=== PATIENT | female | born 1945 | race Caucasian/White ===

== ENCOUNTER 2016-04-25 21:29 | Emergency (ER) | payer MEDICARE, OTHER ==
[2016-04-25] MEDS ORDERED: MORPHINE 2 MG/ML SYRINGE IVP STA (22:18)
[2016-04-25] MEDS ORDERED: MORPHINE 2 MG/ML SYRINGE ONE (23:22)
[2016-04-26] MEDS ORDERED: CIPROFLOXACIN 400 MG/200 ML 200 ML IV STA (03:40)
[2016-04-26] MEDS ORDERED: CIPROFLOXACIN 400 MG/200 ML 200 ML IV ONE (03:44)
== END 2016-04-26 06:08 | disposition home or self-care (01) ==
DX: L03.116 Cellulitis of left lower limb (principal); S82.842D Displaced bimalleolar fracture of left lower leg, subsequent encounter for closed fracture with routine healing; E10.9 Type 1 diabetes mellitus without complications; Z79.4 Long term (current) use of insulin; I10 Essential (primary) hypertension; I48.91 Unspecified atrial fibrillation; M19.90 Unspecified osteoarthritis, unspecified site; M85.80 Other specified disorders of bone density and structure, unspecified site; M10.9 Gout, unspecified

== ENCOUNTER 2016-05-07 12:30 | Inpatient (IN) | payer MEDICARE, OTHER ==
[~2016-05-07 12:30] MED LIST: ceFAZolin 2 GM/50 ML 50 ML IV ONE
[2016-05-07] MEDS ORDERED: LACTATED RINGERS 1,000 ML IV ONE (13:00)
[2016-05-07] MEDS ORDERED: METOPROLOL 5 MG/5 ML VIAL IVP ONE (14:15)
[2016-05-07] MEDS ORDERED: DEXAMETHASONE 4 MG/ML VIAL IVP ONE (14:15)
[2016-05-07] MEDS ORDERED: fentaNYL 100 MCG/2 ML VIAL IVP ONE (14:15)
[2016-05-07] MEDS ORDERED: PROPOFOL 200 MG/20 ML VIAL IVP ONE (14:15)
[2016-05-07] MEDS ORDERED: ONDANSETRON 4 MG/2 ML VIAL IVP ONE (14:15)
[2016-05-07] MEDS ORDERED: MIDAZOLAM 2 MG/2 ML VIAL IVP ONE (14:15)
[2016-05-07] MEDS ORDERED: LIDOCAINE-MPF 2% 5 ML VIAL IM ONE (14:15)
[2016-05-07] MEDS ORDERED: DEXTROSE 50% ABBOJECT 25 GM/50 ML SYRINGE ONE (15:13)
[2016-05-07] MEDS ORDERED: SENNA 8.6 MG TABLET PO PRN (15:14)
[2016-05-07] MEDS ORDERED: BISACODYL 10 MG SUPP PR PRN (15:14)
[2016-05-07] MEDS ORDERED: ACETAMINOPHEN 1,000 MG/100 ML 100 ML IV PRN ×2 (15:14→15:36)
[2016-05-07] MEDS ORDERED: ONDANSETRON 4 MG/2 ML VIAL IVP PRN ×2 (15:14→15:36)
[2016-05-07] MEDS ORDERED: PROCHLORPERAZINE 10 MG/2 ML VIAL IVP PRN ×2 (15:14→15:36)
[2016-05-07] MEDS ORDERED: ACETAMINOPHEN 325 MG TABLET PO PRN ×2 (15:14→15:36)
[2016-05-07] MEDS ORDERED: BISACODYL 5 MG TABLET PO PRN (15:14)
[2016-05-07] MEDS ORDERED: SODIUM CHLORIDE FLUSH 0.9% 10 ML SYRINGE IVP PRN (15:36)
[2016-05-07] MEDS: HYDROmorphone 1 MG/ML SYRINGE IVP PRN ×3 (15:39→15:58)
[2016-05-07] MEDS ORDERED: ceFAZolin 1 GM in SODIUM CHLORIDE 0.9% MINIBAG 100 ML IV SCH (16:00)
[2016-05-07] MEDS: ceFAZolin 2 GM/50 ML 50 ML IV SCH (20:23)
[2016-05-07] MEDS: ATORVASTATIN 40 MG TABLET PO SCH (20:23)
[2016-05-07] MEDS: DABIGATRAN 75 MG CAPSULE PO SCH (20:24)
[2016-05-07] MEDS ORDERED: DEXTROSE GEL 37.5 GM TUBE PO PRN (20:34)
[2016-05-07] MEDS ORDERED: GLUCAGON 1 MG/ML VIAL SUBQ PRN (20:34)
[2016-05-07] MEDS ORDERED: DEXTROSE 5% 1,000 ML IV PRN (20:34)
[2016-05-07] MEDS ORDERED: DEXTROSE 50% ABBOJECT 25 GM/50 ML SYRINGE IVP PRN (20:34)
[2016-05-07] MEDS ORDERED: INSULIN GLARGINE 30 UNIT SQ SCH (21:00)
[2016-05-07] MEDS: INSULIN GLARGINE 300 UNIT/3 ML PEN SUBQ SCH (21:19)
[2016-05-07] MEDS ORDERED: SODIUM CHLORIDE FLUSH 0.9% 10 ML SYRINGE IVP SCH (22:00)
[2016-05-07] MEDS: SODIUM CHLORIDE FLUSH 0.9% 10 ML SYRINGE IVP SCH (22:27)
[2016-05-08] MEDS: ceFAZolin 2 GM/50 ML 50 ML IV SCH (04:29)
[2016-05-08] MEDS: PANTOPRAZOLE 40 MG TABLET PO SCH (06:39)
[2016-05-08] MEDS: SODIUM CHLORIDE FLUSH 0.9% 10 ML SYRINGE IVP SCH ×3 (06:39→21:08)
[2016-05-08] MEDS: POLYETHYLENE GLYCOL 3350 17 GM PACKET PO SCH (08:30)
[2016-05-08] MEDS: PIOGLITAZONE 15 MG TABLET PO SCH (08:31)
[2016-05-08] MEDS: CYANOCOBALAMIN 500 MCG TABLET PO SCH (08:31)
[2016-05-08] MEDS: metFORMIN 500 MG TABLET PO SCH ×2 (08:31→17:09)
[2016-05-08] MEDS: LISINOPRIL 5 MG TABLET PO SCH (08:32)
[2016-05-08] MEDS: CITALOPRAM 10 MG TABLET PO SCH (08:32)
[2016-05-08] MEDS: DABIGATRAN 75 MG CAPSULE PO SCH ×2 (08:33→21:07)
[2016-05-08] MEDS: FOLIC ACID 1 MG TABLET PO SCH (08:34)
[2016-05-08] MEDS: buPROPion XL 150 MG TABLET PO SCH (08:34)
[2016-05-08] MEDS: PRENATAL VITAMIN TABLET PO SCH (08:34)
[2016-05-08] MEDS: DIGOXIN 125 MCG TABLET PO SCH (08:35)
[2016-05-08] MEDS: INSULIN ASPART 300 UNIT/3 ML PEN SUBQ SCH ×4 (08:38→21:05)
[2016-05-08] MEDS ORDERED: DABIGATRAN 75 MG CAPSULE PO SCH (09:00)
[2016-05-08] MEDS ORDERED: DIGOXIN 125 MCG TABLET PO SCH (09:00)
[2016-05-08] MEDS ORDERED: NON FORMULARY MED (Lisinopril [Lisinopril] 20 MG) PO SCH (09:00)
[2016-05-08] MEDS ORDERED: ATENOLOL 25 MG TABLET PO SCH (09:00)
[2016-05-08] MEDS: VITAMIN B COMPLEX PO SCH (10:09)
[2016-05-08] MEDS ORDERED: ceFAZolin 2 GM in SODIUM CHLORIDE 0.9% MINIBAG 100 ML IV ONE (16:00)
[2016-05-08] MEDS ORDERED: ceFAZolin 1 GM in SODIUM CHLORIDE 0.9% MINIBAG 100 ML IV SCH (16:00)
[2016-05-08] MEDS ORDERED: ceFAZolin 2 GM/50 ML 50 ML IV ONE (16:30)
[2016-05-08] MEDS: SODIUM CHLORIDE FLUSH 0.9% 10 ML SYRINGE IVP PRN (16:40)
[2016-05-08] MEDS: ATORVASTATIN 40 MG TABLET PO SCH (21:06)
[2016-05-08] MEDS: INSULIN GLARGINE 300 UNIT/3 ML PEN SUBQ SCH (21:11)
[2016-05-09] MEDS: PANTOPRAZOLE 40 MG TABLET PO SCH (17:43)
[2016-05-09] MEDS: SODIUM CHLORIDE FLUSH 0.9% 10 ML SYRINGE IVP SCH ×3 (17:43→20:43)
[2016-05-09] MEDS: ceFAZolin 1 GM in SODIUM CHLORIDE 0.9% MINIBAG 100 ML IV SCH ×3 (17:43→17:46)
[2016-05-09] MEDS: CITALOPRAM 10 MG TABLET PO SCH (17:44)
[2016-05-09] MEDS: buPROPion XL 150 MG TABLET PO SCH (17:44)
[2016-05-09] MEDS: metFORMIN 500 MG TABLET PO SCH ×2 (17:44→20:40)
[2016-05-09] MEDS: DIGOXIN 125 MCG TABLET PO SCH (17:44)
[2016-05-09] MEDS: PRENATAL VITAMIN TABLET PO SCH (17:44)
[2016-05-09] MEDS: FOLIC ACID 1 MG TABLET PO SCH (17:44)
[2016-05-09] MEDS: LISINOPRIL 5 MG TABLET PO SCH (17:44)
[2016-05-09] MEDS: VITAMIN B COMPLEX PO SCH (17:44)
[2016-05-09] MEDS: DABIGATRAN 75 MG CAPSULE PO SCH ×2 (17:44→20:42)
[2016-05-09] MEDS: CYANOCOBALAMIN 500 MCG TABLET PO SCH (17:44)
[2016-05-09] MEDS: INSULIN ASPART 300 UNIT/3 ML PEN SUBQ SCH ×4 (17:44→20:42)
[2016-05-09] MEDS: POLYETHYLENE GLYCOL 3350 17 GM PACKET PO SCH (17:45)
[2016-05-09] MEDS: PIOGLITAZONE 15 MG TABLET PO SCH (17:45)
[2016-05-09] MEDS: ATORVASTATIN 40 MG TABLET PO SCH (20:41)
[2016-05-09] MEDS: INSULIN GLARGINE 300 UNIT/3 ML PEN SUBQ SCH (20:43)
[2016-05-09] MEDS: HYDROmorphone 1 MG/ML SYRINGE IVP PRN (21:18)
[2016-05-09] MEDS ORDERED: KETOROLAC 30 MG/ML VIAL IVP PRN (22:04)
[2016-05-09] MEDS: HYDROcod/ACETAM 5/325 MG TABLET PO PRN (22:19)
[2016-05-10] MEDS: ceFAZolin 1 GM in SODIUM CHLORIDE 0.9% MINIBAG 100 ML IV SCH ×3 (00:30→16:49)
[2016-05-10] MEDS: HYDROmorphone 1 MG/ML SYRINGE IVP PRN ×2 (01:12→03:29)
[2016-05-10] MEDS: SODIUM CHLORIDE FLUSH 0.9% 10 ML SYRINGE IVP PRN (03:31)
[2016-05-10] MEDS: SODIUM CHLORIDE FLUSH 0.9% 10 ML SYRINGE IVP SCH ×3 (06:39→22:03)
[2016-05-10] MEDS: PANTOPRAZOLE 40 MG TABLET PO SCH (06:40)
[2016-05-10] MEDS: POLYETHYLENE GLYCOL 3350 17 GM PACKET PO SCH (08:39)
[2016-05-10] MEDS: PRENATAL VITAMIN TABLET PO SCH (08:40)
[2016-05-10] MEDS: buPROPion XL 150 MG TABLET PO SCH (08:40)
[2016-05-10] MEDS: DABIGATRAN 75 MG CAPSULE PO SCH ×2 (08:40→21:46)
[2016-05-10] MEDS: FOLIC ACID 1 MG TABLET PO SCH (08:40)
[2016-05-10] MEDS: CYANOCOBALAMIN 500 MCG TABLET PO SCH (08:40)
[2016-05-10] MEDS: CITALOPRAM 10 MG TABLET PO SCH (08:40)
[2016-05-10] MEDS: HYDROcod/ACETAM 5/325 MG TABLET PO PRN ×2 (08:40→21:46)
[2016-05-10] MEDS: VITAMIN B COMPLEX PO SCH (08:41)
[2016-05-10] MEDS: PIOGLITAZONE 15 MG TABLET PO SCH (08:41)
[2016-05-10] MEDS: LISINOPRIL 5 MG TABLET PO SCH (08:41)
[2016-05-10] MEDS: DIGOXIN 125 MCG TABLET PO SCH (08:41)
[2016-05-10] MEDS: INSULIN ASPART 300 UNIT/3 ML PEN SUBQ SCH ×4 (08:45→22:03)
[2016-05-10] MEDS: metFORMIN 500 MG TABLET PO SCH ×2 (09:24→16:50)
[2016-05-10] MEDS: INSULIN GLARGINE 300 UNIT/3 ML PEN SUBQ SCH (21:45)
[2016-05-10] MEDS: ATORVASTATIN 40 MG TABLET PO SCH (21:46)
[2016-05-11] MEDS: HYDROmorphone 1 MG/ML SYRINGE IVP PRN (00:01)
[2016-05-11] MEDS: SODIUM CHLORIDE FLUSH 0.9% 10 ML SYRINGE IVP PRN ×4 (00:01→16:17)
[2016-05-11] MEDS: PANTOPRAZOLE 40 MG TABLET PO SCH (06:03)
[2016-05-11] MEDS: SODIUM CHLORIDE FLUSH 0.9% 10 ML SYRINGE IVP SCH ×3 (06:04→22:08)
[2016-05-11] MEDS: HYDROcod/ACETAM 5/325 MG TABLET PO PRN ×3 (06:13→18:42)
[2016-05-11] MEDS: CITALOPRAM 10 MG TABLET PO SCH (09:50)
[2016-05-11] MEDS: ceFAZolin 1 GM in SODIUM CHLORIDE 0.9% MINIBAG 100 ML IV SCH ×4 (09:50→16:15)
[2016-05-11] MEDS: INSULIN ASPART 300 UNIT/3 ML PEN SUBQ SCH ×4 (09:50→22:07)
[2016-05-11] MEDS: buPROPion XL 150 MG TABLET PO SCH (09:51)
[2016-05-11] MEDS: FOLIC ACID 1 MG TABLET PO SCH (09:51)
[2016-05-11] MEDS: PIOGLITAZONE 15 MG TABLET PO SCH (09:51)
[2016-05-11] MEDS: PRENATAL VITAMIN TABLET PO SCH (09:51)
[2016-05-11] MEDS: LISINOPRIL 5 MG TABLET PO SCH (09:51)
[2016-05-11] MEDS: DABIGATRAN 75 MG CAPSULE PO SCH ×2 (09:52→22:05)
[2016-05-11] MEDS: metFORMIN 500 MG TABLET PO SCH ×2 (09:52→18:43)
[2016-05-11] MEDS: DIGOXIN 125 MCG TABLET PO SCH (09:52)
[2016-05-11] MEDS: POLYETHYLENE GLYCOL 3350 17 GM PACKET PO SCH (09:58)
[2016-05-11] MEDS: VITAMIN B COMPLEX PO SCH (10:01)
[2016-05-11] MEDS: CYANOCOBALAMIN 500 MCG TABLET PO SCH (10:09)
[2016-05-11] MEDS: INSULIN GLARGINE 300 UNIT/3 ML PEN SUBQ SCH (22:05)
[2016-05-11] MEDS: ATORVASTATIN 40 MG TABLET PO SCH (22:05)
[2016-05-12] MEDS: HYDROcod/ACETAM 5/325 MG TABLET PO PRN ×2 (00:02→15:43)
[2016-05-12] MEDS: HYDROmorphone 1 MG/ML SYRINGE IVP PRN (02:01)
[2016-05-12] MEDS: SODIUM CHLORIDE FLUSH 0.9% 10 ML SYRINGE IVP PRN ×2 (02:02→05:13)
[2016-05-12] MEDS: PANTOPRAZOLE 40 MG TABLET PO SCH (05:16)
[2016-05-12] MEDS: SODIUM CHLORIDE FLUSH 0.9% 10 ML SYRINGE IVP SCH ×2 (05:16→14:14)
[2016-05-12] MEDS: ceFAZolin 1 GM in SODIUM CHLORIDE 0.9% MINIBAG 100 ML IV SCH ×3 (08:38)
[2016-05-12] MEDS: POLYETHYLENE GLYCOL 3350 17 GM PACKET PO SCH (08:38)
[2016-05-12] MEDS: LISINOPRIL 5 MG TABLET PO SCH (08:39)
[2016-05-12] MEDS: PIOGLITAZONE 15 MG TABLET PO SCH (08:40)
[2016-05-12] MEDS: PRENATAL VITAMIN TABLET PO SCH (08:41)
[2016-05-12] MEDS: CITALOPRAM 10 MG TABLET PO SCH (08:41)
[2016-05-12] MEDS: buPROPion XL 150 MG TABLET PO SCH (08:42)
[2016-05-12] MEDS: FOLIC ACID 1 MG TABLET PO SCH (08:42)
[2016-05-12] MEDS: DABIGATRAN 75 MG CAPSULE PO SCH (08:42)
[2016-05-12] MEDS: DIGOXIN 125 MCG TABLET PO SCH (08:42)
[2016-05-12] MEDS: CYANOCOBALAMIN 500 MCG TABLET PO SCH (08:42)
[2016-05-12] MEDS: VITAMIN B COMPLEX PO SCH (08:43)
[2016-05-12] MEDS: INSULIN ASPART 300 UNIT/3 ML PEN SUBQ SCH ×3 (08:43→17:27)
[2016-05-12] MEDS: metFORMIN 500 MG TABLET PO SCH ×2 (09:02→17:29)
== END 2016-05-12 17:30 | DRG 857 ==
PROC: 0QBK0ZZ Excision of Left Fibula, Open Approach (ICD-10-PCS; 2016-05-07)
PROC: 2W1RX6Z Compression of Left Lower Leg using Pressure Dressing (ICD-10-PCS; 2016-05-07)
PROC: 02HV33Z Insertion of Infusion Device into Superior Vena Cava, Percutaneous Approach (ICD-10-PCS; principal; 2016-05-10)
DX: T81.4XXA Infection following a procedure, initial encounter (principal); T82.594A Other mechanical complication of infusion catheter, initial encounter; T81.31XA Disruption of external operation (surgical) wound, not elsewhere classified, initial encounter; B95.61 Methicillin susceptible Staphylococcus aureus infection as the cause of diseases classified elsewhere; Y83.8 Other surgical procedures as the cause of abnormal reaction of the patient, or of later complication, without mention of misadventure at the time of the procedure; I48.2 Chronic atrial fibrillation; E11.319 Type 2 diabetes mellitus with unspecified diabetic retinopathy without macular edema; E11.42 Type 2 diabetes mellitus with diabetic polyneuropathy; I10 Essential (primary) hypertension; Y84.8 Other medical procedures as the cause of abnormal reaction of the patient, or of later complication, without mention of misadventure at the time of the procedure; Y92.239 Unspecified place in hospital as the place of occurrence of the external cause; E78.5 Hyperlipidemia, unspecified; M25.512 Pain in left shoulder; S82.842D Displaced bimalleolar fracture of left lower leg, subsequent encounter for closed fracture with routine healing; F32.9 Major depressive disorder, single episode, unspecified; I69.398 Other sequelae of cerebral infarction; H49.02 Third [oculomotor] nerve palsy, left eye; I69.393 Ataxia following cerebral infarction; E11.9 Type 2 diabetes mellitus without complications; E66.01 Morbid (severe) obesity due to excess calories; Z68.37 Body mass index [BMI] 37.0-37.9, adult; Z91.19 Patient's noncompliance with other medical treatment and regimen; Z87.891 Personal history of nicotine dependence; Z87.898 Personal history of other specified conditions; Z79.01 Long term (current) use of anticoagulants; Z79.4 Long term (current) use of insulin

== ENCOUNTER 2016-05-14 10:18 | Emergency (ER) | payer MEDICARE, OTHER ==
[2016-05-14] MEDS ORDERED: ALTEPLASE 2 MG VIAL IC ONE (11:19)
== END 2016-05-14 12:46 | disposition home or self-care (01) ==
DX: T82.898A Other specified complication of vascular prosthetic devices, implants and grafts, initial encounter (principal); Y84.8 Other medical procedures as the cause of abnormal reaction of the patient, or of later complication, without mention of misadventure at the time of the procedure; L08.9 Local infection of the skin and subcutaneous tissue, unspecified; I10 Essential (primary) hypertension; E11.9 Type 2 diabetes mellitus without complications; E78.00 Pure hypercholesterolemia, unspecified; I48.91 Unspecified atrial fibrillation; Z87.891 Personal history of nicotine dependence; Z79.4 Long term (current) use of insulin
CPT/HCPCS: 96365; 99283; J2997

== ENCOUNTER 2016-07-13 15:59 | Outpatient (CLI) | payer MEDICARE, OTHER | END 2016-07-13 16:00 | disposition critical access hospital (66) | DX: S99.912A Unspecified injury of left ankle, initial encounter (principal); W18.39XA Other fall on same level, initial encounter; Y92.89 Other specified places as the place of occurrence of the external cause | CPT/HCPCS: A0425; A0429 ==

== ENCOUNTER 2016-07-13 16:16 | Emergency (ER) | payer MEDICARE, OTHER ==
--- NOTE | 2016-07-13 16:46 | ED Physician Documentation ---
PD HPI LOWER EXT INJURY - Stated complaint Stated Complaint: R ANKLE PX/ GLF - Chief complaint Chief Complaint: Ext Problem - History obtained from History obtained from: Patient - History of Present Illness PD HPI LOW EXT INJURY LOCATION: Right, Ankle Type of injury: Twist (inversion) Timing - details: Abrupt onset, Still present Associated symptoms: Swelling (mild). No: Weakness, Numbness Similar symptoms before: Has not had sx before Review of Systems Musculoskeletal: reports: Other (left ankle with boot on due to recent injury) Neurologic: denies: Focal weakness, Numbness PD PAST MEDICAL HISTORY - Past Medical History Cardiovascular: Hypertension, High cholesterol, Atrial fibrillation Respiratory: None Neuro: CVA Endocrine/Autoimmune: Type 2 diabetes GI: Ulcers, Diverticulitis : None HEENT: None Psych: Depression Musculoskeletal: Osteopenia, Gout Derm: None - Past Surgical History Past Surgical History: Yes General: Appendectomy, Gastric surgery HEENT: Tonsil/Adenoidectomy - Present Medications Home Medications: Ambulatory Orders Medication Instructions Recorded Confirmed Insulin Glargine [Lantus] 40 units SQ QPM 09/19/13 06/22/16 Lisinopril 10 mg PO DAILY 09/19/13 06/22/16 Dabigatran [Pradaxa] 150 mg PO BID 06/25/14 06/22/16 Folic Acid 1 tab PO DAILY 04/19/15 06/22/16 Vitamin B Complex [B Complex] 1 tab PO DAILY 04/19/15 06/22/16 Metformin HCl [Metformin HCl ER] 500 mg PO BIDWM 09/16/15 06/22/16 Digoxin 125 mcg PO DAILY 04/16/16 06/22/16 Atorvastatin Calcium 80 mg PO QPM 05/07/16 06/22/16 Bupropion HCl [Bupropion Xl] 150 mg PO DAILY 05/07/16 06/22/16 Citalopram [CeleXA] 20 mg PO DAILY 05/07/16 06/22/16 Cyanocobalamin (Vitamin B-12) 1,000 mcg PO DAILY 05/07/16 06/22/16 [Vitamin B-12] Omeprazole 40 mg PO DAILY 05/07/16 06/22/16 Pioglitazone HCl 30 mg PO DAILY 05/07/16 06/22/16 Pnv95/Ferrous Fumarate/FA 1 tab PO DAILY 05/07/16 06/22/16 [ Tablet] Polyethylene Glycol 3350 [Miralax] 17 gm PO DAILY 05/07/16 06/22/16 Sitagliptin Phosphate [Januvia] 50 mg PO DAILY 05/07/16 06/22/16 Hydrocodone/Acetaminophen [[place] 1 each PO Q6H PRN #15 tablet 07/13/16 5-325 Tablet] - Allergies Allergies/Adverse Reactions: Allergies Allergy/AdvReac Type Severity Reaction Status Date / Time No Known Drug Allergies Allergy Verified 12/03/15 20:14 - Social History Does the pt smoke?: No Smoking Status: Former smoker Does the pt drink ETOH?: Yes Does the pt have substance abuse?: No - Immunizations Immunizations are current?: Yes - POLST Patient has POLST: Yes PD ED PE NORMAL - Vitals Vital signs reviewed: Yes - General General: Alert and oriented X 3, Well developed/nourished - Extremities Extremities: Other (right ankle with tenderness anteriorly. No effusion. Malleoli themselves are not tender. ) Results - Vitals Vitals: Vital Signs - 24 hr 07/13/16 07/13/16 16:21 18:43 Temperature 36.3 C L 36.1 C L Heart Rate 87 87 Respiratory 18 22 Rate Blood Pressure 132/72 H 144/85 H O2 Saturation 97 96 Oxygen O2 Source [With Activity] Room air O2 Source Room air - Rads (name of study) ankle Radiology: Prelim report reviewed, EMP read contemporaneously (no obvious fractures) PD MEDICAL DECISION MAKING - ED course Complexity details: reviewed results, considered differential, d/w patient Departure - Departure Disposition: 01 Home, Self Care Clinical Impression: Sprain of ankle Condition: Stable Record reviewed to determine appropriate education?: Yes Instructions: ED Sprain Ankle Follow-Up: More Franoc MD [Primary Care Provider] - Prescriptions: Hydrocodone/Acetaminophen [[place] 5-325 Tablet] 1 each PO Q6H PRN #15 tablet PRN Reason: Pain Comments: Ankle brace when ambulating and to support ankle. Tylenol or hydrocodone as needed for pains. Recheck with PMD if not better over the next week or so. Discharge Date/Time: 07/13/16 19:07
[2016-07-13] MEDS ORDERED: HYDROmorphone 1 MG/ML SYRINGE ONE (17:34)
[2016-07-13] MEDS ORDERED: KETOROLAC 60 MG/2 ML VIAL ONE (17:34)
[2016-07-13] MEDS: HYDROmorphone 1 MG/ML SYRINGE IM STA (17:39)
[2016-07-13] MEDS: KETOROLAC 60 MG/2 ML VIAL IM STA (17:39)
--- NOTE | 2016-07-13 18:39 | XRAY Preliminary Report ---
Exam: XR Ankle 3 View RT IMPRESSION: 1. No hyper acute bony abnormality. 2. Delayed healing lateral malleolar fracture, inadequate immobilization suspected. Does this lady franklin ve any lateral ankle symptoms? 3. Increasing Achilles calcific tendinitis. [facility] SITE ID: [id number]
[2016-07-13 18:44] VITALS: BP 144/85
--- NOTE | 2016-07-13 18:53 | XRAY Report ---
EXAM: RIGHT ANKLE RADIOGRAPHY EXAM DATE: 07/13/2016 06:16 PM. CLINICAL HISTORY: Medial ankle pain after fall. COMPARISON: 01/16/2016. TECHNIQUE: 3 views. FINDINGS: Bones: Partial interval healing of the oblique fracture extending through the distal fibular metaphys is, through the central area of distortion due to an even more remote fracture. Trabecular and cortical patterns are intact. Joints: Normal. No effusion. No subluxations. The ankle mortise is normally aligned. Soft Tissues: Increasing dystrophic calcifications at the calcaneal insertion of the normal caliber A chilles tendon since the earliest exam available of 12/01/2015. IMPRESSION: 1. No hyperacute bony abnormality. 2. Delayed healing lateral malleolar fracture, inadequate immobilization suspected. Does this lady franklin ve any lateral ankle symptoms? 3. Increasing Achilles calcific tendinitis. [facility] Referring Provider Line: [phone] SITE ID: [id number]
== END 2016-07-13 19:07 | disposition home or self-care (01) ==
LOC: EDUNIT# → ED 16:16
DX: S93.401A Sprain of unspecified ligament of right ankle, initial encounter (principal); X50.0XXA Overexertion from strenuous movement or load, initial encounter; I10 Essential (primary) hypertension; E78.00 Pure hypercholesterolemia, unspecified; I48.91 Unspecified atrial fibrillation; Z79.01 Long term (current) use of anticoagulants; Z86.73 Personal history of transient ischemic attack (TIA), and cerebral infarction without residual deficits; E11.9 Type 2 diabetes mellitus without complications; Z79.4 Long term (current) use of insulin; Z87.11 Personal history of peptic ulcer disease; Z98.84 Bariatric surgery status; Z87.891 Personal history of nicotine dependence
CPT/HCPCS: 96372; 99283

== ENCOUNTER 2016-08-06 10:56 | Outpatient (CLI) | payer MEDICARE, OTHER | END 2016-08-06 10:57 | disposition home or self-care (01) | DX: E11.9 Type 2 diabetes mellitus without complications (principal); B95.61 Methicillin susceptible Staphylococcus aureus infection as the cause of diseases classified elsewhere; T81.4XXD Infection following a procedure, subsequent encounter; Z48.89 Encounter for other specified surgical aftercare; W01.0XXD Fall on same level from slipping, tripping and stumbling without subsequent striking against object, subsequent encounter; S82.842D Displaced bimalleolar fracture of left lower leg, subsequent encounter for closed fracture with routine healing ==

== ENCOUNTER 2016-08-28 08:34 | Outpatient (CLI) | payer MEDICARE, OTHER | END 2016-08-28 08:35 | disposition critical access hospital (66) | DX: M25.552 Pain in left hip (principal); W18.30XA Fall on same level, unspecified, initial encounter; Y92.481 Parking lot as the place of occurrence of the external cause | CPT/HCPCS: A0425; A0427 ==

== ENCOUNTER 2016-08-28 08:57 | Inpatient (IN) | payer MEDICARE, OTHER ==
--- NOTE | 2016-08-28 09:18 | ED Physician Documentation ---
PD HPI LOWER EXT INJURY - Stated complaint Stated Complaint: GLF, LEFT HIP PAIN - Chief complaint Chief Complaint: Ext Problem - History obtained from History obtained from: Patient - History of Present Illness PD HPI LOW EXT INJURY LOCATION: Left, Hip Type of injury: Fall Where injury occurred: Other (parking lot coming from physical therapy for her right foot. Has had some balance problems due to that.) Timing - onset: Today Timing - details: Abrupt onset, Still present Worsened by: Moving (unable to move hip nor attempt standing after the fall. EMS brought her here.), Palpating Associated symptoms: No: Weakness, Numbness Contributing factors: Anticoagulated (Pradaxa for atrial fib.) Similar symptoms before: Has not had sx before Review of Systems Constitutional: denies: Fever, Chills Nose: denies: Rhinorrhea / runny nose, Congestion Throat: denies: Sore throat Cardiac: denies: Chest pain / pressure, Palpitations Respiratory: denies: Dyspnea, Cough, Wheezing GI: denies: Abdominal Pain, Nausea, Vomiting, Diarrhea, Bloody / black stool : denies: Dysuria, Frequency Neurologic: reports: Generalized weakness, Other (has had some short-term memory problems recently.). denies: Focal weakness, Numbness, Headache, Head injury PD PAST MEDICAL HISTORY - Past Medical History Cardiovascular: Hypertension, High cholesterol, Atrial fibrillation Respiratory: None Neuro: CVA Endocrine/Autoimmune: Type 2 diabetes GI: Ulcers, Diverticulitis : None HEENT: None Psych: Depression Musculoskeletal: Osteopenia, Gout Derm: None - Past Surgical History Past Surgical History: Yes General: Appendectomy, Gastric surgery HEENT: Tonsil/Adenoidectomy - Present Medications Home Medications: Ambulatory Orders Medication Instructions Recorded Confirmed Insulin Glargine [Lantus] 40 units SQ QPM 09/19/13 08/28/16 Lisinopril 10 mg PO DAILY 09/19/13 08/28/16 Dabigatran [Pradaxa] 150 mg PO BID 06/25/14 08/28/16 Folic Acid 1 mg PO DAILY 04/19/15 08/28/16 Vitamin B Complex [B Complex] 1 tab PO DAILY 04/19/15 08/28/16 Metformin HCl [Metformin HCl ER] 500 mg PO BIDWM 09/16/15 08/28/16 Digoxin 125 mcg PO DAILY 04/16/16 08/28/16 Atorvastatin Calcium 80 mg PO QPM 05/07/16 08/28/16 Bupropion HCl [Bupropion Xl] 150 mg PO DAILY 05/07/16 08/28/16 Citalopram [CeleXA] 20 mg PO DAILY 05/07/16 08/28/16 Cyanocobalamin (Vitamin B-12) 1,000 mcg PO DAILY 05/07/16 08/28/16 [Vitamin B-12] Omeprazole 40 mg PO DAILY 05/07/16 08/28/16 Pioglitazone HCl 30 mg PO DAILY 05/07/16 08/28/16 Pnv95/Ferrous Fumarate/FA 1 tab PO DAILY 05/07/16 08/28/16 [ Tablet] Polyethylene Glycol 3350 [Miralax] 17 gm PO DAILY 05/07/16 08/28/16 Sitagliptin Phosphate [Januvia] 50 mg PO DAILY 05/07/16 08/28/16 - Allergies Allergies/Adverse Reactions: Allergies Allergy/AdvReac Type Severity Reaction Status Date / Time No Known Drug Allergies Allergy Verified 12/03/15 20:14 - Social History Does the pt smoke?: No Smoking Status: Former smoker Does the pt drink ETOH?: Yes Does the pt have substance abuse?: No - Immunizations Immunizations are current?: Yes - POLST Patient has POLST: Yes PD ED PE NORMAL - Vitals Vital signs reviewed: Yes - General General: Alert and oriented X 3, Well developed/nourished - HEENT HEENT: Atraumatic, PERRL, Ears normal, Pharynx benign - Neck Neck: Supple, no meningeal sign, No bony TTP, No adenopathy - Cardiac Cardiac: RRR, No murmur - Respiratory Respiratory: Clear bilaterally - Abdomen Abdomen: Soft, Non tender, Other (truncal obesity noted) - Female Female : Deferred - Rectal Rectal: Deferred - Back Back: No CVA TTP, No spinal TTP - Derm Derm: Normal color, Warm and dry - Extremities Extremities: Other (left hip tender to palpation and hurts with impaction and distraction. ) - Neuro Neuro: Alert and oriented X 3, No motor deficit, No sensory deficit, Normal speech - Psych Psych: Normal mood, Normal affect Results - Vitals Vitals: Vital Signs - 24 hr 08/28/16 09:02 Temperature 36.6 C Heart Rate 96 Respiratory 18 Rate Blood Pressure 102/79 O2 Saturation 96 Oxygen O2 Source [With Activity] Room air O2 Source Room air - Rads (name of study) left hip Radiology: Prelim report reviewed (femoral neck fracture) PD MEDICAL DECISION MAKING - ED course Complexity details: reviewed results (femoral neck fracture. ), re-evaluated patient, considered differential (no impact to head/neck, and no headache. Pain at left hip and has significant pain on ROM, prewsume fracture. ), d/w patient, d/w business process consultant (Dr. Candelario and the Dr. Luz) Departure - Departure Disposition: 66 [facility] DC/Xfer Clinical Impression: Atrial fibrillation with controlled ventricular response, Anticoagulant long- term use Fall from slip, trip, or stumble Qualifiers: Encounter type: initial encounter Qualified Code(s): W01.0XXA - Fall on same level from slipping, tripping and stumbling without subsequent striking against object, initial encounter Femoral neck fracture Qualifiers: Encounter type: initial encounter Fracture type: closed Laterality: left Qualified Code(s): S72.002A - Fracture of unspecified part of neck of left femur , initial encounter for closed fracture Condition: Stable Record reviewed to determine appropriate education?: Yes Discharge Date/Time: 08/28/16 11:40
[2016-08-28] MEDS ORDERED: HYDROmorphone 1 MG/ML SYRINGE IVP STA (09:24)
[2016-08-28] MEDS ORDERED: HYDROmorphone 1 MG/ML SYRINGE ONE (09:29)
--- NOTE | 2016-08-28 10:22 | XRAY Report ---
EXAM: LEFT HIP AND PELVIS RADIOGRAPHY EXAM DATE: 08/28/2016 09:28 AM. HISTORY: Fall onto left hip this morning. COMPARISONS: None. TECHNIQUE: 1 view of the pelvis and 1 view of the hip. FINDINGS: Bones: There is an acute fracture through the base of the femoral neck. Moderate varus angulation is seen. Joints: The bilateral hip, pubis symphysis, and sacroiliac joints are preserved. Soft Tissues: Normal. No soft tissue swelling. IMPRESSION: Acute transcervical left femoral neck fracture. [facility] Referring Provider Line: [phone] SITE ID: [id number]
[2016-08-28] MEDS ORDERED: ZOLPIDEM 5 MG TABLET PO PRN (11:15)
[2016-08-28] MEDS ORDERED: PROCHLORPERAZINE 10 MG/2 ML VIAL IVP PRN (11:15)
[2016-08-28] MEDS ORDERED: ACETAMINOPHEN 325 MG TABLET PO PRN (11:15)
[2016-08-28] MEDS ORDERED: SODIUM CHLORIDE FLUSH 0.9% 10 ML SYRINGE IVP PRN (11:15)
[2016-08-28] MEDS ORDERED: ONDANSETRON 4 MG/2 ML VIAL IVP PRN (11:15)
--- NOTE | 2016-08-28 11:35 | XRAY Report ---
EXAM: CHEST RADIOGRAPHY EXAM DATE: 08/28/2016 11:19 AM. CLINICAL HISTORY: Hip fracture. COMPARISON: None. TECHNIQUE: 1 view. FINDINGS: Lungs/Pleura: No focal opacities evident. No pleural effusion. No pneumothorax. Mediastinum: Within exam limitations, cardiomediastinal contour is normal. Other: None. IMPRESSION: Normal single view chest. [facility] Referring Provider Line: [phone] SITE ID: [id number]
--- NOTE | 2016-08-28 11:57 | HISTORY & PHYSICAL EXAMINATION ---
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 The patient states that she was headed to physical therapy this morning and had parked near the curb. She states that she came out of her car and tripped over the curb and fell onto the left side. She states that she could not get up from the ground and she had severe pain in the left hip. Somewhat spotted the patient and called 911 and the patient was brought into the emergency department. The patient denies any recent chest pain , shortness of air, abdominal pain, nausea vomiting or urinary symptoms. The patient cannot remember if she took her per pradaxa this morning. The patient did not hit her head or lose consciousness. On presentation to the emergency department the patient was afebrile she did have a heart rate of 96 otherwise her vital signs were stable. The patient had not undergone any lab work at the time of admission. She did have a x-ray of her left hip this revealed an acute transcervical left femoral neck fracture. The orthopedic surgeon webmethods consultant Dr. Candelario was informed and he asked that the hospitalist team admit the patient given her multiple comorbidities and he would consult. The patient was admitted for a left femoral neck fracture and will be kept n.p.o. tonight and likely taken to the OR tomorrow morning. Review of Systems - Constitutional Constitutional: denies: Fatigue, Fever, Chills, Malaise, Weakness, Poor appetite , Diaphoresis, Night sweats, Weight gain, Weight loss, Other - Eyes Eyes: denies: Pain, Irritation, Amaurosis, Blurred vision, Spots in vision, Field loss, Vision loss, Dipolpia, Corrective lenses, Other - Ears, Nose & Throat Ears, Nose & Throat: denies: Ear pain, Hearing loss, Hearing aids, Tinnitus, Vertigo, Nasal pain, Nasal discharge, Nosebleeds, Nasal obstruction, Nasal congestion, Postnasal drainage, Dentures, Sore throat, Hoarseness, Mouth lesions , Bleeding gums, Dental decay, Dental pain, Other - Cardiovascular Cariovascular: denies: Irregular heart rate, Palpitations, Chest pain, Edema, Lightheadedness, Syncope, Exertional dyspnea, Decr. exercise tolerance, Orthopnea, Other - Respiratory Respiratory: denies: Cough, Sputum production, Wheezing, Snoring, Hemoptysis, Orthopnea, SOB at rest, SOB with exertion, Apnea, Stridor, Pleuritic pain, Other - Gastrointestinal Gastrointestinal: denies: Abdominal pain, Abdominal distention, Constipation, Diarrhea, Change in bowel habits, Rectal bleeding, Black stools, Bloody stools, Nausea, Vomiting, Bile emesis, Noah blood emesis, Coffee grounds emesis, Reflux /heartburn, Bloating, Poor appetite, Other - Genitourinary Genitourinary: denies: Dysuria, Frequency, Urgency, Hematuria, Incontinence, Flank pain, Nocturia, Urethral discharge, Sexual dysfunction, Other - Musculoskeletal Musculoskeletal: reports: Limited range of motion (Left lower extremity), Joint pain (Left hip), Joint swelling (Left hip). denies: Muscle pain, Back pain, Muscle aches, Stiffness, Gout - Integumentary Integumentary: denies: Rash, Pruritis, Lesions, Dryness, Lumps, Acne, Pigment changes, Nail changes, Hair changes, Other - Neurological Neurological: denies: General weakness, Focal weakness, Headache, Dizziness, Numbness, Memory problems, Pre-existing deficit, Abnormal gait, Seizures, Incoordination, Slurred speech, Other - Psychiatric Psychiatric: denies: Depression, Anxiety, Suicidal, Delusions, Hallucinations, Homicidal, Other - Endocrine Endocrine: denies: Polyuria, Polydypsia, Polyphagia, Intolerance to cold, Intolerance to heat, Other - Hematologic/Lymphatic Hematologic/Lymphatic: denies: Anemia, Bruising, Petechiae, Blood clots, Lymphadenopathy, Bleeding tendencies, Recurrent infections, Other History - Past Medical History Cardiovascular: reports: Hypertension, High cholesterol, Atrial fibrillation ( on Pradaxa), Other (Morbid Obesity) Respiratory: reports: None Neuro: reports: CVA (left third nerve palsy and ataxia) Endocrine/Autoimmune: reports: Type 2 diabetes GI: reports: Ulcers, Diverticulitis : reports: None HEENT: reports: None Psych: reports: Depression Musculoskeletal: reports: Osteopenia, Gout Derm: reports: None MRSA Hx?: No - Past Surgical History General: reports: Appendectomy, Gastric surgery (Gastric Bypass) HEENT: reports: Tonsil/Adenoidectomy - Family & Social History Family History: Mother: CVA/TIA, Father: Alcoholism, Sister: Diabetes, Type 2, Brother: Diabetes, Type 2 Living arrangement: At home Living Situation: With spouse/s.o. Social History Notes: Patient is and lives with her . She states she is quite sedentary. She has been to her for 7 years this is her second marriage. She has one son who lives in [place]. She is fully independent. 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 She was born and raised in [place] and moved to [facility] 12 years ago. - Substance History Use: Uses substance without health or social issues: Alcohol (Whiskey a few times a week) Abuse: Recurrent use of substance despite neg consequences: NONE Dependence: Experiences withdrawal or developed tolerances: NONE Tobacco Details: Other (She quit smoking 20 years ago before that she smoked a PPD for 10 years.) - POLST Patient has POLST: Yes POLST Status: DNR Meds/Allgy - Home Medications Home Medications: Ambulatory Orders Medication Instructions Recorded Confirmed Insulin Glargine [Lantus] 40 units SQ QPM 09/19/13 06/22/16 Lisinopril 10 mg PO DAILY 09/19/13 06/22/16 Dabigatran [Pradaxa] 150 mg PO BID 06/25/14 06/22/16 Folic Acid 1 tab PO DAILY 04/19/15 06/22/16 Vitamin B Complex [B Complex] 1 tab PO DAILY 04/19/15 06/22/16 Metformin HCl [Metformin HCl ER] 500 mg PO BIDWM 09/16/15 06/22/16 Digoxin 125 mcg PO DAILY 04/16/16 06/22/16 Atorvastatin Calcium 80 mg PO QPM 05/07/16 06/22/16 Bupropion HCl [Bupropion Xl] 150 mg PO DAILY 05/07/16 06/22/16 Citalopram [CeleXA] 20 mg PO DAILY 05/07/16 06/22/16 Cyanocobalamin (Vitamin B-12) 1,000 mcg PO DAILY 05/07/16 06/22/16 [Vitamin B-12] Omeprazole 40 mg PO DAILY 05/07/16 06/22/16 Pioglitazone HCl 30 mg PO DAILY 05/07/16 06/22/16 Pnv95/Ferrous Fumarate/FA 1 tab PO DAILY 05/07/16 06/22/16 [ Tablet] Polyethylene Glycol 3350 [Miralax] 17 gm PO DAILY 05/07/16 06/22/16 Sitagliptin Phosphate [Januvia] 50 mg PO DAILY 05/07/16 06/22/16 Hydrocodone/Acetaminophen [[place] 1 each PO Q6H PRN #15 tablet 07/13/16 5-325 Tablet] - Allergies Allergies/Adverse Reactions: Allergies Allergy/AdvReac Type Severity Reaction Status Date / Time No Known Drug Allergies Allergy Verified 12/03/15 20:14 Exam - Vital Signs Vital Signs: Vital Signs x48h Temp Pulse Resp BP Pulse Ox 08/28/16 09:02 36.6 C 96 18 102/79 96 - Physical Exam General Appearance: positive: Mild distress (She has pain in left hip anytime she moves.) Eyes Bilateral: positive: Normal inspection, PERRL, EOMI, No lid inflammation, Conjunctivae nml, No scleral icterus ENT: positive: ENT inspection nml, Pharynx nml, No signs of dehydration. negative: Purulent nasal drainage, Pharyngeal erythema, Oral lesions Neck: positive: Nml inspection, Thyroid nml, No JVD, Trachea midline. negative : Thyromegaly, Lymphadenopathy (R), Lymphadenopathy (L) Respiratory: positive: Chest non-tender, No respiratory distress, Breath sounds nml. negative: Wheezes, Rales, Rhonchi Cardiovascular: positive: No murmur, No gallop, Irregularly irregular Peripheral Pulses: positive: 2+ Abdomen: positive: Non-tender, No organomegaly, Nml bowel sounds, No distention. negative: Guarding, Rebound, Hepatomegaly Back: positive: Nml inspection. negative: CVA tenderness (R), CVA tenderness (L ) Skin: positive: Color nml, No rash, Warm Extremities: positive: No pedal edema, Other (Left leg is externally rotated and shortened, she had decreased ROM around the left hip secondary to pain. Her left foot is dressed.) Neurologic/Psychiatric: positive: Oriented x3, CN's nml (2-12), Motor nml, Sensation nml, Mood/affect nml Conclusion/Plan - Problem List (1) Fracture of femoral neck, left Conclusion/Plan: Patient presented with a mechanical fall causing a left femoral neck fracture Patient's left lower extremity shortened and externally rotated The patient has a history of atrial fibrillation on pradaxa Patient denies any chest pain, shortness of breath or any recent stroke or strokelike symptoms. According to the revised cardiac risk index patient's preoperative risk of major cardiac event is 6.6% due to her history of CVA and insulin-dependent diabetes. Plan: Orthopedic consult for repair of left femoral neck fracture Pain control with IV morphine IV fluids preoperatively N.p.o. after midnight on Wednesday as Ortho will wait till Wednesday to do procedure as they do not have assistance available over the weekend for a hemiarthroplasty Hold pradaxa for procedure its half life is 12-16 hours and patient should be ok for surgery on Wednesday morning Medically optimized for surgery Qualifiers: Encounter type: initial encounter Fracture type: closed Qualified Code(s) : S72.002A - Fracture of unspecified part of neck of left femur, initial encounter for closed fracture (2) Atrial fibrillation Conclusion/Plan: The patient has chronic atrial fibrillation and is on pradaxa Rate is controlled Chads to score is 4 Plan: Continue digoxin for rate control Hold pradaxa for surgery no need for heparin bridge given that surgery will be tomorrow Restart pradaxa postop Preoperative EKG Echo done April 2016 normal EF Qualifiers: Atrial fibrillation type: chronic Qualified Code(s): I48.2 - Chronic atrial fibrillation (3) Diabetes Conclusion/Plan: Continue home lantus Will hold oral diabetic meds Place on SS insulin Place on Diabetic diet Closely monitor blood sugars Check A1C Qualifiers: Diabetes mellitus type: type 2 (4) Hypertension Conclusion/Plan: On Lisinopril Will continue BP controlled Monitor Qualifiers: Hypertension type: essential hypertension Qualified Code(s): I10 - Essential (primary) hypertension (5) Hyperlipidemia Conclusion/Plan: Continue lipitor while hospitalized (6) Depression Conclusion/Plan: Continue Bupropion and Celexa Stable - Lab Results Lab results reviewed: Yes - Diagnostic Imaging Results Diagnostic Imaging Results: positive: Final report reviewed - EKG Results EKG Interpreted Independently: Yes Issues/Core Measures - Anticipated LOS Anticipated Stay Length: 2 or more midnights - DVT/VTE - Prophylaxis VTE/DVT Prophylaxis med ordered at admit?: Yes
[2016-08-28] MEDS: MORPHINE 2 MG/ML SYRINGE IVP PRN ×3 (12:07→15:45)
[2016-08-28] MEDS: INSULIN ASPART 300 UNIT/3 ML PEN SUBQ SCH ×3 (12:09→20:41)
[2016-08-28] MEDS: SODIUM CHLORIDE FLUSH 0.9% 10 ML SYRINGE IVP SCH ×2 (12:09→23:03)
[2016-08-28] MEDS: SODIUM CHLORIDE 0.9% 1,000 ML IV SCH ×2 (12:17→23:02)
[2016-08-28] MEDS: HYDROcod/ACETAM 5/325 MG TABLET PO PRN (12:20)
--- NOTE | 2016-08-28 12:55 | PROVIDER PROGRESS NOTE ---
Subjective - Prog Note Date Prog Note Date: 08/28/16 Prog Note Time: 12:53 - Subjective Pt reports feeling: No change (Paiful left hip since fall this AM while going to scheduled PT for gait training) Objective - Vital Signs/Intake & Output Vital Signs: Vital Signs x48h Temp Pulse Resp BP Pulse Ox 08/28/16 12:12 37.1 C 99 20 162/83 H 95 - Diagnostic Imaging Diagnostic Imaging Comments: Displaced left femoral neck hip fracture - Other Results/Comments Other Results/Comments: Exam: Left hip: 2+M anterior groin tenderness. Painful left hip motion. Left leg is shortened and externally rotated. Moves toes well. Sensation intact. Good cap filling Assessment/Plan - Problem List (1) Fracture of femoral neck, left Impression: PLAN: Discussed with patient treatment options for her left hip fracture. Due to her anti-coagulation for her A. Fib, recommend cementless left hip bipolar endoprosthesis on Mon AM at 0900. Potential complications discussed, questions answered, and consent signed. Scheduled surgery with OR. Qualifiers: Encounter type: initial encounter Fracture type: closed Qualified Code(s) : S72.002A - Fracture of unspecified part of neck of left femur, initial encounter for closed fracture
[2016-08-28 13:52] LABS: BASOPHILS % (AUTO) 0.5 %; EOSINOPHILS % (AUTO) 0.5 %; HCT - HEMATOCRIT 37.6 % (37.0-47.0); HGB - HEMOGLOBIN 12.7 g/dL (12.0-16.0); LYMPHOCYTES # (AUTO) 1.4 10^3/uL (1.5-3.5); LYMPHOCYTES % (AUTO) 14.8 %; MEAN CORPUSCULAR HEMOGLOBIN 32.3 pg (27.0-31.0); MEAN CORPUSCULAR HGB CONC 33.8 g/dL (32.0-36.0); MEAN CORPUSCULAR VOLUME 95.6 fL (81.0-99.0); MEAN PLATELET VOLUME 8.8 fL (7.9-10.8); MONOCYTES # (AUTO) 0.6 10^3/uL (0.0-1.0); MONOCYTES % (AUTO) 6.1 %; NEUTROPHILS # (AUTO) 7.5 10^3/uL (1.5-6.6); NEUTROPHILS % (AUTO) 78.1 %; RED BLOOD COUNT 3.94 10^6/uL (4.20-5.40); RED CELL DISTRIBUTION WIDTH 16.4 % (12.0-15.0); UNCORRECTED WHITE BLOOD COUNT 9.6 x10^3/uL; WHITE BLOOD COUNT 9.6 x10^3/uL (4.8-10.8)
[2016-08-28 13:59] LABS: INR 1.1 (0.8-1.2)
[2016-08-28 14:06] LABS: PARTIAL THROMBOPLASTIN TIME 41.8 secs (24.9-33.3)
[2016-08-28 14:08] LABS: HEMOGLOBIN A1C 0.65 g/dL
[2016-08-28 14:09] LABS: ALBUMIN/GLOBULIN RATIO 1.4 (1.0-2.2); BILIRUBIN,TOTAL 0.8 mg/dL (0.2-1.0); BUN - BLOOD UREA NITROGEN 15 mg/dL (6-20); CALCIUM 9.3 mg/dL (8.5-10.3); CARBON DIOXIDE - CO2 23 mmol/L (21-32); CHLORIDE 104 mmol/L (101-111); CREATININE 0.9 mg/dL (0.4-1.0); GFR - MDRD 62 (>89); GLUCOSE 149 mg/dL (70-100); MAGNESIUM 1.3 mg/dL (1.7-2.8); PHOSPHORUS 3.4 mg/dL (2.5-4.6); POTASSIUM 4.7 mmol/L (3.5-5.0); SODIUM 136 mmol/L (135-145); TOTAL PROTEIN 7.1 g/dL (6.7-8.2)
--- NOTE | 2016-08-28 14:41 | CONSULTATION NOTE ---
DATE OF CONSULTATION: 08/28/2016 00:00:00 REQUESTING PROVIDER: Dr. Luz of the medical service. CHIEF COMPLAINT: "My left hip hurts." HISTORY OF PRESENT ILLNESS: The patient is a 71-year-old female with multiple stable medical problems including atrial fibrillation for which she is taking Pradaxa and digoxin, who presents now to the emergency room with a painful left hip. Last March, she apparently sustained a left ankle injury that required surgical fixation by Dr. Mendoza. This subsequently became infected and the hardware removed surgically. Her infection was controlled with a brief course of antibiotics postop. She was just started recently on physical therapy to assist in her gait training on her left side. On the morning of her admission, she apparently was going to [facility] to begin rehabilitation for a left foot when she stumbled getting out of her car, tripping over the curb with her walker. She fell, landing on her left side. She noted immediate pain and deformity of the leg. Was unable to stand or weightbear on the left lower extremity. She was taken to the emergency room here at [facility], where x-rays showed a displaced left femoral neck fracture. No other injuries were noted. There was no loss of consciousness , nausea, vomiting, or other neurological problem. The patient was subsequently admitted to the hospital for medical evaluation and stabilization prior to hip surgery. PAST MEDICAL HISTORY 1. The patient has chronic atrial fibrillation for which she is treated with digoxin and Pradaxa. 2. 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 3. Type 2 diabetes, on insulin. 4. Hypertension. 5. Hyperlipidemia. 6. Depression. 7. Morbid obesity. ALLERGIES: NONE KNOWN. PHYSICAL EXAMINATION GENERAL: Revealed an obese, white female lying in bed in a moderate amount of distress. VITAL SIGNS: BP 102/79, pulse 96, respirations 18, temperature 36.6 degrees centigrade. ORTHOPEDIC: The patient had 2+ anterior groin tenderness, left side. Had painful left hip range of motion noted today as well. The patient's left leg is somewhat shortened and externally rotated. The patient moves her toes well. Sensation intact in lower extremity and symmetrical. Good capillary filling of the foot noted. X-rays that were taken of her left hip shows a displaced left femoral neck fracture. ASSESSMENT 1. Closed displaced left femoral neck fracture. 2. History of surgical fixation, left ankle fracture with subsequent wound infection - fracture healed and infection has been resolved. Currently on the physical therapy program for gait training. 3. Type 2 diabetes. 4. History of cerebrovascular accident with resultant ataxia. 5. Hypertension. 6. Hyperlipidemia. 7. Atrial fibrillation for which she is treated with digoxin and Pradaxa. PLAN: In view of the patient being on Pradaxa and the need to schedule this surgery when the equipment is available here at the hospital and with a second scrub needed for the surgery, we will plan then on doing her surgery on Wednesday morning at approximately 9 in the morning. We plan on doing a cementless Synergy hip bipolar and the prostheses. The risks and benefits of surgery explained to the patient including blood loss, nerve damage, postoperative dislocation, infection, etc. The patient understands these risks. All her questions were answered and she wishes to proceed with surgery as planned. Consent has been signed. 13:9:00 JOB #: [id number] EXT JOB #:[id number] DISHA
[2016-08-28] MEDS: HYDROcod/ACETAM 10 MG/325 MG TABLET PO PRN ×2 (15:47→19:48)
[2016-08-28] MEDS ORDERED: diazePAM 5 MG TABLET PO PRN (16:15)
[2016-08-28] MEDS ORDERED: diazePAM INJ 5 MG/ML SYRINGE IVP SCH (16:30)
[2016-08-28] MEDS: HYDROmorphone 1 MG/ML SYRINGE IVP PRN ×2 (18:22→20:34)
[2016-08-28] MEDS: ATORVASTATIN 40 MG TABLET PO SCH (20:34)
[2016-08-28] MEDS: INSULIN GLARGINE 300 UNIT/3 ML PEN SUBQ SCH (20:41)
[2016-08-29] MEDS: HYDROmorphone 1 MG/ML SYRINGE IVP PRN ×5 (00:47→09:55)
[2016-08-29] MEDS: HYDROcod/ACETAM 10 MG/325 MG TABLET PO PRN (02:21)
[2016-08-29] MEDS ORDERED: METOPROLOL 5 MG/5 ML VIAL IVP PRN (05:01)
[2016-08-29] MEDS: SODIUM CHLORIDE FLUSH 0.9% 10 ML SYRINGE IVP SCH ×3 (05:33→21:26)
[2016-08-29] MEDS: PANTOPRAZOLE 40 MG TABLET PO SCH (06:20)
[2016-08-29] MEDS: PRENATAL VITAMIN TABLET PO SCH (07:38)
[2016-08-29] MEDS: SODIUM CHLORIDE 0.9% 1,000 ML IV SCH ×2 (07:40→17:47)
[2016-08-29] MEDS: INSULIN ASPART 300 UNIT/3 ML PEN SUBQ SCH ×4 (08:00→21:03)
[2016-08-29] MEDS: POLYETHYLENE GLYCOL 3350 17 GM PACKET PO SCH (08:32)
[2016-08-29] MEDS: DIGOXIN 125 MCG TABLET PO SCH (08:32)
[2016-08-29] MEDS: buPROPion XL 150 MG TABLET PO SCH (08:32)
[2016-08-29] MEDS: CYANOCOBALAMIN 500 MCG TABLET PO SCH (08:32)
[2016-08-29] MEDS: LISINOPRIL 5 MG TABLET PO SCH (08:32)
[2016-08-29] MEDS: CITALOPRAM 10 MG TABLET PO SCH (08:32)
[2016-08-29] MEDS: FOLIC ACID 1 MG TABLET PO SCH (08:32)
--- NOTE | 2016-08-29 10:38 | PROVIDER PROGRESS NOTE ---
Assessment/Plan - Problem List (1) Fracture of femoral neck, left Qualifiers: Encounter type: initial encounter Fracture type: closed Qualified Code(s) : S72.002A - Fracture of unspecified part of neck of left femur, initial encounter for closed fracture Assessment/Plan: Patient presented with a mechanical fall causing a left femoral neck fracture Patient's left lower extremity shortened and externally rotated The patient has a history of atrial fibrillation on pradaxa Patient denies any chest pain, shortness of breath or any recent stroke or strokelike symptoms. According to the revised cardiac risk index patient's preoperative risk of major cardiac event is 6.6% due to her history of CVA and insulin-dependent diabetes. Plan: Orthopedic consult for repair of left femoral neck fracture Pain control with IV morphine IV fluids preoperatively NPO after midnight on Wednesday as Ortho will wait till Wednesday to do procedure as they do not have assistance available over the weekend for a left hemiarthroplasty Hold pradaxa for procedure its half life is 12-16 hours and patient should be ok for surgery on Wednesday morning Pain uncontrolled this morning despite IV dilaudid 1 mg q 2 hours will change her over to a dilaudid [employer] this am and monitor Valium discontinued as patient had reaction to valium with diaphoresis and made her feel funny Bedrest till surgery PT ordered will see patient after surgery Will give lovenox for DVT prophylaxis as patient off pradaxa and will be bedrest till wednesday Qualifiers: Encounter type: initial encounter Fracture type: closed Qualified Code(s) : S72.002A - Fracture of unspecified part of neck of left femur, initial encounter for closed fracture (2) Atrial fibrillation Conclusion/Plan: The patient has chronic atrial fibrillation and is on pradaxa Rate is controlled Chads to score is 4 Plan: Continue digoxin for rate control Hold pradaxa for surgery no need for heparin bridge given that surgery will be tomorrow Restart pradaxa postop Preoperative EKG Echo done April 2016 normal EF Qualifiers: Atrial fibrillation type: chronic Qualified Code(s): I48.2 - Chronic atrial fibrillation (3) Diabetes Conclusion/Plan: Continue home lantus Will hold oral diabetic meds Place on SS insulin Place on Diabetic diet Closely monitor blood sugars A1C 6.4 well controlled Blood glucose well controlled here Qualifiers: Diabetes mellitus type: type 2 (4) Hypertension Conclusion/Plan: On Lisinopril Will continue BP controlled Monitor Well controlled Qualifiers: Hypertension type: essential hypertension Qualified Code(s): I10 - Essential (primary) hypertension (5) Hyperlipidemia Conclusion/Plan: Continue lipitor while hospitalized (6) Depression Conclusion/Plan: Continue Bupropion and Celexa Stable - Current Meds Current Meds: Current Medications Generic Name Dose Route Start Last Admin Trade Name Freq PRN Reason Stop Dose Admin Acetaminophen/Hydrocodone Bitart 1 tab 08/28/16 11:15 08/28/16 12:20 [place] 5/325 PO 1 tab Q4HR PRN Administration Pain 5 to 7 Acetaminophen/Hydrocodone Bitart 1 tab 08/28/16 11:15 08/29/16 02:21 [place] 10 Mg/325 Mg PO 1 tab Q4HR PRN Administration Pain 8 to 10 Atorvastatin Calcium 80 mg 08/28/16 21:00 08/28/16 20:34 Lipitor PO 80 mg QPM NORA Administration Bupropion HCl 150 mg 08/29/16 09:00 08/29/16 08:32 Wellbutrin Xl PO 150 mg DAILY NORA Administration Citalopram Hydrobromide 20 mg 08/29/16 09:00 08/29/16 08:32 Celexa PO 20 mg DAILY NORA Administration Cyanocobalamin 1,000 mcg 08/29/16 09:00 08/29/16 08:32 Vitamin B-12 PO 1,000 mcg DAILY NORA Administration Diazepam 5 mg 08/28/16 16:15 08/29/16 07:38 Valium PO 5 mg Q5H PRN Administration Muscle Spasm Digoxin 125 mcg 08/29/16 09:00 08/29/16 08:32 Lanoxin PO 125 mcg DAILY NORA Administration Folic Acid 1 mg 08/29/16 09:00 08/29/16 08:32 PO 1 mg DAILY NORA Administration Hydromorphone HCl 1 mg 08/28/16 16:14 08/29/16 09:55 Dilaudid Inj IVP 1 mg Q2HR PRN Administration PAIN Sodium Chloride 1,000 mls @ 100 mls/hr 08/28/16 12:00 08/29/16 07:40 Normal Saline 0.9% IV 100 mls/hr .Q10H NORA Administration Insulin Aspart 1 - 9 unit 08/28/16 12:00 08/29/16 08:00 Novolog SUBQ Not Given 0800,1200,1700,2100 [facility] Protocol Insulin Glargine 40 unit 08/28/16 21:00 08/28/16 20:41 Lantus Solostar SUBQ 40 unit QPM NORA Administration Lisinopril 10 mg 08/29/16 09:00 08/29/16 08:32 Zestril PO 10 mg DAILY NORA Administration Metoprolol Tartrate 5 mg 08/29/16 05:01 08/29/16 05:12 Lopressor Inj IVP 5 mg Q6H PRN Administration HR>110 Pantoprazole Sodium 40 mg 08/29/16 07:00 08/29/16 06:20 Protonix PO 40 mg QDAC NORA Administration Polyethylene Glycol 17 gm 08/29/16 09:00 08/29/16 08:32 Miralax PO 17 gm DAILY NORA Administration Multivit/Folic Acid/Iron 1 tab 08/29/16 08:00 08/29/16 07:38 Trinatal Rx 1 PO 1 tab DAILYWM NORA Administration Sodium Chloride 10 ml 08/28/16 14:00 08/29/16 08:33 Normal Saline Flush 0.9% IVP Not Given Q8HR NORA - Lab Result Lab results reviewed: Yes Fish Bone Diagrams: 08/28/16 13:37 08/28/16 13:37 - EKG Results EKG Interpreted Independently: Yes - Diagnostic Imaging Results Diagnostic Imaging Results: positive: Final report reviewed - Additional Planning Condition/Complexity: Guarded My Orders: My Active Orders 08/28/16 11:24 Telemetry 24 Hours [RC] Q4HR 08/28/16 11:25 Reyes Continuation and Care [RC] QSHIFT 08/28/16 16:14 HYDROmorphone INJ [Dilaudid Inj] 1 mg IVP Q2HR PRN 08/28/16 16:15 diazePAM [Valium] 5 mg PO Q5H PRN 08/29/16 Breakfast Carb-controlled Diet [DIET] 08/30/16 05:00 CBC - COMP BLD CT W/AUTO DIFF [HEME] DAILYLAB CMP, RFLX TO IONIZED CA IF [CHEM] DAILYLAB MAGNESIUM [CHEM] DAILYLAB PHOSPHORUS [CHEM] DAILYLAB PT WITH INR [COAG] DAILYLAB 08/31/16 05:00 CBC - COMP BLD CT W/AUTO DIFF [HEME] DAILYLAB CMP, RFLX TO IONIZED CA IF [CHEM] DAILYLAB MAGNESIUM [CHEM] DAILYLAB PHOSPHORUS [CHEM] DAILYLAB PT WITH INR [COAG] DAILYLAB 09/01/16 05:00 CBC - COMP BLD CT W/AUTO DIFF [HEME] DAILYLAB CMP, RFLX TO IONIZED CA IF [CHEM] DAILYLAB MAGNESIUM [CHEM] DAILYLAB PHOSPHORUS [CHEM] DAILYLAB PT WITH INR [COAG] DAILYLAB 09/02/16 05:00 CBC - COMP BLD CT W/AUTO DIFF [HEME] DAILYLAB CMP, RFLX TO IONIZED CA IF [CHEM] DAILYLAB MAGNESIUM [CHEM] DAILYLAB PHOSPHORUS [CHEM] DAILYLAB PT WITH INR [COAG] DAILYLAB Consult/Specialty: PT, Other (Ortho) Plan Discussed with:: Patient Time Spent: 31-60 minutes Subjective - Subjective Patient Reports: Pain (Left lower extremity pain and spasm. States pain still uncontrolled up to 11/19. She is tachycardic. Had reaction to valium. No chest pain, no shortness of breath.) Nursing Reports: No Complaints Objective Vital Signs: Vital Signs - 24 hr 08/28/16 08/28/16 08/28/16 12:12 16:46 21:13 Temperature 37.1 C 36.8 C 36.8 C Heart Rate [ 99 114 H 97 Brachial] Heart Rate [ Monitoring electrodes] Respiratory 20 14 16 Rate Blood Pressure Blood Pressure 162/83 H 134/83 H [Left Brachial artery] Blood Pressure 142/79 H [Right Brachial Artery] O2 Saturation 95 98 08/29/16 08/29/16 08/29/16 00:07 05:12 05:18 Temperature 36.7 C Heart Rate [ 112 H Brachial] Heart Rate [ 127 H 106 H Monitoring electrodes] Respiratory 17 Rate Blood Pressure 139/66 H Blood Pressure 137/80 H [Left Brachial artery] Blood Pressure 139/66 H 127/61 [Right Brachial Artery] O2 Saturation 92 93 08/29/16 08/29/16 08/29/16 05:25 05:29 05:42 Temperature Heart Rate [ Brachial] Heart Rate [ 104 H 102 H Monitoring electrodes] Respiratory 16 17 Rate Blood Pressure 118/95 H Blood Pressure [Left Brachial artery] Blood Pressure 126/61 118/95 H [Right Brachial Artery] O2 Saturation 93 91 L 08/29/16 08/29/16 08/29/16 05:50 06:06 07:56 Temperature 36.6 C Heart Rate [ 109 H Brachial] Heart Rate [ 103 H 103 H Monitoring electrodes] Respiratory 18 Rate Blood Pressure Blood Pressure [Left Brachial artery] Blood Pressure 131/61 H 126/55 L 110/69 [Right Brachial Artery] O2 Saturation 93 08/29/16 08:35 Temperature 36.3 C L Heart Rate [ Brachial] Heart Rate [ 108 H Monitoring electrodes] Respiratory 12 Rate Blood Pressure Blood Pressure 135/81 H [Left Brachial artery] Blood Pressure [Right Brachial Artery] O2 Saturation 96 Oxygen O2 Source Nasal cannula I&O (Last 24 Hrs): Intake and Output Totals x24h 08/27/16 08/28/16 08/29/16 23:59 23:59 23:59 Intake Total 1636 1022 Balance 1636 1022 General: Alert, Oriented x3, Mild distress (Pain in left hip) HEENT: Atraumatic, PERRLA, EOMI, Mucous membr. moist/pink Neck: Supple, No JVD, No thyromegaly, +2 carotid pulse wo bruit, No LAD Lymphatic: no adenopathy Neuro: Alert, Non Focal, CN 2-12 Grossly Intact, Oriented Times 3 Cardiovascular: Other (Tachycardic, irregularily irregular) Respiratory: Chest non-tender, No respiratory distress, Breath sounds nml Abdomen: Normal bowel sounds, Soft, No tenderness, No hepatospenomegaly Extremities: Other (Left leg externally rotated and shortened, decreased ROM around the left hip.) Skin: No rashes, No breakdown, No significant lesion - Results Results: Laboratory Results WBC 9.6 x10^3/uL (4.8-10.8) 08/28/16 13:37 RBC 3.94 10^6/uL (4.20-5.40) L 08/28/16 13:37 Hgb 12.7 g/dL (12.0-16.0) 08/28/16 13:37 Hct 37.6 % (37.0-47.0) 08/28/16 13:37 MCV 95.6 fL (81.0-99.0) 08/28/16 13:37 MCH 32.3 pg (27.0-31.0) H 08/28/16 13:37 MCHC 33.8 g/dL (32.0-36.0) 08/28/16 13:37 RDW 16.4 % (12.0-15.0) H 08/28/16 13:37 Plt Count 150 10^3/uL (130-450) 08/28/16 13:37 MPV 8.8 fL (7.9-10.8) 08/28/16 13:37 Neut # 7.5 10^3/uL (1.5-6.6) H 08/28/16 13:37 Lymph # 1.4 10^3/uL (1.5-3.5) L 08/28/16 13:37 Bertie # 0.6 10^3/uL (0.0-1.0) 08/28/16 13:37 Eos # 0.0 10^3/uL (0.0-0.7) 08/28/16 13:37 Baso # 0.0 10^3/uL (0.0-0.1) 08/28/16 13:37 Absolute Nucleated RBC 0.00 x10^3/uL 08/28/16 13:37 Nucleated RBCs 0.0 /100WBC 08/28/16 13:37 PT 12.0 secs (9.9-12.6) 08/28/16 13:37 INR 1.1 (0.8-1.2) 08/28/16 13:37 APTT 41.8 secs (24.9-33.3) H 08/28/16 13:37 Sodium 136 mmol/L (135-145) 08/28/16 13:37 Potassium 4.7 mmol/L (3.5-5.0) 08/28/16 13:37 Chloride 104 mmol/L (101-111) 08/28/16 13:37 Carbon Dioxide 23 mmol/L (21-32) 08/28/16 13:37 Anion Gap 9.0 (6-13) 08/28/16 13:37 BUN 15 mg/dL (6-20) 08/28/16 13:37 Creatinine 0.9 mg/dL (0.4-1.0) 08/28/16 13:37 Estimated GFR (MDRD) 62 (>89) L 08/28/16 13:37 Glucose 149 mg/dL (70-100) H 08/28/16 13:37 Glycated Hemoglobin 6.4 % (4.6-6.2) H 08/28/16 13:37 Estim Average Glucose 137 (70-100) H 08/28/16 13:37 Calcium 9.3 mg/dL (8.5-10.3) 08/28/16 13:37 Phosphorus 3.4 mg/dL (2.5-4.6) 08/28/16 13:37 Magnesium 1.3 mg/dL (1.7-2.8) L 08/28/16 13:37 Total Bilirubin 0.8 mg/dL (0.2-1.0) 08/28/16 13:37 AST 35 IU/L (10-42) 08/28/16 13:37 ALT 26 IU/L (10-60) 08/28/16 13:37 Alkaline Phosphatase 100 IU/L (42-121) 08/28/16 13:37 Total Protein 7.1 g/dL (6.7-8.2) 08/28/16 13:37 Albumin 4.1 g/dL (3.2-5.5) 08/28/16 13:37 Globulin 3.0 g/dL (2.1-4.2) 08/28/16 13:37 Albumin/Globulin Ratio 1.4 (1.0-2.2) 08/28/16 13:37 Last Dose Date 08/28/16 08/28/16 13:37 Last Dose Time 0800 08/28/16 13:37 Digoxin 0.7 ng/mL 08/28/16 13:37 - Procedures Procedures: Procedures ALCOHOL DETOXIFICATION (12/14/12) COMPRESSION OF LEFT LOWER LEG USING PRESSURE DRESSING (05/07/16) EXCISION OF LEFT FIBULA, OPEN APPROACH (05/07/16) INSERTION OF INFUSION DEV INTO SUP VENA CAVA, PERC APPROACH (05/07/16) REPOSITION LEFT TIBIA WITH INT FIX, OPEN APPROACH (03/19/16)
[2016-08-29] MEDS: HYDROmorphone PCA 10 MG IV PRN (10:51)
--- NOTE | 2016-08-29 20:25 | PROVIDER PROGRESS NOTE ---
Subjective - Prog Note Date Prog Note Date: 08/29/16 Prog Note Time: 20:23 - Subjective Pt reports feeling: No change (Still painful) Objective - Vital Signs/Intake & Output Vital Signs: Vital Signs x48h Temp Pulse Resp BP BP Pulse Ox 08/29/16 18:45 36.7 C 102 H 18 105/71 94 08/29/16 18:00 14 08/29/16 14:45 12 08/29/16 14:28 36.7 C 105 H 19 95/61 93 08/29/16 14:00 14 08/29/16 13:00 14 Intake & Output: Intake & Output 08/26/16 08/27/16 08/28/16 08/29/16 23:59 23:59 23:59 23:59 Intake Total 1636 2098 Output Total 600 Balance 1636 1498 - Lab Results Fish Bones: 08/28/16 13:37 08/28/16 13:37 - Other Results/Comments Other Results/Comments: Still painful hip motion. Moving toes ok. Sensation unchnaged. Good cap filling Assessment/Plan - Problem List (1) Fracture of femoral neck, left Impression: Will plan to do hip valerio-arthroplasty Sun AM after Pradaxia has worn off and since we were able to obtain a surgical machine assistant. Patient and her family are aware. Qualifiers: Encounter type: initial encounter Fracture type: closed Qualified Code(s) : S72.002A - Fracture of unspecified part of neck of left femur, initial encounter for closed fracture
[2016-08-29] MEDS: DABIGATRAN 75 MG CAPSULE PO SCH (21:02)
[2016-08-29] MEDS: INSULIN GLARGINE 300 UNIT/3 ML PEN SUBQ SCH (21:10)
[2016-08-29] MEDS: ATORVASTATIN 40 MG TABLET PO SCH (21:11)
[2016-08-30] MEDS: SODIUM CHLORIDE 0.9% 1,000 ML IV SCH ×2 (03:38→18:16)
[2016-08-30] MEDS: SODIUM CHLORIDE FLUSH 0.9% 10 ML SYRINGE IVP SCH ×5 (05:06→22:23)
[2016-08-30] MEDS: HYDROmorphone PCA 10 MG IV PRN (05:27)
[2016-08-30 05:45] LABS: BASOPHILS % (AUTO) 0.2 %; EOSINOPHILS # (AUTO) 0.1 10^3/uL (0.0-0.7); EOSINOPHILS % (AUTO) 0.8 %; HCT - HEMATOCRIT 35.1 % (37.0-47.0); HGB - HEMOGLOBIN 11.5 g/dL (12.0-16.0); LYMPHOCYTES # (AUTO) 0.8 10^3/uL (1.5-3.5); MEAN CORPUSCULAR HGB CONC 32.7 g/dL (32.0-36.0); MEAN CORPUSCULAR VOLUME 97.8 fL (81.0-99.0); MEAN PLATELET VOLUME 9.2 fL (7.9-10.8); MONOCYTES # (AUTO) 0.7 10^3/uL (0.0-1.0); MONOCYTES % (AUTO) 8.7 %; NEUTROPHILS % (AUTO) 79.3 %; RED BLOOD COUNT 3.59 10^6/uL (4.20-5.40); RED CELL DISTRIBUTION WIDTH 16.5 % (12.0-15.0); UNCORRECTED WHITE BLOOD COUNT 7.5 x10^3/uL; WHITE BLOOD COUNT 7.5 x10^3/uL (4.8-10.8)
[2016-08-30 05:54] LABS: INR 1.1 (0.8-1.2); PT - PROTHROMBIN TIME 12.6 secs (9.9-12.6)
[2016-08-30 06:07] LABS: ALBUMIN/GLOBULIN RATIO 1.1 (1.0-2.2); BILIRUBIN,TOTAL 0.8 mg/dL (0.2-1.0); BUN - BLOOD UREA NITROGEN 16 mg/dL (6-20); CARBON DIOXIDE - CO2 26 mmol/L (21-32); CHLORIDE 104 mmol/L (101-111); CREATININE 0.9 mg/dL (0.4-1.0); GFR - MDRD 62 (>89); GLUCOSE 104 mg/dL (70-100); MAGNESIUM 1.3 mg/dL (1.7-2.8); PHOSPHORUS 3.6 mg/dL (2.5-4.6); POTASSIUM 5.2 mmol/L (3.5-5.0); SODIUM 135 mmol/L (135-145); TOTAL PROTEIN 6.2 g/dL (6.7-8.2)
[2016-08-30] MEDS: PANTOPRAZOLE 40 MG TABLET PO SCH (06:07)
[2016-08-30] MEDS: CYANOCOBALAMIN 500 MCG TABLET PO SCH (07:31)
[2016-08-30] MEDS: LISINOPRIL 5 MG TABLET PO SCH (07:31)
[2016-08-30] MEDS: buPROPion XL 150 MG TABLET PO SCH (07:31)
[2016-08-30] MEDS: DIGOXIN 125 MCG TABLET PO SCH (07:31)
[2016-08-30] MEDS: CITALOPRAM 10 MG TABLET PO SCH (07:31)
[2016-08-30] MEDS: PRENATAL VITAMIN TABLET PO SCH (07:31)
[2016-08-30] MEDS: FOLIC ACID 1 MG TABLET PO SCH (07:32)
[2016-08-30] MEDS: INSULIN ASPART 300 UNIT/3 ML PEN SUBQ SCH ×4 (07:32→22:03)
[2016-08-30] MEDS: POLYETHYLENE GLYCOL 3350 17 GM PACKET PO SCH (07:32)
[2016-08-30] MEDS: DABIGATRAN 75 MG CAPSULE PO SCH ×2 (07:32→22:04)
[2016-08-30] MEDS ORDERED: ceFAZolin 2 GM/50 ML 50 ML IV SCH (08:00)
[2016-08-30] MEDS ORDERED: ENOXAPARIN 30 MG/0.3 ML SYRINGE SUBQ SCH (09:00)
[2016-08-30] MEDS ORDERED: SODIUM CHLORIDE 0.9% 1,000 ML IV ONE (09:09)
[2016-08-30] MEDS ORDERED: LACTATED RINGERS 1,000 ML IV ONE ×2 (10:05→11:01)
[2016-08-30] MEDS ORDERED: SUCCINYLCHOLINE 200 MG/10 ML VIAL IVP ONE (10:06)
[2016-08-30] MEDS ORDERED: PHENYLEPHRINE 50 MG/5 ML VIAL IV ONE (10:06)
[2016-08-30] MEDS ORDERED: ePHEDrine 50 MG/ML AMP IVP ONE (10:06)
[2016-08-30] MEDS ORDERED: ONDANSETRON 4 MG/2 ML VIAL IVP ONE (10:06)
[2016-08-30] MEDS ORDERED: METOCLOPRAMIDE 10 MG/2 ML VIAL IVP ONE (10:06)
[2016-08-30] MEDS ORDERED: MIDAZOLAM 2 MG/2 ML VIAL IVP ONE (10:06)
[2016-08-30] MEDS ORDERED: ACETAMINOPHEN 1,000 MG/100 ML VIAL IV ONE (10:06)
[2016-08-30] MEDS ORDERED: METOPROLOL 5 MG/5 ML VIAL IVP ONE (10:06)
[2016-08-30] MEDS ORDERED: LIDOCAINE-MPF 2% 5 ML VIAL IM ONE (10:06)
[2016-08-30] MEDS ORDERED: PROPOFOL 200 MG/20 ML VIAL IVP ONE (10:06)
[2016-08-30] MEDS ORDERED: BUPIVACAINE 0.25%-EPI 1:200000 PF 30 ML VIAL SUBQ ONE ×2 (10:30→11:11)
[2016-08-30] MEDS ORDERED: PROCHLORPERAZINE 10 MG/2 ML VIAL IVP PRN (11:25)
[2016-08-30] MEDS ORDERED: ACETAMINOPHEN 1,000 MG/100 ML 100 ML IV PRN (11:25)
[2016-08-30] MEDS ORDERED: SODIUM CHLORIDE FLUSH 0.9% 10 ML SYRINGE IVP PRN (11:25)
[2016-08-30] MEDS ORDERED: MORPHINE 2 MG/ML SYRINGE IVP PRN (11:25)
[2016-08-30] MEDS ORDERED: DOCUSATE SODIUM 100 MG CAPSULE PO PRN (11:25)
[2016-08-30] MEDS ORDERED: ACETAMINOPHEN 325 MG TABLET PO PRN (11:25)
[2016-08-30] MEDS ORDERED: SENNA 8.6 MG TABLET PO PRN (11:25)
--- NOTE | 2016-08-30 11:37 | OPERATIVE REPORT ---
Operative Report - General Admit Date: 08/28/16 Procedure Date: 08/30/16 Planned Procedure: Cementless left Synergy bipolar hip endoprosthesis Pre-Op Diagnosis: Displaced left femoral neck hip fracture Post Op Diagnosis: Same - Procedure Note Primary Surgeon: Milo Candelario Secondary Surgeon: None Anesthesia Provider: Dr. Joiner Anesthesia Technique: General ET tube Estimated Blood Loss (in cc): 400 Complications: None
--- NOTE | 2016-08-30 12:44 | OPERATIVE REPORT ---
DATE OF SURGERY: 08/30/2016 00:00:00 PREOPERATIVE DIAGNOSIS: Closed displaced left femoral neck hip fracture. POSTOPERATIVE DIAGNOSIS: Closed displaced left femoral neck hip fracture. NAME OF PROCEDURE: Cementless left Synergy bipolar hip and prostheses. SURGEON: Parth Candelario MD CHECK PROCESSING CLERK: Jose Antonio surgical manager ANESTHESIA: General, performed by Dr. Joiner. DESCRIPTION OF PROCEDURE: The patient was taken to the operating room on the morning of 08/30/2016 wh ere she was placed under a general anesthetic without any complications. She was then positioned onto the operating room table and placed into the lateral decubitus position with the left fractured side up. She was held in place using the pegboard and multiple pegs. Once her positioning was secure, we then made sure that there was a Gelfoam pack underneath her right axilla to protect the axillary nerv e and the brachial plexus. We also made sure that a foam padding was underneath her right fibular hea d and knee. We then prepped and draped the left hip in the usual fashion for our procedure. We made a curvilinear lateral/posterior lateral skin approach to the left hip. After incising the ski n and subcutaneous tissue, electrocautery used to obtain hemostasis. We then extended our incision th rough the fascia jaime and detached the exterior rotators to the hip with electrocautery. Again, hemos tasis obtained with electrocautery. At this point, we were able to identify the femoral neck. Positio jocelynn the leg somewhat flexed and externally rotated, we were able to identify the femoral head. We th en transected the femoral neck approximately 1-1/2 fingerbreadths from the level of the lesser trocha nter. This was cut in the direction of the hip cutting template that was provided in the set. After t ransecting the neck, we then osteotomized the superior lateral margin from a superior approach with o ur saw. Removing the transected femoral neck, we then were able to identify the femoral head and the hip capsule. We then performed a T capsulotomy with electrocautery. 2-0 Vicryl stitches were then use d as tag stitches to retract the capsular flaps out of the way. Identifying the femoral head we then used the corkscrew apparatus, which was inserted into the femoral head. We then extracted the head us ing a corkscrew and a hip skid. We measured the femoral head and this indicated a 43 mm diameter head . We cleared the acetabulum of the ligamentum teres and other soft tissues. The joint was irrigated. We then trialed the prostheses using a 43 mm head into the acetabulum. There was good suction fit and good motion of the femoral head with the trial in place. We settled on the 43 mm outside diameter fo r our bipolar prostheses. Trial was then removed. We then directed our attention to the femoral shaft. Using a box osteotome, we opened out the femoral canal laterally. We then sequentially reamed the proximal femur with rigid reamers starting with fir st the Charnley awl and then sequentially advanced the reaming until we got good bony interference wi th our reamers at the 16 mm increment. We then proceeded to broach the proximal femur starting for th e first 14 broach, and advancing to the 15 then 16 broach. This allowed for proper preparation of our proximal femur down to the level of our osteotomy site. Removing the handle, we then used this broac h as a trial. We then placed a 0 neck length and 43 mm prostheses onto our trial stem. We then reduce d the hip. Axial longitudinal traction showed no pistoning of our prostheses. We were able to easily extend the hip. No anterior impingement with external rotation and full extension. We then placed the leg in the sleep position. This was stable. Finally, with the hip flexed at 90 degrees and 0 degrees of abduction, we internally rotated the hip to approximately 65 degrees before there was some sublux ation of the hip prostheses. Satisfied with the stability of our selected prostheses, we then disloca beena the hip again. We removed the trial neck and femoral head from the stem. We reattached the broach handle and removed our broach/femoral stem trial. We then irrigated both the acetabulum and the prox imal femur with saline as we prepared the final prostheses. When ready, we then proceeded to insert o ur Press-Fit femoral stem in place. Once this was hammered into place, we then placed our selected 0 neck length in bipolar head, which had an outside diameter of 43 mm. This was then seated in place wi th 3 sharp blows of the mallet on our femoral head pusher. Once all the components were seated satisf actorily, we then irrigated the acetabulum out to clear of any soft tissue debris. We then reduced th e hip with gentle longitudinal traction and internal rotation of the leg. This reduced easily. Inspec tion showed there was no soft tissue impingement in the joint. We then put the hip through a checkup. It was found to be stable. Again, we were able to obtain easy extension. No anterior impingement wit h external rotation with the hip in extension. Sleep position was stable. We then placed the hip in 9 0 degrees of flexion, 0 degrees of abduction, and internally rotated the leg gently and found that th e hip was still stable at 70 degrees of internal rotation. That completed our stability check. We the n checked the leg lengths and there was only a slight 0.5 cm difference in length with the left side being slightly shorter. It should be noted that preoperatively we had checked the length of the leg a nd had noted the leg to be about 0.5 cm short on the left side preoperatively as well. Satisfied with this, we then irrigated the wounds out thoroughly with saline. We then proceeded to cl ose the wound in layers. We first reattached the capsular flaps together using a free curved needle a nd our 2-0 Vicryl sutures. We then closed the fascia jaime layer with a [id number] stitches of #1 S[place]. Subcutaneous tissue closed with buried simple stitches of 2-0 Vicryl. Skin ty used to approximate the skin edges. We then washed the wound and dressed it with Xeroform gauze, fluffs, ABD and foam tape. The drapes were taken off the leg. We placed the leg in a hip abductor pillow. We the n transferred the patient off the OR table and onto her bed. She was then taken to recovery room in s atisfactory condition. ESTIMATED BLOOD LOSS: 400 mL. REPLACEMENT: 1500 mL. INTRAOPERATIVE COMPLICATIONS: None. PLAN: The patient will have total hip precautions. Will be advanced in physical therapy weightbearing as tolerated on this extremity. Walker ambulate as tolerated. JOB #: [id number] EXT JOB #:[id number]
--- NOTE | 2016-08-30 12:47 | PROVIDER PROGRESS NOTE ---
Assessment/Plan - Problem List (1) Fracture of femoral neck, left Qualifiers: Encounter type: initial encounter Fracture type: closed Qualified Code(s) : S72.002A - Fracture of unspecified part of neck of left femur, initial encounter for closed fracture Assessment/Plan: Patient presented with a mechanical fall causing a left femoral neck fracture Patient's left lower extremity shortened and externally rotated The patient has a history of atrial fibrillation on pradaxa Patient denies any chest pain, shortness of breath or any recent stroke or strokelike symptoms. According to the revised cardiac risk index patient's preoperative risk of major cardiac event is 6.6% due to her history of CVA and insulin-dependent diabetes. Surgery rescheduled for today as they were able to get 2nd assist and needed equipment for surgery today Patients pain better controlled overnight with CROP OR G[employer]IN [employer] and ready for surgery today Will restart pradaxa tomorrow post op Start lovenox post op for vte pro in the meantime PT to likely see patient tomorrow Will likely need rehab Ortho on board Qualifiers: Encounter type: initial encounter Fracture type: closed Qualified Code(s) : S72.002A - Fracture of unspecified part of neck of left femur, initial encounter for closed fracture (2) Atrial fibrillation Conclusion/Plan: The patient has chronic atrial fibrillation and is on pradaxa Rate is controlled Chads to score is 4 Continue digoxin for rate control Restart pradaxa tomorrow as patient getting surgery today Echo done April 2016 normal EF Qualifiers: Atrial fibrillation type: chronic Qualified Code(s): I48.2 - Chronic atrial fibrillation (3) Diabetes Conclusion/Plan: Continue home lantus Will hold oral diabetic meds Place on SS insulin Place on Diabetic diet Closely monitor blood sugars A1C 6.4 well controlled Blood glucose well controlled here Qualifiers: Diabetes mellitus type: type 2 (4) Hypertension Conclusion/Plan: On Lisinopril Will continue BP controlled Monitor Well controlled Qualifiers: Hypertension type: essential hypertension Qualified Code(s): I10 - Essential (primary) hypertension (5) Hyperlipidemia Conclusion/Plan: Continue lipitor while hospitalized (6) Depression Conclusion/Plan: Continue Bupropion and Celexa Stable - Current Meds Current Meds: Current Medications Generic Name Dose Route Start Last Admin Trade Name Freq PRN Reason Stop Dose Admin Acetaminophen/Hydrocodone Bitart 1 tab 08/28/16 11:15 08/28/16 12:20 [place] 5/325 PO 1 tab Q4HR PRN Administration Pain 5 to 7 Acetaminophen/Hydrocodone Bitart 1 tab 08/28/16 11:15 08/29/16 02:21 [place] 10 Mg/325 Mg PO 1 tab Q4HR PRN Administration Pain 8 to 10 Atorvastatin Calcium 80 mg 08/28/16 21:00 08/29/16 21:11 Lipitor PO 80 mg QPM NORA Administration Bupropion HCl 150 mg 08/29/16 09:00 08/30/16 07:31 Wellbutrin Xl PO 150 mg DAILY NORA Administration Citalopram Hydrobromide 20 mg 08/29/16 09:00 08/30/16 07:31 Celexa PO 20 mg DAILY [facility] Administration Cyanocobalamin 1,000 mcg 08/29/16 09:00 08/30/16 07:31 Vitamin B-12 PO Not Given DAILY [facility] Digoxin 125 mcg 08/29/16 09:00 08/30/16 07:31 Lanoxin PO 125 mcg DAILY [facility] Administration Enoxaparin Sodium 30 mg 08/30/16 09:00 08/30/16 07:32 Lovenox SUBQ Not Given DAILY [facility] Folic Acid 1 mg 08/29/16 09:00 08/30/16 07:32 PO Not Given DAILY [facility] Hydromorphone HCl 10 mg 08/29/16 10:35 08/30/16 05:27 Dilaudid Gizzard Puller (Use Gizzard Puller Order Set) IV 10 mg PRN PRN Administration PAIN Protocol Insulin Aspart 1 - 9 unit 08/28/16 12:00 08/30/16 07:32 Novolog SUBQ Not Given 0800,1200,1700,2100 [facility] Protocol Insulin Glargine 40 unit 08/28/16 21:00 08/29/16 21:10 Lantus Solostar SUBQ 40 unit QPM NORA Administration Lisinopril 10 mg 08/29/16 09:00 08/30/16 07:31 Zestril PO Not Given DAILY [facility] Metoprolol Tartrate 5 mg 08/29/16 05:01 08/29/16 05:12 Lopressor Inj IVP 5 mg Q6H PRN Administration HR>110 Pantoprazole Sodium 40 mg 08/29/16 07:00 08/30/16 06:07 Protonix PO 40 mg QDAC NORA Administration Polyethylene Glycol 17 gm 08/29/16 09:00 08/30/16 07:32 Miralax PO Not Given DAILY [facility] Multivit/Folic Acid/Iron 1 tab 08/29/16 08:00 08/30/16 07:31 Trinatal Rx 1 PO Not Given DAILYWM NORA Sodium Chloride 10 ml 08/28/16 14:00 08/30/16 07:32 Normal Saline Flush 0.9% IVP Not Given Q8HR NORA - Lab Result Lab results reviewed: Yes Fish Bone Diagrams: 08/30/16 05:19 08/30/16 05:19 - EKG Results EKG Interpreted Independently: Yes - Diagnostic Imaging Results Diagnostic Imaging Results: positive: Final report reviewed - Additional Planning Condition/Complexity: Guarded My Orders: My Active Orders 08/30/16 Wound Consult MAC [MAC] Routine 08/30/16 09:00 Enoxaparin [Lovenox] 30 mg SUBQ DAILY 08/31/16 05:00 CBC - COMP BLD CT W/AUTO DIFF [HEME] DAILYLAB CMP, RFLX TO IONIZED CA IF [CHEM] DAILYLAB MAGNESIUM [CHEM] DAILYLAB PHOSPHORUS [CHEM] DAILYLAB PT WITH INR [COAG] DAILYLAB 08/31/16 08:00 Magnesium Oxide [Mag Ox] 400 mg PO DAILYWM 09/01/16 05:00 CBC - COMP BLD CT W/AUTO DIFF [HEME] DAILYLAB CMP, RFLX TO IONIZED CA IF [CHEM] DAILYLAB MAGNESIUM [CHEM] DAILYLAB PHOSPHORUS [CHEM] DAILYLAB PT WITH INR [COAG] DAILYLAB 09/02/16 05:00 CBC - COMP BLD CT W/AUTO DIFF [HEME] DAILYLAB CMP, RFLX TO IONIZED CA IF [CHEM] DAILYLAB MAGNESIUM [CHEM] DAILYLAB PHOSPHORUS [CHEM] DAILYLAB PT WITH INR [COAG] DAILYLAB Consult/Specialty: Other (Ortho) Plan Discussed with:: Patient Time Spent: 31-60 minutes Subjective - Subjective Patient Reports: Other (Pain better controlled this am with CROP OR [employer]IN [employer]. Patient ready for surgery. Denies any chest pain or shortness of air. No nausea or vomiting.) Nursing Reports: No Complaints Objective Vital Signs: Vital Signs - 24 hr 08/29/16 08/29/16 08/29/16 13:00 14:00 14:28 Temperature 36.7 C Heart Rate [ 105 H Brachial] Respiratory 14 14 19 Rate Blood Pressure [Left Brachial artery] Blood Pressure 95/61 [Right Brachial Artery] O2 Saturation 93 08/29/16 08/29/16 08/29/16 14:45 18:00 18:45 Temperature 36.7 C Heart Rate [ 102 H Brachial] Respiratory 12 14 18 Rate Blood Pressure 105/71 [Left Brachial artery] Blood Pressure [Right Brachial Artery] O2 Saturation 94 08/29/16 08/29/16 08/29/16 20:04 20:45 22:10 Temperature 36.7 C Heart Rate [ 98 Brachial] Respiratory 16 18 16 Rate Blood Pressure 108/70 [Left Brachial artery] Blood Pressure [Right Brachial Artery] O2 Saturation 97 08/30/16 08/30/16 08/30/16 00:00 01:07 01:59 Temperature 36.8 C Heart Rate [ 104 H Brachial] Respiratory 16 18 16 Rate Blood Pressure 110/69 [Left Brachial artery] Blood Pressure [Right Brachial Artery] O2 Saturation 94 08/30/16 08/30/16 08/30/16 03:58 06:00 07:55 Temperature 36.8 C 36.8 C Heart Rate [ 93 111 H Brachial] Respiratory 16 18 18 Rate Blood Pressure [Left Brachial artery] Blood Pressure 97/62 95/62 [Right Brachial Artery] O2 Saturation 94 91 L 08/30/16 08/30/16 08/30/16 11:30 11:35 11:40 Temperature Heart Rate [ Brachial] Respiratory Rate Blood Pressure [Left Brachial artery] Blood Pressure [Right Brachial Artery] O2 Saturation 100 99 99 08/30/16 08/30/16 08/30/16 11:45 11:50 11:55 Temperature Heart Rate [ Brachial] Respiratory Rate Blood Pressure [Left Brachial artery] Blood Pressure [Right Brachial Artery] O2 Saturation 99 97 98 08/30/16 08/30/16 08/30/16 12:00 12:05 12:10 Temperature Heart Rate [ Brachial] Respiratory Rate Blood Pressure [Left Brachial artery] Blood Pressure [Right Brachial Artery] O2 Saturation 98 95 97 08/30/16 08/30/16 12:15 12:26 Temperature Heart Rate [ Brachial] Respiratory Rate Blood Pressure [Left Brachial artery] Blood Pressure [Right Brachial Artery] O2 Saturation 98 98 Oxygen O2 Source Nasal cannula I&O (Last 24 Hrs): Intake and Output Totals x24h 08/28/16 08/29/16 08/30/16 23:59 23:59 23:59 Intake Total 1636 2017 800 Output Total 850 Balance 1636 5687 800 General: Alert, Oriented x3, Cooperative, No acute distress HEENT: Atraumatic, PERRLA, EOMI, Mucous membr. moist/pink Neck: Supple, No JVD, No thyromegaly, +2 carotid pulse wo bruit, No LAD Lymphatic: no adenopathy Neuro: Alert, Non Focal, CN 2-12 Grossly Intact, Oriented Times 3 Cardiovascular: No murmurs, Other (Irregular) Respiratory: Chest non-tender, No respiratory distress, Breath sounds nml Abdomen: Normal bowel sounds, Soft, No tenderness, No hepatospenomegaly Extremities: No clubbing, No cyanosis, No edema, Normal pulses, Other (Left leg externally rotated and shortened. Decreased ROM of left hip) Skin: No rashes, No breakdown, No significant lesion - Results Results: Laboratory Results WBC 7.5 x10^3/uL (4.8-10.8) 08/30/16 05:19 RBC 3.59 10^6/uL (4.20-5.40) L 08/30/16 05:19 Hgb 11.5 g/dL (12.0-16.0) L 08/30/16 05:19 Hct 35.1 % (37.0-47.0) L 08/30/16 05:19 MCV 97.8 fL (81.0-99.0) 08/30/16 05:19 MCH 32.0 pg (27.0-31.0) H 08/30/16 05:19 MCHC 32.7 g/dL (32.0-36.0) 08/30/16 05:19 RDW 16.5 % (12.0-15.0) H 08/30/16 05:19 Plt Count 108 10^3/uL (130-450) L 08/30/16 05:19 MPV 9.2 fL (7.9-10.8) 08/30/16 05:19 Neut # 6.0 10^3/uL (1.5-6.6) 08/30/16 05:19 Lymph # 0.8 10^3/uL (1.5-3.5) L 08/30/16 05:19 [place] # 0.7 10^3/uL (0.0-1.0) 08/30/16 05:19 Eos # 0.1 10^3/uL (0.0-0.7) 08/30/16 05:19 Baso # 0.0 10^3/uL (0.0-0.1) 08/30/16 05:19 Absolute Nucleated RBC 0.00 x10^3/uL 08/30/16 05:19 Nucleated RBCs 0.0 /100WBC 08/30/16 05:19 PT 12.6 secs (9.9-12.6) 08/30/16 05:19 INR 1.1 (0.8-1.2) 08/30/16 05:19 APTT 41.8 secs (24.9-33.3) H 08/28/16 13:37 Sodium 135 mmol/L (135-145) 08/30/16 05:19 Potassium 5.2 mmol/L (3.5-5.0) H 08/30/16 05:19 Chloride 104 mmol/L (101-111) 08/30/16 05:19 Carbon Dioxide 26 mmol/L (21-32) 08/30/16 05:19 Anion Gap 5.0 (6-13) L 08/30/16 05:19 BUN 16 mg/dL (6-20) 08/30/16 05:19 Creatinine 0.9 mg/dL (0.4-1.0) 08/30/16 05:19 Estimated GFR (MDRD) 62 (>89) L 08/30/16 05:19 Glucose 104 mg/dL (70-100) H 08/30/16 05:19 Glycated Hemoglobin 6.4 % (4.6-6.2) H 08/28/16 13:37 Estim Average Glucose 137 (70-100) H 08/28/16 13:37 Calcium 9.0 mg/dL (8.5-10.3) 08/30/16 05:19 Ionized Calcium NO 08/30/16 05:19 Phosphorus 3.6 mg/dL (2.5-4.6) 08/30/16 05:19 Magnesium 1.3 mg/dL (1.7-2.8) L 08/30/16 05:19 Total Bilirubin 0.8 mg/dL (0.2-1.0) 08/30/16 05:19 AST 28 IU/L (10-42) 08/30/16 05:19 ALT 20 IU/L (10-60) 08/30/16 05:19 Alkaline Phosphatase 86 IU/L (42-121) 08/30/16 05:19 Total Protein 6.2 g/dL (6.7-8.2) L 08/30/16 05:19 Albumin 3.2 g/dL (3.2-5.5) 08/30/16 05:19 Globulin 3.0 g/dL (2.1-4.2) 08/30/16 05:19 Albumin/Globulin Ratio 1.1 (1.0-2.2) 08/30/16 05:19 Last Dose Date 08/28/16 08/28/16 13:37 Last Dose Time 0800 08/28/16 13:37 Digoxin 0.7 ng/mL 08/28/16 13:37 - Procedures Procedures: Procedures ALCOHOL DETOXIFICATION (12/14/12) COMPRESSION OF LEFT LOWER LEG USING PRESSURE DRESSING (05/07/16) EXCISION OF LEFT FIBULA, OPEN APPROACH (05/07/16) INSERTION OF INFUSION DEV INTO SUP VENA CAVA, PERC APPROACH (05/07/16) REPOSITION LEFT TIBIA WITH INT FIX, OPEN APPROACH (03/19/16)
--- NOTE | 2016-08-30 13:36 | XRAY Preliminary Report ---
Exam: XR Pelvis 1 View IMPRESSION: Status post left hip arthroplasty without evidence of complication. [facility] SITE ID: [id number]
--- NOTE | 2016-08-30 13:39 | XRAY Report ---
EXAM: PELVIS RADIOGRAPHY EXAM DATE: 08/30/2016 12:19 PM. CLINICAL HISTORY: S/p left hip valerio-arthroplasty. COMPARISON: 08/28/2016. TECHNIQUE: 1 view. FINDINGS: Bones: Interval left hip arthroplasty with expected position of the components. Suboptimal evaluation secondary to technique, but no fracture is seen. Joints: The alignment is anatomic. Soft Tissues: Expected postsurgical changes overlying the left hip. IMPRESSION: Status post left hip arthroplasty without evidence of complication. [facility] Referring Provider Line: [phone] SITE ID: [id number]
[2016-08-30] MEDS: ceFAZolin 2 GM/50 ML 50 ML IV SCH (17:02)
[2016-08-30] MEDS: ATORVASTATIN 40 MG TABLET PO SCH (22:02)
[2016-08-30] MEDS: INSULIN GLARGINE 300 UNIT/3 ML PEN SUBQ SCH (22:03)
[2016-08-31] MEDS: SODIUM CHLORIDE 0.9% 1,000 ML IV SCH ×3 (01:54→10:30)
[2016-08-31] MEDS: ceFAZolin 2 GM/50 ML 50 ML IV SCH (01:54)
[2016-08-31 05:45] LABS: BASOPHILS % (AUTO) 0.2 %; EOSINOPHILS % (AUTO) 0.2 %; HCT - HEMATOCRIT 31.2 % (37.0-47.0); HGB - HEMOGLOBIN 10.2 g/dL (12.0-16.0); LYMPHOCYTES # (AUTO) 0.7 10^3/uL (1.5-3.5); LYMPHOCYTES % (AUTO) 8.1 %; MEAN CORPUSCULAR HEMOGLOBIN 32.2 pg (27.0-31.0); MEAN CORPUSCULAR HGB CONC 32.7 g/dL (32.0-36.0); MEAN CORPUSCULAR VOLUME 98.6 fL (81.0-99.0); MEAN PLATELET VOLUME 8.8 fL (7.9-10.8); MONOCYTES % (AUTO) 11.8 %; NEUTROPHILS # (AUTO) 6.4 10^3/uL (1.5-6.6); NEUTROPHILS % (AUTO) 79.7 %; RED BLOOD COUNT 3.17 10^6/uL (4.20-5.40); RED CELL DISTRIBUTION WIDTH 16.6 % (12.0-15.0); UNCORRECTED WHITE BLOOD COUNT 8.1 x10^3/uL; WHITE BLOOD COUNT 8.1 x10^3/uL (4.8-10.8)
[2016-08-31 05:58] LABS: BILIRUBIN,TOTAL 0.7 mg/dL (0.2-1.0); BUN - BLOOD UREA NITROGEN 12 mg/dL (6-20); CALCIUM 8.5 mg/dL (8.5-10.3); CARBON DIOXIDE - CO2 24 mmol/L (21-32); CHLORIDE 104 mmol/L (101-111); CREATININE 0.8 mg/dL (0.4-1.0); GFR - MDRD 71 (>89); GLUCOSE 127 mg/dL (70-100); MAGNESIUM 1.3 mg/dL (1.7-2.8); PHOSPHORUS 2.7 mg/dL (2.5-4.6); POTASSIUM 4.4 mmol/L (3.5-5.0); SODIUM 134 mmol/L (135-145); TOTAL PROTEIN 5.9 g/dL (6.7-8.2)
[2016-08-31 06:08] LABS: INR 1.3 (0.8-1.2); PT - PROTHROMBIN TIME 15.2 secs (9.9-12.6)
[2016-08-31] MEDS: SODIUM CHLORIDE FLUSH 0.9% 10 ML SYRINGE IVP SCH ×6 (06:33→21:23)
[2016-08-31] MEDS: PANTOPRAZOLE 40 MG TABLET PO SCH (06:36)
[2016-08-31] MEDS: INSULIN ASPART 300 UNIT/3 ML PEN SUBQ SCH ×4 (07:45→21:21)
[2016-08-31] MEDS ORDERED: ceFAZolin 2 GM/50 ML 50 ML IV SCH (08:00)
[2016-08-31] MEDS: PRENATAL VITAMIN TABLET PO SCH (08:22)
[2016-08-31] MEDS: MAGNESIUM OXIDE 400 MG TABLET PO SCH ×2 (08:22→12:20)
[2016-08-31] MEDS: HYDROcod/ACETAM 10 MG/325 MG TABLET PO PRN ×3 (08:22→21:21)
[2016-08-31] MEDS ORDERED: ENOXAPARIN 40 MG/0.4 ML SYRINGE SUBQ SCH (09:00)
--- NOTE | 2016-08-31 09:54 | PROVIDER PROGRESS NOTE ---
Subjective - Prog Note Date Prog Note Date: 08/31/16 Prog Note Time: 09:51 - Subjective Pt reports feeling: Improved (Less pain in hip today. Eating ok) Objective - Vital Signs/Intake & Output Vital Signs: Vital Signs x48h Temp Pulse Pulse Resp BP Pulse Ox 08/31/16 07:43 37.0 C 91 18 132/65 H 98 08/31/16 04:45 36.9 C 87 16 117/70 99 08/31/16 01:58 16 Intake & Output: Intake & Output 08/28/16 08/29/16 08/30/16 08/31/16 23:59 23:59 23:59 23:59 Intake Total 1636 3637 2291 1525 Output Total 850 1330 1075 Balance 1636 2787 961 450 - Lab Results Fish Bones: 08/31/16 05:35 08/31/16 05:35 Other Labs: Lab Results x24hrs 08/31/16 08/31/16 08/31/16 Range/Units 05:35 05:35 05:35 WBC 8.1 (4.8-10.8) x10^3/uL RBC 3.17 L (4.20-5.40) 10^6/uL Hgb 10.2 L (12.0-16.0) g/dL Hct 31.2 L (37.0-47.0) % MCV 98.6 (81.0-99.0) fL MCH 32.2 H (27.0-31.0) pg MCHC 32.7 (32.0-36.0) g/dL RDW 16.6 H (12.0-15.0) % Plt Count 110 L (130-450) 10^3/uL MPV 8.8 (7.9-10.8) fL Neut # 6.4 (1.5-6.6) 10^3/uL Lymph # 0.7 L (1.5-3.5) 10^3/uL [place] # 1.0 (0.0-1.0) 10^3/uL Eos # 0.0 (0.0-0.7) 10^3/uL Baso # 0.0 (0.0-0.1) 10^3/uL Absolute Nucleated RBC 0.00 x10^3/uL Nucleated RBCs 0.0 /100WBC PT 15.2 H (9.9-12.6) secs INR 1.3 H (0.8-1.2) Sodium 134 L (135-145) mmol/L Potassium 4.4 (3.5-5.0) mmol/L Chloride 104 (101-111) mmol/L Carbon Dioxide 24 (21-32) mmol/L Anion Gap 6.0 (6-13) BUN 12 (6-20) mg/dL Creatinine 0.8 (0.4-1.0) mg/dL Estimated GFR (MDRD) 71 L (>89) Glucose 127 H (70-100) mg/dL Calcium 8.5 (8.5-10.3) mg/dL Ionized Calcium NO Phosphorus 2.7 (2.5-4.6) mg/dL Magnesium 1.3 L (1.7-2.8) mg/dL Total Bilirubin 0.7 (0.2-1.0) mg/dL AST 29 (10-42) IU/L ALT 17 (10-60) IU/L Alkaline Phosphatase 78 (42-121) IU/L Total Protein 5.9 L (6.7-8.2) g/dL Albumin 2.9 L (3.2-5.5) g/dL Globulin 3.0 (2.1-4.2) g/dL Albumin/Globulin Ratio 1.0 (1.0-2.2) - Diagnostic Imaging Diagnostic Imaging Comments: Post op XR: showed satisfactory position of hip prosthesis. Minimal shortening of leg. Joint reduced - Other Results/Comments Other Results/Comments: EXAM: Minimal pain with hip rotation. Moving toes well. Sensation intact. Good cap filling Assessment/Plan - Problem List (1) Fracture of femoral neck, left Impression: Doing well post op PLAN: Continue PT from walker ambulation - WBAT on operated leg. Qualifiers: Encounter type: initial encounter Fracture type: closed Qualified Code(s) : S72.002A - Fracture of unspecified part of neck of left femur, initial encounter for closed fracture
[2016-08-31] MEDS: KETOROLAC 30 MG/ML VIAL IVP PRN (10:35)
[2016-08-31] MEDS: POLYETHYLENE GLYCOL 3350 17 GM PACKET PO SCH (10:36)
[2016-08-31] MEDS: FOLIC ACID 1 MG TABLET PO SCH (10:37)
[2016-08-31] MEDS: LISINOPRIL 5 MG TABLET PO SCH (10:37)
[2016-08-31] MEDS: CYANOCOBALAMIN 500 MCG TABLET PO SCH (10:38)
[2016-08-31] MEDS: DABIGATRAN 75 MG CAPSULE PO SCH ×2 (10:38→21:16)
[2016-08-31] MEDS: buPROPion XL 150 MG TABLET PO SCH (10:39)
[2016-08-31] MEDS: DIGOXIN 125 MCG TABLET PO SCH (10:39)
[2016-08-31] MEDS: CITALOPRAM 10 MG TABLET PO SCH (10:41)
[2016-08-31] MEDS: HYDROcod/ACETAM 5/325 MG TABLET PO PRN (12:20)
--- NOTE | 2016-08-31 17:12 | PROVIDER PROGRESS NOTE ---
Assessment/Plan - Problem List (1) Fracture of femoral neck, left Qualifiers: Encounter type: initial encounter Fracture type: closed Qualified Code(s) : S72.002A - Fracture of unspecified part of neck of left femur, initial encounter for closed fracture Assessment/Plan: Patient presented with a mechanical fall causing a left femoral neck fracture Patient's left lower extremity shortened and externally rotated POD#1 s/p Cementless left Synergy bipolar hip endoprosthesis Doing well, pain controlled, eating well Worked with PT today and will need a SNF Plan for [facility] for further PT and rehab in next 1-2 days Ortho following Qualifiers: Encounter type: initial encounter Fracture type: closed Qualified Code(s) : S72.002A - Fracture of unspecified part of neck of left femur, initial encounter for closed fracture (2) Atrial fibrillation Conclusion/Plan: The patient has chronic atrial fibrillation and is on pradaxa Rate is controlled Chads to score is 4 Continue digoxin for rate control Restarted pradaxa post op Echo done April 2016 normal EF Qualifiers: Atrial fibrillation type: chronic Qualified Code(s): I48.2 - Chronic atrial fibrillation (3) Diabetes Conclusion/Plan: Continue home lantus Will hold oral diabetic meds Place on SS insulin Place on Diabetic diet Closely monitor blood sugars A1C 6.4 well controlled Blood glucose well controlled here Qualifiers: Diabetes mellitus type: type 2 (4) Hypertension Conclusion/Plan: On Lisinopril Will continue BP controlled Monitor Well controlled Qualifiers: Hypertension type: essential hypertension Qualified Code(s): I10 - Essential (primary) hypertension (5) Hyperlipidemia Conclusion/Plan: Continue lipitor while hospitalized (6) Depression Conclusion/Plan: Continue Bupropion and Celexa Stable - Current Meds Current Meds: Current Medications Generic Name Dose Route Start Last Admin Trade Name Freq PRN Reason Stop Dose Admin Acetaminophen/Hydrocodone Bitart 1 tab 08/28/16 11:15 08/31/16 12:20 [place] 5/325 PO 1 tab Q4HR PRN Administration Pain 5 to 7 Acetaminophen/Hydrocodone Bitart 1 tab 08/28/16 11:15 08/31/16 08:22 [place] 10 Mg/325 Mg PO 1 tab Q4HR PRN Administration Pain 8 to 10 Atorvastatin Calcium 80 mg 08/28/16 21:00 08/30/16 22:02 Lipitor PO 80 mg QPM NORA Administration Bupropion HCl 150 mg 08/29/16 09:00 08/31/16 10:39 Wellbutrin Xl PO 150 mg DAILY NORA Administration Citalopram Hydrobromide 20 mg 08/29/16 09:00 08/31/16 10:41 Celexa PO 20 mg DAILY NORA Administration Cyanocobalamin 1,000 mcg 08/29/16 09:00 08/31/16 10:38 Vitamin B-12 PO 1,000 mcg DAILY NORA Administration Dabigatran 150 mg 08/30/16 21:00 08/31/16 10:38 Pradaxa PO 150 mg BID NORA Administration Digoxin 125 mcg 08/29/16 09:00 08/31/16 10:39 Lanoxin PO 125 mcg DAILY NORA Administration Folic Acid 1 mg 08/29/16 09:00 08/31/16 10:37 PO 1 mg DAILY NORA Administration Hydromorphone HCl 10 mg 08/29/16 10:35 08/30/16 05:27 Dilaudid Vulcanizing Press Operator (Use Vulcanizing Press Operator Order Set) IV 10 mg PRN PRN Administration PAIN Protocol Insulin Aspart 1 - 9 unit 08/28/16 12:00 08/31/16 12:19 Novolog SUBQ 3 unit 0800,1200,1700,2100 NORA Administration Protocol Insulin Glargine 40 unit 08/28/16 21:00 08/30/16 22:03 Lantus Solostar SUBQ 40 unit QPM NORA Administration Ketorolac Tromethamine 30 mg 08/31/16 09:31 08/31/16 10:35 Toradol Inj IVP 09/05/16 09:30 30 mg Q6HR PRN Administration PAIN Lisinopril 10 mg 08/29/16 09:00 08/31/16 10:37 Zestril PO 10 mg DAILY NORA Administration Magnesium Oxide 400 mg 08/31/16 08:00 08/31/16 08:22 Mag Ox PO 400 mg DAILYWM NORA Administration Magnesium Oxide 400 mg 08/31/16 12:00 08/31/16 12:20 Mag Ox PO 400 mg DAILYWM NORA Administration Metoprolol Tartrate 5 mg 08/29/16 05:01 08/29/16 05:12 Lopressor Inj IVP 5 mg Q6H PRN Administration HR>110 Pantoprazole Sodium 40 mg 08/29/16 07:00 08/31/16 06:36 Protonix PO 40 mg QDAC NORA Administration Polyethylene Glycol 17 gm 08/29/16 09:00 08/31/16 10:36 Miralax PO 17 gm DAILY NORA Administration Multivit/Folic Acid/Iron 1 tab 08/29/16 08:00 08/31/16 08:22 Trinatal Rx 1 PO 1 tab DAILYWM NORA Administration Sodium Chloride 10 ml 08/28/16 14:00 08/31/16 10:42 Normal Saline Flush 0.9% IVP 10 ml Q8HR NORA Administration Sodium Chloride 10 ml 08/30/16 14:00 08/31/16 12:25 Normal Saline Flush 0.9% IVP 10 ml Q8HR NORA Administration - Lab Result Lab results reviewed: Yes Fish Bone Diagrams: 08/31/16 05:35 08/31/16 05:35 - EKG Results EKG Interpreted Independently: Yes - Diagnostic Imaging Results Diagnostic Imaging Results: positive: Final report reviewed - Additional Planning Condition/Complexity: Improved My Orders: My Active Orders 08/30/16 21:00 Dabigatran [Pradaxa] 150 mg PO BID 08/31/16 08:00 Magnesium Oxide [Mag Ox] 400 mg PO DAILYWM 08/31/16 12:00 Magnesium Oxide [Mag Ox] 400 mg PO DAILYWM 08/31/16 16:59 Magnesium Hydroxide [Milk of Magnesia] 2,400 - 4,800 mg PO ONCE ONE 09/01/16 05:00 CBC - COMP BLD CT W/AUTO DIFF [HEME] DAILYLAB CMP, RFLX TO IONIZED CA IF [CHEM] DAILYLAB MAGNESIUM [CHEM] DAILYLAB PHOSPHORUS [CHEM] DAILYLAB PT WITH INR [COAG] DAILYLAB 09/02/16 05:00 CBC - COMP BLD CT W/AUTO DIFF [HEME] DAILYLAB CMP, RFLX TO IONIZED CA IF [CHEM] DAILYLAB MAGNESIUM [CHEM] DAILYLAB PHOSPHORUS [CHEM] DAILYLAB PT WITH INR [COAG] DAILYLAB Consult/Specialty: OT, PT, Other (Ortho) Plan Discussed with:: Patient Time Spent: 31-60 minutes Subjective - Subjective Patient Reports: Other (Patient denies any fevers overnight, she states pain is controlled, she has not gotten out of bed yet. She has good appetite.) Nursing Reports: No Complaints Objective Vital Signs: Vital Signs - 24 hr 08/30/16 08/30/16 08/31/16 20:00 20:35 00:15 Temperature 37.2 C 37.2 C Heart Rate [ 88 Brachial] Heart Rate [ 84 Monitoring electrodes] Heart Rate [ Supine] Respiratory 16 18 16 Rate Blood Pressure 126/75 [Left Brachial artery] Blood Pressure 122/66 [Left Radial artery] Blood Pressure [Sitting] Blood Pressure [Supine] O2 Saturation 100 98 08/31/16 08/31/16 08/31/16 01:58 04:45 07:00 Temperature 36.9 C Heart Rate [ Brachial] Heart Rate [ 87 Monitoring electrodes] Heart Rate [ Supine] Respiratory 16 16 16 Rate Blood Pressure [Left Brachial artery] Blood Pressure 117/70 [Left Radial artery] Blood Pressure [Sitting] Blood Pressure [Supine] O2 Saturation 99 08/31/16 08/31/16 08/31/16 07:43 10:30 10:55 Temperature 37.0 C Heart Rate [ 91 Brachial] Heart Rate [ Monitoring electrodes] Heart Rate [ 105 H Supine] Respiratory 18 20 Rate Blood Pressure [Left Brachial artery] Blood Pressure 132/65 H [Left Radial artery] Blood Pressure 146/80 H [Sitting] Blood Pressure 128/69 [Supine] O2 Saturation 98 08/31/16 08/31/16 11:11 12:16 Temperature 37.2 C Heart Rate [ 92 Brachial] Heart Rate [ Monitoring electrodes] Heart Rate [ 101 H Supine] Respiratory 18 Rate Blood Pressure [Left Brachial artery] Blood Pressure 128/69 [Left Radial artery] Blood Pressure 146/80 H [Sitting] Blood Pressure 128/69 [Supine] O2 Saturation 94 Oxygen O2 Source Room air I&O (Last 24 Hrs): Intake and Output Totals x24h 08/29/16 08/30/16 08/31/16 23:59 23:59 23:59 Intake Total 3637 2291 1765 Output Total 850 1330 1075 Balance 2787 961 690 General: Alert, Oriented x3, Cooperative, Other (Obese) HEENT: Atraumatic, PERRLA, EOMI, Mucous membr. moist/pink Neck: Supple, No JVD, No thyromegaly, +2 carotid pulse wo bruit, No LAD Lymphatic: no adenopathy Neuro: Alert, Non Focal, CN 2-12 Grossly Intact, Oriented Times 3 Cardiovascular: Other (Irregularily, irregular) Respiratory: Chest non-tender, No respiratory distress, Breath sounds nml Abdomen: Normal bowel sounds, Soft, No tenderness Extremities: No clubbing, No cyanosis, No edema, Normal pulses, Other (Left hip post op ty, swelling, decreased ROM secondary to pain.) Skin: No rashes, No breakdown, No significant lesion - Results Results: Laboratory Results WBC 8.1 x10^3/uL (4.8-10.8) 08/31/16 05:35 RBC 3.17 10^6/uL (4.20-5.40) L 08/31/16 05:35 Hgb 10.2 g/dL (12.0-16.0) L 08/31/16 05:35 Hct 31.2 % (37.0-47.0) L 08/31/16 05:35 MCV 98.6 fL (81.0-99.0) 08/31/16 05:35 MCH 32.2 pg (27.0-31.0) H 08/31/16 05:35 MCHC 32.7 g/dL (32.0-36.0) 08/31/16 05:35 RDW 16.6 % (12.0-15.0) H 08/31/16 05:35 Plt Count 110 10^3/uL (130-450) L 08/31/16 05:35 MPV 8.8 fL (7.9-10.8) 08/31/16 05:35 Neut # 6.4 10^3/uL (1.5-6.6) 08/31/16 05:35 Lymph # 0.7 10^3/uL (1.5-3.5) L 08/31/16 05:35 [place] # 1.0 10^3/uL (0.0-1.0) 08/31/16 05:35 Eos # 0.0 10^3/uL (0.0-0.7) 08/31/16 05:35 Baso # 0.0 10^3/uL (0.0-0.1) 08/31/16 05:35 Absolute Nucleated RBC 0.00 x10^3/uL 08/31/16 05:35 Nucleated RBCs 0.0 /100WBC 08/31/16 05:35 PT 15.2 secs (9.9-12.6) H 08/31/16 05:35 INR 1.3 (0.8-1.2) H 08/31/16 05:35 APTT 41.8 secs (24.9-33.3) H 08/28/16 13:37 Sodium 134 mmol/L (135-145) L 08/31/16 05:35 Potassium 4.4 mmol/L (3.5-5.0) 08/31/16 05:35 Chloride 104 mmol/L (101-111) 08/31/16 05:35 Carbon Dioxide 24 mmol/L (21-32) 08/31/16 05:35 Anion Gap 6.0 (6-13) 08/31/16 05:35 BUN 12 mg/dL (6-20) 08/31/16 05:35 Creatinine 0.8 mg/dL (0.4-1.0) 08/31/16 05:35 Estimated GFR (MDRD) 71 (>89) L 08/31/16 05:35 Glucose 127 mg/dL (70-100) H 08/31/16 05:35 Glycated Hemoglobin 6.4 % (4.6-6.2) H 08/28/16 13:37 Estim Average Glucose 137 (70-100) H 08/28/16 13:37 Calcium 8.5 mg/dL (8.5-10.3) 08/31/16 05:35 Ionized Calcium NO 08/31/16 05:35 Phosphorus 2.7 mg/dL (2.5-4.6) 08/31/16 05:35 Magnesium 1.3 mg/dL (1.7-2.8) L 08/31/16 05:35 Total Bilirubin 0.7 mg/dL (0.2-1.0) 08/31/16 05:35 AST 29 IU/L (10-42) 08/31/16 05:35 ALT 17 IU/L (10-60) 08/31/16 05:35 Alkaline Phosphatase 78 IU/L (42-121) 08/31/16 05:35 Total Protein 5.9 g/dL (6.7-8.2) L 08/31/16 05:35 Albumin 2.9 g/dL (3.2-5.5) L 08/31/16 05:35 Globulin 3.0 g/dL (2.1-4.2) 08/31/16 05:35 Albumin/Globulin Ratio 1.0 (1.0-2.2) 08/31/16 05:35 Last Dose Date 08/28/16 08/28/16 13:37 Last Dose Time 0800 08/28/16 13:37 Digoxin 0.7 ng/mL 08/28/16 13:37 - Procedures Procedures: Procedures ALCOHOL DETOXIFICATION (12/14/12) COMPRESSION OF LEFT LOWER LEG USING PRESSURE DRESSING (05/07/16) EXCISION OF LEFT FIBULA, OPEN APPROACH (05/07/16) INSERTION OF INFUSION DEV INTO SUP VENA CAVA, PERC APPROACH (05/07/16) REPOSITION LEFT TIBIA WITH INT FIX, OPEN APPROACH (03/19/16)
[2016-08-31] MEDS ORDERED: MAGNESIUM HYDROXIDE 2,400 MG/30 ML UDC PO ONE (18:00)
[2016-08-31] MEDS: ATORVASTATIN 40 MG TABLET PO SCH (21:16)
[2016-08-31] MEDS: INSULIN GLARGINE 300 UNIT/3 ML PEN SUBQ SCH (21:21)
[2016-09-01 05:59] LABS: BASOPHILS % (AUTO) 0.2 %; EOSINOPHILS % (AUTO) 0.7 %; HCT - HEMATOCRIT 29.3 % (37.0-47.0); HGB - HEMOGLOBIN 9.7 g/dL (12.0-16.0); LYMPHOCYTES # (AUTO) 0.7 10^3/uL (1.5-3.5); LYMPHOCYTES % (AUTO) 10.2 %; MEAN CORPUSCULAR HEMOGLOBIN 32.6 pg (27.0-31.0); MEAN CORPUSCULAR VOLUME 98.7 fL (81.0-99.0); MONOCYTES % (AUTO) 13.7 %; NEUTROPHILS # (AUTO) 5.3 10^3/uL (1.5-6.6); NEUTROPHILS % (AUTO) 75.2 %; NUCLEATED RED BLOOD CELLS AUTO 0.2 /100WBC; RED BLOOD COUNT 2.97 10^6/uL (4.20-5.40); RED CELL DISTRIBUTION WIDTH 17.5 % (12.0-15.0)
[2016-09-01 06:04] LABS: INR 1.4 (0.8-1.2); PT - PROTHROMBIN TIME 15.4 secs (9.9-12.6)
[2016-09-01 06:07] LABS: ALBUMIN/GLOBULIN RATIO 0.9 (1.0-2.2); BILIRUBIN,TOTAL 0.7 mg/dL (0.2-1.0); BUN - BLOOD UREA NITROGEN 15 mg/dL (6-20); CALCIUM 8.5 mg/dL (8.5-10.3); CARBON DIOXIDE - CO2 28 mmol/L (21-32); CHLORIDE 104 mmol/L (101-111); CREATININE 0.9 mg/dL (0.4-1.0); GFR - MDRD 62 (>89); GLUCOSE 112 mg/dL (70-100); MAGNESIUM 1.8 mg/dL (1.7-2.8); PHOSPHORUS 2.6 mg/dL (2.5-4.6); POTASSIUM 4.4 mmol/L (3.5-5.0); SODIUM 137 mmol/L (135-145); TOTAL PROTEIN 5.6 g/dL (6.7-8.2)
[2016-09-01] MEDS: PANTOPRAZOLE 40 MG TABLET PO SCH (06:30)
[2016-09-01] MEDS: SODIUM CHLORIDE FLUSH 0.9% 10 ML SYRINGE IVP SCH ×3 (06:30→14:03)
[2016-09-01] MEDS: oxyCOD/ACETAMIN 5 MG/325 MG TABLET PO PRN ×2 (06:31→11:04)
[2016-09-01] MEDS: INSULIN ASPART 300 UNIT/3 ML PEN SUBQ SCH ×2 (08:28→11:56)
[2016-09-01] MEDS: POLYETHYLENE GLYCOL 3350 17 GM PACKET PO SCH (08:39)
[2016-09-01] MEDS: CITALOPRAM 10 MG TABLET PO SCH (08:40)
[2016-09-01] MEDS: LISINOPRIL 5 MG TABLET PO SCH (08:41)
[2016-09-01] MEDS: buPROPion XL 150 MG TABLET PO SCH (08:41)
[2016-09-01] MEDS: MAGNESIUM OXIDE 400 MG TABLET PO SCH ×2 (08:41→11:00)
[2016-09-01] MEDS: FOLIC ACID 1 MG TABLET PO SCH (08:41)
[2016-09-01] MEDS: CYANOCOBALAMIN 500 MCG TABLET PO SCH (08:42)
[2016-09-01] MEDS: PRENATAL VITAMIN TABLET PO SCH (08:42)
[2016-09-01] MEDS: DIGOXIN 125 MCG TABLET PO SCH (08:42)
[2016-09-01] MEDS: DABIGATRAN 75 MG CAPSULE PO SCH (08:43)
[2016-09-01] MEDS: KETOROLAC 30 MG/ML VIAL IVP PRN ×2 (08:44→14:17)
--- NOTE | 2016-09-01 11:25 | PROVIDER PROGRESS NOTE ---
Subjective - Prog Note Date Prog Note Date: 09/01/16 Prog Note Time: 11:22 - Subjective Pt reports feeling: Improved (Less pain. Mobilizing in PT) Objective - Vital Signs/Intake & Output Vital Signs: Vital Signs x48h Temp Pulse Resp BP BP Pulse Ox 09/01/16 08:27 36.6 C 99 20 128/70 94 09/01/16 05:14 37.1 C 81 16 122/62 95 Intake & Output: Intake & Output 08/29/16 08/30/16 08/31/16 09/01/16 23:59 23:59 23:59 23:59 Intake Total 3637 2291 2525 556 Output Total 850 1330 1425 400 Balance 2787 961 1100 156 - Lab Results Fish Bones: 09/01/16 05:39 09/01/16 05:39 Other Labs: Lab Results x24hrs 09/01/16 09/01/16 09/01/16 Range/Units 05:39 05:39 05:39 WBC 7.0 (4.8-10.8) x10^3/uL RBC 2.97 L (4.20-5.40) 10^6/uL Hgb 9.7 L (12.0-16.0) g/dL Hct 29.3 L (37.0-47.0) % MCV 98.7 (81.0-99.0) fL MCH 32.6 H (27.0-31.0) pg MCHC 33.0 (32.0-36.0) g/dL RDW 17.5 H (12.0-15.0) % Plt Count 113 L (130-450) 10^3/uL MPV 9.0 (7.9-10.8) fL Neut # 5.3 (1.5-6.6) 10^3/uL Lymph # 0.7 L (1.5-3.5) 10^3/uL [place] # 1.0 (0.0-1.0) 10^3/uL Eos # 0.0 (0.0-0.7) 10^3/uL Baso # 0.0 (0.0-0.1) 10^3/uL Absolute Nucleated RBC 0.01 x10^3/uL Nucleated RBCs 0.2 /100WBC PT 15.4 H (9.9-12.6) secs INR 1.4 H (0.8-1.2) Sodium 137 (135-145) mmol/L Potassium 4.4 (3.5-5.0) mmol/L Chloride 104 (101-111) mmol/L Carbon Dioxide 28 (21-32) mmol/L Anion Gap 5.0 L (6-13) BUN 15 (6-20) mg/dL Creatinine 0.9 (0.4-1.0) mg/dL Estimated GFR (MDRD) 62 L (>89) Glucose 112 H (70-100) mg/dL Calcium 8.5 (8.5-10.3) mg/dL Ionized Calcium NO Phosphorus 2.6 (2.5-4.6) mg/dL Magnesium 1.8 (1.7-2.8) mg/dL Total Bilirubin 0.7 (0.2-1.0) mg/dL AST 24 (10-42) IU/L ALT 15 (10-60) IU/L Alkaline Phosphatase 80 (42-121) IU/L Total Protein 5.6 L (6.7-8.2) g/dL Albumin 2.7 L (3.2-5.5) g/dL Globulin 2.9 (2.1-4.2) g/dL Albumin/Globulin Ratio 0.9 L (1.0-2.2) - Other Results/Comments Other Results/Comments: Exam: Dressing intact. minimal pain with hip motion. N/V ok distally. up in PT ambulating with a walker - WBAT on left Assessment/Plan - Problem List (1) Fracture of femoral neck, left Impression: Doing well post op PLAN: Continue to mobilize as tolerated with PT at [facility], when bed is available.. Continue ambulation - WBAT on right. follow up with orthopedic clinic in 2 weeks for staple removal and reXR of left hip. Qualifiers: Encounter type: initial encounter Fracture type: closed Qualified Code(s) : S72.002A - Fracture of unspecified part of neck of left femur, initial encounter for closed fracture
[2016-09-01 12:10] VITALS: BP 120/74
--- NOTE | 2016-09-01 16:17 | DISCHARGE SUMMARY ---
DATE OF ADMISSION: 08/28/2016 DATE OF DISCHARGE: 09/01/2016 PRIMARY CARE PHYSICIAN: More Franco M.D. ADMISSION DIAGNOSES 1. Fracture of left femoral neck. 2. Atrial fibrillation with anticoagulation dabigatran (Pradaxa). 3. Diabetes. 4. Hypertension. 5. Hyperlipidemia. 6. Depression. DISCHARGE DIAGNOSES 1. Fracture of left femoral neck, status post open reduction internal fixation. 2. Atrial fibrillation with anticoagulation, chronic and controlled with rate control on medication. 3. Diabetes with A1c 7.6. 4. Hypertension with fair control. 5. Depression, on medication. CONSULTATIONS: Surgery with Dr. Candelario. SPECIAL PROCEDURES: None. HOSPITAL COURSE AND MANAGEMENT: The initial presentation, the hospital emergency department evaluatio n, and the hospital plan are well described in the History and Physical by Dr. Luz, see copy of [email or web address] [email or web address]. SUMMARY: The patient had a mechanical fall causing a left femoral neck fracture. The patient's left l ower extremity is shortened and externally rotated. The patient has a history of atrial fibrillation on Pradaxa. The patient did have a CVA in the past. The patient's surgery was delayed because of the Pradaxa. She had the surgery on Wednesday and was up after the surgery to the bedside, and on Wednesday wa s able to ambulate with some assistance and some premedication with pain medication. The patient prep ared for discharge to the [facility] assisted facility. PHYSICAL EXAMINATION ON THE DAY OF DISCHARGE VITAL SIGNS: 37.3, 82, 120/70, 19, 96 room air saturation. EYES: EOM within normal limits, PERRL, nonicteric. CONSTITUTIONAL: Obese female, stated age. Alert, sometimes confused. MOUTH AND THROAT: Moist mucous membranes, no other pathology noted. NECK: No nodes, no lymphadenopathy, no thyromegaly noted. CHEST WALL: Nontender. Symmetric. No breast exam done. HEART: Irregular rhythm, 2/6 murmur left sternal border. VASCULAR: Pulses 1+ at the posterior tibial bilaterally. The patient has no cyanosis. LUNGS: Clear, good air movement. ABDOMEN: Thick abdominal wall, soft, nontender. NEUROLOGIC: Patient has difficulty with remembering recent events and sequencing. Cranial nerves inta ct. LABORATORY DATA: She has a white count 7.0, 9.7 and 23 hemoglobin and hematocrit, platelets are consi stently low at 113. INR is 1.4. Sodium is 137, 4.4 is her potassium, chloride 104, CO2 of 23, BUN 15, creatinine 0.9, glucose is 112. A1c of 6.4. Calcium 8.5, albumin was 2.7. ALLERGIES: NONE KNOWN. MEDICATIONS 1. Omeprazole 40 mg a day. 2. Lantus 40 mg subcutaneous at night. 3. B12 1000 mcg a day. 4. Atorvastatin 80 mg at night. 5. Vitamin B complex. 6. vitamin once a day. 7. Pioglitazone 30 mg daily. 8. Folic acid 1 mg a day. 9. Digoxin 125 mcg daily. 10. Pradaxa 150 mg b.i.d. 11. Celexa 20 mg a day. 12. Bupropion XL 100 mg in the morning. 13. Sitagliptin 50 mg daily. 14. Metformin 500 mg twice a day. 15. Lisinopril 10 mg a day. 16. Hydrocodone/acetaminophen 5/325 one q.4h. p.r.n. pain. FOLLOWUP: Two weeks to see Orthopedics, get ty out, recheck. She is to get PT, OT at assisted facility. She is to be on a diabetic diet. Weightbearing as t olerated. Time spent in discharge activity, collaboration with Case Management, Nursing, and patient education is 40 minutes. The patient was examined on the day of discharge. JOB #: [id number] EXT JOB #:[id number]
== END 2016-09-01 15:25 | DRG 470 ==
LOC: EDUNIT# → ED 08:57 → MS 11:15
PROVIDERS: ADMIT Internal Medicine; ATTEND Internal Medicine
PROC: 0SRS01A Replacement of Left Hip Joint, Femoral Surface with Metal Synthetic Substitute, Uncemented, Open Approach (ICD-10-PCS; principal; 2016-08-30 08:00)
DX: S72.032A Displaced midcervical fracture of left femur, initial encounter for closed fracture (principal); W01.0XXA Fall on same level from slipping, tripping and stumbling without subsequent striking against object, initial encounter; I48.2 Chronic atrial fibrillation; I48.91 Unspecified atrial fibrillation; E11.9 Type 2 diabetes mellitus without complications; E78.00 Pure hypercholesterolemia, unspecified; I10 Essential (primary) hypertension; E66.9 Obesity, unspecified; Z86.73 Personal history of transient ischemic attack (TIA), and cerebral infarction without residual deficits; E78.5 Hyperlipidemia, unspecified; F32.9 Major depressive disorder, single episode, unspecified; I69.393 Ataxia following cerebral infarction; I69.398 Other sequelae of cerebral infarction; H49.00 Third [oculomotor] nerve palsy, unspecified eye; W18.09XA Striking against other object with subsequent fall, initial encounter; Y92.481 Parking lot as the place of occurrence of the external cause; E66.8 Other obesity; R61 Generalized hyperhidrosis; T42.4X5A Adverse effect of benzodiazepines, initial encounter; Y92.239 Unspecified place in hospital as the place of occurrence of the external cause; Z66 Do not resuscitate; Z79.01 Long term (current) use of anticoagulants; Z68.37 Body mass index [BMI] 37.0-37.9, adult; Z79.4 Long term (current) use of insulin; Z98.84 Bariatric surgery status; Z87.891 Personal history of nicotine dependence; Z98.890 Other specified postprocedural states; Z87.81 Personal history of (healed) traumatic fracture
CPT/HCPCS: 36415; 71010; 72170; 80048; 80053; 80162; 83036; 83690; 83735; 84100; 85025; 85610; 85730; 93005; 93010; 96374; 99283; 99284

== ENCOUNTER 2016-09-14 08:36 | Outpatient (CLI) | payer MEDICARE, OTHER ==
[2016-09-14 10:38] LABS: BASOPHILS % (AUTO) 0.6 %; EOSINOPHILS # (AUTO) 0.1 10^3/uL (0.0-0.7); EOSINOPHILS % (AUTO) 1.8 %; HCT - HEMATOCRIT 33.6 % (37.0-47.0); HGB - HEMOGLOBIN 11.2 g/dL (12.0-16.0); LYMPHOCYTES # (AUTO) 1.1 10^3/uL (1.5-3.5); LYMPHOCYTES % (AUTO) 14.7 %; MEAN CORPUSCULAR HGB CONC 33.5 g/dL (32.0-36.0); MEAN CORPUSCULAR VOLUME 95.8 fL (81.0-99.0); MEAN PLATELET VOLUME 8.5 fL (7.9-10.8); MONOCYTES # (AUTO) 0.5 10^3/uL (0.0-1.0); NEUTROPHILS # (AUTO) 5.8 10^3/uL (1.5-6.6); NEUTROPHILS % (AUTO) 75.9 %; NUCLEATED RED BLOOD CELLS AUTO 0.1 /100WBC; RED BLOOD COUNT 3.51 10^6/uL (4.20-5.40); RED CELL DISTRIBUTION WIDTH 17.6 % (12.0-15.0); UNCORRECTED WHITE BLOOD COUNT 7.6 x10^3/uL; WHITE BLOOD COUNT 7.6 x10^3/uL (4.8-10.8)
[2016-09-14 10:55] LABS: ALBUMIN/GLOBULIN RATIO 0.8 (1.0-2.2); BILIRUBIN,TOTAL 0.6 mg/dL (0.2-1.0); BUN - BLOOD UREA NITROGEN 16 mg/dL (6-20); CALCIUM 9.3 mg/dL (8.5-10.3); CARBON DIOXIDE - CO2 26 mmol/L (21-32); CHLORIDE 105 mmol/L (101-111); CREATININE 0.9 mg/dL (0.4-1.0); GFR - MDRD 62 (>89); GLUCOSE 100 mg/dL (70-100); POTASSIUM 4.3 mmol/L (3.5-5.0); SODIUM 141 mmol/L (135-145)
== END 2016-09-14 08:37 | disposition home or self-care (01) ==
LOC: LAB.R 08:36 → MERGE 10:17
DX: S72.002D Fracture of unspecified part of neck of left femur, subsequent encounter for closed fracture with routine healing (principal); Z51.81 Encounter for therapeutic drug level monitoring; I48.91 Unspecified atrial fibrillation
CPT/HCPCS: 80053; 80162; 85025

== ENCOUNTER 2016-11-28 17:46 | Emergency (ER) | payer MEDICARE, OTHER ==
[2016-11-28 17:54] VITALS: BP 174/80
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
[2016-11-28] MEDS ORDERED: LIDOCAINE OINTMENT 5% 35.44 GM TUBE TOP STA (18:21)
[2016-11-28] MEDS ORDERED: BACITRACIN OINT TOP STA (18:22)
[2016-11-28] MEDS ORDERED: HYDROcod/ACET 5/325 Prepack 6 PO ONE ×2 (18:22→18:34)
[2016-11-28] MEDS ORDERED: BACITRACIN OINT TOP ONE ×2 (18:33→19:27)
[2016-11-28] MEDS ORDERED: HYDROcod/ACETAM 5/325 MG TABLET ONE (18:33)
[2016-11-28] MEDS: HYDROcod/ACETAM 5/325 MG TABLET PO STA ×2 (18:34→18:35)
[2016-11-28] MEDS ORDERED: LIDOCAINE OINTMENT 5% 35.44 GM TUBE ONE (18:34)
== END 2016-11-28 19:04 | disposition home or self-care (01) ==
LOC: ED 17:46
DX: T21.22XA Burn of second degree of abdominal wall, initial encounter (principal); T24.111A Burn of first degree of right thigh, initial encounter; T23.121A Burn of first degree of single right finger (nail) except thumb, initial encounter; X10.2XXA Contact with fats and cooking oils, initial encounter; I10 Essential (primary) hypertension; E78.00 Pure hypercholesterolemia, unspecified; I48.91 Unspecified atrial fibrillation; E11.9 Type 2 diabetes mellitus without complications; Z79.4 Long term (current) use of insulin; Z79.84 Long term (current) use of oral hypoglycemic drugs; Z86.73 Personal history of transient ischemic attack (TIA), and cerebral infarction without residual deficits; Z87.11 Personal history of peptic ulcer disease; M10.9 Gout, unspecified; Z98.84 Bariatric surgery status; Z87.891 Personal history of nicotine dependence
CPT/HCPCS: 99283; A9270

== ENCOUNTER 2016-12-21 06:11 | Day surgery (SDC) | payer MEDICARE, OTHER ==
[2016-12-21] MEDS ORDERED: LACTATED RINGERS 1,000 ML IV ONE ×2 (06:32→10:33)
[2016-12-21] MEDS ORDERED: BUPIVACAINE 0.25% PF 30 ML VIAL SUBQ ONE ×2 (08:44→09:32)
[2016-12-21] MEDS ORDERED: fentaNYL 100 MCG/2 ML VIAL IVP ONE (09:40)
[2016-12-21] MEDS ORDERED: PROPOFOL 200 MG/20 ML VIAL IVP ONE (09:40)
[2016-12-21] MEDS ORDERED: ceFAZolin 1 GM VIAL IV ONE (09:40)
[2016-12-21] MEDS ORDERED: LIDOCAINE-MPF 2% 5 ML VIAL IM ONE (09:40)
[2016-12-21] MEDS ORDERED: ACETAMINOPHEN 1,000 MG/100 ML 100 ML IV ONE (10:07)
[2016-12-21] MEDS: fentaNYL 100 MCG/2 ML VIAL ONE ×2 (10:15→10:19)
[2016-12-21] MEDS ORDERED: KETOROLAC 15 MG/ML VIAL ONE (10:30)
[2016-12-21 11:13] VITALS: BP 136/82
--- NOTE | 2016-12-21 11:46 | OPERATIVE REPORT ---
DATE OF SURGERY: 12/21/2016 00:00:00 PREOPERATIVE DIAGNOSIS: Retained hardware, left ankle after left ankle bimalleolar fracture and subse quent wound infection. POSTOPERATIVE DIAGNOSIS: Retained hardware, left ankle after left ankle bimalleolar fracture and subs equent wound infection. PROCEDURES 1. Removal of plate and screws, left fibula. 2. I and D of the left ankle (bone, subcutaneous tissue and skin). SURGEON: Anand Mendoza MD. ASSISTANTS: None. ANESTHESIA: Laryngeal mask. FINDINGS: Same. No evidence of active infection. COMPLICATIONS: None. BLOOD LOSS: Minimal. TOURNIQUET: Left thigh at 275 mmHg x60 minutes. SPECIMEN REMOVED AND CULTURES: Bone plate and screws from the left ankle, as well as fibrinous materi al. None of this was sent to the lab. CONDITION AT END OF PROCEDURE: Stable. DISPOSITION: PACU, then home. INDICATIONS: This is a 71-year-old female with a history of diabetes mellitus who had sustained a lef t ankle bimalleolar fracture nearly 1 year ago, which underwent open reduction internal fixation. Sub sequent to her surgery, she spent a lot of time in a wheelchair with her foot dependent despite sever al warnings that she needed elevated above her heart to control swelling. The result was dramatic swe lling as if she developed dehiscence of the wound on the lateral aspect of the left ankle, which subs equently became infected with methicillin sensitive Staphylococcus aureus. She underwent subsequent I and D and placement of antibiotic beads. This was followed by a prolonged [facility] where we were able to successfully get the wound to granulate overall for ap proximately a 1.5 x 1 cm area over the distal most portion of the plate. She has arrived at a steady state where there is no purulence and no evidence of infection, but still remaining this small area o f exposed plate. She is now more than 9 months out from her index surgery and we decided to remove th e plate and screws from the lateral ankle in the hopes of allowing underlying granulation tissue to a llow it to reepithelialize. Options have been discussed with the patient, questions were answered, no guarantees were made. PROCEDURE IN DETAIL: After consent and identification, the patient was brought to the operating room in a supine position on the operating litter. After induction of a general endotracheal anesthesia an d appropriate monitoring, the patient was transferred to the operating table with a bone foam bump un derneath the left lower leg and a rolled bump underneath the left hip. A tourniquet was applied to the left proximal thigh and the left lower extremity was prepped and drap ed free in the usual sterile fashion for lower extremity surgery. After an appropriate timeout was conducted, we elevated the left lower extremity to gravity for 2 min utes and inflated the tourniquet to 275 mmHg. We made a 6 cm incision over the lateral aspect of the ankle from the distal portion of the plate to the point of the proximal most screw in the plate using fluoroscopic imaging for guidance. We elevate d the soft tissues from the plate and around the surrounding bone with a Mantee elevator and a 15-blad e scalpel. We removed the screws with a star-shaped screwdriver and then used a mancia periosteal elevat or to elevate the plate from the surrounding bone and remove the plate from the incision. We used a c uret and rongeur to devitalize fibrinous tissue from the surface of the bone, as well as bony fragmen ts from the screw holes. Also using a curet to clean out the screw holes in the bone. We then used a #15 blade scalpel and a Mantee elevator to further elevate the soft tissues from the surrounding fibul a to mobilize the skin and subcutaneous flap to allow closure of the wound. We then thoroughly irrigated the wound with a total of 2 liters of sterile saline. Following our irri gation, we closed the wound with interrupted 2-0 PDS vertical mattress sutures spaced approximately 1 cm. The wound was then infiltrated with 10 mL of 0.5% Marcaine without epinephrine. A sterile Mepilex silver dressing was then applied over the wound. The lower extremity was wrapped fr om the mid calf down to the toes with a 4-inch Paulie bandage. The tourniquet was deflated without compl ication. The patient was then extubated and transferred to the recovery room in good condition having tolerated the procedure well. JOB #: [id number] EXT JOB #:[id number]
--- NOTE | 2016-12-21 12:26 | XRAY Report ---
INTRAOPERATIVE LEFT ANKLE: 12/21/2016 CLINICAL INDICATION: Hardware removal. FINDINGS: Single frontal intraoperative matrix image of the left ankle demonstrates removal of the f ibular sideplate and screws. Medial tibial cortical screws are stable. Three seconds of fluoroscopy time was provided to Dr. Mendoza; 1 spot image obtained. IMPRESSION: INTRAOPERATIVE IMAGING OF LEFT ANKLE HARDWARE REMOVAL. JOB #: [id number] EXT JOB #:[id number]
--- NOTE | 2016-12-23 09:21 | XRAY Report ---
Fluoroscopy time only, no images submitted for interpretation. Fluoroscopy time 0 minutes, 3 seconds. MTDD
== END 2016-12-21 06:12 | disposition home or self-care (01) ==
LOC: SDS 06:11
PROVIDERS: ATTEND Orthopaedic Surgery
PROC: 0YH Anatomical Regions, Lower Extremities, Insertion (ICD-10-PCS; 2016-12-21)
PROC: 0QPK04Z Removal of Internal Fixation Device from Left Fibula, Open Approach (ICD-10-PCS; principal; 2016-12-21 07:30)
DX: Z47.2 Encounter for removal of internal fixation device (principal); T81.31XD Disruption of external operation (surgical) wound, not elsewhere classified, subsequent encounter; E11.9 Type 2 diabetes mellitus without complications; E66.01 Morbid (severe) obesity due to excess calories; Z68.39 Body mass index [BMI] 39.0-39.9, adult
CPT/HCPCS: 11981; 20680; 73600; J0131; J7120

== ENCOUNTER 2017-04-10 07:33 | Outpatient (CLI) | payer MEDICARE, OTHER ==
--- NOTE | 2017-04-10 16:29 | CT Report ---
EXAM: CT HEAD EXAM DATE: 04/10/2017 07:58 AM. CLINICAL HISTORY: MEMORY LOSS. History of high blood pressure and diabetes. COMPARISON: 12/03/2015. TECHNIQUE: Multiaxial CT images were obtained from the foramen magnum to the vertex. Reformats: Coron al. IV contrast: None. In accordance with CT protocol optimization, one or more of the following dose reduction techniques w ere utilized for this exam: automated exposure control, adjustment of mA and/or KV based on patient s ize, or use of iterative reconstructive technique. FINDINGS: Parenchyma: No intraparenchymal hemorrhage. No evidence of mass, midline shift, or CT findings of inf arction. Rod-white differentiation is distinct. Minimal microvascular ischemic disease appears uncha nged. Extraaxial Spaces: Stable but mildly prominent, consistent with diffuse cerebral volume loss. No subd ural or epidural collections identified. Ventricles: Stable but mildly prominent, consistent with diffuse cerebral volume loss. Sinuses and Orbits: Imaged paranasal sinuses, orbits, and mastoids show no significant abnormality. Bones: No evidence of fracture or calvarial defect. Other: None. IMPRESSION: No acute intracranial process identified. Stable findings of diffuse cerebral atrophy and microvascular ischemic disease, unchanged since 12/03/2015. [facility] Referring Provider Line: [phone] SITE ID: [id number]
== END 2017-04-10 07:34 | disposition home or self-care (01) ==
LOC: DI 07:33
PROVIDERS: ATTEND Internal Medicine
DX: R41.3 Other amnesia (principal); G31.9 Degenerative disease of nervous system, unspecified; I67.2 Cerebral atherosclerosis
CPT/HCPCS: 70450

== ENCOUNTER 2017-05-17 18:04 | Outpatient (CLI) | payer MEDICARE, OTHER | END 2017-05-17 18:05 | disposition critical access hospital (66) | LOC: EMS 18:04 | PROVIDERS: ATTEND Surgery | DX: S09.90XA Unspecified injury of head, initial encounter (principal); M25.561 Pain in right knee; W18.39XA Other fall on same level, initial encounter; W22.8XXA Striking against or struck by other objects, initial encounter; Y92.009 Unspecified place in unspecified non-institutional (private) residence as the place of occurrence of the external cause | CPT/HCPCS: A0425; A0429 ==

== ENCOUNTER 2017-05-17 18:38 | Emergency (ER) | payer MEDICARE, OTHER ==
--- NOTE | 2017-05-17 18:51 | ED Physician Documentation ---
PD HPI HEAD INJURY - Stated complaint Stated Complaint: FELL - HIT HEAD - Chief complaint Chief Complaint: Trauma Hd/Nk - History obtained from History obtained from: Patient, EMS - History of Present Illness Mechanism of head injury: Fell (while transferring from wheelchair to chair. Had been drinking some.) Where head injury occurred: Home Timing - onset: Today Location of injury: Left, Back Quality of pain: Pain, Throbbing, Dull Associated symptoms: No: LOC, AMS, Ear drainage Symptoms worsen with: Palpation Contributing factors: Anticoagulated Similar symptoms before: Has not had sx before Recently seen: Not recently seen Review of Systems Constitutional: denies: Fever, Chills Nose: denies: Rhinorrhea / runny nose, Congestion Throat: denies: Sore throat Cardiac: denies: Chest pain / pressure, Palpitations Respiratory: denies: Dyspnea PD PAST MEDICAL HISTORY - Past Medical History Past Medical History: Yes Cardiovascular: High cholesterol, Atrial fibrillation, Hypertension Respiratory: None Neuro: CVA Endocrine/Autoimmune: Type 2 diabetes GI: Diverticulitis, Ulcers : None HEENT: None Psych: Depression Musculoskeletal: Osteopenia, Gout Derm: None - Past Surgical History Past Surgical History: Yes General: Appendectomy, Gastric surgery Ortho: Other HEENT: Tonsil/Adenoidectomy - Present Medications Home Medications: Ambulatory Orders Medication Instructions Recorded Confirmed Insulin Glargine [Lantus] 40 units SQ QPM 09/19/13 01/27/17 Lisinopril 10 mg PO DAILY 09/19/13 01/27/17 Dabigatran [Pradaxa] 150 mg PO BID 06/25/14 01/27/17 Folic Acid 1 mg PO DAILY 04/19/15 01/27/17 Vitamin B Complex [B Complex] 1 tab PO DAILY 04/19/15 01/27/17 Metformin HCl [Metformin HCl ER] 500 mg PO BIDWM 09/16/15 01/27/17 Digoxin 125 mcg PO DAILY 04/16/16 01/27/17 Atorvastatin Calcium 80 mg PO QPM 05/07/16 01/27/17 Bupropion HCl [Bupropion Xl] 100 mg PO DAILY 05/07/16 01/27/17 Omeprazole 40 mg PO DAILY 05/07/16 01/27/17 Pnv95/Ferrous Fumarate/FA 1 tab PO DAILY 05/07/16 01/27/17 [ Tablet] Sitagliptin Phosphate [Januvia] 50 mg PO DAILY 05/07/16 01/27/17 Pioglitazone HCl [Actos] 30 mg PO DAILY 12/16/16 01/27/17 - Allergies Allergies/Adverse Reactions: Allergies Allergy/AdvReac Type Severity Reaction Status Date / Time gabapentin AdvReac Hallucinati Verified 12/21/16 07:17 ons - Social History Does the pt smoke?: No Smoking Status: Never smoker Does the pt drink ETOH?: Yes Does the pt have substance abuse?: No - Immunizations Immunizations are current?: Yes - POLST Patient has POLST: Yes POLST Status: DNR PD ED PE NORMAL - Vitals Vital signs reviewed: Yes - General General: Alert and oriented X 3, Well developed/nourished - HEENT HEENT: Atraumatic, PERRL, EOMI, Pharynx benign - Neck Neck: Supple, no meningeal sign, No bony TTP, No adenopathy - Cardiac Cardiac: RRR, No murmur - Respiratory Respiratory: Clear bilaterally - Abdomen Abdomen: Soft, Non tender - Female Female : Deferred - Rectal Rectal: Deferred - Back Back: No CVA TTP - Derm Derm: Normal color, Warm and dry, No rash Results - Vitals Vitals: Oxygen O2 Source [With Activity] Room air O2 Source Room air - Rads (name of study) head CT Radiology: Prelim report reviewed (no signs of acute traumatic injury. ) PD MEDICAL DECISION MAKING - ED course Complexity details: reviewed results, considered differential (scalp contusion on blood thinner. No LOC per se. Has superficial/thin skin laceration left ankle. Left elbow with some tenderness but good ROM including full extension. ) , d/w patient Departure - Departure Disposition: 01 Home, Self Care Clinical Impression: Scalp contusion Qualifiers: Encounter type: initial encounter Qualified Code(s): S00.03XA - Contusion of scalp, initial encounter Accidental fall Qualifiers: Encounter type: initial encounter Qualified Code(s): W19.XXXA - Unspecified fall, initial encounter Laceration of ankle Qualifiers: Encounter type: initial encounter Laterality: left Qualified Code(s): S91.012A - Laceration without foreign body, left ankle, initial encounter Right knee sprain Qualifiers: Encounter type: initial encounter Involved ligament of knee: unspecified ligament Qualified Code(s): S83.91XA - Sprain of unspecified site of right knee , initial encounter Condition: Stable Record reviewed to determine appropriate education?: Yes Instructions: ED Contusion Scalp, ED Laceration Foot Follow-Up: More Franco MD [Primary Care Provider] - Comments: No signs of bleeding in the skull or brain area. He may have some headache from the injury. You can use ice to the swollen area periodically. Tylenol if needed for pains. For the ankle, cleanse the laceration daily and wrap it. It is superficial enough to not really need suturing. Watch for signs of infection. Knee brace for right knee when ambulating for a week or so, until feeling better. Discharge Date/Time: 05/17/17 21:23
[2017-05-17] MEDS ORDERED: ACETAMINOPHEN 325 MG TABLET PO STA (19:00)
--- NOTE | 2017-05-17 19:50 | CT Preliminary Report ---
Exam: CT HEAD W/O IMPRESSION: 1. Generalized age-related cortical atrophic changes without evidence of acute intracranial abnormali ty. 2. Small right frontal scalp subgaleal hematoma near the vertex. [facility] SITE ID: [id number]
--- NOTE | 2017-05-17 19:50 | CT Report ---
EXAM: CT HEAD EXAM DATE: 05/17/2017 07:41 PM. CLINICAL HISTORY: Fell and struck left forehead; on Pradaxa. COMPARISON: 04/10/2017. TECHNIQUE: Multiaxial CT images were obtained from the foramen magnum to the vertex. Reformats: Coron al. IV contrast: None. In accordance with CT protocol optimization, one or more of the following dose reduction techniques w ere utilized for this exam: automated exposure control, adjustment of mA and/or KV based on patient s ize, or use of iterative reconstructive technique. FINDINGS: Parenchyma: No intraparenchymal hemorrhage. No evidence of mass, midline shift, or CT findings of acu te infarction. Rod-white differentiation is distinct. Diffuse chronic microangiopathic white matter changes are evident. Extraaxial Spaces: Normal for age. No subdural or epidural collections identified. Ventricles: The ventricles and cortical sulci are enlarged, consistent with age-related tissue loss. Sinuses and orbits: Imaged paranasal sinuses, orbits, and mastoids show no significant abnormality. Bones: No evidence of fracture or calvarial defect. Other: There is a 0.7 x 1.4 cm right frontal scalp subgaleal hematoma near the vertex. IMPRESSION: 1. Generalized age-related cortical atrophic changes without evidence of acute intracranial abnormali ty. 2. Small right frontal scalp subgaleal hematoma near the vertex. [facility] Referring Provider Line: [phone] SITE ID: [id number]
[2017-05-17 21:08] VITALS: BP 131/70
== END 2017-05-17 21:23 | disposition home or self-care (01) ==
LOC: EDUNIT# → SUPCPDRO 18:38 → ED 18:38
DX: S00.03XA Contusion of scalp, initial encounter (principal); S91.012A Laceration without foreign body, left ankle, initial encounter; S83.91XA Sprain of unspecified site of right knee, initial encounter; W19.XXXA Unspecified fall, initial encounter; Y92.009 Unspecified place in unspecified non-institutional (private) residence as the place of occurrence of the external cause; E11.9 Type 2 diabetes mellitus without complications; I10 Essential (primary) hypertension; Z79.4 Long term (current) use of insulin; Z86.73 Personal history of transient ischemic attack (TIA), and cerebral infarction without residual deficits
CPT/HCPCS: 70450; 99283

== ENCOUNTER 2017-06-05 06:11 | Outpatient (CLI) | payer MEDICARE, OTHER | END 2017-06-05 06:12 | disposition critical access hospital (66) | LOC: EMS 06:11 | PROVIDERS: ATTEND Surgery | DX: M25.572 Pain in left ankle and joints of left foot (principal); W19.XXXA Unspecified fall, initial encounter | CPT/HCPCS: A0425; A0429 ==

== ENCOUNTER 2017-06-05 06:28 | Emergency (ER) | payer MEDICARE, OTHER ==
[2017-06-05] MEDS ORDERED: MORPHINE 2 MG/ML CARPUJECT IM STA (06:42)
--- NOTE | 2017-06-05 07:10 | ED Physician Documentation ---
PD HPI LOWER EXT INJURY - Stated complaint Stated Complaint: L ANKLE PX - Chief complaint Chief Complaint: Trauma Ext - History obtained from History obtained from: Patient - History of Present Illness PD HPI LOW EXT INJURY LOCATION: Left, Ankle, Foot Type of injury: Twist (rolling/trip injury to the ankle and foot this morning.) Where injury occurred: Home Timing - onset: Last night Timing - details: Abrupt onset, Still present Worsened by: Moving, Other (weight bearing) Associated symptoms: Swelling. No: Weakness, Numbness Contributing factors: Anticoagulated. No: Prior ortho surgery, Prosthetic joint Similar symptoms before: Has not had sx before Recently seen: Other (not recent for ankle - had had prior fracture with plates and screws and these were bothering her, so had removal of the plates October 2016 with good healing. Normal walking and weight bearing most recently. Now painful to stand and walk since injury last night.) Review of Systems Skin: denies: Abrasion (s), Laceration (s) Neurologic: denies: Focal weakness, Numbness, Headache, Head injury PD PAST MEDICAL HISTORY - Past Medical History Cardiovascular: High cholesterol, Atrial fibrillation, Hypertension Respiratory: None Neuro: CVA Endocrine/Autoimmune: Type 2 diabetes GI: Diverticulitis, Ulcers : None HEENT: None Psych: Depression Musculoskeletal: Osteopenia, Gout Derm: None - Past Surgical History Past Surgical History: Yes General: Appendectomy, Gastric surgery Ortho: Other HEENT: Tonsil/Adenoidectomy - Present Medications Home Medications: Ambulatory Orders Medication Instructions Recorded Confirmed Insulin Glargine [Lantus] 40 units SQ QPM 09/19/13 01/27/17 Lisinopril 10 mg PO DAILY 09/19/13 01/27/17 Dabigatran [Pradaxa] 150 mg PO BID 06/25/14 01/27/17 Folic Acid 1 mg PO DAILY 04/19/15 01/27/17 Vitamin B Complex [B Complex] 1 tab PO DAILY 04/19/15 01/27/17 Metformin HCl [Metformin HCl ER] 500 mg PO BIDWM 09/16/15 01/27/17 Digoxin 125 mcg PO DAILY 04/16/16 01/27/17 Atorvastatin Calcium 80 mg PO QPM 05/07/16 01/27/17 Bupropion HCl [Bupropion Xl] 100 mg PO DAILY 05/07/16 01/27/17 Omeprazole 40 mg PO DAILY 05/07/16 01/27/17 Pnv95/Ferrous Fumarate/FA 1 tab PO DAILY 05/07/16 01/27/17 [ Tablet] Sitagliptin Phosphate [Januvia] 50 mg PO DAILY 05/07/16 01/27/17 Pioglitazone HCl [Actos] 30 mg PO DAILY 12/16/16 01/27/17 HYDROcod/ACETAM 5/325 [[place] 5/325] 1 tab PO Q6H PRN #20 tablet 06/05/17 - Allergies Allergies/Adverse Reactions: Allergies Allergy/AdvReac Type Severity Reaction Status Date / Time gabapentin AdvReac Hallucinati Verified 06/05/17 06:35 ons - Social History Does the pt smoke?: No Smoking Status: Never smoker Does the pt drink ETOH?: Yes Does the pt have substance abuse?: No - Immunizations Immunizations are current?: Yes - POLST Patient has POLST: Yes POLST Status: DNR PD ED PE NORMAL - Vitals Vital signs reviewed: Yes - General General: Alert and oriented X 3, No acute distress, Well developed/nourished - HEENT HEENT: Atraumatic - Derm Derm: Normal color, Warm and dry - Extremities Extremities: Other (left ankle with tenderness anteromedial mostly with some effusion. Posteriorly not tender. Foot is some tender midfoot. No tenderness at toes with movement at them being good. ) - Neuro Neuro: Alert and oriented X 3, No motor deficit, Normal speech Eye Opening: Spontaneous Motor: Obeys Commands Verbal: Oriented GCS Score: 15 - Psych Psych: Normal mood Results - Vitals Vitals: Vital Signs - 24 hr 06/05/17 06:31 Temperature 36.7 C Heart Rate 94 Respiratory 18 Rate Blood Pressure 146/64 H O2 Saturation 98 Oxygen O2 Source [] Room air O2 Source Room air - Rads (name of study) left ankle Radiology: Prelim report reviewed (no fracture), EMP read contemporaneously ( posterior tibial area of irregularity that looks different from 10/2016. Could be small avulsion. ) left foot Radiology: Prelim report reviewed (fracture base of 1st/2nd phalanges), EMP read contemporaneously (patient not tender at that spot. ) PD MEDICAL DECISION MAKING - ED course Complexity details: reviewed results, considered differential, d/w patient Departure - Departure Disposition: 01 Home, Self Care Clinical Impression: Left ankle injury Qualifiers: Encounter type: initial encounter Qualified Code(s): S99.912A - Unspecified injury of left ankle, initial encounter Toe fracture, left Qualifiers: Encounter type: initial encounter Toe: unspecified toe Fracture type: closed Fracture alignment: nondisplaced Qualified Code(s): S92.912A - Unspecified fracture of left toe(s), initial encounter for closed fracture Ankle sprain Qualifiers: Encounter type: initial encounter Involved ligament of ankle: other ligament Laterality: left Qualified Code(s): S93.492A - Sprain of other ligament of left ankle, initial encounter Condition: Stable Record reviewed to determine appropriate education?: Yes Instructions: ED Sprain Ankle W X Ray, ED Fx Foot Follow-Up: More Franco MD [Primary Care Provider] - [facility] [Provider Group] Prescriptions: HYDROcod/ACETAM 5/325 [[place] 5/325] 1 tab PO Q6H PRN #20 tablet PRN Reason: Pain Comments: There is arthritic changes of the foot and ankle from piror injuries and such, which makes interpretation of the xrays more challenging. There might be a small avulsion fracture off the back part of the ankle. The Radiologist did not think so, but he did think there was a fracture of the big toe. Otherwise main injury likely to be a sprain of the ankle. The cast boot should take care of these. It is okay for weight bearing, and use crutch or walker for support. Tylenol or Hydrocodone for pain as needed. Follow up with Ortho or PMD in about a week, call for appt. Elevate and rest the ankle often today and tomorrow to help with the swelling.
--- NOTE | 2017-06-05 07:26 | XRAY Report ---
EXAMS: LEFT FOOT AND ANKLE RADIOGRAPHY EXAM DATE: 06/05/2017 07:07 AM. CLINICAL HISTORY: Fall, left foot/ankle tenderness. COMPARISON: 12/21/2016, 01/16/2016. TECHNIQUE: 3 views each foot and ankle. FINDINGS: Bones: Minimally displaced intra-articular fractures of the bases of the first and second phalanges. No other definitive acute foot or ankle fracture seen. Evidence of prior ankle fractures and operativ e repair. Surgical screws in the distal tibia appear unremarkable. Joints: No dislocation seen in the foot or ankle. Mild to moderate posttraumatic degenerative changes about the ankle. Soft Tissues: Swelling. IMPRESSION: 1. Minimally displaced intra-articular fractures of the bases of the first and second phalanges. 2. No other definitive acute foot or ankle fracture seen. 3. Chronic posttraumatic/postoperative changes in the ankle. [facility] Referring Provider Line: [phone] SITE ID: [id number]
--- NOTE | 2017-06-05 07:27 | XRAY Preliminary Report ---
Exam: XR ANKLE 3 VIEW LT IMPRESSION: 1. Minimally displaced intra-articular fractures of the bases of the first and second phalanges. 2. No other definitive acute foot or ankle fracture seen. 3. Chronic posttraumatic/postoperative changes in the ankle. [facility] SITE ID: [id number]
[2017-06-05 08:05] VITALS: BP 145/64
== END 2017-06-05 08:31 | disposition home or self-care (01) ==
LOC: EDUNIT# → ED 06:28
DX: S93.492A Sprain of other ligament of left ankle, initial encounter (principal); S92.912A Unspecified fracture of left toe(s), initial encounter for closed fracture; W01.0XXA Fall on same level from slipping, tripping and stumbling without subsequent striking against object, initial encounter; X50.9XXA Other and unspecified overexertion or strenuous movements or postures, initial encounter; Y92.009 Unspecified place in unspecified non-institutional (private) residence as the place of occurrence of the external cause; I10 Essential (primary) hypertension; E11.9 Type 2 diabetes mellitus without complications; E78.00 Pure hypercholesterolemia, unspecified; Z86.73 Personal history of transient ischemic attack (TIA), and cerebral infarction without residual deficits; Z79.4 Long term (current) use of insulin
CPT/HCPCS: 96372; 99283; 99284

== ENCOUNTER 2017-10-25 04:09 | Outpatient (CLI) | payer MEDICARE, OTHER | END 2017-10-25 04:10 | disposition critical access hospital (66) | LOC: EMS 04:09 | PROVIDERS: ATTEND Surgery | DX: M25.562 Pain in left knee (principal) | CPT/HCPCS: A0425; A0429 ==

== ENCOUNTER 2017-12-22 10:36 | Emergency (ER) | payer MEDICARE, OTHER ==
--- NOTE | 2017-12-22 12:23 | XRAY Report ---
Reason: fell on tailbone Procedure Date: 12/22/2017 Accession Number: [id number] / [id number] Procedure: XR - Sacrum/Coccyx CPT Code: FULL RESULT: EXAM: SACRUM AND COCCYX RADIOGRAPHY EXAM DATE: 12/22/2017 11:44 AM. HISTORY: Fell on tailbone. COMPARISONS: None. TECHNIQUE: 3 views. FINDINGS: Bones: No acute fractures or bone lesions. Bipolar left hip arthroplasty, partially visualized, appears intact to the extent visualized. Joints: Mild right hip joint DJD. Mild SI joint DJD. Soft Tissues: Unremarkable. IMPRESSION: 1. No acute osseous abnormality. [facility]
--- NOTE | 2017-12-22 12:50 | ED Physician Documentation ---
PD HPI TRUNK INJURY - Stated complaint Stated Complaint: GLF/PX TAILBONE - Chief complaint Chief Complaint: Back Pain - History obtained from History obtained from: Patient - History of Present Illness Location: Lower back (tailbone and sacrum area) Type of injury: Fall (slipped and fell, directly downward with tailbone area hitting the ground. Did not fall back waard, did not strike head.) Timing - onset: How many days ago (few) Timing - duration: Days (few) Timing - details: Abrupt onset, Still present (still has pain with sitting in tailbone area. Concerned about fracture.) Worsened by: Palpating, Other (sitting) Associated symtptoms: Swelling. No: Weakness, Numbness Contributing factors: No: Anticoagulated (but does take antiplatelet Plavix.) Where injury occured: Home Similar symptoms before: Has not had sx before Recently seen: Not recently seen Review of Systems Skin: denies: Abrasion (s), Laceration (s) Musculoskeletal: reports: Back pain (very low at sacral/coccygeal area, to palpation and she does have some local mild swelling. No ecchymosis.) Neurologic: denies: Altered mental status, Headache, Head injury PD PAST MEDICAL HISTORY - Past Medical History Cardiovascular: High cholesterol, Atrial fibrillation, Hypertension Respiratory: None Endocrine/Autoimmune: Type 2 diabetes GI: Diverticulitis, Ulcers : None HEENT: None Psych: Depression Musculoskeletal: Osteopenia, Gout Derm: None - Past Surgical History Past Surgical History: Yes General: Appendectomy, Gastric surgery Ortho: Other HEENT: Tonsil/Adenoidectomy - Present Medications Home Medications: Ambulatory Orders Medication Instructions Recorded Confirmed Insulin Glargine [Lantus] 40 units SQ QPM 09/19/13 01/27/17 Lisinopril 10 mg PO DAILY 09/19/13 01/27/17 Dabigatran [Pradaxa] 150 mg PO BID 06/25/14 01/27/17 Folic Acid 1 mg PO DAILY 04/19/15 01/27/17 Vitamin B Complex [B Complex] 1 tab PO DAILY 04/19/15 01/27/17 Metformin HCl [Metformin HCl ER] 500 mg PO BIDWM 09/16/15 01/27/17 Digoxin 125 mcg PO DAILY 04/16/16 01/27/17 Atorvastatin Calcium 80 mg PO QPM 05/07/16 01/27/17 Bupropion HCl [Bupropion Xl] 100 mg PO DAILY 05/07/16 01/27/17 Omeprazole 40 mg PO DAILY 05/07/16 01/27/17 Pnv95/Ferrous Fumarate/FA 1 tab PO DAILY 05/07/16 01/27/17 [ Tablet] Sitagliptin Phosphate [Januvia] 50 mg PO DAILY 05/07/16 01/27/17 Pioglitazone HCl [Actos] 30 mg PO DAILY 12/16/16 01/27/17 HYDROcod/ACETAM 5/325 [[place] 5/325] 1 tab PO Q6H PRN #20 tablet 06/05/17 - Allergies Allergies/Adverse Reactions: Allergies Allergy/AdvReac Type Severity Reaction Status Date / Time gabapentin AdvReac Hallucinati Verified 06/05/17 06:35 ons - Social History Does the pt smoke?: No Smoking Status: Never smoker Does the pt drink ETOH?: Yes Does the pt have substance abuse?: No - Immunizations Immunizations are current?: Yes - POLST Patient has POLST: Yes POLST Status: DNR PD ED PE NORMAL - Vitals Vital signs reviewed: Yes - General General: Alert and oriented X 3, No acute distress, Well developed/nourished - HEENT HEENT: Atraumatic - Neck Neck: Supple, no meningeal sign, No bony TTP - Abdomen Abdomen: Soft, Non tender - Back Back: No CVA TTP, Other (not tender lumbar area. Tender mid to lower sacral hortensia and tailbone. ) - Derm Derm: Normal color, Warm and dry - Extremities Extremities: No deformity, No tenderness to palpate - Neuro Neuro: Alert and oriented X 3, No motor deficit, No sensory deficit, Normal speech Eye Opening: Spontaneous Motor: Obeys Commands Verbal: Oriented GCS Score: 15 Results - Vitals Vitals: Vital Signs - 24 hr 12/22/17 12/22/17 11:10 13:43 Temperature 36.3 C L Heart Rate 97 95 Respiratory 18 16 Rate Blood Pressure 128/62 154/78 H O2 Saturation 98 98 Oxygen O2 Source [With Activity] Room air O2 Source Room air - Rads (name of study) coccygeal view xray Radiology: Prelim report reviewed (no fractures seen), EMP read contemporaneously PD MEDICAL DECISION MAKING - ED course Complexity details: reviewed results, considered differential (fell and landed back onto tailbone with pain there. No signs of fracture on xray. No bruising on tailbone area.), d/w patient - Sepsis Event Vital Signs: Vital Signs - 24 hr 12/22/17 12/22/17 11:10 13:43 Temperature 36.3 C L Heart Rate 97 95 Respiratory 18 16 Rate Blood Pressure 128/62 154/78 H O2 Saturation 98 98 Oxygen O2 Source [With Activity] Room air O2 Source Room air Departure - Departure Disposition: 01 Home, Self Care Clinical Impression: Fall from slip, trip, or stumble Qualifiers: Encounter type: initial encounter Qualified Code(s): W01.0XXA - Fall on same level from slipping, tripping and stumbling without subsequent striking against object, initial encounter Sacral contusion Qualifiers: Encounter type: initial encounter Qualified Code(s): S30.0XXA - Contusion of lower back and pelvis, initial encounter Condition: Stable Record reviewed to determine appropriate education?: Yes Instructions: ED Contusion Sacrum Coccyx Follow-Up: More Franco MD [Primary Care Provider] - Comments: Continue usual medications. Cushions or pillows if needed to protect the bruised area. Tylenol every 4-6 hours if needed for pains. This should improve over the next several days to week. There is no obvious fracture on your x-ray. Discharge Date/Time: 12/22/17 13:43
[2017-12-22] MEDS ORDERED: ACETAMINOPHEN 325 MG TABLET PO STA (13:05)
[2017-12-22] MEDS ORDERED: HYDROcod/ACETAM 5/325 MG TABLET PO STA (13:36)
[2017-12-22 13:46] VITALS: BP 154/78
== END 2017-12-22 13:43 | disposition home or self-care (01) ==
LOC: ED 10:36
DX: I10 Essential (primary) hypertension (principal); I48.91 Unspecified atrial fibrillation; E11.9 Type 2 diabetes mellitus without complications; Z79.02 Long term (current) use of antithrombotics/antiplatelets; Z79.4 Long term (current) use of insulin
CPT/HCPCS: 72220; 99283; A9270

== ENCOUNTER 2018-01-11 23:39 | Outpatient (CLI) | payer MEDICARE, OTHER | END 2018-01-11 23:40 | disposition critical access hospital (66) | LOC: EMS 23:39 | PROVIDERS: ATTEND Surgery | DX: R46.4 Slowness and poor responsiveness (principal); R42 Dizziness and giddiness | CPT/HCPCS: A0425; A0429 ==

== ENCOUNTER 2018-01-11 23:55 | Inpatient (IN) | payer MEDICARE, OTHER ==
[2018-01-12] MEDS ORDERED: LORazepam 2 MG/ML VIAL IVP STA (00:07)
[2018-01-12] MEDS ORDERED: THIAMINE INJ 100 MG in SODIUM CHLORIDE 0.9% 50 ML IV STA ×2 (00:07→02:39)
[2018-01-12] MEDS ORDERED: FOLIC ACID INJ 1 MG in SODIUM CHLORIDE 0.9% 1,000 ML IV STA (00:07)
--- NOTE | 2018-01-12 00:49 | CT Report ---
Reason: ams, hx of stroke Procedure Date: 01/12/2018 Accession Number: [id number] / [id number] Procedure: CT - Head W/O CPT Code: FULL RESULT: EXAM: CT HEAD EXAM DATE: 01/12/2018 12:29 AM. CLINICAL HISTORY: Altered mental status. History of stroke. COMPARISON: HEAD W/O 05/17/2017 7:30 PM. TECHNIQUE: Multiaxial CT images were obtained from the foramen magnum to the vertex. Reformats: Coronal.. IV contrast: None. In accordance with CT protocol optimization, one or more of the following dose reduction techniques were utilized for this exam: automated exposure control, adjustment of mA and/or KV based on patient size, or use of iterative reconstructive technique. FINDINGS: Parenchyma: No intraparenchymal hemorrhage. No evidence of mass, midline shift, or CT findings of infarction. Rod-white differentiation is distinct. There is mild chronic microvascular change in the deep white matter. Extraaxial Spaces: There is mild age-related generalized cerebral volume loss. No subdural or epidural collections identified. Ventricles: Normal in size and position. Sinuses and Orbits: Imaged paranasal sinuses, orbits, and mastoids show no significant abnormality. Bones: No evidence of fracture or calvarial defect. Other: Vascular calcification is noted in the carotid siphons and distal vertebral arteries bilaterally. IMPRESSION: 1. No acute intracranial abnormality. No significant change compared to 05/17/2017. 2. No intracranial mass lesion, mass-effect, or hydrocephalus. 3. Age-related senescent changes appear stable. RADIA
[2018-01-12 01:09] LABS: BASOPHILS % (AUTO) 0.5 %; EOSINOPHILS % (AUTO) 0.3 %; HGB - HEMOGLOBIN 14.2 g/dL (12.0-16.0); LYMPHOCYTES # (AUTO) 1.3 10^3/uL (1.5-3.5); LYMPHOCYTES % (AUTO) 13.4 %; MEAN CORPUSCULAR HEMOGLOBIN 33.8 pg (27.0-31.0); MEAN CORPUSCULAR HGB CONC 34.2 g/dL (32.0-36.0); MEAN CORPUSCULAR VOLUME 98.7 fL (81.0-99.0); MEAN PLATELET VOLUME 8.3 fL (7.9-10.8); MONOCYTES # (AUTO) 0.7 10^3/uL (0.0-1.0); MONOCYTES % (AUTO) 7.4 %; MUDS CUTOFF CONCENTRATIONS CUTOFF CONC BELOW:; NEUTROPHILS # (AUTO) 7.8 10^3/uL (1.5-6.6); NEUTROPHILS % (AUTO) 78.4 %; PLT - PLATELET COUNT 148 10^3/uL (130-450); RED BLOOD COUNT 4.21 10^6/uL (4.20-5.40); RED CELL DISTRIBUTION WIDTH 15.4 % (12.0-15.0)
[2018-01-12 01:13] LABS: BILIRUBIN,URINE NEGATIVE (NEGATIVE); GLUCOSE, URINE (UA) NEGATIVE (NEGATIVE); KETONES,URINE (UA) TRACE mg/dL (NEGATIVE); LEUKOCYTE ESTERASE, URINE NEGATIVE (NEGATIVE); NITRITE,URINE NEGATIVE (NEGATIVE); OCCULT BLOOD,URINE TRACE-INTA (NEGATIVE); PH,URINE 6.5 PH (5.0-7.5); PROTEIN,URINE 30 mg/dL (NEGATIVE); UROBILINOGEN,URINE 0.2 (NORMAL) E.U./dL (NORMAL)
[2018-01-12] MEDS ORDERED: hydrALAZINE INJ 20 MG/ML VIAL IVP STA (01:18)
[2018-01-12 01:19] LABS: CLARITY,URINE CLEAR (CLEAR); KETONES, SERUM (ACETEST) NEGATIVE (NEGATIVE)
[2018-01-12 01:20] LABS: BACTERIA,URINE Rare /HPF (None Seen); RBC,URINE 0-5 /HPF (0-5); SQUAMOUS EPITHELIAL CELL,UR FEW Squamous (<= Few)
[2018-01-12 01:23] LABS: ALBUMIN 3.7 g/dL (3.2-5.5); ALKALINE PHOSPHATASE 79 IU/L (42-121); ALT ALANINE AMINOTRANSFERASE 24 IU/L (10-60); AST ASPARTATE AMINOTRANSFERASE 29 IU/L (10-42); BILIRUBIN,TOTAL 0.9 mg/dL (0.2-1.0); BUN - BLOOD UREA NITROGEN 10 mg/dL (6-20); CARBON DIOXIDE - CO2 26 mmol/L (21-32); CHLORIDE 102 mmol/L (101-111); CREATININE 0.9 mg/dL (0.4-1.0); GFR - MDRD 62 (>89); GLUCOSE 174 mg/dL (70-100); LIPASE 27 U/L (22-51); MAGNESIUM 1.3 mg/dL (1.7-2.8); PHOSPHORUS 3.1 mg/dL (2.5-4.6); SODIUM 138 mmol/L (135-145); TOTAL PROTEIN 7.4 g/dL (6.7-8.2)
[2018-01-12 01:28] LABS: AMPHETAMINE SCREEN,URINE NEGATIVE (NEGATIVE); COCAINE SCREEN URINE NEGATIVE (NEGATIVE); METHAMPHETAMINES SCREEN, URINE NEGATIVE (NEGATIVE); OPIATE SCREEN, URINE NEGATIVE (NEGATIVE)
[2018-01-12 01:29] LABS: BENZODIAZEPINES SCREEN, URINE POSITIVE (NEGATIVE); DIGOXIN 0.9 ng/mL; METHADONE SCREEN, URINE NEGATIVE (NEGATIVE); OXYCODONE SCREEN, URINE NEGATIVE (NEGATIVE); PROPOXYPHENE SCREEN, URINE NEGATIVE (NEGATIVE); TRICYCLIC ANTIDEPRESSANT,URINE NEGATIVE (NEGATIVE)
[2018-01-12] MEDS ORDERED: chlordiazePOXIDE 25 MG CAPSULE PO STA (01:55)
[2018-01-12] MEDS ORDERED: THIAMINE INJ 300 MG in SODIUM CHLORIDE 0.9% 50 ML IV STA (02:47)
[2018-01-12] MEDS ORDERED: MAGNESIUM SULFATE 2 GRAM 2 GM/50 ML BAG IV ONE (02:48)
--- NOTE | 2018-01-12 02:49 | ED Physician Documentation ---
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 According to patient's and ems patient had been drinking about a liter of bourbon daily for the last five years. about a week ago the family had her go through a withdrawal program with what sounds like benzodiazapams, since then has been on disulfuram. states that tonight he left her around 6pm and when he came home at 11 the patient was entirely altered and confused. Patient was unaware of what was going on. patient was htn and confused. Review of Systems Unable to obtain: Confused PD PAST MEDICAL HISTORY - Past Medical History Past Medical History: Yes Cardiovascular: High cholesterol, Atrial fibrillation, Hypertension Respiratory: None Endocrine/Autoimmune: Type 2 diabetes GI: Diverticulitis, Ulcers : None HEENT: None Psych: Depression Musculoskeletal: Osteopenia, Gout Derm: None - Past Surgical History Past Surgical History: Yes General: Appendectomy, Gastric surgery Ortho: Other HEENT: Tonsil/Adenoidectomy - Present Medications Home Medications: Ambulatory Orders Medication Instructions Recorded Confirmed Insulin Glargine [Lantus] 40 units SQ QPM 09/19/13 01/12/18 Lisinopril 10 mg PO DAILY 09/19/13 01/12/18 Dabigatran [Pradaxa] 150 mg PO BID 06/25/14 01/12/18 Folic Acid 1 mg PO DAILY 04/19/15 01/12/18 Vitamin B Complex [B Complex] 1 tab PO DAILY 04/19/15 01/12/18 Metformin HCl [Metformin HCl ER] 500 mg PO BIDWM 09/16/15 01/12/18 Digoxin 125 mcg PO DAILY 04/16/16 01/12/18 Atorvastatin Calcium 80 mg PO QPM 05/07/16 01/12/18 Bupropion HCl [Bupropion Xl] 100 mg PO DAILY 05/07/16 01/12/18 Omeprazole 40 mg PO DAILY 05/07/16 01/12/18 Sitagliptin Phosphate [Januvia] 50 mg PO DAILY 05/07/16 01/12/18 Disulfiram [Antabuse] 1 tab PO DAILY 01/12/18 01/12/18 Naltrexone HCl 50 mg PO DAILY 01/12/18 01/12/18 - Allergies Allergies/Adverse Reactions: Allergies Allergy/AdvReac Type Severity Reaction Status Date / Time gabapentin AdvReac Hallucinati Verified 01/12/18 00:39 ons - Social History Does the pt smoke?: No Smoking Status: Never smoker Does the pt drink ETOH?: Yes Does the pt have substance abuse?: No - Immunizations Immunizations are current?: Yes - POLST Patient has POLST: Yes POLST Status: DNR PD ED PE NORMAL - Vitals Vital signs reviewed: Yes - HEENT HEENT: Atraumatic - Abdomen Abdomen: Soft, Non tender PD ED PE EXPANDED - Eyes Eyes: Other (mild bilateral nystagmus) - Cardiac Cardiac: Irregularly irregular - Neuro Neuro: Confused, Disoriented, Abnormal sensation, Other (ataxic) - GCS Eye Opening: To Voice Motor: Obeys Commands Verbal: Confused Total: 13 Results - Vitals Vitals: Vital Signs - 24 hr 01/11/18 01/12/18 01/12/18 23:55 00:30 01:11 Temperature 36.4 C L Heart Rate 81 78 79 Respiratory 18 16 19 Rate Blood Pressure 199/105 H 210/90 H 204/101 H O2 Saturation 99 99 98 01/12/18 01/12/18 01/12/18 01:28 01:34 02:21 Temperature 36.0 C L Heart Rate 76 77 77 Respiratory 14 19 12 Rate Blood Pressure 194/93 H 177/91 H 169/88 H O2 Saturation 99 99 100 Oxygen O2 Source [With Activity] Room air O2 Source Room air - EKG (time done) 0011 Rate: Rate (enter#) (81) Rhythm: Atrial fibrillation [place]: Normal Intervals: Normal [place] QRS: Low voltage Ischemia: Normal ST segments - Labs Labs: Laboratory Tests 01/12/18 01/12/18 01/12/18 01:00 01:00 01:00 WBC 10.0 RBC 4.21 Hgb 14.2 Hct 41.6 MCV 98.7 MCH 33.8 H MCHC 34.2 RDW 15.4 H Plt Count 148 MPV 8.3 Neut # (Auto) 7.8 H Lymph # (Auto) 1.3 L [place] # (Auto) 0.7 Eos # (Auto) 0.0 Baso # (Auto) 0.0 Absolute Nucleated RBC 0.01 Nucleated RBC % 0.1 Sodium 138 Potassium 4.3 Chloride 102 Carbon Dioxide 26 Anion Gap 10.0 BUN 10 Creatinine 0.9 Estimated GFR (MDRD) 62 L Glucose 174 H Calcium 9.0 Phosphorus 3.1 Magnesium 1.3 L Total Bilirubin 0.9 AST 29 ALT 24 Alkaline Phosphatase 79 Troponin I < 0.04 Total Protein 7.4 Albumin 3.7 Globulin 3.7 Albumin/Globulin Ratio 1.0 Lipase 27 TSH Urine Color Urine Clarity Urine pH Ur Specific [place] Urine Protein Urine Glucose (UA) Urine Ketones Urine Occult Blood Urine Nitrite Urine Bilirubin Urine Urobilinogen Ur Leukocyte Esterase Urine RBC Urine WBC Ur Squamous Epith Cells Urine Bacteria Ur Microscopic Review Urine Culture Comments Last Dose Date Last Dose Time Digoxin Urine Opiates Screen Ur Oxycodone Screen Urine Methadone Screen Ur Propoxyphene Screen Ur Barbiturates Screen Ur Tricyclics Screen Ur Phencyclidine Scrn Ur Amphetamine Screen U Methamphetamines Scrn U Benzodiazepines Scrn Urine Cocaine Screen U Cannabinoids Screen Ethyl Alcohol < 5.0 Serum Ketones NEGATIVE 01/12/18 01/12/18 01/12/18 01:00 01:00 01:00 WBC RBC Hgb Hct MCV MCH MCHC RDW Plt Count MPV Neut # (Auto) Lymph # (Auto) [place] # (Auto) Eos # (Auto) Baso # (Auto) Absolute Nucleated RBC Nucleated RBC % Sodium Potassium Chloride Carbon Dioxide Anion Gap BUN Creatinine Estimated GFR (MDRD) Glucose Calcium Phosphorus Magnesium Total Bilirubin AST ALT Alkaline Phosphatase Troponin I Total Protein Albumin Globulin Albumin/Globulin Ratio Lipase TSH 4.39 Urine Color YELLOW Urine Clarity CLEAR Urine pH 6.5 Ur Specific [place] 1.020 Urine Protein 30 H Urine Glucose (UA) NEGATIVE Urine Ketones TRACE Urine Occult Blood TRACE-INTA Urine Nitrite NEGATIVE Urine Bilirubin NEGATIVE Urine Urobilinogen 0.2 (NORMAL) Ur Leukocyte Esterase NEGATIVE Urine RBC 0-5 Urine WBC 0-3 Ur Squamous Epith Cells FEW Squamous Urine Bacteria Rare Ur Microscopic Review INDICATED Urine Culture Comments NOT INDICATED Last Dose Date UNK Last Dose Time UNK Digoxin 0.9 Urine Opiates Screen NEGATIVE Ur Oxycodone Screen NEGATIVE Urine Methadone Screen NEGATIVE Ur Propoxyphene Screen NEGATIVE Ur Barbiturates Screen NEGATIVE Ur Tricyclics Screen NEGATIVE Ur Phencyclidine Scrn NEGATIVE Ur Amphetamine Screen NEGATIVE U Methamphetamines Scrn NEGATIVE U Benzodiazepines Scrn POSITIVE H Urine Cocaine Screen NEGATIVE U Cannabinoids Screen NEGATIVE Ethyl Alcohol Serum Ketones - Rads (name of study) ct head Radiology: Final report received (no acute changes) PD MEDICAL DECISION MAKING - ED course Complexity details: reviewed old records, reviewed results, re-evaluated patient, considered differential, d/w patient, d/w family, d/w integration consultant ED course: Patient was seen and examined at bedside. patient was arousable but confused. patient was placed on a monitor, ekg was performed and showed a fib. CT head was ordered. When patient returned she was treated with normal saline, thiamine, b [address] head showed no acute changes. After the initial treatment patient started to wake up. She was becoming more clear. Patient was able to track visually and answer questions but was still unsure what was happening. When trying to walk the patient she was ataxic. Patient's symptoms fit wernicke's encephalopathy. Patient was treated with additional thiamine. Hospitalist was contacted and the case was discussed with him. On review of previous notes patient has had some of the same symptoms before, so the differential included encephalopathy, alcohol withdrawal and stroke/tia. - Sepsis Event Vital Signs: Vital Signs - 24 hr 01/11/18 01/12/18 01/12/18 23:55 00:30 01:11 Temperature 36.4 C L Heart Rate 81 78 79 Respiratory 18 16 19 Rate Blood Pressure 199/105 H 210/90 H 204/101 H O2 Saturation 99 99 98 01/12/18 01/12/18 01/12/18 01:28 01:34 02:21 Temperature 36.0 C L Heart Rate 76 77 77 Respiratory 14 19 12 Rate Blood Pressure 194/93 H 177/91 H 169/88 H O2 Saturation 99 99 100 Oxygen O2 Source [With Activity] Room air O2 Source Room air Departure - Departure Disposition: [address] [facility] [facility] DC/Xfer Clinical Impression: Wernicke encephalopathy Condition: Stable
[2018-01-12] MEDS ORDERED: ONDANSETRON 4 MG/2 ML VIAL IVP PRN (03:07)
[2018-01-12] MEDS ORDERED: PROCHLORPERAZINE 10 MG/2 ML VIAL IVP PRN (03:07)
[2018-01-12] MEDS ORDERED: LORazepam 0.5 MG TABLET PO PRN (03:07)
[2018-01-12] MEDS ORDERED: PROMETHAZINE 25 MG/1 ML VIAL IM PRN (03:07)
--- NOTE | 2018-01-12 04:17 | HISTORY & PHYSICAL EXAMINATION ---
Chief Complaint - Chief Complaint Chief Complaint: Altered mental status History of Present Illness - Admitted From Admitted From:: Emergency Department - History Obtained From Records Reviewed: Yes History obtained from: Patient, patients and medical records Exam Limitations: Patient uable to get up secondary to ataxia - History of Present Illness HPI Comment/Other: Patient is a 72-year-old female with a past medical history significant for a CVA in May 2014, atrial fibrillation on Pradaxa, type 2 diabetes mellitus on insulin, hypertension, hyperlipidemia, depression, alcohol abuse and morbid obesity who presented to the emergency department with altered mental status. According to the patient's when he arrived home this evening he found his sitting on the couch staring off distantly with the TV on. He states that when she tried to talk to her she was not responsive and when he was able to get her attention she was incoherent and complained of being dizzy. The patient herself does not remember any of this but does recall feeling dizzy and disoriented over the last week. She states that the symptoms started after she stopped drinking. She states that she previously was drinking 1 L of bourbon nightly but decided to quit about a week ago. She states that initially when she quit she was started on lorazepam and then has been on Antabuse since. She states that she has been so dizzy that she feels as though the room is spinning around her. She states that she is unable to stand and has been requiring a wheelchair over the last week. She states that she also feels as though her thinking has been cloudy. On presentation to the emergency department the patient was having blurry vision but she does not recall this and states that her vision is now normal. She states that she still feels confused and does not know what day it is and cannot remember anything from earlier today. The patient denies any fevers or chills, tremors, abdominal pain, nausea, vomiting, diarrhea, constipation, urinary urgency, urinary frequency or dysuria. The patient denies any back pain or neck stiffness. Patient denies any headaches, blurred vision, runny nose, sore throat, nasal congestion, difficulty swallowing, orthopnea, PND, joint swelling, joint pain, changes in appetite, weight loss, weight gain, polyuria, polydipsia, skin rash, skin changes, hair loss, night sweats or any focal neurologic deficits. On presentation to the emergency department the patient was afebrile and severely hypertensive with a blood pressure of 99/105. The patient was very confused and unable to follow commands or answer questions appropriately. The patient appeared to have some visual disturbances as she was initially complaining of blurred vision and could not see clearly. The patient was also keeping her eyes closed as she felt the room spinning around her and was scared to sit up. The patient underwent routine lab work which was fairly unremarkable aside from a magnesium of 1.3 and an elevated glucose of 174. The patient's UA was negative and her urine tox screen was positive only for benzodiazepines. The emergency room physician was concerned about possible alcohol withdrawal given the patient's confusion and possibility of stroke given her history of CVA and atrial fibrillation. He did give the patient a banana bag, magnesium and ordered a CT of the patient's head. The CT of the patient's head revealed no acute intracranial abnormality. The patient appeared to improve with Ativan and banana bag. She had resolution of her confusion but continued to be ataxic. The patient did have improvement in her visual disturbance. Given the patient's triad of symptoms of encephalopathy, ataxia and ocular motor disturbance in the setting of recent discontinuation of heavy alcohol use the patient's presentation was concerning for Wernicke's encephalopathy. The patient was therefore treated with 500 mg of IV thiamine in the emergency department and admitted for possible Wernicke's encephalopathy. History - Past Medical History Cardiovascular: reports: High cholesterol, Atrial fibrillation, Hypertension Respiratory: reports: None Endocrine/Autoimmune: reports: Type 2 diabetes GI: reports: Diverticulitis, Ulcers : reports: None HEENT: reports: None Psych: reports: Depression Musculoskeletal: reports: Osteopenia, Gout Derm: reports: None MRSA Hx?: Yes - Past Surgical History General: reports: Appendectomy, Gastric surgery Ortho: reports: Other HEENT: reports: Tonsil/Adenoidectomy - Family & Social History Family History: Mother: CVA/TIA, Father: Alcoholism, Sister: Diabetes, Type 2, Brother: Diabetes, Type 2 Social History Notes: Patient is and lives with her . She states she is quite sedentary. She has been to her for 8 years this is her second marriage. She has one son who lives in [place]. She is fully independent but recently has been using a wheelchair due to her ataxia. 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 She was born and raised in [place] and moved to [facility] 12 years ago. She was previously a heavy drinker drinking about a liter of bourbon a day until just a week ago when she finally decided to quit. She was a previous smoker but quit smoking about 23 years ago. Prior to that she smoked about a pack a day for 30 years. She denies any illicit drug use. - Substance History Use: Uses substance without health or social issues: Alcohol - POLST Patient has POLST: Yes POLST Status: DNR Meds/Allgy - Home Medications Home Medications: Ambulatory Orders Medication Instructions Recorded Confirmed Insulin Glargine [Lantus] 40 units SQ QPM 09/19/13 01/12/18 Lisinopril 10 mg PO DAILY 09/19/13 01/12/18 Dabigatran [Pradaxa] 150 mg PO BID 06/25/14 01/12/18 Folic Acid 1 mg PO DAILY 04/19/15 01/12/18 Vitamin B Complex [B Complex] 1 tab PO DAILY 04/19/15 01/12/18 Metformin HCl [Metformin HCl ER] 500 mg PO BIDWM 09/16/15 01/12/18 Digoxin 125 mcg PO DAILY 04/16/16 01/12/18 Atorvastatin Calcium 80 mg PO QPM 05/07/16 01/12/18 Bupropion HCl [Bupropion Xl] 100 mg PO DAILY 05/07/16 01/12/18 Omeprazole 40 mg PO DAILY 05/07/16 01/12/18 Sitagliptin Phosphate [Januvia] 50 mg PO DAILY 05/07/16 01/12/18 Disulfiram [Antabuse] 1 tab PO DAILY 01/12/18 01/12/18 Naltrexone HCl 50 mg PO DAILY 01/12/18 01/12/18 - Allergies Allergies/Adverse Reactions: Allergies Allergy/AdvReac Type Severity Reaction Status Date / Time gabapentin AdvReac Hallucinati Verified 01/12/18 00:39 ons Review of Systems - Other Findings Other Findings: A comprehensive review of systems was performed the pertinent positives and negatives are stated above in the HPI and the remainder of the review of systems is negative. Prior Level of Functionality: Over the last few weeks patient has been using a wheelchair at home. She states that she still performs all of her activities of daily living independently but has been limited recently due to being wheelchair bound and having ataxia. Exam - Vital Signs Reviewed Vital Signs: Yes Vital Signs: Vital Signs x48h Temp Pulse Pulse Resp BP BP Pulse Ox 01/12/18 04:01 36.3 C L 75 18 182/103 H 97 01/12/18 03:40 36.2 C L 71 20 102/86 H 97 01/12/18 03:20 36.1 C L 80 17 187/93 H 98 01/12/18 02:59 36.0 C L 79 19 185/98 H 98 01/12/18 02:21 36.0 C L 77 12 169/88 H 100 01/12/18 01:34 77 19 177/91 H 99 01/12/18 01:28 76 14 194/93 H 99 01/12/18 01:11 79 19 204/101 H 98 01/12/18 00:30 78 16 210/90 H 99 01/11/18 23:55 36.4 C L 81 18 199/105 H 99 - Physical Exam General Appearance: positive: Alert, Anxious, Other (Confused and disoriented) Eyes Bilateral: positive: Normal inspection, PERRL, EOMI, No lid inflammation, Conjunctivae nml, No scleral icterus ENT: positive: ENT inspection nml, Pharynx nml, Dry mucous membranes. negative: Purulent nasal drainage, Pharyngeal erythema, Oral lesions Neck: positive: Nml inspection, Thyroid nml, No JVD, Trachea midline. negative: Thyromegaly, Lymphadenopathy (R), Lymphadenopathy (L), Stiff neck, Carotid bruit, Tracheal deviation Respiratory: positive: Chest non-tender, No respiratory distress, Breath sounds nml. negative: Wheezes, Rales, Rhonchi Cardiovascular: positive: Regular rate & rhythm, No murmur, No gallop Peripheral Pulses: positive: 2+ Abdomen: positive: Non-tender, No organomegaly, Nml bowel sounds, Tenderness (Mild epigastric tenderness). negative: Guarding, Rebound, Hepatomegaly Back: positive: Nml inspection. negative: CVA tenderness (R), CVA tenderness (L) Skin: positive: Color nml, No rash, Warm, Dry. negative: Cyanosis, Diaphoresis, Pallor, Skin rash Extremities: positive: Non-tender, Full ROM, Nml appearance, No pedal edema Neurologic/Psychiatric: positive: CN's nml (2-12), Motor nml, Sensation nml, Mood/affect nml, Disoriented to time, Other (Patient has nystagmus and ataxia.) Conclusion/Plan - Problem List (1) Altered mental status Conclusion/Plan: The patient was brought into the hospital after the patient's found her to have a decreased level of consciousness and disorientation. On presentation the patient was very disoriented and confused. The patient also had symptoms of ataxia and blurred vision. The patient did undergo a CT of her head which was negative. The patient also underwent infectious workup which was unremarkable. The patient has recently stopped drinking. She was previously a heavy drinker. The patient has been taking lorazepam and Antabuse at home for withdrawal. The patient had significant improvement in her symptoms after receiving Ativan and a banana bag with thiamine. The patient's altered mental status was thought to possibly be from Wernicke's encephalopathy given that she had the triad of symptoms of ataxia, encephalopathy and ocular motor disturbance. The patient was given 500 mg of IV thiamine in the emergency department. There was also concern the patient may just be having alcohol withdrawal although this is been a week since she stopped using alcohol and typically withdrawal starts sooner than this. Given the patient's history of CVA there is also a possibility that she may have had another CVA as she had similar symptoms during her initial CVA. Given the patient's elevated blood pressure this could also be hypertensive encephalopathy however the patient's symptoms improved without her blood pressu re improving therefore this is less likely. The elevated blood pressure we will could also support CVA or alcohol withdrawal. Plan: MRI of the brain Treat with IV thiamine for Wernicke's encephalopathy Neuro checks Alcohol withdrawal protocol Monitor closely Qualifiers: Altered mental status type: disorientation Qualified Code(s): R41.0 - D isorientation, unspecified (2) Wernicke encephalopathy Conclusion/Plan: Patient has the triad of symptoms on presentation including encephalopathy, ocular motor disturbances and ataxia. The patient's symptoms did improve after she received thiamine and Ativan in the emergency department. Given that she is recently stopped drinking there is high concern for possibility of Wernicke's encephalopathy. Plan: Check thiamine level Thiamine 500 mg IV 3 times daily for 3 days and then thiamine 250 mg IV daily for 5 days Monitor for improvement MRI (3) Alcohol withdrawal Conclusion/Plan: The patient was a heavy drinker drinking 1 L of bourbon daily until just 1 week ago when she quit drinking. The patient has been using Lorazepam and Antabuse for withdrawal. The patient presented with disorientation confusion and ataxia. The patient's symptoms did seem to improve in the emergency department with Ativan. The patient was also significantly hypertensive on presentation which also suggest the possibility of alcohol withdrawal as the cause of her symptoms. Plan: Alcohol withdrawal protocol Thiamine, folic acid, multivitamin and IV fluids Abdomen as needed for withdrawal Neurochecks Qualifiers: Complication of substance-induced condition: uncomplicated Qualified Code(s): F10.230 - Alcohol dependence with withdrawal, uncomplicated (4) Atrial fibrillation Conclusion/Plan: Patient has a history of atrial fibrillation and is on Xarelto for anticoagulation and digoxin for rate control. The patient's rate is well controlled on presentation. The patient's EKG shows atrial fibrillation. The patient's history of atrial fibrillation puts her at risk for possible stroke and given her altered mental status on presentation we were concerned for possibility of stroke but CT of her head was negative. We are still awaiting an MRI. Plan: Continue digoxin Continue Xarelto Echocardiogram Telemetry monitoring Qualifiers: Atrial fibrillation type: chronic Qualified Code(s): I48.2 - Chronic atrial fibrillation (5) Hypertension Conclusion/Plan: The patient has a history of hypertension and on presentation the patient's blood pressure was significantly elevated at 199/105. The patient's blood pressure did remain elevated while she was in the emergency department. The patient has recently stopped drinking and elevated blood pressure could have been secondary to alcohol withdrawal. The patient also presented with neurologic symptoms which could be concerning for possible stroke and patient could be hypertensive due to possible stroke. Plan: We will continue the patient's lisinopril but at the same time will allow for permissive hypertension IV fluids Qualifiers: Hypertension type: essential hypertension Qualified Code(s): I10 - Essen tial (primary) hypertension (6) Diabetes mellitus type 2 in obese Conclusion/Plan: Patient has a history of type 2 diabetes and on presentation the patient's blood glucose is elevated at 174. At home the patient takes Lantus, metformin and Januvia. Plan: Patient will be continued on her home dose of Lantus We will place the patient on sliding scale insulin while she is hospitalized We will hold patient's metformin and Januvia We will check hemoglobin A1c Check blood glucose before meals at bedtime Diabetic diet (7) Depression Conclusion/Plan: The patient has a history of depression and is on bupropion at home. The patient will be continued on bupropion while she is hospitalized. Qualifiers: Depression Type: unspecified Qualified Code(s): F32.9 - Major depressive disorder, single episode, unspecified (8) Hyperlipidemia Conclusion/Plan: The patient has a history of hyperlipidemia and uses atorvastatin at home. We will continue the patient's home dose of atorvastatin while she is hospitalized. Qualifiers: Hyperlipidemia type: unspecified Qualified Code(s): E78.5 - Hyperlipidemia, unspecified - Lab Results Lab results reviewed: Yes Fish Bones: 01/12/18 01:00 01/12/18 01:00 Other Lab Results: Laboratory Results WBC 10.0 x10^3/uL (4.8-10.8) 01/12/18 01:00 RBC 4.21 10^6/uL (4.20-5.40) 01/12/18 01:00 Hgb 14.2 g/dL (12.0-16.0) 01/12/18 01:00 Hct 41.6 % (37.0-47.0) 01/12/18 01:00 MCV 98.7 fL (81.0-99.0) 01/12/18 01:00 MCH 33.8 pg (27.0-31.0) H 01/12/18 01:00 MCHC 34.2 g/dL (32.0-36.0) 01/12/18 01:00 RDW 15.4 % (12.0-15.0) H 01/12/18 01:00 Plt Count 148 10^3/uL (130-450) 01/12/18 01:00 MPV 8.3 fL (7.9-10.8) 01/12/18 01:00 Neut # (Auto) 7.8 10^3/uL (1.5-6.6) H 01/12/18 01:00 Lymph # (Auto) 1.3 10^3/uL (1.5-3.5) L 01/12/18 01:00 [place] # (Auto) 0.7 10^3/uL (0.0-1.0) 01/12/18 01:00 Eos # (Auto) 0.0 10^3/uL (0.0-0.7) 01/12/18 01:00 Baso # (Auto) 0.0 10^3/uL (0.0-0.1) 01/12/18 01:00 Absolute Nucleated RBC 0.01 x10^3/uL 01/12/18 01:00 Nucleated RBC % 0.1 /100WBC 01/12/18 01:00 Sodium 138 mmol/L (135-145) 01/12/18 01:00 Potassium 4.3 mmol/L (3.5-5.0) 01/12/18 01:00 Chloride 102 mmol/L (101-111) 01/12/18 01:00 Carbon Dioxide 26 mmol/L (21-32) 01/12/18 01:00 Anion Gap 10.0 (6-13) 01/12/18 01:00 BUN 10 mg/dL (6-20) 01/12/18 01:00 Creatinine 0.9 mg/dL (0.4-1.0) 01/12/18 01:00 Estimated GFR (MDRD) 62 (>89) L 01/12/18 01:00 Glucose 174 mg/dL (70-100) H 01/12/18 01:00 Calcium 9.0 mg/dL (8.5-10.3) 01/12/18 01:00 Phosphorus 3.1 mg/dL (2.5-4.6) 01/12/18 01:00 Magnesium 1.3 mg/dL (1.7-2.8) L 01/12/18 01:00 Total Bilirubin 0.9 mg/dL (0.2-1.0) 01/12/18 01:00 AST 29 IU/L (10-42) 01/12/18 01:00 ALT 24 IU/L (10-60) 01/12/18 01:00 Alkaline Phosphatase 79 IU/L (42-121) 01/12/18 01:00 Troponin I < 0.04 ng/mL (<0.49) 01/12/18 01:00 Total Protein 7.4 g/dL (6.7-8.2) 01/12/18 01:00 Albumin 3.7 g/dL (3.2-5.5) 01/12/18 01:00 Globulin 3.7 g/dL (2.1-4.2) 01/12/18 01:00 Albumin/Globulin Ratio 1.0 (1.0-2.2) 01/12/18 01:00 Lipase 27 U/L (22-51) 01/12/18 01:00 TSH 4.39 uIU/mL (0.34-5.60) 01/12/18 01:00 Urine Color YELLOW 01/12/18 01:00 Urine Clarity CLEAR (CLEAR) 01/12/18 01:00 Urine pH 6.5 PH (5.0-7.5) 01/12/18 01:00 Ur Specific [place] 1.020 (1.002-1.030) 01/12/18 01:00 Urine Protein 30 mg/dL (NEGATIVE) H 01/12/18 01:00 Urine Glucose (UA) NEGATIVE mg/dL (NEGATIVE) 01/12/18 01:00 Urine Ketones TRACE mg/dL (NEGATIVE) 01/12/18 01:00 Urine Occult Blood TRACE-INTA (NEGATIVE) 01/12/18 01:00 Urine Nitrite NEGATIVE (NEGATIVE) 01/12/18 01:00 Urine Bilirubin NEGATIVE (NEGATIVE) 01/12/18 01:00 Urine Urobilinogen 0.2 (NORMAL) E.U./dL (NORMAL) 01/12/18 01:00 Ur Leukocyte Esterase NEGATIVE (NEGATIVE) 01/12/18 01:00 Urine RBC 0-5 /HPF (0-5) 01/12/18 01:00 Urine WBC 0-3 /HPF (0-5) 01/12/18 01:00 Ur Squamous Epith Cells FEW Squamous (<= Few) 01/12/18 01:00 Urine Bacteria Rare /HPF (None Seen) 01/12/18 01:00 Ur Microscopic Review INDICATED 01/12/18 01:00 Urine Culture Comments NOT INDICATED 01/12/18 01:00 Last Dose Date UNK 01/12/18 01:00 Last Dose Time UNK 01/12/18 01:00 Digoxin 0.9 ng/mL 01/12/18 01:00 Urine Opiates Screen NEGATIVE (NEGATIVE) 01/12/18 01:00 Ur Oxycodone Screen NEGATIVE (NEGATIVE) 01/12/18 01:00 Urine Methadone Screen NEGATIVE (NEGATIVE) 01/12/18 01:00 Ur Propoxyphene Screen NEGATIVE (NEGATIVE) 01/12/18 01:00 Ur Barbiturates Screen NEGATIVE (NEGATIVE) 01/12/18 01:00 Ur Tricyclics Screen NEGATIVE (NEGATIVE) 01/12/18 01:00 Ur Phencyclidine Scrn NEGATIVE (NEGATIVE) 01/12/18 01:00 Ur Amphetamine Screen NEGATIVE (NEGATIVE) 01/12/18 01:00 U Methamphetamines Scrn NEGATIVE (NEGATIVE) 01/12/18 01:00 U Benzodiazepines Scrn POSITIVE (NEGATIVE) H 01/12/18 01:00 Urine Cocaine Screen NEGATIVE (NEGATIVE) 01/12/18 01:00 U Cannabinoids Screen NEGATIVE (NEGATIVE) 01/12/18 01:00 Ethyl Alcohol < 5.0 mg/dL 01/12/18 01:00 Serum Ketones NEGATIVE (NEGATIVE) 01/12/18 01:00 - Diagnostic Imaging Results Diagnostic Imaging Results: positive: Final report reviewed Diagnostic Imaging Results Comments: CT head Impression: 1. No acute intracranial abnormality. No significant change compared to 018. 2. No intracranial mass lesion, mass-effect or hydrocephalus 3. Age-related senescent changes appear stable. - EKG Results EKG Interpreted Independently: Yes EKG Findings: Atrial fibrillation with no ST elevations or ischemic changes. Core Measures - Anticipated LOS I expect patient to be DC'd or transferred within 96 hours.: Yes - DVT/VTE - Prophylaxis VTE/DVT Device ordered at admit?: Yes
[2018-01-12] MEDS ORDERED: THIAMINE INJ 500 MG in SODIUM CHLORIDE 0.9% 50 ML IV SCH ×2 (06:00→08:00)
[2018-01-12 06:04] LABS: BASOPHILS % (AUTO) 0.3 %; EOSINOPHILS % (AUTO) 0.2 %; HGB - HEMOGLOBIN 14.2 g/dL (12.0-16.0); LYMPHOCYTES # (AUTO) 0.9 10^3/uL (1.5-3.5); LYMPHOCYTES % (AUTO) 9.8 %; MEAN CORPUSCULAR HEMOGLOBIN 32.8 pg (27.0-31.0); MEAN CORPUSCULAR HGB CONC 32.9 g/dL (32.0-36.0); MEAN CORPUSCULAR VOLUME 99.7 fL (81.0-99.0); MEAN PLATELET VOLUME 8.8 fL (7.9-10.8); MONOCYTES # (AUTO) 0.6 10^3/uL (0.0-1.0); MONOCYTES % (AUTO) 6.5 %; NEUTROPHILS % (AUTO) 83.2 %; PLT - PLATELET COUNT 145 10^3/uL (130-450); RED BLOOD COUNT 4.31 10^6/uL (4.20-5.40); RED CELL DISTRIBUTION WIDTH 15.5 % (12.0-15.0); WHITE BLOOD COUNT 9.6 x10^3/uL (4.8-10.8)
[2018-01-12 06:07] LABS: INR 1.1 (0.8-1.2); PT - PROTHROMBIN TIME 12.7 secs (9.9-12.6)
[2018-01-12 06:18] LABS: ALBUMIN 3.7 g/dL (3.2-5.5); CALCIUM 8.9 mg/dL (8.5-10.3); CREATININE 0.8 mg/dL (0.4-1.0); HB2 TOTAL 15.3 g/dL; HEMOGLOBIN A1C 0.7 g/dL; HEMOGLOBIN A1C % 6.3 % (4.6-6.2); MAGNESIUM 1.8 mg/dL (1.7-2.8); PHOSPHORUS 3.1 mg/dL (2.5-4.6); TOTAL PROTEIN 7.3 g/dL (6.7-8.2)
[2018-01-12] MEDS: PANTOPRAZOLE 40 MG TABLET PO SCH (06:35)
[2018-01-12] MEDS: INSULIN ASPART 300 UNIT/3 ML PEN SUBQ SCH ×4 (08:23→21:01)
[2018-01-12] MEDS ORDERED: cloNIDine 0.1 MG TABLET PO PRN (08:31)
[2018-01-12] MEDS ORDERED: NON FORMULARY MED (Lisinopril [Lisinopril] 10 MG) PO SCH (09:00)
[2018-01-12] MEDS ORDERED: FOLIC ACID 1 MG TABLET PO SCH (09:00)
[2018-01-12 09:14] LABS: THYROID STIMULATING HORMONE 3.12 uIU/mL (0.34-5.60)
[2018-01-12] MEDS: PRENATAL VITAMIN TABLET PO SCH (10:04)
[2018-01-12] MEDS: buPROPion XL 150 MG TABLET PO SCH (10:04)
[2018-01-12] MEDS: LISINOPRIL 5 MG TABLET PO SCH (10:05)
[2018-01-12] MEDS: DABIGATRAN 75 MG CAPSULE PO SCH ×2 (10:05→20:53)
[2018-01-12] MEDS: DIGOXIN 125 MCG TABLET PO SCH (10:05)
[2018-01-12] MEDS: NALTREXONE HCL 50 MG PO SCH (10:07)
[2018-01-12] MEDS: POLYETHYLENE GLYCOL 3350 17 GM PACKET PO SCH (10:08)
[2018-01-12] MEDS: SODIUM CHLORIDE FLUSH 0.9% 10 ML SYRINGE IVP SCH ×2 (11:20→13:05)
[2018-01-12] MEDS ORDERED: ACETAMINOPHEN 325 MG TABLET PO PRN (11:28)
[2018-01-12] MEDS: SODIUM CHLORIDE FLUSH 0.9% 10 ML SYRINGE IVP PRN (11:33)
--- NOTE | 2018-01-12 11:44 | MRI Report ---
Reason: Ataxia and confusion Procedure Date: 01/12/2018 Accession Number: [id number] / [id number] Procedure: MRI - Brain W/O CPT Code: FULL RESULT: EXAM: MRI BRAIN WITHOUT CONTRAST EXAM DATE: 01/12/2018 11:09 AM. CLINICAL HISTORY: 72-year-old woman with ataxia and confusion. Patient has hypertension and alcohol withdrawal. COMPARISON: BRAIN W/O 06/22/2014 9:55 AM HEAD W/O 01/12/2018 12:23 AM. TECHNIQUE: Multiplanar, multisequence T1-weighted and fluid-sensitive MR sequences of the brain were performed. Sequences optimized for routine evaluation. Other: None. IV Contrast: None. FINDINGS: Parenchyma: Patchy FLAIR hyperintensity is present in the medial parietal and occipital lobes, including cortex and subcortical white matter, as well as the thalami, left side greater than right. There is minimal restricted diffusion within the cortex of the medial right parietal lobe. Findings are new compared to the 06/22/2014 MRI. No evidence of prior hemorrhage on susceptibility weighted sequence. Otherwise, the parenchyma demonstrates mild burden of nonspecific FLAIR hyperintensity in the periventricular white matter, similar to the 2014 exam and a common finding in this age group. Pituitary: Small in size but otherwise unremarkable. Ventricles and Extra-axial Spaces: Ventricles are symmetric and normal in size for age. Extra-axial spaces are unremarkable. Orbits: Unremarkable. Sinuses: Paranasal sinuses and mastoid air cells are clear. Major Vascular Flow Voids: Intact. IMPRESSION: 1. Patchy signal abnormality in the medial parietal and occipital lobes as well as the thalami, left side greater than right. There is minimal restricted diffusion within this area of abnormality, limited to a small portion of cortex in the medial right parietal lobe. 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 Restricted diffusion is concerning for a small amount of associated infarct. RADIA The above findings were discussed with ALDAIR Rodríguez by Dr. Cristobal Roberson at 11:43 hrs on 01/12/18.
[2018-01-12] MEDS: SODIUM CHLORIDE 0.9% 1,000 ML IV SCH (12:41)
[2018-01-12] MEDS: THIAMINE INJ 500 MG in SODIUM CHLORIDE 0.9% 50 ML IV SCH (15:08)
--- NOTE | 2018-01-12 17:15 | PROVIDER PROGRESS NOTE ---
Subjective - Prog Note Date Prog Note Date: 01/12/18 - Subjective Pt reports feeling: Improved Subjective: pt state she feel better, no tremor, no seizure. pt report she drunk alcohol on and off recently. she had symptoms just after she stop alcohol. she denies chest pain, shortness of breath, no fever, chill. No abdominal pain. Current Medications - Current Medications Current Medications: Active Medications Acetaminophen (Tylenol) 650 mg PO Q4HR PRN PRN Reason: Pain or Fever > 38C (100.4F) Last Admin: 01/12/18 11:32 Dose: 650 mg Aspirin (Grey) 325 mg PO DAILY [facility] Atorvastatin Calcium (Lipitor) 80 mg PO QPM [facility] Bupropion HCl (Wellbutrin Xl) 150 mg PO DAILY [facility] Last Admin: 01/12/18 10:04 Dose: 150 mg Clonidine HCl (Catapres) 0.1 mg PO BID PRN PRN Reason: Hypertensive Emergency Dabigatran (Pradaxa) 150 mg PO BID [facility] Last Admin: 01/12/18 10:05 Dose: 150 mg Digoxin (Lanoxin) 125 mcg PO DAILY [facility] Last Admin: 01/12/18 10:05 Dose: 125 mcg Folic Acid () 1 mg PO DAILY [facility] Sodium Chloride (Normal Saline 0.9%) 1,000 mls @ 100 mls/hr IV .Q10H [facility] Last Admin: 01/12/18 12:41 Dose: 100 mls/hr Thiamine HCl 500 mg/ Sodium (Chloride) 55 mls @ 100 mls/hr IV TID [facility] Stop: 01/14/18 22:32 Last Infusion: 01/12/18 15:41 Dose: Infused Insulin Aspart (Novolog) 1 - 9 unit SUBQ 0800,1200,1700,2100 [facility]; Protocol Last Admin: 01/12/18 11:33 Dose: 3 unit Insulin Glargine (Lantus Solostar) 40 unit SUBQ QPM [facility] Lisinopril (Zestril) 10 mg PO DAILY [facility] Last Admin: 01/12/18 10:05 Dose: 10 mg Lorazepam (Ativan) 2 mg PO Q1H PRN; Protocol PRN Reason: CIWA>8 Ondansetron HCl (Zofran Inj) 4 mg IVP Q6HR PRN PRN Reason: Nausea / Vomiting Last Admin: 01/12/18 13:05 Dose: 4 mg Pantoprazole Sodium (Protonix) 40 mg PO QDAC [facility] Last Admin: 01/12/18 06:35 Dose: 40 mg (Naltrexone Hcl [ Naltrexone Hcl] 50 Mg) Tab 1 each PO DAILY [facility] Last Admin: 01/12/18 10:07 Dose: Not Given (Vitamin B Complex [ (B Complex] 1 Tab)) 1 each PO DAILY [facility] Last Admin: 01/12/18 10:07 Dose: Not Given Polyethylene Glycol (Miralax) 17 gm PO DAILY [facility] Last Admin: 01/12/18 10:08 Dose: Not Given Multivit/Folic Acid/Iron (Trinatal Rx 1) 1 tab PO DAILY [facility] Last Admin: 01/12/18 10:04 Dose: 1 tab Prochlorperazine Edisylate (Compazine Inj) 10 mg IVP Q6HR PRN PRN Reason: Nausea / Vomiting Promethazine HCl (Phenergan Inj) 25 mg IM Q6HR PRN PRN Reason: Nausea / Vomiting Sodium Chloride (Normal Saline Flush 0.9%) 10 ml IVP PRN PRN PRN Reason: NEEDED PER PROVIDER ORDERS Last Admin: 01/12/18 11:33 Dose: 10 ml Sodium Chloride (Normal Saline Flush 0.9%) 10 ml IVP 0100,0900,1700 [facility] Last Admin: 01/12/18 13:05 Dose: 10 ml Insulin Glargine [Lantus] 40 units SQ QPM 09/19/13 Lisinopril 10 mg PO DAILY 09/19/13 Folic Acid 1 mg PO DAILY 04/19/15 Vitamin B Complex [B Complex] 1 tab PO DAILY 04/19/15 Metformin HCl [Metformin HCl ER] 500 mg PO BIDWM 09/16/15 Digoxin 125 mcg PO DAILY 04/16/16 Atorvastatin Calcium 80 mg PO QPM 05/07/16 Bupropion HCl [Bupropion Xl] 150 mg PO DAILY 05/07/16 Omeprazole 40 mg PO QDAC 05/07/16 Sitagliptin Phosphate [Januvia] 50 mg PO DAILY 05/07/16 Ciprofloxacin HCl [Cipro] 500 mg PO [id number] 01/12/18 Citalopram Hydrobromide [Celexa] 20 mg PO DAILY 01/12/18 Dabigatran Etexilate Mesylate [Pradaxa] 150 mg PO BID 01/12/18 Disulfiram [Antabuse] 250 mg PO DAILY 01/12/18 Disulfiram [Antabuse] 500 mg PO [id number] 01/12/18 Naltrexone HCl 50 mg PO DAILY 01/12/18 Venlafaxine HCl [Venlafaxine HCl ER] 37.5 mg PO DAILY 01/12/18 Objective - Vital Signs/Intake & Output Reviewed Vital Signs: Yes Vital Signs: Vital Signs x48h Temp Pulse Pulse Resp BP BP Pulse Ox 01/12/18 15:42 36.5 C 71 16 153/71 H 94 01/12/18 13:05 70 18 151/59 H 96 01/12/18 12:55 88 16 119/66 98 01/12/18 12:25 36.9 C 90 18 134/67 H 96 01/12/18 11:45 78 168/89 H Intake & Output: Intake & Output 01/09/18 01/10/18 01/11/18 01/12/18 23:59 23:59 23:59 23:59 Intake Total 1393.2 Output Total 1015 Balance 378.2 - Objective General Appearance: positive: No acute distress, Alert. negative: Lethargic Eyes Bilateral: positive: Normal inspection, PERRL, No lid inflammation, Conjunctivae nml ENT: positive: ENT inspection nml, Pharynx nml, No signs of dehydration. negative: Purulent nasal drainage, Pharyngeal erythema, Oral lesions Neck: positive: Nml inspection, Thyroid nml, No JVD, Trachea midline. negative: Thyromegaly, Lymphadenopathy (R), Lymphadenopathy (L), Stiff neck, Swelling/bruising, Tracheal deviation Respiratory: positive: Chest non-tender, No respiratory distress, Breath sounds nml. negative: Wheezes, Rales, Rhonchi Cardiovascular: positive: Regular rate & rhythm, No murmur, No gallop. negative: Irregularly irregular, Extrasystoles, Tachycardia, Bradycardia, JVD present, Systolic murmur, Diastolic murmur Peripheral Pulses: 2+ Radial (R), 2+ Radial (L), 2+ Dorsalis pedis (R), 2+ Dorsalis pedis (L) Abdomen: positive: Non-tender, No organomegaly, Nml bowel sounds, No distention. negative: Tenderness, Guarding, Rebound Back: positive: Nml inspection. negative: CVA tenderness (R), CVA tenderness (L) Skin: positive: Color nml, No rash, Warm, Dry. negative: Cyanosis, Diaphoresis, Pallor Extremities: positive: Non-tender, Full ROM, Nml appearance. negative: Calf tenderness, Joint swelling, Gianna's sign/cords Neurologic/Psychiatric: positive: Oriented x3, Sensation nml, Mood/affect nml. negative: Weakness, Sensory loss, Facial droop, Slurred/abnml speech, Depressed mood/affect - Lab Results Fish Bones: 01/12/18 05:14 01/12/18 05:14 Other Labs: Lab Results x24hrs 01/12/18 01/12/18 01/12/18 Range/Units 08:46 05:14 05:14 WBC (4.8-10.8) x10^3/uL RBC (4.20-5.40) 10^6/uL Hgb (12.0-16.0) g/dL Hct (37.0-47.0) % MCV (81.0-99.0) fL MCH (27.0-31.0) pg MCHC (32.0-36.0) g/dL RDW (12.0-15.0) % Plt Count (130-450) 10^3/uL MPV (7.9-10.8) fL Neut # (Auto) (1.5-6.6) 10^3/uL Lymph # (Auto) (1.5-3.5) 10^3/uL [place] # (Auto) (0.0-1.0) 10^3/uL Eos # (Auto) (0.0-0.7) 10^3/uL Baso # (Auto) (0.0-0.1) 10^3/uL Absolute Nucleated RBC x10^3/uL Nucleated RBC % /100WBC PT (9.9-12.6) secs INR (0.8-1.2) Sodium (135-145) mmol/L Potassium (3.5-5.0) mmol/L Chloride (101-111) mmol/L Carbon Dioxide (21-32) mmol/L Anion Gap (6-13) BUN (6-20) mg/dL Creatinine (0.4-1.0) mg/dL Estimated GFR (MDRD) (>89) Glucose (70-100) mg/dL Glycated Hemoglobin (4.6-6.2) % Estim Average Glucose (70-100) Calcium (8.5-10.3) mg/dL Phosphorus (2.5-4.6) mg/dL Magnesium (1.7-2.8) mg/dL Total Bilirubin (0.2-1.0) mg/dL AST (10-42) IU/L ALT (10-60) IU/L Alkaline Phosphatase (42-121) IU/L Ammonia < 10.0 (7-35) umol/L Troponin I (<0.49) ng/mL Total Protein (6.7-8.2) g/dL Albumin (3.2-5.5) g/dL Globulin (2.1-4.2) g/dL Albumin/Globulin Ratio (1.0-2.2) Lipase (22-51) U/L Vitamin B12 345 (180-914) pg/mL Folate 35.00 (5.90 - >24.8) ng/mL TSH 3.12 (0.34-5.60) uIU/mL Urine Color Urine Clarity (CLEAR) Urine pH (5.0-7.5) PH Ur Specific [place] (1.002-1.030) Urine Protein (NEGATIVE) mg/dL Urine Glucose (UA) (NEGATIVE) mg/dL Urine Ketones (NEGATIVE) mg/dL Urine Occult Blood (NEGATIVE) Urine Nitrite (NEGATIVE) Urine Bilirubin (NEGATIVE) Urine Urobilinogen (NORMAL) E.U./dL Ur Leukocyte Esterase (NEGATIVE) Urine RBC (0-5) /HPF Urine WBC (0-5) /HPF Ur Squamous Epith Cells (<= Few) Urine Bacteria (None Seen) /HPF Ur Microscopic Review Urine Culture Comments Last Dose Date Last Dose Time Digoxin ng/mL Urine Opiates Screen (NEGATIVE) Ur Oxycodone Screen (NEGATIVE) Urine Methadone Screen (NEGATIVE) Ur Propoxyphene Screen (NEGATIVE) Ur Barbiturates Screen (NEGATIVE) Ur Tricyclics Screen (NEGATIVE) Ur Phencyclidine Scrn (NEGATIVE) Ur Amphetamine Screen (NEGATIVE) U Methamphetamines Scrn (NEGATIVE) U Benzodiazepines Scrn (NEGATIVE) Urine Cocaine Screen (NEGATIVE) U Cannabinoids Screen (NEGATIVE) Ethyl Alcohol mg/dL Serum Ketones (NEGATIVE) 01/12/18 01/12/18 01/12/18 Range/Units 05:14 05:14 05:14 WBC (4.8-10.8) x10^3/uL RBC (4.20-5.40) 10^6/uL Hgb (12.0-16.0) g/dL Hct (37.0-47.0) % MCV (81.0-99.0) fL MCH (27.0-31.0) pg MCHC (32.0-36.0) g/dL RDW (12.0-15.0) % Plt Count (130-450) 10^3/uL MPV (7.9-10.8) fL Neut # (Auto) (1.5-6.6) 10^3/uL Lymph # (Auto) (1.5-3.5) 10^3/uL [place] # (Auto) (0.0-1.0) 10^3/uL Eos # (Auto) (0.0-0.7) 10^3/uL Baso # (Auto) (0.0-0.1) 10^3/uL Absolute Nucleated RBC x10^3/uL Nucleated RBC % /100WBC PT 12.7 H (9.9-12.6) secs INR 1.1 (0.8-1.2) Sodium 136 (135-145) mmol/L Potassium 3.8 (3.5-5.0) mmol/L Chloride 100 L (101-111) mmol/L Carbon Dioxide 25 (21-32) mmol/L Anion Gap 11.0 (6-13) BUN 10 (6-20) mg/dL Creatinine 0.8 (0.4-1.0) mg/dL Estimated GFR (MDRD) 71 L (>89) Glucose 177 H (70-100) mg/dL Glycated Hemoglobin 6.3 H (4.6-6.2) % Estim Average Glucose 134 H (70-100) Calcium 8.9 (8.5-10.3) mg/dL Phosphorus 3.1 (2.5-4.6) mg/dL Magnesium 1.8 (1.7-2.8) mg/dL Total Bilirubin 1.0 (0.2-1.0) mg/dL AST 28 (10-42) IU/L ALT 26 (10-60) IU/L Alkaline Phosphatase 84 (42-121) IU/L Ammonia (7-35) umol/L Troponin I (<0.49) ng/mL Total Protein 7.3 (6.7-8.2) g/dL Albumin 3.7 (3.2-5.5) g/dL Globulin 3.6 (2.1-4.2) g/dL Albumin/Globulin Ratio 1.0 (1.0-2.2) Lipase (22-51) U/L Vitamin B12 (180-914) pg/mL Folate (5.90 - >24.8) ng/mL TSH (0.34-5.60) uIU/mL Urine Color Urine Clarity (CLEAR) Urine pH (5.0-7.5) PH Ur Specific [place] (1.002-1.030) Urine Protein (NEGATIVE) mg/dL Urine Glucose (UA) (NEGATIVE) mg/dL Urine Ketones (NEGATIVE) mg/dL Urine Occult Blood (NEGATIVE) Urine Nitrite (NEGATIVE) Urine Bilirubin (NEGATIVE) Urine Urobilinogen (NORMAL) E.U./dL Ur Leukocyte Esterase (NEGATIVE) Urine RBC (0-5) /HPF Urine WBC (0-5) /HPF Ur Squamous Epith Cells (<= Few) Urine Bacteria (None Seen) /HPF Ur Microscopic Review Urine Culture Comments Last Dose Date Last Dose Time Digoxin ng/mL Urine Opiates Screen (NEGATIVE) Ur Oxycodone Screen (NEGATIVE) Urine Methadone Screen (NEGATIVE) Ur Propoxyphene Screen (NEGATIVE) Ur Barbiturates Screen (NEGATIVE) Ur Tricyclics Screen (NEGATIVE) Ur Phencyclidine Scrn (NEGATIVE) Ur Amphetamine Screen (NEGATIVE) U Methamphetamines Scrn (NEGATIVE) U Benzodiazepines Scrn (NEGATIVE) Urine Cocaine Screen (NEGATIVE) U Cannabinoids Screen (NEGATIVE) Ethyl Alcohol mg/dL Serum Ketones (NEGATIVE) 01/12/18 01/12/18 01/12/18 Range/Units 05:14 01:00 01:00 WBC 9.6 (4.8-10.8) x10^3/uL RBC 4.31 (4.20-5.40) 10^6/uL Hgb 14.2 (12.0-16.0) g/dL Hct 43.0 (37.0-47.0) % MCV 99.7 H (81.0-99.0) fL MCH 32.8 H (27.0-31.0) pg MCHC 32.9 (32.0-36.0) g/dL RDW 15.5 H (12.0-15.0) % Plt Count 145 (130-450) 10^3/uL MPV 8.8 (7.9-10.8) fL Neut # (Auto) 8.0 H (1.5-6.6) 10^3/uL Lymph # (Auto) 0.9 L (1.5-3.5) 10^3/uL [place] # (Auto) 0.6 (0.0-1.0) 10^3/uL Eos # (Auto) 0.0 (0.0-0.7) 10^3/uL Baso # (Auto) 0.0 (0.0-0.1) 10^3/uL Absolute Nucleated RBC 0.01 x10^3/uL Nucleated RBC % 0.1 /100WBC PT (9.9-12.6) secs INR (0.8-1.2) Sodium (135-145) mmol/L Potassium (3.5-5.0) mmol/L Chloride (101-111) mmol/L Carbon Dioxide (21-32) mmol/L Anion Gap (6-13) BUN (6-20) mg/dL Creatinine (0.4-1.0) mg/dL Estimated GFR (MDRD) (>89) Glucose (70-100) mg/dL Glycated Hemoglobin (4.6-6.2) % Estim Average Glucose (70-100) Calcium (8.5-10.3) mg/dL Phosphorus (2.5-4.6) mg/dL Magnesium (1.7-2.8) mg/dL Total Bilirubin (0.2-1.0) mg/dL AST (10-42) IU/L ALT (10-60) IU/L Alkaline Phosphatase (42-121) IU/L Ammonia (7-35) umol/L Troponin I (<0.49) ng/mL Total Protein (6.7-8.2) g/dL Albumin (3.2-5.5) g/dL Globulin (2.1-4.2) g/dL Albumin/Globulin Ratio (1.0-2.2) Lipase (22-51) U/L Vitamin B12 (180-914) pg/mL Folate (5.90 - >24.8) ng/mL TSH (0.34-5.60) uIU/mL Urine Color YELLOW Urine Clarity CLEAR (CLEAR) Urine pH 6.5 (5.0-7.5) PH Ur Specific [place] 1.020 (1.002-1.030) Urine Protein 30 H (NEGATIVE) mg/dL Urine Glucose (UA) NEGATIVE (NEGATIVE) mg/dL Urine Ketones TRACE (NEGATIVE) mg/dL Urine Occult Blood [place]ACE-INTA (NEGATIVE) Urine Nitrite NEGATIVE (NEGATIVE) Urine Bilirubin NEGATIVE (NEGATIVE) Urine Urobilinogen 0.2 (NORMAL) (NORMAL) E.U./dL Ur Leukocyte Esterase NEGATIVE (NEGATIVE) Urine RBC 0-5 (0-5) /HPF Urine WBC 0-3 (0-5) /HPF Ur Squamous Epith Cells FEW Squamous (<= Few) Urine Bacteria Rare (None Seen) /HPF Ur Microscopic Review INDICATED Urine Culture Comments NOT INDICATED Last Dose Date UNK Last Dose Time UNK Digoxin 0.9 ng/mL Urine Opiates Screen NEGATIVE (NEGATIVE) Ur Oxycodone Screen NEGATIVE (NEGATIVE) Urine Methadone Screen NEGATIVE (NEGATIVE) Ur Propoxyphene Screen NEGATIVE (NEGATIVE) Ur Barbiturates Screen NEGATIVE (NEGATIVE) Ur Tricyclics Screen NEGATIVE (NEGATIVE) Ur Phencyclidine Scrn NEGATIVE (NEGATIVE) Ur Amphetamine Screen NEGATIVE (NEGATIVE) U Methamphetamines Scrn NEGATIVE (NEGATIVE) U Benzodiazepines Scrn POSITIVE H (NEGATIVE) Urine Cocaine Screen NEGATIVE (NEGATIVE) U Cannabinoids Screen NEGATIVE (NEGATIVE) Ethyl Alcohol mg/dL Serum Ketones (NEGATIVE) 01/12/18 01/12/18 01/12/18 Range/Units 01:00 01:00 01:00 WBC (4.8-10.8) x10^3/uL RBC (4.20-5.40) 10^6/uL Hgb (12.0-16.0) g/dL Hct (37.0-47.0) % MCV (81.0-99.0) fL MCH (27.0-31.0) pg MCHC (32.0-36.0) g/dL RDW (12.0-15.0) % Plt Count (130-450) 10^3/uL MPV (7.9-10.8) fL Neut # (Auto) (1.5-6.6) 10^3/uL Lymph # (Auto) (1.5-3.5) 10^3/uL [place] # (Auto) (0.0-1.0) 10^3/uL Eos # (Auto) (0.0-0.7) 10^3/uL Baso # (Auto) (0.0-0.1) 10^3/uL Absolute Nucleated RBC x10^3/uL Nucleated RBC % /100WBC PT (9.9-12.6) secs INR (0.8-1.2) Sodium 138 (135-145) mmol/L Potassium 4.3 (3.5-5.0) mmol/L Chloride 102 (101-111) mmol/L Carbon Dioxide 26 (21-32) mmol/L Anion Gap 10.0 (6-13) BUN 10 (6-20) mg/dL Creatinine 0.9 (0.4-1.0) mg/dL Estimated GFR (MDRD) 62 L (>89) Glucose 174 H (70-100) mg/dL Glycated Hemoglobin (4.6-6.2) % Estim Average Glucose (70-100) Calcium 9.0 (8.5-10.3) mg/dL Phosphorus 3.1 (2.5-4.6) mg/dL Magnesium 1.3 L (1.7-2.8) mg/dL Total Bilirubin 0.9 (0.2-1.0) mg/dL AST 29 (10-42) IU/L ALT 24 (10-60) IU/L Alkaline Phosphatase 79 (42-121) IU/L Ammonia (7-35) umol/L Troponin I < 0.04 (<0.49) ng/mL Total Protein 7.4 (6.7-8.2) g/dL Albumin 3.7 (3.2-5.5) g/dL Globulin 3.7 (2.1-4.2) g/dL Albumin/Globulin Ratio 1.0 (1.0-2.2) Lipase 27 (22-51) U/L Vitamin B12 (180-914) pg/mL Folate (5.90 - >24.8) ng/mL TSH 4.39 (0.34-5.60) uIU/mL Urine Color Urine Clarity (CLEAR) Urine pH (5.0-7.5) PH Ur Specific [place] (1.002-1.030) Urine Protein (NEGATIVE) mg/dL Urine Glucose (UA) (NEGATIVE) mg/dL Urine Ketones (NEGATIVE) mg/dL Urine Occult Blood (NEGATIVE) Urine Nitrite (NEGATIVE) Urine Bilirubin (NEGATIVE) Urine Urobilinogen (NORMAL) E.U./dL Ur Leukocyte Esterase (NEGATIVE) Urine RBC (0-5) /HPF Urine WBC (0-5) /HPF Ur Squamous Epith Cells (<= Few) Urine Bacteria (None Seen) /HPF Ur Microscopic Review Urine Culture Comments Last Dose Date Last Dose Time Digoxin ng/mL Urine Opiates Screen (NEGATIVE) Ur Oxycodone Screen (NEGATIVE) Urine Methadone Screen (NEGATIVE) Ur Propoxyphene Screen (NEGATIVE) Ur Barbiturates Screen (NEGATIVE) Ur Tricyclics Screen (NEGATIVE) Ur Phencyclidine Scrn (NEGATIVE) Ur Amphetamine Screen (NEGATIVE) U Methamphetamines Scrn (NEGATIVE) U Benzodiazepines Scrn (NEGATIVE) Urine Cocaine Screen (NEGATIVE) U Cannabinoids Screen (NEGATIVE) Ethyl Alcohol < 5.0 mg/dL Serum Ketones NEGATIVE (NEGATIVE) 01/12/18 Range/Units 01:00 WBC 10.0 (4.8-10.8) x10^3/uL RBC 4.21 (4.20-5.40) 10^6/uL Hgb 14.2 (12.0-16.0) g/dL Hct 41.6 (37.0-47.0) % MCV 98.7 (81.0-99.0) fL MCH 33.8 H (27.0-31.0) pg MCHC 34.2 (32.0-36.0) g/dL RDW 15.4 H (12.0-15.0) % Plt Count 148 (130-450) 10^3/uL MPV 8.3 (7.9-10.8) fL Neut # (Auto) 7.8 H (1.5-6.6) 10^3/uL Lymph # (Auto) 1.3 L (1.5-3.5) 10^3/uL [place] # (Auto) 0.7 (0.0-1.0) 10^3/uL Eos # (Auto) 0.0 (0.0-0.7) 10^3/uL Baso # (Auto) 0.0 (0.0-0.1) 10^3/uL Absolute Nucleated RBC 0.01 x10^3/uL Nucleated RBC % 0.1 /100WBC PT (9.9-12.6) secs INR (0.8-1.2) Sodium (135-145) mmol/L Potassium (3.5-5.0) mmol/L Chloride (101-111) mmol/L Carbon Dioxide (21-32) mmol/L Anion Gap (6-13) BUN (6-20) mg/dL Creatinine (0.4-1.0) mg/dL Estimated GFR (MDRD) (>89) Glucose (70-100) mg/dL Glycated Hemoglobin (4.6-6.2) % Estim Average Glucose (70-100) Calcium (8.5-10.3) mg/dL Phosphorus (2.5-4.6) mg/dL Magnesium (1.7-2.8) mg/dL Total Bilirubin (0.2-1.0) mg/dL AST (10-42) IU/L ALT (10-60) IU/L Alkaline Phosphatase (42-121) IU/L Ammonia (7-35) umol/L Troponin I (<0.49) ng/mL Total Protein (6.7-8.2) g/dL Albumin (3.2-5.5) g/dL Globulin (2.1-4.2) g/dL Albumin/Globulin Ratio (1.0-2.2) Lipase (22-51) U/L Vitamin B12 (180-914) pg/mL Folate (5.90 - >24.8) ng/mL TSH (0.34-5.60) uIU/mL Urine Color Urine Clarity (CLEAR) Urine pH (5.0-7.5) PH Ur Specific [place] (1.002-1.030) Urine Protein (NEGATIVE) mg/dL Urine Glucose (UA) (NEGATIVE) mg/dL Urine Ketones (NEGATIVE) mg/dL Urine Occult Blood (NEGATIVE) Urine Nitrite (NEGATIVE) Urine Bilirubin (NEGATIVE) Urine Urobilinogen (NORMAL) E.U./dL Ur Leukocyte Esterase (NEGATIVE) Urine RBC (0-5) /HPF Urine WBC (0-5) /HPF Ur Squamous Epith Cells (<= Few) Urine Bacteria (None Seen) /HPF Ur Microscopic Review Urine Culture Comments Last Dose Date Last Dose Time Digoxin ng/mL Urine Opiates Screen (NEGATIVE) Ur Oxycodone Screen (NEGATIVE) Urine Methadone Screen (NEGATIVE) Ur Propoxyphene Screen (NEGATIVE) Ur Barbiturates Screen (NEGATIVE) Ur Tricyclics Screen (NEGATIVE) Ur Phencyclidine Scrn (NEGATIVE) Ur Amphetamine Screen (NEGATIVE) U Methamphetamines Scrn (NEGATIVE) U Benzodiazepines Scrn (NEGATIVE) Urine Cocaine Screen (NEGATIVE) U Cannabinoids Screen (NEGATIVE) Ethyl Alcohol mg/dL Serum Ketones (NEGATIVE) ABX Reporting Has patient been on IV antibiotics over the past 48 hours?: No Assessment/Plan - Problem List (1) Altered mental status Impression: 10/3 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 restricted diffusion is concerning for a small amount of associated infarct. pt is already have Pradaxa for her afib, will contact neurologist in [facility] if add aspirin continue neuro check continue IV of thiamine continue alcohol protocol will check ammonia, TSH, B12 level The patient was brought into the hospital after the patient's found her to have a decreased level of consciousness and disorientation. On presentation the patient was very disoriented and confused. The patient also had symptoms of ataxia and blurred vision. The patient did undergo a CT of her head which was negative. The patient also underwent infectious workup which was unremarkable. The patient has recently stopped drinking. She was previously a heavy drinker. The patient has been taking lorazepam and Antabuse at home for withdrawal. The patient had significant improvement in her symptoms after receiving Ativan and a banana bag with thiamine. The patient's altered mental status was thought to possibly be from Wernicke's encephalopathy given that she had the triad of symptoms of ataxia, encephalopathy and ocular motor disturbance. The patient was given 500 mg of IV thiamine in the emergency department. There was also concern the patient may just be having alcohol withdrawal although this is been a week since she stopped using alcohol and typically withdrawal starts sooner than this. Given the patient's history of CVA there is also a possibility that she may have had another CVA as she had similar symptoms during her initial CVA. Given the patient's elevated blood pressure this could also be hypertensive encephalopathy however the patient's symptoms improved without her blood pressure improving therefore this is less likely. The elevated blood pressure we will could also support CVA or alcohol withdrawal. Plan: MRI of the brain Treat with IV thiamine for Wernicke's encephalopathy Neuro checks Alcohol withdrawal protocol Monitor closely (2) Wernicke encephalopathy Conclusion/Plan: 01/12 MRI reveals posterior reversible encephalopathy syndrome continue Thiamine 500 mg IV 3 times daily for 3 days and then thiamine 250 mg IV daily for 5 days continue neur check Patient has the triad of symptoms on presentation including encephalopathy, ocular motor disturbances and ataxia. The patient's symptoms did improve after she received thiamine and Ativan in the emergency department. Given that she is recently stopped drinking there is high concern for possibility of Wernicke's encephalopathy. Plan: Check thiamine level Thiamine 500 mg IV 3 times daily for 3 days and then thiamine 250 mg IV daily for 5 days Monitor for improvement MRI (3) Alcohol withdrawal Conclusion/Plan: continue Alcohol withdrawal protocol Thiamine, folic acid, multivitamin and IV fluids continue neuro check The patient was a heavy drinker drinking 1 L of bourbon daily until just 1 week ago when she quit drinking. The patient has been using Lorazepam and Antabuse for withdrawal. The patient presented with disorientation confusion and ataxia. The patient's symptoms did seem to improve in the emergency department with Ativan. The patient was also significantly hypertensive on presentation which also suggest the possibility of alcohol withdrawal as the cause of her symptoms. Plan: Alcohol withdrawal protocol Thiamine, folic acid, multivitamin and IV fluids Abdomen as needed for withdrawal Neurochecks (4) Atrial fibrillation Conclusion/Plan: 01/12 Continue digoxin Continue Pradaxa continue tele ECHO reveals EF 50-55% Patient has a history of atrial fibrillation and is on Xarelto for anticoagulation and digoxin for rate control. The patient's rate is well contro lled on presentation. The patient's EKG shows atrial fibrillation. The patient's history of atrial fibrillation puts her at risk for possible stroke and given her altered mental status on presentation we were concerned for possibility of stroke but CT of her head was negative. We are still awaiting an MRI. Plan: Continue digoxin Continue Xarelto Echocardiogram Telemetry monitoring (5) Hypertension Conclusion/Plan: The patient has a history of hypertension and on presentation the patient's blood pressure was significantly elevated at 199/105. The patient's blood pressure did remain elevated while she was in the emergency department. The patient has recently stopped drinking and elevated blood pressure could have been secondary to alcohol withdrawal. The patient also presented with neurologic symptoms which could be concerning for possible stroke and patient could be hypertensive due to possible stroke. Plan: We will continue the patient's lisinopril but at the same time will allow for permissive hypertension IV fluids (6) Diabetes mellitus type 2 in obese Conclusion/Plan: Patient has a history of type 2 diabetes and on presentation the patient's blood glucose is elevated at 174. At home the patient takes Lantus, metformin and Januvia. Plan: Patient will be continued on her home dose of Lantus We will place the patient on sliding scale insulin while she is hospitalized We will hold patient's metformin and Januvia We will check hemoglobin A1c Check blood glucose before meals at bedtime Diabetic diet (7) Depression Conclusion/Plan: The patient has a history of depression and is on bupropion at home. The patient will be continued on bupropion while she is hospitalized. Qualifiers: Depression Type: unspecified Qualified Code(s): F32.9 - Major depressive disorder, single episode, unspecified (8) Hyperlipidemia Conclusion/Plan: The patient has a history of hyperlipidemia and uses atorvastatin at home. We will continue the patient's home dose of atorvastatin while she is hospitalized. Qualifiers: Altered mental status type: disorientation Qualified Code(s): R41.0 - Disorientation, unspecified
[2018-01-12] MEDS: ATORVASTATIN 40 MG TABLET PO SCH (20:54)
[2018-01-12] MEDS ORDERED: INSULIN GLARGINE 40 UNIT SQ SCH (21:00)
[2018-01-12] MEDS: INSULIN GLARGINE 300 UNIT/3 ML PEN SUBQ SCH (21:00)
[2018-01-13] MEDS: THIAMINE INJ 500 MG in SODIUM CHLORIDE 0.9% 50 ML IV SCH ×4 (00:44→21:43)
--- NOTE | 2018-01-13 01:08 | Ultrasound Report ---
Reason: syncope Procedure Date: 01/12/2018 Accession Number: [id number] / [id number] Procedure: US - Carotid Doppler Complete CPT Code: FULL RESULT: EXAM: BILATERAL CAROTID AND VERTEBRAL ARTERY DUPLEX DOPPLER ULTRASOUND: EXAM DATE: 01/12/2018 02:17 PM CLINICAL HISTORY: Syncope. COMPARISON: None. TECHNIQUE: Grayscale imaging, color Doppler, and duplex spectral Doppler were used to evaluate the carotid and vertebral arteries bilaterally. Static images were obtained. FINDINGS: There is minimal bilateral plaquing at the carotid bifurcations. No significant plaque is identified in the right or left common or internal carotid arteries. Normal antegrade flow is present in bilateral vertebral arteries. VELOCITIES: Right: CCA Mid: PSV 75.62 cm/sec. CCA Dist: PSV 63.29 cm/sec. ICA Prox: PSV 47.65 cm/sec, EDV 8.58 cm/sec. ICA Mid: PSV 63.37 cm/sec, EDV 14.77 cm/sec. ICA Dist: PSV 77.66 cm/sec, EDV 20.49 cm/sec. ECA: PSV 76.62 cm/sec. Vertebral Artery: PSV 54.32 cm/sec. RVA flow direction: Antegrade. ICA/CCA Ratio: 1.03. Left: CCA Mid: PSV 95.58 cm/sec. CCA Dist: PSV 83.63 cm/sec. ICA Prox: PSV 51.94 cm/sec, EDV 12.87 cm/sec. ICA Mid: PSV 63.85 cm/sec, EDV 17.63 cm/sec. ICA Dist: PSV 64.32 cm/sec, EDV 19.54 cm/sec. ECA: PSV 99.09 cm/sec. Vertebral Artery: PSV 47.17 cm/sec. LVA flow direction: Antegrade. ICA/CCA Ratio: 0.67. ICA diameter stenosis: Right: <50% by velocity and <70% by NASCET criteria. Left: <50% by velocity and <70% by NASCET criteria. IMPRESSION: 1. Minimal bilateral carotid artery plaquing. 2. In the right carotid artery there are no elevated carotid artery velocities to suggest hemodynamically significant stenosis. 3. In the left carotid artery there are no elevated carotid artery velocities to suggest hemodynamically significant stenosis. 4. Normal antegrade flow is present in bilateral vertebral arteries. General Recommendations: Stenosis =50% ICA - Follow-up ultrasound 6-12 months Stenosis <50% ICA - High Risk Patient with plaque - Follow-up ultrasound 1-2 years Normal Study but High Risk Patient - Follow-up ultrasound 3-5 years Management recommendations and diagnostic criteria are based on current IAC endorsed standards in Carotid Artery Stenosis: Grayscale and Doppler Ultrasound Diagnosis. Validated velocity measurements with angiographic measurements and velocity criteria are extrapolated from diameter data as defined by the Society of Radiologists in Ultrasound Consensus Conference Radiology 2003; 229;340-346. RADIA
[2018-01-13] MEDS: SODIUM CHLORIDE 0.9% 1,000 ML IV SCH ×3 (01:37→23:54)
[2018-01-13] MEDS: SODIUM CHLORIDE FLUSH 0.9% 10 ML SYRINGE IVP SCH ×4 (01:41→23:55)
[2018-01-13 06:33] LABS: BASOPHILS % (AUTO) 0.5 %; EOSINOPHILS # (AUTO) 0.1 10^3/uL (0.0-0.7); EOSINOPHILS % (AUTO) 0.7 %; HGB - HEMOGLOBIN 12.6 g/dL (12.0-16.0); LYMPHOCYTES # (AUTO) 1.3 10^3/uL (1.5-3.5); LYMPHOCYTES % (AUTO) 16.1 %; MEAN CORPUSCULAR HEMOGLOBIN 33.2 pg (27.0-31.0); MEAN CORPUSCULAR HGB CONC 33.3 g/dL (32.0-36.0); MEAN CORPUSCULAR VOLUME 99.5 fL (81.0-99.0); MEAN PLATELET VOLUME 8.5 fL (7.9-10.8); MONOCYTES # (AUTO) 0.7 10^3/uL (0.0-1.0); MONOCYTES % (AUTO) 9.1 %; NEUTROPHILS # (AUTO) 5.7 10^3/uL (1.5-6.6); NEUTROPHILS % (AUTO) 73.6 %; PLT - PLATELET COUNT 131 10^3/uL (130-450); RED CELL DISTRIBUTION WIDTH 15.3 % (12.0-15.0); WHITE BLOOD COUNT 7.8 x10^3/uL (4.8-10.8)
[2018-01-13 07:01] LABS: ALBUMIN 3.2 g/dL (3.2-5.5); BILIRUBIN,TOTAL 0.6 mg/dL (0.2-1.0); CALCIUM 8.6 mg/dL (8.5-10.3); CREATININE 0.8 mg/dL (0.4-1.0); MAGNESIUM 1.6 mg/dL (1.7-2.8); PHOSPHORUS 3.9 mg/dL (2.5-4.6); TOTAL PROTEIN 6.4 g/dL (6.7-8.2)
[2018-01-13] MEDS: INSULIN ASPART 300 UNIT/3 ML PEN SUBQ SCH ×4 (07:46→21:00)
[2018-01-13] MEDS: PANTOPRAZOLE 40 MG TABLET PO SCH (07:47)
[2018-01-13] MEDS ORDERED: FOLIC ACID 1 MG TABLET PO SCH (09:00)
[2018-01-13] MEDS ORDERED: ASPIRIN 325 MG TABLET PO SCH (09:00)
[2018-01-13] MEDS ORDERED: ASPIRIN CHEW 81 MG TABLET PO SCH (09:00)
[2018-01-13] MEDS: PRENATAL VITAMIN TABLET PO SCH (09:15)
[2018-01-13] MEDS: POLYETHYLENE GLYCOL 3350 17 GM PACKET PO SCH (09:15)
[2018-01-13] MEDS: MAGNESIUM OXIDE 400 MG TABLET PO SCH (09:15)
[2018-01-13] MEDS: DABIGATRAN 75 MG CAPSULE PO SCH ×2 (09:16→20:54)
[2018-01-13] MEDS: LISINOPRIL 5 MG TABLET PO SCH (09:16)
[2018-01-13] MEDS: DIGOXIN 125 MCG TABLET PO SCH (09:16)
[2018-01-13] MEDS: buPROPion XL 150 MG TABLET PO SCH (09:16)
--- NOTE | 2018-01-13 15:21 | PROVIDER PROGRESS NOTE ---
Subjective - Prog Note Date Prog Note Date: 01/13/18 - Subjective Pt reports feeling: Improved Subjective: pt feel better, pt can logically talk with me. but still complain of some vision disturbance. Denies chest pain, cough, fever, chill, SOB Current Medications - Current Medications Current Medications: Active Medications Acetaminophen (Tylenol) 650 mg PO Q4HR PRN PRN Reason: Pain or Fever > 38C (100.4F) Last Admin: 01/12/18 11:32 Dose: 650 mg Atorvastatin Calcium (Lipitor) 80 mg PO QPM [facility] Last Admin: 01/12/18 20:54 Dose: 80 mg Bupropion HCl (Wellbutrin Xl) 150 mg PO DAILY [facility] Last Admin: 01/13/18 09:16 Dose: 150 mg Clonidine HCl (Catapres) 0.1 mg PO BID PRN PRN Reason: Hypertensive Emergency Dabigatran (Pradaxa) 150 mg PO BID [facility] Last Admin: 01/13/18 09:16 Dose: 150 mg Digoxin (Lanoxin) 125 mcg PO DAILY [facility] Last Admin: 01/13/18 09:16 Dose: 125 mcg Sodium Chloride (Normal Saline 0.9%) 1,000 mls @ 100 mls/hr IV .Q10H [facility] Last Admin: 01/13/18 14:26 Dose: 100 mls/hr Thiamine HCl 500 mg/ Sodium (Chloride) 55 mls @ 100 mls/hr IV TID [facility] Stop: 01/14/18 22:32 Last Admin: 01/13/18 14:27 Dose: 100 mls/hr Insulin Aspart (Novolog) 1 - 9 unit SUBQ 0800,1200,1700,2100 [facility]; Protocol Last Admin: 01/13/18 12:09 Dose: 3 unit Insulin Glargine (Lantus Solostar) 40 unit SUBQ QPM [facility] Last Admin: 01/12/18 21:00 Dose: 40 unit Lisinopril (Zestril) 10 mg PO DAILY [facility] Last Admin: 01/13/18 09:16 Dose: 10 mg Lorazepam (Ativan) 2 mg PO Q1H PRN; Protocol PRN Reason: CIWA>8 Last Admin: 01/13/18 09:16 Dose: 2 mg Magnesium Oxide (Mag Ox) 400 mg PO DAILYWM [facility] Last Admin: 10/04/18 09:15 Dose: 400 mg Ondansetron HCl (Zofran Inj) 4 mg IVP Q6HR PRN PRN Reason: Nausea / Vomiting Last Admin: 01/12/18 13:05 Dose: 4 mg Pantoprazole Sodium (Protonix) 40 mg PO QDAC [facility] Last Admin: 01/13/18 07:47 Dose: 40 mg (Naltrexone Hcl [ Naltrexone Hcl] 50 Mg) Tab 1 each PO DAILY [facility] Last Admin: 01/12/18 10:07 Dose: Not Given (Vitamin B Complex [ (B Complex] 1 Tab)) 1 each PO DAILY [facility] Last Admin: 01/12/18 10:07 Dose: Not Given Polyethylene Glycol (Miralax) 17 gm PO DAILY [facility] Last Admin: 01/13/18 09:15 Dose: 17 gm Multivit/Folic Acid/Iron (Trinatal Rx 1) 1 tab PO DAILY [facility] Last Admin: 01/13/18 09:15 Dose: 1 tab Prochlorperazine Edisylate (Compazine Inj) 10 mg IVP Q6HR PRN PRN Reason: Nausea / Vomiting Promethazine HCl (Phenergan Inj) 25 mg IM Q6HR PRN PRN Reason: Nausea / Vomiting Sodium Chloride (Normal Saline Flush 0.9%) 10 ml IVP PRN PRN PRN Reason: NEEDED PER PROVIDER ORDERS Last Admin: 01/12/18 11:33 Dose: 10 ml Sodium Chloride (Normal Saline Flush 0.9%) 10 ml IVP 0100,0900,1700 [facility] Last Admin: 01/13/18 09:17 Dose: Not Given Insulin Glargine [Lantus] 40 units SQ QPM 09/19/13 Lisinopril 10 mg PO DAILY 09/19/13 Folic Acid 1 mg PO DAILY 04/19/15 Vitamin B Complex [B Complex] 1 tab PO DAILY 04/19/15 Metformin HCl [Metformin HCl ER] 500 mg PO BIDWM 09/16/15 Digoxin 125 mcg PO DAILY 04/16/16 Atorvastatin Calcium 80 mg PO QPM 05/07/16 Bupropion HCl [Bupropion Xl] 150 mg PO DAILY 05/07/16 Omeprazole 40 mg PO QDAC 05/07/16 Sitagliptin Phosphate [Januvia] 50 mg PO DAILY 05/07/16 Ciprofloxacin HCl [Cipro] 500 mg PO [id number] 01/12/18 Citalopram Hydrobromide [Celexa] 20 mg PO DAILY 01/12/18 Dabigatran Etexilate Mesylate [Pradaxa] 150 mg PO BID 01/12/18 Disulfiram [Antabuse] 250 mg PO DAILY 01/12/18 Disulfiram [Antabuse] 500 mg PO [id number] 01/12/18 Naltrexone HCl 50 mg PO DAILY 01/12/18 Venlafaxine HCl [Venlafaxine HCl ER] 37.5 mg PO DAILY 01/12/18 Objective - Vital Signs/Intake & Output Reviewed Vital Signs: Yes Vital Signs: Vital Signs x48h Temp Pulse Resp BP BP Pulse Ox 01/13/18 13:00 36.5 C 71 18 130/97 H 170/69 H 97 01/13/18 07:39 36.8 C 74 16 166/66 H 93 Intake & Output: Intake & Output 01/10/18 01/11/18 01/12/18 01/13/18 23:59 23:59 23:59 23:59 Intake Total 3050.867 1973.333 Output Total 1715 650 Balance 4326.886 6220.333 - Objective General Appearance: positive: No acute distress, Alert. negative: Lethargic Eyes Bilateral: positive: Normal inspection, PERRL, No lid inflammation, Conjunctivae nml ENT: positive: ENT inspection nml, Pharynx nml, No signs of dehydration. negative: Purulent nasal drainage, Pharyngeal erythema, Oral lesions Neck: positive: Nml inspection, Thyroid nml, No JVD, Trachea midline. negative: Thyromegaly, Lymphadenopathy (R), Lymphadenopathy (L), Stiff neck, Swelling/bruising, Tracheal deviation Respiratory: positive: Chest non-tender, No respiratory distress, Breath sounds nml. negative: Wheezes, Rales, Rhonchi Cardiovascular: positive: Regular rate & rhythm, No murmur, No gallop. negative: Irregularly irregular, Extrasystoles, Tachycardia, Bradycardia, JVD present, Systolic murmur, Diastolic murmur Peripheral Pulses: 2+ Radial (R), 2+ Radial (L), 2+ Dorsalis pedis (R), 2+ Dorsalis pedis (L) Abdomen: positive: Non-tender, No organomegaly, Nml bowel sounds, No distention. negative: Tenderness, Guarding, Rebound Back: positive: Nml inspection. negative: CVA tenderness (R), CVA tenderness (L) Skin: positive: Color nml, No rash, Warm, Dry. negative: Cyanosis, Diaphoresis, Pallor Extremities: positive: Non-tender, Nml appearance. negative: Calf tenderness, Joint swelling, Gianna's sign/cords Neurologic/Psychiatric: positive: Oriented x3, Sensation nml, Mood/affect nml. negative: Weakness, Sensory loss, Facial droop, Slurred/abnml speech, Depressed mood/affect - Lab Results Fish Bones: 01/13/18 06:25 01/13/18 06:25 Other Labs: Lab Results x24hrs 01/13/18 01/13/18 01/13/18 Range/Units 07:37 06:25 06:25 WBC 7.8 (4.8-10.8) x10^3/uL RBC 3.80 L (4.20-5.40) 10^6/uL Hgb 12.6 (12.0-16.0) g/dL Hct 37.9 (37.0-47.0) % MCV 99.5 H (81.0-99.0) fL MCH 33.2 H (27.0-31.0) pg MCHC 33.3 (32.0-36.0) g/dL RDW 15.3 H (12.0-15.0) % Plt Count 131 (130-450) 10^3/uL MPV 8.5 (7.9-10.8) fL Neut # (Auto) 5.7 (1.5-6.6) 10^3/uL Lymph # (Auto) 1.3 L (1.5-3.5) 10^3/uL Wright # (Auto) 0.7 (0.0-1.0) 10^3/uL Eos # (Auto) 0.1 (0.0-0.7) 10^3/uL Baso # (Auto) 0.0 (0.0-0.1) 10^3/uL Absolute Nucleated RBC 0.00 x10^3/uL Nucleated RBC % 0.0 /100WBC Sodium 137 (135-145) mmol/L Potassium 4.0 (3.5-5.0) mmol/L Chloride 105 (101-111) mmol/L Carbon Dioxide 25 (21-32) mmol/L Anion Gap 7.0 (6-13) BUN 15 (6-20) mg/dL Creatinine 0.8 (0.4-1.0) mg/dL Estimated GFR (MDRD) 71 L (>89) Glucose 120 H (70-100) mg/dL POC Whole Bld Glucose 115 H (70 - 100) mg/dL Calcium 8.6 (8.5-10.3) mg/dL Phosphorus 3.9 (2.5-4.6) mg/dL Magnesium 1.6 L (1.7-2.8) mg/dL Total Bilirubin 0.6 (0.2-1.0) mg/dL AST 24 (10-42) IU/L ALT 22 (10-60) IU/L Alkaline Phosphatase 72 (42-121) IU/L Total Protein 6.4 L (6.7-8.2) g/dL Albumin 3.2 (3.2-5.5) g/dL Globulin 3.2 (2.1-4.2) g/dL Albumin/Globulin Ratio 1.0 (1.0-2.2) 01/12/18 01/12/18 01/12/18 Range/Units 20:39 16:33 11:21 WBC (4.8-10.8) x10^3/uL RBC (4.20-5.40) 10^6/uL Hgb (12.0-16.0) g/dL Hct (37.0-47.0) % MCV (81.0-99.0) fL MCH (27.0-31.0) pg MCHC (32.0-36.0) g/dL RDW (12.0-15.0) % Plt Count (130-450) 10^3/uL MPV (7.9-10.8) fL Neut # (Auto) (1.5-6.6) 10^3/uL Lymph # (Auto) (1.5-3.5) 10^3/uL Wright # (Auto) (0.0-1.0) 10^3/uL Eos # (Auto) (0.0-0.7) 10^3/uL Baso # (Auto) (0.0-0.1) 10^3/uL Absolute Nucleated RBC x10^3/uL Nucleated RBC % /100WBC Sodium (135-145) mmol/L Potassium (3.5-5.0) mmol/L Chloride (101-111) mmol/L Carbon Dioxide (21-32) mmol/L Anion Gap (6-13) BUN (6-20) mg/dL Creatinine (0.4-1.0) mg/dL Estimated GFR (MDRD) (>89) Glucose (70-100) mg/dL POC Whole Bld Glucose 238 H 207 H 222 H (70 - 100) mg/dL Calcium (8.5-10.3) mg/dL Phosphorus (2.5-4.6) mg/dL Magnesium (1.7-2.8) mg/dL Total Bilirubin (0.2-1.0) mg/dL AST (10-42) IU/L ALT (10-60) IU/L Alkaline Phosphatase (42-121) IU/L Total Protein (6.7-8.2) g/dL Albumin (3.2-5.5) g/dL Globulin (2.1-4.2) g/dL Albumin/Globulin Ratio (1.0-2.2) 01/12/18 Range/Units 07:54 WBC (4.8-10.8) x10^3/uL RBC (4.20-5.40) 10^6/uL Hgb (12.0-16.0) g/dL Hct (37.0-47.0) % MCV (81.0-99.0) fL MCH (27.0-31.0) pg MCHC (32.0-36.0) g/dL RDW (12.0-15.0) % Plt Count (130-450) 10^3/uL MPV (7.9-10.8) fL Neut # (Auto) (1.5-6.6) 10^3/uL Lymph # (Auto) (1.5-3.5) 10^3/uL Wright # (Auto) (0.0-1.0) 10^3/uL Eos # (Auto) (0.0-0.7) 10^3/uL Baso # (Auto) (0.0-0.1) 10^3/uL Absolute Nucleated RBC x10^3/uL Nucleated RBC % /100WBC Sodium (135-145) mmol/L Potassium (3.5-5.0) mmol/L Chloride (101-111) mmol/L Carbon Dioxide (21-32) mmol/L Anion Gap (6-13) BUN (6-20) mg/dL Creatinine (0.4-1.0) mg/dL Estimated GFR (MDRD) (>89) Glucose (70-100) mg/dL POC Whole Bld Glucose 152 H (70 - 100) mg/dL Calcium (8.5-10.3) mg/dL Phosphorus (2.5-4.6) mg/dL Magnesium (1.7-2.8) mg/dL Total Bilirubin (0.2-1.0) mg/dL AST (10-42) IU/L ALT (10-60) IU/L Alkaline Phosphatase (42-121) IU/L Total Protein (6.7-8.2) g/dL Albumin (3.2-5.5) g/dL Globulin (2.1-4.2) g/dL Albumin/Globulin Ratio (1.0-2.2) ABX Reporting Has patient been on IV antibiotics over the past 48 hours?: No Assessment/Plan - Problem List (1) Altered mental status Impression: 01/13, pt is oriented, can logically talk with me, she state all her medications were given by her , she did not know which one she took, which one she did not take. pt's report to nurse pt only took once Pradaxa for daily. but actually it should be bid. contact [facility], recommend to take bid pradaxa and Lipitor, hold aspirin since possible small infarction, most consistent with reversible encephalopathy. 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 restricted diffusion is concerning for a small amount of associated infarct. pt is already have Pradaxa for her afib, will contact neurologist in [facility] if add aspirin continue neuro check continue IV of thiamine continue alcohol protocol will check ammonia, TSH, B12 level The patient was brought into the hospital after the patient's found her to have a decreased level of consciousness and disorientation. On presentation the patient was very disoriented and confused. The patient also had symptoms of ataxia and blurred vision. The patient did undergo a CT of her head which was negative. The patient also underwent infectious workup which was unremarkable. The patient has recently stopped drinking. She was previously a heavy drinker. The patient has been taking lorazepam and Antabuse at home for withdrawal. The patient had significant improvement in her symptoms after receiving Ativan and a banana bag with thiamine. The patient's altered mental status was thought to possibly be from Wernicke's encephalopathy given that she had the triad of symptoms of ataxia, encephalopathy and ocular motor disturbance. The patient was given 500 mg of IV thiamine in the emergency department. There was also concern the patient may just be having alcohol withdrawal although this is been a week since she stopped using alcohol and typically withdrawal starts sooner than this. Given the patient's history of CVA there is also a possibility that she may have had another CVA as she had similar symptoms during her initial CVA. Given the patient's elevated blood pressure this could also be hypertensive encephalopathy however the patient's symptoms improved without her blood pressure improving therefore this is less likely. The elevated blood pressure we will could also support CVA or alcohol withdrawal. Plan: MRI of the brain Treat with IV thiamine for Wernicke's encephalopathy Neuro checks Alcohol withdrawal protocol Monitor closely (2) Wernicke encephalopathy Conclusion/Plan: 01/13 continue finish IV of thiamine, folic acid continue neuro check 01/12 MRI reveals posterior reversible encephalopathy syndrome continue Thiamine 500 mg IV 3 times daily for 3 days and then thiamine 250 mg IV daily for 5 days continue neur check Patient has the triad of symptoms on presentation including encephalopathy, ocular motor disturbances and ataxia. The patient's symptoms did improve after she received thiamine and Ativan in the emergency department. Given that she is recently stopped drinking there is high concern for possibility of Wernicke's encephalopathy. Plan: Check thiamine level Thiamine 500 mg IV 3 times daily for 3 days and then thiamine 250 mg IV daily for 5 days Monitor for improvement MRI (3) Alcohol withdrawal Conclusion/Plan: continue protocol of alcohol withdrawal continue Alcohol withdrawal protocol Thiamine, folic acid, multivitamin and IV fluids continue neuro check The patient was a heavy drinker drinking 1 L of bourbon daily until just 1 week ago when she quit drinking. The patient has been using Lorazepam and Antabuse for withdrawal. The patient presented with disorientation confusion and ataxia. The patient's symptoms did seem to improve in the emergency department with Ativan. The patient was also significantly hypertensive on presentation which also suggest the possibility of alcohol withdrawal as the cause of her symptoms. Plan: Alcohol withdrawal protocol Thiamine, folic acid, multivitamin and IV fluids Abdomen as needed for withdrawal Neurochecks (4) Atrial fibrillation Conclusion/Plan: stable, continue current meds 01/12 Continue digoxin Continue Pradaxa continue tele ECHO reveals EF 50-55% Patient has a history of atrial fibrillation and is on Xarelto for anticoagulation and digoxin for rate control. The patient's rate is well controlled on presentation. The patient's EKG shows atrial fibrillation. The patient's history of atrial fibrillation puts her at risk for possible stroke and given her altered mental status on presentation we were concerned for possibility of stroke but CT of her head was negative. We are still awaiting an MRI. Plan: Continue digoxin Continue Xarelto Echocardiogram Telemetry monitoring (5) Hypertension Conclusion/Plan: The patient has a history of hypertension and on presentation the patient's blood pressure was significantly elevated at 199/105. The patient's blood pr essure did remain elevated while she was in the emergency department. The patient has recently stopped drinking and elevated blood pressure could have been secondary to alcohol withdrawal. The patient also presented with neurologic symptoms which could be concerning for possible stroke and patient could be hypertensive due to possible stroke. Plan: We will continue the patient's lisinopril but at the same time will allow for permissive hypertension IV fluids (6) Diabetes mellitus type 2 in obese Conclusion/Plan: Patient has a history of type 2 diabetes and on presentation the patient's blood glucose is elevated at 174. At home the patient takes Lantus, metformin and Januvia. Plan: Patient will be continued on her home dose of Lantus We will place the patient on sliding scale insulin while she is hospitalized We will hold patient's metformin and Januvia We will check hemoglobin A1c Check blood glucose before meals at bedtime Diabetic diet (7) Depression Conclusion/Plan: The patient has a history of depression and is on bupropion at home. The patient will be continued on bupropion while she is hospitalized. Qualifiers: Depression Type: unspecified Qualified Code(s): F32.9 - Major depressive disorder, single episode, unspecified (8) Hyperlipidemia Conclusion/Plan: The patient has a history of hyperlipidemia and uses atorvastatin at home. We will continue the patient's home dose of atorvastatin while she is hospitalized. (9) medical non-compliant pt's pt only took daily of Pradaxa, but it was scheduled bid educate pt for medial compliant. Qualifiers: Altered mental status type: disorientation Qualified Code(s): R41.0 - Disorientation, unspecified
[2018-01-13] MEDS: NALTREXONE HCL 50 MG PO SCH (17:47)
[2018-01-13] MEDS: ATORVASTATIN 40 MG TABLET PO SCH (20:54)
[2018-01-13] MEDS: INSULIN GLARGINE 300 UNIT/3 ML PEN SUBQ SCH (21:01)
[2018-01-14] MEDS: SODIUM CHLORIDE 0.9% 1,000 ML IV SCH (02:27)
[2018-01-14 05:36] LABS: BASOPHILS # (AUTO) 0.1 10^3/uL (0.0-0.1); BASOPHILS % (AUTO) 1.2 %; EOSINOPHILS # (AUTO) 0.1 10^3/uL (0.0-0.7); EOSINOPHILS % (AUTO) 0.9 %; HGB - HEMOGLOBIN 11.9 g/dL (12.0-16.0); LYMPHOCYTES # (AUTO) 1.4 10^3/uL (1.5-3.5); LYMPHOCYTES % (AUTO) 18.3 %; MEAN CORPUSCULAR HEMOGLOBIN 33.4 pg (27.0-31.0); MEAN CORPUSCULAR HGB CONC 34.2 g/dL (32.0-36.0); MEAN CORPUSCULAR VOLUME 97.8 fL (81.0-99.0); MEAN PLATELET VOLUME 8.2 fL (7.9-10.8); MONOCYTES # (AUTO) 0.6 10^3/uL (0.0-1.0); MONOCYTES % (AUTO) 8.3 %; NEUTROPHILS # (AUTO) 5.3 10^3/uL (1.5-6.6); NEUTROPHILS % (AUTO) 71.3 %; PLT - PLATELET COUNT 116 10^3/uL (130-450); RED BLOOD COUNT 3.56 10^6/uL (4.20-5.40); WHITE BLOOD COUNT 7.5 x10^3/uL (4.8-10.8)
[2018-01-14 05:50] LABS: ALBUMIN 3.2 g/dL (3.2-5.5); ALBUMIN/GLOBULIN RATIO 1.1 (1.0-2.2); BILIRUBIN,TOTAL 0.5 mg/dL (0.2-1.0); CALCIUM 8.8 mg/dL (8.5-10.3); CREATININE 0.9 mg/dL (0.4-1.0); MAGNESIUM 1.6 mg/dL (1.7-2.8); PHOSPHORUS 3.2 mg/dL (2.5-4.6)
[2018-01-14] MEDS: PANTOPRAZOLE 40 MG TABLET PO SCH (06:33)
[2018-01-14] MEDS: THIAMINE INJ 500 MG in SODIUM CHLORIDE 0.9% 50 ML IV SCH ×3 (06:33→21:28)
[2018-01-14] MEDS ORDERED: SODIUM CHLORIDE 0.9% 1,000 ML IV SCH (07:29)
[2018-01-14] MEDS ORDERED: MAGNESIUM SULFATE 1 GM in SODIUM CHLORIDE 0.9% 50 ML IV ONE (08:15)
[2018-01-14] MEDS: DABIGATRAN 75 MG CAPSULE PO SCH ×2 (08:31→21:20)
[2018-01-14] MEDS: buPROPion XL 150 MG TABLET PO SCH (08:31)
[2018-01-14] MEDS: LISINOPRIL 5 MG TABLET PO SCH (08:31)
[2018-01-14] MEDS: PRENATAL VITAMIN TABLET PO SCH (08:31)
[2018-01-14] MEDS: POLYETHYLENE GLYCOL 3350 17 GM PACKET PO SCH (08:32)
[2018-01-14] MEDS: INSULIN ASPART 300 UNIT/3 ML PEN SUBQ SCH ×4 (08:33→21:21)
[2018-01-14] MEDS: DIGOXIN 125 MCG TABLET PO SCH (08:38)
[2018-01-14] MEDS: MAGNESIUM OXIDE 400 MG TABLET PO SCH (08:39)
[2018-01-14] MEDS: NALTREXONE HCL 50 MG PO SCH (10:50)
[2018-01-14] MEDS ORDERED: hydrALAZINE INJ 20 MG/ML VIAL IVP PRN (13:33)
[2018-01-14] MEDS ORDERED: cloNIDine 0.1 MG TABLET PO PRN (13:33)
[2018-01-14] MEDS ORDERED: LISINOPRIL 5 MG TABLET PO STA (14:37)
[2018-01-14] MEDS: SODIUM CHLORIDE FLUSH 0.9% 10 ML SYRINGE IVP PRN (14:50)
--- NOTE | 2018-01-14 14:54 | PROVIDER PROGRESS NOTE ---
Subjective - Prog Note Date Prog Note Date: 01/14/18 - Subjective Pt reports feeling: Improved Subjective: Pt still complain some vision disturbs in the morning when I saw her, she state she can not find the forks for her breakfast. I called neurologist. Dr. Westbrook called back. he reviewed brain MRI study. He question the PRES study, but do think pt has multiple small stroke. His recommendations: control her blood pressure, take bid of Pradaxa, no antipletelet. I just went to see pt again, she can read magazine now. Improvement. Monitor and neuro check overnight, increase Lisinopril to 20mg from 10mg, vital monitor, PRN of BP meds clonidine and hydralazine. Current Medications - Current Medications Current Medications: Active Medications Acetaminophen (Tylenol) 650 mg PO Q4HR PRN PRN Reason: Pain or Fever > 38C (100.4F) Last Admin: 01/12/18 11:32 Dose: 650 mg Atorvastatin Calcium (Lipitor) 80 mg PO QPM [facility] Last Admin: 01/13/18 20:54 Dose: 80 mg Bupropion HCl (Wellbutrin Xl) 150 mg PO DAILY [facility] Last Admin: 01/14/18 08:31 Dose: 150 mg Clonidine HCl (Catapres) 0.1 mg PO BID PRN PRN Reason: Hypertensive Emergency Dabigatran (Pradaxa) 150 mg PO BID [facility] Last Admin: 01/14/18 08:31 Dose: 150 mg Digoxin (Lanoxin) 125 mcg PO DAILY [facility] Last Admin: 01/14/18 08:38 Dose: 125 mcg Hydralazine HCl (Apresoline Inj) 10 mg IVP TID PRN PRN Reason: Hypertensive Emergency Last Admin: 01/14/18 14:44 Dose: 10 mg Thiamine HCl 500 mg/ Sodium (Chloride) 55 mls @ 100 mls/hr IV TID [facility] Stop: 01/14/18 22:32 Last Admin: 01/14/18 14:40 Dose: 100 mls/hr Insulin Aspart (Novolog) 1 - 9 unit SUBQ 0800,1200,1700,2100 [facility]; Protocol Last Admin: 01/14/18 12:26 Dose: 5 unit Insulin Glargine (Lantus Solostar) 40 unit SUBQ QPM [facility] Last Admin: 01/13/18 21:01 Dose: 40 unit Lisinopril (Zestril) 20 mg PO DAILY [facility] Lorazepam (Ativan) 2 mg PO Q1H PRN; Protocol PRN Reason: CIWA>8 Last Admin: 01/13/18 09:16 Dose: 2 mg Magnesium Oxide (Mag Ox) 400 mg PO DAILYWM [facility] Last Admin: 01/14/18 08:39 Dose: 400 mg Ondansetron HCl (Zofran Inj) 4 mg IVP Q6HR PRN PRN Reason: Nausea / Vomiting Last Admin: 01/12/18 13:05 Dose: 4 mg Pantoprazole Sodium (Protonix) 40 mg PO QDAC [facility] Last Admin: 01/14/18 06:33 Dose: 40 mg (Naltrexone Hcl [ Naltrexone Hcl] 50 Mg) Tab 1 each PO DAILY [facility] Last Admin: 01/14/18 10:50 Dose: Not Given (Vitamin B Complex [ (B Complex] 1 Tab)) 1 each PO DAILY [facility] Last Admin: 01/14/18 10:50 Dose: Not Given Polyethylene Glycol (Miralax) 17 gm PO DAILY [facility] Last Admin: 01/14/18 08:32 Dose: 17 gm Multivit/Folic Acid/Iron (Trinatal Rx 1) 1 tab PO DAILY [facility] Last Admin: 01/14/18 08:31 Dose: 1 tab Prochlorperazine Edisylate (Compazine Inj) 10 mg IVP Q6HR PRN PRN Reason: Nausea / Vomiting Promethazine HCl (Phenergan Inj) 25 mg IM Q6HR PRN PRN Reason: Nausea / Vomiting Sodium Chloride (Normal Saline Flush 0.9%) 10 ml IVP PRN PRN PRN Reason: NEEDED PER PROVIDER ORDERS Last Admin: 01/14/18 14:50 Dose: 20 ml Sodium Chloride (Normal Saline Flush 0.9%) 10 ml IVP 0100,0900,1700 [facility] Last Admin: 01/13/18 23:55 Dose: Not Given Insulin Glargine [Lantus] 40 units SQ QPM 09/19/13 Lisinopril 10 mg PO DAILY 09/19/13 Folic Acid 1 mg PO DAILY 04/19/15 Vitamin B Complex [B Complex] 1 tab PO DAILY 04/19/15 Metformin HCl [Metformin HCl ER] 500 mg PO BIDWM 09/16/15 Digoxin 125 mcg PO DAILY 04/16/16 Atorvastatin Calcium 80 mg PO QPM 05/07/16 Bupropion HCl [Bupropion Xl] 150 mg PO DAILY 05/07/16 Omeprazole 40 mg PO QDAC 05/07/16 Sitagliptin Phosphate [Januvia] 50 mg PO DAILY 05/07/16 Ciprofloxacin HCl [Cipro] 500 mg PO [id number] 01/12/18 Citalopram Hydrobromide [Celexa] 20 mg PO DAILY 01/12/18 Dabigatran Etexilate Mesylate [Pradaxa] 150 mg PO BID 01/12/18 Disulfiram [Antabuse] 250 mg PO DAILY 01/12/18 Disulfiram [Antabuse] 500 mg PO [id number] 01/12/18 Naltrexone HCl 50 mg PO DAILY 01/12/18 Venlafaxine HCl [Venlafaxine HCl ER] 37.5 mg PO DAILY 01/12/18 Objective - Vital Signs/Intake & Output Reviewed Vital Signs: Yes Vital Signs: Vital Signs x48h Temp Pulse Resp BP BP Pulse Ox 01/14/18 12:03 36.3 C L 71 18 176/77 H 172/85 H 96 01/14/18 08:05 36.3 C L 67 18 182/67 H 94 Intake & Output: Intake & Output 01/11/18 01/12/18 01/13/18 01/14/18 23:59 23:59 23:59 23:59 Intake Total 3050.867 2913.333 2425.000 Output Total 1715 1450 300 Balance 1349.283 5048.333 2125.000 - Objective General Appearance: positive: No acute distress, Alert. negative: Lethargic Eyes Bilateral: positive: Normal inspection, PERRL, No lid inflammation, Co njunctivae nml ENT: positive: ENT inspection nml, Pharynx nml, No signs of dehydration. negative: Purulent nasal drainage, Pharyngeal erythema, Oral lesions Neck: positive: Nml inspection, Thyroid nml, No JVD, Trachea midline. negative: Thyromegaly, Lymphadenopathy (R), Lymphadenopathy (L), Stiff neck, Swelling/bruising, Tracheal deviation Respiratory: positive: Chest non-tender, No respiratory distress, Breath sounds nml. negative: Wheezes, Rales, Rhonchi Cardiovascular: positive: Regular rate & rhythm, No murmur, No gallop. negative: Irregularly irregular, Extrasystoles, Tachycardia, Bradycardia, JVD present, Systolic murmur, Diastolic murmur Peripheral Pulses: 2+ Radial (R), 2+ Radial (L), 2+ Dorsalis pedis (R), 2+ Dorsalis pedis (L) Abdomen: positive: Non-tender, No organomegaly, Nml bowel sounds, No distention. negative: Tenderness, Guarding, Rebound Back: positive: Nml inspection. negative: CVA tenderness (R), CVA tenderness (L) Skin: positive: Color nml, No rash, Warm, Dry. negative: Cyanosis, Diaphoresis, Pallor Extremities: positive: Non-tender, Nml appearance. negative: Calf tenderness, Joint swelling, Gianna's sign/cords Neurologic/Psychiatric: positive: Oriented x3, Sensation nml, Mood/affect nml. negative: Weakness, Sensory loss, Facial droop, Slurred/abnml speech, Depressed mood/affect - Lab Results Fish Bones: 01/14/18 05:23 01/14/18 05:23 Other Labs: Lab Results x24hrs 01/14/18 01/14/18 01/13/18 Range/Units 05:23 05:23 20:50 WBC 7.5 (4.8-10.8) x10^3/uL RBC 3.56 L (4.20-5.40) 10^6/uL Hgb 11.9 L (12.0-16.0) g/dL Hct 34.8 L (37.0-47.0) % MCV 97.8 (81.0-99.0) fL MCH 33.4 H (27.0-31.0) pg MCHC 34.2 (32.0-36.0) g/dL RDW 15.0 (12.0-15.0) % Plt Count 116 L (130-450) 10^3/uL MPV 8.2 (7.9-10.8) fL Neut # (Auto) 5.3 (1.5-6.6) 10^3/uL Lymph # (Auto) 1.4 L (1.5-3.5) 10^3/uL [place] # (Auto) 0.6 (0.0-1.0) 10^3/uL Eos # (Auto) 0.1 (0.0-0.7) 10^3/uL Baso # (Auto) 0.1 (0.0-0.1) 10^3/uL Absolute Nucleated RBC 0.00 x10^3/uL Nucleated RBC % 0.0 /100WBC Sodium 138 (135-145) mmol/L Potassium 4.4 (3.5-5.0) mmol/L Chloride 108 (101-111) mmol/L Carbon Dioxide 26 (21-32) mmol/L Anion Gap 4.0 L (6-13) BUN 15 (6-20) mg/dL Creatinine 0.9 (0.4-1.0) mg/dL Estimated GFR (MDRD) 62 L (>89) Glucose 121 H (70-100) mg/dL POC Whole Bld Glucose 145 H (70 - 100) mg/dL Calcium 8.8 (8.5-10.3) mg/dL Phosphorus 3.2 (2.5-4.6) mg/dL Magnesium 1.6 L (1.7-2.8) mg/dL Total Bilirubin 0.5 (0.2-1.0) mg/dL AST 25 (10-42) IU/L ALT 22 (10-60) IU/L Alkaline Phosphatase 78 (42-121) IU/L Total Protein 6.0 L (6.7-8.2) g/dL Albumin 3.2 (3.2-5.5) g/dL Globulin 2.8 (2.1-4.2) g/dL Albumin/Globulin Ratio 1.1 (1.0-2.2) 01/13/18 Range/Units 16:50 WBC (4.8-10.8) x10^3/uL RBC (4.20-5.40) 10^6/uL Hgb (12.0-16.0) g/dL Hct (37.0-47.0) % MCV (81.0-99.0) fL MCH (27.0-31.0) pg MCHC (32.0-36.0) g/dL RDW (12.0-15.0) % Plt Count (130-450) 10^3/uL MPV (7.9-10.8) fL Neut # (Auto) (1.5-6.6) 10^3/uL Lymph # (Auto) (1.5-3.5) 10^3/uL [place] # (Auto) (0.0-1.0) 10^3/uL Eos # (Auto) (0.0-0.7) 10^3/uL Baso # (Auto) (0.0-0.1) 10^3/uL Absolute Nucleated RBC x10^3/uL Nucleated RBC % /100WBC Sodium (135-145) mmol/L Potassium (3.5-5.0) mmol/L Chloride (101-111) mmol/L Carbon Dioxide (21-32) mmol/L Anion Gap (6-13) BUN (6-20) mg/dL Creatinine (0.4-1.0) mg/dL Estimated GFR (MDRD) (>89) Glucose (70-100) mg/dL POC Whole Bld Glucose 189 H (70 - 100) mg/dL Calcium (8.5-10.3) mg/dL Phosphorus (2.5-4.6) mg/dL Magnesium (1.7-2.8) mg/dL Total Bilirubin (0.2-1.0) mg/dL AST (10-42) IU/L ALT (10-60) IU/L Alkaline Phosphatase (42-121) IU/L Total Protein (6.7-8.2) g/dL Albumin (3.2-5.5) g/dL Globulin (2.1-4.2) g/dL Albumin/Globulin Ratio (1.0-2.2) ABX Reporting Has patient been on IV antibiotics over the past 48 hours?: No Assessment/Plan - Problem List (1) Altered mental status Impression: Impression: 01/14 pt report in the morning some vision disturbs, can not find forks for her breakfast. I consulted with neurologist in . neuro check control BP, increase Lisinopril to 20mg, PRN BP meds continue Pradaxa bid 01/13, pt is oriented, can logically talk with me, she state all her medications were given by her , she did not know which one she took, which one she did not take. pt's report to nurse pt only took once Pradaxa for daily. but actually it should be bid. contact [facility], recommend to take bid pradaxa and Lipitor, hold aspirin since possible small infarction, most consistent with reversible encephalopathy. 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 restricted diffusion is concerning for a small amount of associated infarct. pt is already have Pradaxa for her afib, will contact neurologist in [facility] if add aspirin continue neuro check continue IV of thiamine continue alcohol protocol will check ammonia, TSH, B12 level The patient was brought into the hospital after the patient's found her to have a decreased level of consciousness and disorientation. On presentation the patient was very disoriented and confused. The patient also had symptoms of ataxia and blurred vision. The patient did undergo a CT of her head which was negative. The patient also underwent infectious workup which was unremarkable. The patient has recently stopped drinking. She was previously a heavy drinker. The patient has been taking lorazepam and Antabuse at home for withdrawal. The patient had significant improvement in her symptoms after receiving Ativan and a banana bag with thiamine. The patient's altered mental status was thought to possibly be from Wernicke's encephalopathy given that she had the triad of symptoms of ataxia, encephalopathy and ocular motor disturbance. The patient was given 500 mg of IV thiamine in the emergency department. There was also concern the patient may just be having alcohol withdrawal although this is been a week since she stopped using alcohol and typically withdrawal starts sooner than this. Given the patient's history of CVA there is also a possibility that she may have had another CVA as she had similar symptoms during her initial CVA. Given the patient's elevated blood pressure this could also be hypertensive encephalopathy however the patient's symptoms improved without her blood pressure improving therefore this is less likely. The elevated blood pressure we will could also support CVA or alcohol withdrawal. Plan: MRI of the brain Treat with IV thiamine for Wernicke's encephalopathy Neuro checks Alcohol withdrawal protocol Monitor closely (2) Wernicke encephalopathy Conclusion/Plan: 01/14 continue IV of thiamine, po folic acid 01/13 continue finish IV of thiamine, folic acid continue neuro check 01/12 MRI reveals posterior reversible encephalopathy syndrome continue Thiamine 500 mg IV 3 times daily for 3 days and then thiamine 250 mg IV daily for 5 days continue neur check Patient has the triad of symptoms on presentation including encephalopathy, ocular motor disturbances and ataxia. The patient's symptoms did improve after she received thiamine and Ativan in the emergency department. Given that she is recently stopped drinking there is high concern for possibility of Wernicke's encephalopathy. Plan: Check thiamine level Thiamine 500 mg IV 3 times daily for 3 days and then thiamine 250 mg IV daily for 5 days Monitor for improvement MRI (3) Alcohol withdrawal Conclusion/Plan: continue protocol of alcohol withdrawal continue Alcohol withdrawal protocol Thiamine, folic acid, multivitamin and IV fluids continue neuro check The patient was a heavy drinker drinking 1 L of bourbon daily until just 1 week ago when she quit drinking. The patient has been using Lorazepam and Antabuse for withdrawal. The patient presented with disorientation confusion and ataxia. The patient's symptoms did seem to improve in the emergency department with Ativan. The patient was also significantly hypertensive on presentation which also suggest the possibility of alcohol withdrawal as the cause of her symptoms. Plan: Alcohol withdrawal protocol Thiamine, folic acid, multivitamin and IV fluids Abdomen as needed for withdrawal Neurochecks (4) Atrial fibrillation Conclusion/Plan: 01/14 stable, continue HR control, and Pradaxa 01/12 Continue digoxin Continue Pradaxa continue tele ECHO reveals EF 50-55% Patient has a history of atrial fibrillation and is on Xarelto for anticoagulation and digoxin for rate control. The patient's rate is well contro lled on presentation. The patient's EKG shows atrial fibrillation. The patient's history of atrial fibrillation puts her at risk for possible stroke and given her altered mental status on presentation we were concerned for possibility of stroke but CT of her head was negative. We are still awaiting an MRI. Plan: Continue digoxin Continue Xarelto Echocardiogram Telemetry monitoring (5) Hypertension Conclusion/Plan: 01/14 increase Lisinopril to 20 mg daily from 10mg PRN Clonidine and Hydralazine vital monitor The patient has a history of hypertension and on presentation the patient's blood pressure was significantly elevated at 199/105. The patient's blood pressure did remain elevated while she was in the emergency department. The patient has recently stopped drinking and elevated blood pressure could have been secondary to alcohol withdrawal. The patient also presented with neurologic symptoms which could be concerning for possible stroke and patient could be hypertensive due to possible stroke. Plan: We will continue the patient's lisinopril but at the same time will allow for permissive hypertension IV fluids (6) Diabetes mellitus type 2 in obese Conclusion/Plan: Patient has a history of type 2 diabetes and on presentation the patient's blood glucose is elevated at 174. At home the patient takes Lantus, metformin and Januvia. Plan: Patient will be continued on her home dose of Lantus We will place the patient on sliding scale insulin while she is hospitalized We will hold patient's metformin and Januvia We will check hemoglobin A1c Check blood glucose before meals at bedtime Diabetic diet (7) Depression Conclusion/Plan: The patient has a history of depression and is on bupropion at home. The patient will be continued on bupropion while she is hospitalized. Qualifiers: Depression Type: unspecified Qualified Code(s): F32.9 - Major depressive disorder, single episode, unspecified (8) Hyperlipidemia Conclusion/Plan: The patient has a history of hyperlipidemia and uses atorvastatin at home. We will continue the patient's home dose of atorvastatin while she is hospitalized. (9) medical non-compliant pt's pt only took daily of Pradaxa, but it was scheduled bid educate pt for medial compliant. (10) small stroke pt does not present unilateral focal neurological deficit, but still present visional loss, some confusion. called neurologist for consulting. The neurologist did think pt has small stroke recommend: control of BP, continue bid of Pradaxa continue PT/OT Qualifiers: Altered mental status type: disorientation Qualified Code(s): R41.0 - Disorientation, unspecified
[2018-01-14] MEDS: SODIUM CHLORIDE FLUSH 0.9% 10 ML SYRINGE IVP SCH ×2 (15:32→16:13)
[2018-01-14] MEDS ORDERED: LISINOPRIL 5 MG TABLET PO ONE (16:00)
[2018-01-14] MEDS: ATORVASTATIN 40 MG TABLET PO SCH (21:20)
[2018-01-14] MEDS: INSULIN GLARGINE 300 UNIT/3 ML PEN SUBQ SCH (21:21)
[2018-01-15] MEDS: SODIUM CHLORIDE FLUSH 0.9% 10 ML SYRINGE IVP SCH ×2 (00:55→08:52)
[2018-01-15] MEDS: PANTOPRAZOLE 40 MG TABLET PO SCH (06:00)
[2018-01-15 06:46] LABS: BASOPHILS # (AUTO) 0.1 10^3/uL (0.0-0.1); BASOPHILS % (AUTO) 0.8 %; EOSINOPHILS % (AUTO) 0.6 %; HGB - HEMOGLOBIN 12.5 g/dL (12.0-16.0); LYMPHOCYTES # (AUTO) 1.2 10^3/uL (1.5-3.5); LYMPHOCYTES % (AUTO) 14.6 %; MEAN CORPUSCULAR HEMOGLOBIN 33.1 pg (27.0-31.0); MEAN CORPUSCULAR HGB CONC 33.5 g/dL (32.0-36.0); MEAN CORPUSCULAR VOLUME 98.9 fL (81.0-99.0); MEAN PLATELET VOLUME 8.7 fL (7.9-10.8); MONOCYTES # (AUTO) 0.7 10^3/uL (0.0-1.0); MONOCYTES % (AUTO) 8.3 %; NEUTROPHILS # (AUTO) 6.2 10^3/uL (1.5-6.6); NEUTROPHILS % (AUTO) 75.7 %; PLT - PLATELET COUNT 124 10^3/uL (130-450); RED BLOOD COUNT 3.79 10^6/uL (4.20-5.40); RED CELL DISTRIBUTION WIDTH 14.9 % (12.0-15.0); WHITE BLOOD COUNT 8.2 x10^3/uL (4.8-10.8)
[2018-01-15 07:02] LABS: ALBUMIN 3.4 g/dL (3.2-5.5); ALBUMIN/GLOBULIN RATIO 1.1 (1.0-2.2); BILIRUBIN,TOTAL 0.6 mg/dL (0.2-1.0); CALCIUM 9.1 mg/dL (8.5-10.3); CREATININE 0.9 mg/dL (0.4-1.0); TOTAL PROTEIN 6.6 g/dL (6.7-8.2)
[2018-01-15] MEDS ORDERED: LISINOPRIL 20 MG TABLET PO SCH ×3 (08:00→09:00)
[2018-01-15] MEDS: INSULIN ASPART 300 UNIT/3 ML PEN SUBQ SCH (08:41)
[2018-01-15] MEDS: DABIGATRAN 75 MG CAPSULE PO SCH (08:42)
[2018-01-15] MEDS: buPROPion XL 150 MG TABLET PO SCH (08:43)
[2018-01-15] MEDS: DIGOXIN 125 MCG TABLET PO SCH (08:43)
[2018-01-15] MEDS: MAGNESIUM OXIDE 400 MG TABLET PO SCH (08:43)
[2018-01-15] MEDS: PRENATAL VITAMIN TABLET PO SCH (08:43)
[2018-01-15] MEDS: NALTREXONE HCL 50 MG PO SCH (08:44)
[2018-01-15] MEDS: POLYETHYLENE GLYCOL 3350 17 GM PACKET PO SCH (08:52)
[2018-01-15] MEDS ORDERED: amLODIPine 5 MG TABLET PO SCH (09:00)
--- NOTE | 2018-01-15 10:45 | Discharge Plan ---
"Discharge Plan for SNF / [facility] - Discharge Plan And Transition Orders Disposition: 03 SNF DC/Xfer Condition: Poor Allergies and Adverse Reactions: Allergies Allergy/AdvReac Type Severity Reaction Status Date / Time gabapentin AdvReac Hallucinati Verified 01/12/18 00:39 ons - SNF / [facility] Transition Orders Admit to (Facility): [facility] Under the care of (Name): under the care of More Carroll Discharge Diagnosis: stroke, AMS, Alcohol withdrawal, wernicke encephalopathy, a Fib, HTN, DM2, depression, medical non-compliant. Medicare Certification Statement: I certify that Post Hospital usp care is medically necessary on a continuing basis for any of the conditions for which she/he is receiving care during hospitalization. Notify PCP of admission and forward orders to primary provider for signature. Weight on admission and: Daily Call PCP immediately if weight increases by: 2 kg Other Notification Orders: Call PCP immediately if patient develops dyspnea, chest pain/tightness or edema. House Bowel Program: Yes Additional Bowel Program Orders: If no BM after 2 days, nurse may give M.O.M. 30ml PO PRN and/or ducolax Supp 1 OK and/or HUGO 250mg P.O., and/or senna 1-2 tabs PO. On day 3 nurse may give repeat above order until residents constipation is resolved. Annual Influenza Vaccine (between Dec 11 and July 10): Yes Two-step PPD per [facility] [phone] or approved exception documents: Yes Treatments & Other Orders: Pt follow up PCP when pt is arrival to [facility]. Medication Orders: PLEASE REFER TO THE DISCHARGE MEDICATION LIST. Insulin Orders?: Yes - Medications New Prescriptions: amLODIPine [Norvasc] 5 mg PO DAILY #10 tablet Lisinopril 30 mg PO DAILY #10 tablet - Diet Type: Geriatric Texture: Regular Liquids: Thin May have monthly special meal: Yes - Therapies | Activity Therapy: Evaluation | Treat if indicated: PT, OT Rehabilitation Potential: Maximize functional status Activity: Activity as Tolerated Additional Instructions: You may follow up your PCP when you are arrival to [facility], continue PT/OT training, advise you quit Alcohol as well."
[2018-01-15 10:57] VITALS: BP 166/63
--- NOTE | 2018-01-15 11:11 | DISCHARGE SUMMARY ---
"Discharge Summary Discharge Date: 01/15/18 Discharging Provider: MARSHALL Primary Care Provider: More Carroll Condition at Discharge: Poor Discharge Disposition: SNF DC/Xfer Discharge Facility Name: [facility] - DIAGNOSES Admission Diagnoses: (1) Altered mental status (2) Wernicke encephalopathy (3) Alcohol withdrawal (4) Atrial fibrillation (5) Hypertension (6) Diabetes mellitus type 2 in obese (7) Depression (8) Hyperlipidemia Discharge Diagnoses with Status of Each Condition: (1) Altered mental status resolved. pt is alert and oriented today (2) Wernicke encephalopathy pt oriented, great improved. pt had IV of vitamin B1 in hospital, continue Vitamin B PO. pt state to me she will quit alcohol. (3) Alcohol withdrawal pt report she did not have more withdrawal symptoms. she denies ataxia, no vision change, diaphoresis. pt state to me she will quit alcohol (4) Atrial fibrillation stable, continue home meds, follow PCP management (5) Hypertension pt present elevated BP. increase lisinopril to 30 mg and add 5 mg Norvas to pt (6) Diabetes mellitus type 2 in obese Stable, continue home regimen, follow PCP management (7) Depression stable (8) Hyperlipidemia stable (9) medical non-compliant advise pt medical-compliant, special continue home Pradaxa bid not daily. (10) small stroke called neurologist Dr. westbrook about pt's MRI findings, please review my p rogress report on 01/14/18. Dr. Westbrook recommend continuing Pradaxa bid, no more antiplatelet. continue home Lipitor. continue SNF training with PT/OT - HPI History of Present Illness: refer from Dr. Luz's HPI for pt as the following: Patient is a 72-year-old female with a past medical history significant for a CVA in May 2014, atrial fibrillation on Pradaxa, type 2 diabetes mellitus on insulin, hypertension, hyperlipidemia, depression, alcohol abuse and morbid obesity who presented to the emergency department with altered mental status. According to the patient's when he arrived home this evening he found his sitting on the couch staring off distantly with the TV on. He states that when she tried to talk to her she was not responsive and when he was able to get her attention she was incoherent and complained of being dizzy. The patient herself does not remember any of this but does recall feeling dizzy and disoriented over the last week. She states that the symptoms started after she stopped drinking. She states that she previously was drinking 1 L of bourbon nightly but decided to quit about a week ago. She states that initially when she quit she was started on lorazepam and then has been on Antabuse since. She states that she has been so dizzy that she feels as though the room is spinning around her. She states that she is unable to stand and has been requiring a wheelchair over the last week. She states that she also feels as though her thinking has been cloudy. On presentation to the emergency department the patient was having blurry vision but she does not recall this and states that her vision is now normal. She states that she still feels confused and does not know what day it is and cannot remember anything from earlier today. The patient denies any fevers or chills, tremors, abdominal pain, nausea, vomiting, diarrhea, constipation, urinary urgency, urinary frequency or dysuria. The patient denies any back pain or neck stiffness. Patient denies any headaches, blurred vision, runny nose, sore throat, nasal congestion, difficulty swallowing, orthopnea, PND, joint swelling, joint pain, changes in appetite, weight loss, weight gain, polyuria, polydipsia, skin rash, skin changes, hair loss, night sweats or any focal neurologic deficits. On presentation to the emergency department the patient was afebrile and severely hypertensive with a blood pressure of 99/105. The patient was very confused and unable to follow commands or answer questions appropriately. The patient appeared to have some visual disturbances as she was initially complaining of blurred vision and could not see clearly. The patient was also keeping her eyes closed as she felt the room spinning around her and was scared to sit up. The patient underwent routine lab work which was fairly unremarkable aside from a magnesium of 1.3 and an elevated glucose of 174. The patient's UA was negative and her urine tox screen was positive only for benzodiazepines. The emergency room physician was concerned about possible alcohol withdrawal given the patient's confusion and possibility of stroke given her history of CVA and atrial fibrillation. He did give the patient a banana bag, magnesium and ordered a CT of the patient's head. The CT of the patient's head revealed no acute intracranial abnormality. The patient appeared to improve with Ativan and banana bag. She had resolution of her confusion but continued to be ataxic. The patient did have improvement in her visual disturbance. Given the patient's triad of symptoms of encephalopathy, ataxia and ocular motor disturbance in the setting of recent discontinuation of heavy alcohol use the patient's presentation was concerning for Wernicke's encephalopathy. The patient was therefore treated with 500 mg of IV thiamine in the emergency department and admitted for possible Wernicke's encephalopathy. - CONSULTS | PROCEDURES Consultations: neurologist Dr. Westbrook on [facility]. - ALLERGIES Allergies/Adverse Reactions: Allergies Allergy/AdvReac Type Severity Reaction Status Date / Time gabapentin AdvReac Hallucinati Verified 01/12/18 00:39 ons - MEDICATIONS Home Medications: Ambulatory Orders Medication Instructions Recorded Confirmed Insulin Glargine [Lantus] 40 units SQ QPM 09/19/13 01/12/18 Folic Acid 1 mg PO DAILY 04/19/15 01/12/18 Vitamin B Complex [B Complex] 1 tab PO DAILY 04/19/15 01/12/18 Metformin HCl [Metformin HCl ER] 500 mg PO BIDWM 09/16/15 01/12/18 Digoxin 125 mcg PO DAILY 04/16/16 01/12/18 Atorvastatin Calcium 80 mg PO QPM 05/07/16 01/12/18 Bupropion HCl [Bupropion Xl] 150 mg PO DAILY 05/07/16 01/12/18 Omeprazole 40 mg PO QDAC 05/07/16 01/12/18 Sitagliptin Phosphate [Januvia] 50 mg PO DAILY 05/07/16 01/12/18 Ciprofloxacin HCl [Cipro] 500 mg PO [id number] 01/12/18 01/12/18 Citalopram Hydrobromide [Celexa] 20 mg PO DAILY 01/12/18 01/12/18 Dabigatran Etexilate Mesylate 150 mg PO BID 01/12/18 01/12/18 [Pradaxa] Disulfiram [Antabuse] 250 mg PO DAILY 01/12/18 01/12/18 Disulfiram [Antabuse] 500 mg PO [id number] 01/12/18 01/12/18 Naltrexone HCl 50 mg PO DAILY 01/12/18 01/12/18 Venlafaxine HCl [Venlafaxine HCl 37.5 mg PO DAILY 01/12/18 01/12/18 ER] Lisinopril 30 mg PO DAILY #10 tablet 01/15/18 amLODIPine [Norvasc] 5 mg PO DAILY #10 tablet 01/15/18 - PHYSICAL EXAM AT DISCHARGE General Appearance: positive: No acute distress, Alert. negative: Lethargic Eyes Bilateral: positive: Normal inspection, PERRL, No lid inflammation, Conjunctivae nml ENT: positive: ENT inspection nml, Pharynx nml, No signs of dehydration. negati ve: Purulent nasal drainage, Pharyngeal erythema, Oral lesions Neck: positive: Nml inspection, Thyroid nml, No JVD, Trachea midline. negative: Thyromegaly, Lymphadenopathy (R), Lymphadenopathy (L), Stiff neck, Swelling/bruising, Tracheal deviation Respiratory: positive: Chest non-tender, No respiratory distress, Breath sounds nml. negative: Wheezes, Rales, Rhonchi Cardiovascular: positive: Regular rate & rhythm, No murmur, No gallop. negative: Irregularly irregular, Extrasystoles, Tachycardia, Bradycardia, JVD present, Systolic murmur, Diastolic murmur Peripheral Pulses: positive: 2+ Abdomen: positive: Non-tender, No organomegaly, Nml bowel sounds, No distention. negative: Tenderness, Guarding, Rebound Back: positive: Nml inspection. negative: CVA tenderness (R), CVA tenderness (L) Skin: positive: Color nml, No rash, Warm, Dry. negative: Cyanosis, Diaphoresis, Pallor Extremities: positive: Non-tender, Full ROM, Nml appearance. negative: Calf tenderness, Joint swelling, Gianna's sign/cords Neurologic/Psychiatric: positive: Oriented x3, Motor nml, Sensation nml, Mood/affect nml. negative: Weakness, Sensory loss, Facial droop, Slurred/abnml speech, Depressed mood/affect - LABS Result Diagrams: 01/15/18 06:25 01/15/18 06:25 - FOLLOW UP Follow Up: You may follow up your PCP when you are arrival to [facility], continue PT/OT training, advise you quit Alcohol. - TIME SPENT Time Spent in Discharge (Minutes): 55"
== END 2018-01-15 11:45 | DRG 64 ==
LOC: EDBD → EDUNIT# → ED 23:55 → MS2 01-12 03:07
PROVIDERS: ADMIT Internal Medicine; ATTEND Nurse Practitioner Gerontology
DX: I63.9 Cerebral infarction, unspecified (principal); F10.10 Alcohol abuse, uncomplicated; I67.83 Posterior reversible encephalopathy syndrome; E51.2 Wernicke's encephalopathy; I48.91 Unspecified atrial fibrillation; Z86.73 Personal history of transient ischemic attack (TIA), and cerebral infarction without residual deficits; F10.230 Alcohol dependence with withdrawal, uncomplicated; R29.703 NIHSS score 3; H53.8 Other visual disturbances; E83.42 Hypomagnesemia; I48.2 Chronic atrial fibrillation; T45.516A Underdosing of anticoagulants, initial encounter; Z91.138 Patient's unintentional underdosing of medication regimen for other reason; I10 Essential (primary) hypertension; E11.9 Type 2 diabetes mellitus without complications; E66.01 Morbid (severe) obesity due to excess calories; F32.9 Major depressive disorder, single episode, unspecified; E78.5 Hyperlipidemia, unspecified; Z66 Do not resuscitate; Z79.899 Other long term (current) drug therapy; Z68.36 Body mass index [BMI] 36.0-36.9, adult; Z79.4 Long term (current) use of insulin; Z79.01 Long term (current) use of anticoagulants; Z86.14 Personal history of Methicillin resistant Staphylococcus aureus infection; Z87.891 Personal history of nicotine dependence; Z87.11 Personal history of peptic ulcer disease; Z99.3 Dependence on wheelchair
CPT/HCPCS: 36415; 70450; 70551; 80053; 80162; 80306; 80320; 81001; 81003; 82009; 82140; 82607; 82746; 83036; 83690; 83735; 84100; 84425; 84443; 84484; 85025; 85610; 87086; 93005; 93306; 93880; 96365; 96366; 96367; 96375; 99284; 99285

== ENCOUNTER 2018-01-24 08:00 | Outpatient (CLI) | payer MEDICARE, OTHER ==
[2018-01-24 23:57] LABS: BILIRUBIN,URINE NEGATIVE (NEGATIVE); CLARITY,URINE CLEAR (CLEAR); GLUCOSE, URINE (UA) NEGATIVE (NEGATIVE); KETONES,URINE (UA) NEGATIVE (NEGATIVE); LEUKOCYTE ESTERASE, URINE NEGATIVE (NEGATIVE); NITRITE,URINE NEGATIVE (NEGATIVE); OCCULT BLOOD,URINE SMALL (NEGATIVE); PH,URINE 5.5 PH (5.0-7.5); PROTEIN,URINE NEGATIVE (NEGATIVE); UROBILINOGEN,URINE 0.2 (NORMAL) E.U./dL (NORMAL)
[2018-01-24 23:58] LABS: BACTERIA,URINE None Seen /HPF (None Seen); SQUAMOUS EPITHELIAL CELL,UR RARE Squamous (<= Few)
== END 2018-01-24 08:01 | disposition home or self-care (01) ==
LOC: LAB.R 08:00
DX: N39.0 Urinary tract infection, site not specified (principal)
CPT/HCPCS: 81001; 81003; 87086

== ENCOUNTER 2018-06-10 11:08 | Outpatient (CLI) | payer MEDICARE, OTHER ==
[2018-06-10 11:42] LABS: BASOPHILS % (AUTO) 0.4 %; EOSINOPHILS # (AUTO) 0.1 10^3/uL (0.0-0.7); EOSINOPHILS % (AUTO) 0.8 %; HGB - HEMOGLOBIN 13.4 g/dL (12.0-16.0); LYMPHOCYTES # (AUTO) 1.4 10^3/uL (1.5-3.5); LYMPHOCYTES % (AUTO) 16.7 %; MEAN CORPUSCULAR HEMOGLOBIN 32.6 pg (27.0-31.0); MEAN CORPUSCULAR HGB CONC 33.8 g/dL (32.0-36.0); MEAN CORPUSCULAR VOLUME 96.5 fL (81.0-99.0); MEAN PLATELET VOLUME 9.3 fL (7.9-10.8); MONOCYTES # (AUTO) 0.6 10^3/uL (0.0-1.0); MONOCYTES % (AUTO) 6.8 %; NEUTROPHILS # (AUTO) 6.4 10^3/uL (1.5-6.6); NEUTROPHILS % (AUTO) 75.3 %; PLT - PLATELET COUNT 176 10^3/uL (130-450); RED BLOOD COUNT 4.12 10^6/uL (4.20-5.40); RED CELL DISTRIBUTION WIDTH 13.9 % (12.0-15.0); WHITE BLOOD COUNT 8.5 x10^3/uL (4.8-10.8)
[2018-06-10 11:52] LABS: BILIRUBIN,URINE NEGATIVE (NEGATIVE); GLUCOSE, URINE (UA) NEGATIVE (NEGATIVE); KETONES,URINE (UA) TRACE mg/dL (NEGATIVE); LEUKOCYTE ESTERASE, URINE SMALL (NEGATIVE); NITRITE,URINE NEGATIVE (NEGATIVE); OCCULT BLOOD,URINE NEGATIVE (NEGATIVE); PH,URINE 5.5 PH (5.0-7.5); PROTEIN,URINE NEGATIVE (NEGATIVE); UROBILINOGEN,URINE 0.2 (NORMAL) E.U./dL (NORMAL)
[2018-06-10 11:53] LABS: CLARITY,URINE HAZY (CLEAR)
[2018-06-10 12:07] LABS: ALBUMIN 3.7 g/dL (3.2-5.5); ALKALINE PHOSPHATASE 87 IU/L (42-121); ALT ALANINE AMINOTRANSFERASE 18 IU/L (10-60); AST ASPARTATE AMINOTRANSFERASE 17 IU/L (10-42); BILIRUBIN,TOTAL 0.6 mg/dL (0.2-1.0); BUN - BLOOD UREA NITROGEN 12 mg/dL (6-20); CALCIUM 9.5 mg/dL (8.5-10.3); CARBON DIOXIDE - CO2 24 mmol/L (21-32); CHLORIDE 105 mmol/L (101-111); CHOL/HDL RATIO 4.6 (<4.4); CHOLESTEROL 199 mg/dL; DIGOXIN 0.8 ng/mL; GFR - MDRD 55 (>89); GLUCOSE 254 mg/dL (70-100); HDL CHOLESTEROL 43 mg/dL; LDL CHOLESTEROL,CALCULATED 115 mg/dL; LDL/HDL RATIO 2.7 (<4.4); SODIUM 138 mmol/L (135-145); TOTAL PROTEIN 7.4 g/dL (6.7-8.2); URIC ACID 5.7 mg/dL (2.6-7.2); VLDL CHOLESTEROL 41 mg/dL
[2018-06-10 12:09] LABS: RBC,URINE 0-5 /HPF (0-5); SQUAMOUS EPITHELIAL CELL,UR FEW Squamous (<= Few)
[2018-06-10 12:10] LABS: BACTERIA,URINE Few /HPF (None Seen); CASTS, URINE 3-5 Hyaline Casts /LPF; WBC CLUMPS,URINE PRESENT
[2018-06-10 12:30] LABS: CREATININE,URINE 137.8 mg/dL; MICROALBUM/CREATININE RATIO,UR 34.1 ug/mg (<30.0); MICROALBUMIN,URINE 4.7 mg/dL (0-300.0)
[2018-06-10 12:35] LABS: HB2 TOTAL 14.7 g/dL; HEMOGLOBIN A1C 1.16 g/dL; HEMOGLOBIN A1C % 9.4 % (4.6-6.2)
== END 2018-06-10 11:09 | disposition home or self-care (01) ==
LOC: LAB 11:08
PROVIDERS: ATTEND Internal Medicine
DX: R41.3 Other amnesia (principal); I10 Essential (primary) hypertension; Z79.899 Other long term (current) drug therapy; I48.91 Unspecified atrial fibrillation; R26.89 Other abnormalities of gait and mobility; R31.9 Hematuria, unspecified; Z13.6 Encounter for screening for cardiovascular disorders; M25.50 Pain in unspecified joint; E87.8 Other disorders of electrolyte and fluid balance, not elsewhere classified; E11.9 Type 2 diabetes mellitus without complications; F32.9 Major depressive disorder, single episode, unspecified; R42 Dizziness and giddiness; F10.20 Alcohol dependence, uncomplicated
CPT/HCPCS: 36415; 80053; 80061; 80162; 81001; 81003; 82043; 82570; 82607; 82746; 83036; 83721; 84550; 85025; 87086; 87181

== ENCOUNTER 2018-08-01 11:51 | Outpatient (CLI) | payer MEDICARE, OTHER ==
--- NOTE | 2018-08-01 22:01 | MRI Report ---
Reason: PAIN IN RIGHT SHOULDER Procedure Date: 08/01/2018 Accession Number: [id number] / [id number] Procedure: MRI - Shoulder RT W/O CPT Code: FULL RESULT: EXAM: RIGHT SHOULDER MRI WITHOUT CONTRAST EXAM DATE: 08/01/2018 12:19 PM. CLINICAL HISTORY: PAIN IN RIGHT SHOULDER. COMPARISON: SHOULDER 3 VIEW RT 06/16/2018 11:17 AM. TECHNIQUE: Multiplanar, multisequence T1-weighted and fluid-sensitive sequences of the shoulder without contrast. Other: None. FINDINGS: Acromioclavicular Region: The acromion is type II. Mild to moderate acromioclavicular osteoarthritis with small marginal osteophytes and mild synovial hypertrophy and a small joint effusion. The coracoacromial and coracoclavicular ligaments are intact. Mild subacromial/subdeltoid bursal fluid consistent with bursitis. Glenohumeral Region: No subluxation. No effusion or loose bodies. The articular cartilage is unremarkable. The glenohumeral ligaments and joint capsule are unremarkable. Bone Marrow: No fracture, marrow edema or bone lesions. Labrum: There is moderate irregularity of the posterior-superior labrum consistent with fraying/tearing. There is probably also further fraying/tearing of the anterior-inferior labrum though this is not as well seen. Musculature/Rotator Cuff: Mild heterogeneous increased signal in the mid to distal supraspinatus tendon is likely a combination of tendinosis and partial-thickness tear. This is most pronounced in the posterior approximately 50% of the tendon. No full-thickness supraspinatus tear. No supraspinatus muscle belly atrophy. Mild diffuse increased signal in the mid to distal infraspinatus tendon, likely a combination of tendinosis and partial thickness tear. Additionally, there is a small calcification in the substance of the far distal and posterior infraspinatus consistent with calcific tendinitis. No full-thickness infraspinatus tear. No infraspinatus muscle belly atrophy. The teres minor tendon and muscle belly are normal. There is partial thickness tearing of the mid to distal and superior subscapularis extending to the lesser tuberosity insertion. No subscapularis muscle belly atrophy. Biceps Tendon: The long head biceps tendon is subluxated medially from the top of the bicipital groove and extends into the substance of the torn distal and superior subscapularis. There is associated longitudinal fraying of the subluxated portion of the long head biceps tendon which extends proximally to the biceps anchor. No high-grade biceps tendon tear. Other: The subcutaneous tissues are unremarkable. IMPRESSION: 1. Heterogeneous increased signal in the mid to distal supraspinatus and infraspinatus tendons is likely a combination of tendinosis and partial thickness tear. No full-thickness supraspinatus or infraspinatus tear. 2. Calcific tendinitis of the distal and posterior infraspinatus. 3. Partial-thickness tearing of the mid to distal subscapularis superiorly allows medial subluxation of the long head biceps tendon from the top of the bicipital groove with the long head biceps tendon extending into the substance of the torn distal subscapularis. There is associated longitudinal fraying/tearing of the subluxated portion of the long head biceps tendon which extends proximally to the biceps anchor. 4. Fraying/tearing of the posterior-superior labrum and probably also the anterior-inferior labrum. RADIA
== END 2018-08-01 11:52 | disposition home or self-care (01) ==
LOC: DI 11:51
PROVIDERS: ATTEND Orthopaedic Surgery Sports Medicine
DX: S43.491A Other sprain of right shoulder joint, initial encounter (principal); M75.31 Calcific tendinitis of right shoulder

== ENCOUNTER 2019-05-15 15:01 | Outpatient (CLI) | payer MEDICARE, OTHER | END 2019-05-15 15:02 | disposition EMS.NT | LOC: EMS 15:01 | PROVIDERS: ATTEND Surgery | DX: Z03.89 Encounter for observation for other suspected diseases and conditions ruled out (principal) ==

== ENCOUNTER 2019-05-15 16:04 | Outpatient (CLI) | payer MEDICARE, OTHER | END 2019-05-15 16:05 | disposition critical access hospital (66) | LOC: EMS 16:04 | PROVIDERS: ATTEND Surgery | DX: M25.561 Pain in right knee (principal); M25.522 Pain in left elbow; S80.211A Abrasion, right knee, initial encounter; S50.02XA Contusion of left elbow, initial encounter; W05.0XXA Fall from non-moving wheelchair, initial encounter; Y93.89 Activity, other specified; Y92.811 Bus as the place of occurrence of the external cause; Z03.89 Encounter for observation for other suspected diseases and conditions ruled out | CPT/HCPCS: A0425; A0429 ==

== ENCOUNTER 2019-05-15 16:21 | Emergency (ER) | payer MEDICARE, OTHER ==
--- NOTE | 2019-05-15 16:28 | ED Physician Documentation ---
PD HPI LOWER EXT INJURY - Stated complaint Stated Complaint: FALL - History obtained from History obtained from: Patient, EMS - History of Present Illness PD HPI LOW EXT INJURY LOCATION: Right (She had a mild fall out of the chair scraping her right knee. She has minimal pain there. No other injuries. No head injury. She is anticoagulated but is sure she did not hit her head or hurt her neck. Up-to-date on tetanus. Declines pain medication.) Review of Systems Constitutional: reports: Reviewed and negative Nose: reports: Reviewed and negative Cardiac: reports: Reviewed and negative Respiratory: reports: Reviewed and negative PD PAST MEDICAL HISTORY - Past Medical History Cardiovascular: High cholesterol, Atrial fibrillation, Hypertension Respiratory: None Neuro: Fainting Endocrine/Autoimmune: Type 2 diabetes GI: Diverticulitis, Ulcers : None HEENT: None Psych: Depression Musculoskeletal: Osteopenia, Gout Derm: None - Past Surgical History Past Surgical History: Yes General: Appendectomy, Gastric surgery Ortho: Other HEENT: Tonsil/Adenoidectomy Derm: Debridement - Present Medications Home Medications: Ambulatory Orders Medication Instructions Recorded Confirmed Insulin Glargine [Lantus] 40 units SQ QPM 09/19/13 05/15/19 Folic Acid 1 mg PO DAILY 04/19/15 05/15/19 Vitamin B Complex [B Complex] 1 tab PO DAILY 04/19/15 05/15/19 Metformin HCl [Metformin ER 500 mg PO BIDWM 09/16/15 05/15/19 Osmotic] Digoxin 125 mcg PO DAILY 04/16/16 05/15/19 Atorvastatin Calcium 80 mg PO QPM 05/07/16 05/15/19 Omeprazole 40 mg PO QDAC 05/07/16 05/15/19 Sitagliptin Phosphate [Januvia] 50 mg PO DAILY 05/07/16 05/15/19 Dabigatran Etexilate Mesylate 150 mg PO BID 01/12/18 05/15/19 [Pradaxa] Disulfiram [Antabuse] 250 mg PO DAILY 01/12/18 05/15/19 Naltrexone HCl 50 mg PO DAILY 01/12/18 05/15/19 Venlafaxine HCl [Venlafaxine HCl 37.5 mg PO DAILY 01/12/18 05/15/19 ER] amLODIPine [Norvasc] 5 mg PO DAILY #10 tablet 01/15/18 05/15/19 lisinopriL [Lisinopril] 30 mg PO DAILY #10 tablet 01/15/18 05/15/19 Hydrocodone/Acetaminophen 1 - 2 each PO Q6H PRN #7 tablet 05/15/19 [Hydrocodon-Acetaminophen 5-325] Saccharomyces Boulardii [Florastor] 250 mg PO BID 05/15/19 05/15/19 - Allergies Allergies/Adverse Reactions: Allergies Allergy/AdvReac Type Severity Reaction Status Date / Time gabapentin AdvReac Hallucinati Verified 05/15/19 16:40 ons - Social History Does the pt smoke?: No Smoking Status: Never smoker Does the pt drink ETOH?: Yes Does the pt have substance abuse?: No - Immunizations Immunizations are current?: Yes - POLST Patient has POLST: Yes POLST Status: DNR PD ED PE NORMAL - Vitals Vital signs reviewed: Yes - General General: Alert and oriented X 3, No acute distress - HEENT HEENT: PERRL, EOMI - Neck Neck: Supple, no meningeal sign, No bony TTP - Respiratory Respiratory: No respiratory distress, Clear bilaterally - Abdomen Abdomen: Non tender - Extremities Extremities: Other (She has an abrasion on the anterior of the right knee with mild tenderness. No effusion or limited range of motion.) - Neuro Neuro: Alert and oriented X 3, Normal speech Results - Vitals Vitals: Vital Signs - 24 hr 05/15/19 16:37 Temperature 36.6 C Heart Rate 106 H Respiratory 14 Rate Blood Pressure 156/67 H O2 Saturation 100 Oxygen O2 Source [] Room air O2 Source Room air - Rads (name of study) Ct head Radiology: EMP read contemporaneously (NAD) PD MEDICAL DECISION MAKING - ED course ED course: 73-year-old woman who on initial evaluation seem to have an isolated right knee injury, x-rays showing a small effusion, no bony injury. The arrived at around 5:25 PM and further history was taken from him. Although the patient had denied hitting her head, the patient's said she definitely hit her head and she is anticoagulated so she is going to CT too. Departure - Departure Disposition: 01 Home, Self Care Clinical Impression: Atrial fibrillation with controlled ventricular response, Anticoagulant long- term use Head injury Qualifiers: Encounter type: initial encounter Qualified Code(s): S09.90XA - Unspecified injury of head, initial encounter Accidental fall Qualifiers: Encounter type: initial encounter Qualified Code(s): W19.XXXA - Unspecified fall, initial encounter Contusion of right knee Qualifiers: Encounter type: initial encounter Qualified Code(s): S80.01XA - Contusion of right knee, initial encounter Condition: Good Record reviewed to determine appropriate education?: Yes Instructions: ED Head Injury Closed, ED Effusion Knee Prescriptions: Hydrocodone/Acetaminophen [Hydrocodon-Acetaminophen 5-325] 1 - 2 each PO Q6H PRN #7 tablet PRN Reason: pain Comments: Call your doctor to arrange a follow-up appointment, make the next available appointment. In the interim, return anytime if worse or if new symptoms develop.
[2019-05-15] MEDS ORDERED: LIDOCAINE JELLY 2% 5 ML TUBE TOP STA (16:33)
--- NOTE | 2019-05-15 17:16 | XRAY Report ---
Reason: knee inj Procedure Date: 05/15/2019 Accession Number: [id number] / [id number] Procedure: XR - Knee 4 View RT CPT Code: Final Report FULL RESULT: EXAM: RIGHT KNEE RADIOGRAPHY EXAM DATE: 05/15/2019 04:55 PM. CLINICAL HISTORY: Fall. Knee injury. COMPARISON: None. TECHNIQUE: 4 views. FINDINGS: Bones: No acute traumatic or destructive bone abnormality is identified at the knee. There is an old mid fibular shaft fracture deformity. Joints: Small effusion. No subluxations. Soft Tissues: Normal. No soft tissue swelling. IMPRESSION: No acute bony abnormality. Small joint effusion noted. RADIA
--- NOTE | 2019-05-15 18:02 | CT Report ---
Reason: head injury anticoagulated Procedure Date: 05/15/2019 Accession Number: [id number] / [id number] Procedure: CT - HEAD WO CPT Code: Final Report FULL RESULT: EXAM: CT HEAD EXAM DATE: 05/15/2019 05:49 PM. CLINICAL HISTORY: Head injury anticoagulated. COMPARISON: HEAD W/O 01/12/2018 12:23 AM. TECHNIQUE: Multiaxial CT images were obtained from the foramen magnum to the vertex. Reformats: Sagittal and coronal. IV contrast: None. In accordance with CT protocol optimization, one or more of the following dose reduction techniques were utilized for this exam: automated exposure control, adjustment of mA and/or KV based on patient size, or use of iterative reconstructive technique. FINDINGS: Parenchyma: No intraparenchymal hemorrhage. No evidence of mass, midline shift, or CT findings of infarction. Rod-white differentiation is distinct. Extraaxial Spaces: Normal for age. No subdural or epidural collections identified. Ventricles: Normal in size and position. Sinuses and Orbits: Imaged paranasal sinuses, orbits, and mastoids show no significant abnormality. Bones: No evidence of fracture or calvarial defect. Other: None. IMPRESSION: No acute traumatic intracranial abnormality. RADIA
[2019-05-15] MEDS ORDERED: HYDROcod/ACETAM 5/325 MG TABLET PO STA (18:16)
[2019-05-15 18:19] VITALS: BP 157/88
== END 2019-05-15 18:34 | disposition home or self-care (01) ==
LOC: EDUNIT# → ED 16:21
DX: S80.211A Abrasion, right knee, initial encounter (principal); S09.90XA Unspecified injury of head, initial encounter; W05.0XXA Fall from non-moving wheelchair, initial encounter; I48.91 Unspecified atrial fibrillation; Z79.01 Long term (current) use of anticoagulants; E11.9 Type 2 diabetes mellitus without complications; Z79.4 Long term (current) use of insulin
CPT/HCPCS: 70450; 73564; 99284; A9270; J3490

== ENCOUNTER 2019-08-04 08:32 | Outpatient (CLI) | payer MEDICARE, OTHER ==
[2019-08-04 08:53] LABS: BASOPHILS % (AUTO) 0.5 %; EOSINOPHILS # (AUTO) 0.1 10^3/uL (0.0-0.7); EOSINOPHILS % (AUTO) 1.4 %; HGB - HEMOGLOBIN 11.9 g/dL (12.0-16.0); LYMPHOCYTES # (AUTO) 1.5 10^3/uL (1.5-3.5); LYMPHOCYTES % (AUTO) 23.8 %; MEAN CORPUSCULAR HEMOGLOBIN 30.3 pg (27.0-31.0); MEAN CORPUSCULAR HGB CONC 32.1 g/dL (32.0-36.0); MEAN CORPUSCULAR VOLUME 94.4 fL (81.0-99.0); MEAN PLATELET VOLUME 10.9 fL (7.9-10.8); MONOCYTES # (AUTO) 0.6 10^3/uL (0.0-1.0); MONOCYTES % (AUTO) 9.1 %; NEUTROPHILS # (AUTO) 4.2 10^3/uL (1.5-6.6); NEUTROPHILS % (AUTO) 64.7 %; PLT - PLATELET COUNT 168 10^3/uL (130-450); RED BLOOD COUNT 3.93 10^6/uL (4.20-5.40); RED CELL DISTRIBUTION WIDTH 14.1 % (12.0-15.0); WHITE BLOOD COUNT 6.4 x10^3/uL (4.8-10.8)
[2019-08-04 09:07] LABS: ALBUMIN 3.7 g/dL (3.2-5.5); ALBUMIN/GLOBULIN RATIO 1.1 (1.0-2.2); ALKALINE PHOSPHATASE 65 IU/L (42-121); ALT ALANINE AMINOTRANSFERASE 13 IU/L (10-60); AST ASPARTATE AMINOTRANSFERASE 17 IU/L (10-42); BILIRUBIN,TOTAL 0.7 mg/dL (0.2-1.0); BUN - BLOOD UREA NITROGEN 13 mg/dL (6-20); CALCIUM 8.9 mg/dL (8.5-10.3); CARBON DIOXIDE - CO2 23 mmol/L (21-32); CHLORIDE 108 mmol/L (101-111); CHOL/HDL RATIO 5.2 (<4.4); CHOLESTEROL 181 mg/dL; CK- CREATINE KINASE 62 IU/L (22-269); DIGOXIN 0.7 ng/mL; GLUCOSE 154 mg/dL (70-100); HDL CHOLESTEROL 35 mg/dL; LDL CHOLESTEROL,CALCULATED 109 mg/dL; LDL/HDL RATIO 3.1 (<4.4); SODIUM 141 mmol/L (135-145); URIC ACID 8.8 mg/dL (2.6-7.2); VLDL CHOLESTEROL 37 mg/dL
[2019-08-04 09:19] LABS: THYROID STIMULATING HORMONE 3.25 uIU/mL (0.34-5.60)
[2019-08-04 09:43] LABS: CREATININE,URINE 156.9 mg/dL; MICROALBUM/CREATININE RATIO,UR 12.1 ug/mg (<30.0); MICROALBUMIN,URINE 1.9 mg/dL (0-300.0)
[2019-08-04 11:21] LABS: HB2 TOTAL 12.1 g/dL; HEMOGLOBIN A1C 0.66 g/dL; HEMOGLOBIN A1C % 7.1 % (4.6-6.2)
== END 2019-08-04 08:33 | disposition home or self-care (01) ==
LOC: LAB 08:32
PROVIDERS: ATTEND Internal Medicine
DX: I10 Essential (primary) hypertension (principal); I48.91 Unspecified atrial fibrillation; I63.9 Cerebral infarction, unspecified; E11.9 Type 2 diabetes mellitus without complications; M10.9 Gout, unspecified; Z13.6 Encounter for screening for cardiovascular disorders; Z79.899 Other long term (current) drug therapy
CPT/HCPCS: 36415; 80053; 80061; 80162; 82043; 82550; 82570; 82607; 83036; 83721; 84443; 84550; 85025

== ENCOUNTER 2019-08-04 08:36 | Outpatient (CLI) | payer MEDICARE, OTHER ==
--- NOTE | 2019-08-05 13:41 | XRAY Report ---
Reason: LT WRIST PAIN Procedure Date: 08/04/2019 Accession Number: [id number] / [id number] Procedure: XR - Wrist 3 View LT CPT Code: Final Report FULL RESULT: EXAM: LEFT WRIST RADIOGRAPHY EXAM DATE: 08/04/2019 09:03 AM. CLINICAL HISTORY: LT WRIST PAIN. No known injury. COMPARISON: HAND 3 VIEW LT 06/01/2015 8:17 AM. TECHNIQUE: 3 views. FINDINGS: Bones: Diffusely mineralized. No acute fractures or bone lesions. There is a corticated ossicle adjacent to the tip of the ulnar styloid, as seen on the prior exam. Joints: No subluxation or dislocation. There are mild degenerative changes at the first carpometacarpal joint. Soft Tissues: Normal. No soft tissue swelling. IMPRESSION: 1. No acute fracture or other acute osseous abnormality. Bones are diffusely demineralized. 2. Small corticated ovoid density adjacent to the tip of the ulnar styloid, as seen on prior left hand radiographs, suggestive of remote prior ulnar styloid avulsion fracture. 3. Mild degenerative osteoarthritis at the first carpometacarpal joint. RADIA
== END 2019-08-04 08:37 | disposition home or self-care (01) ==
LOC: DI 08:36
PROVIDERS: ATTEND Internal Medicine
DX: M18.9 Osteoarthritis of first carpometacarpal joint, unspecified (principal); I10 Essential (primary) hypertension; I48.91 Unspecified atrial fibrillation; I63.9 Cerebral infarction, unspecified; E11.9 Type 2 diabetes mellitus without complications; M10.9 Gout, unspecified; Z13.6 Encounter for screening for cardiovascular disorders; Z79.899 Other long term (current) drug therapy
CPT/HCPCS: 36415; 80053; 80061; 80162; 82043; 82550; 82570; 82607; 83036; 83721; 84443; 84550; 85025

== ENCOUNTER 2019-09-28 12:00 | Outpatient (CLI) | payer MEDICARE, OTHER ==
[2019-09-28 12:27] LABS: CREATININE 0.9 mg/dL (0.4-1.0)
[2019-09-28] MEDS ORDERED: GADOBUTROL 10 MMOL/10 ML VIAL ONE (12:53)
[2019-09-28] MEDS ORDERED: GADOBUTROL 10 MMOL/10 ML VIAL IVP ONE (14:23)
--- NOTE | 2019-09-28 15:24 | MRI Report ---
PROCEDURE: IACS W/WO INDICATIONS: HEARING LOSS CONTRAST: IV CONTRAST: Gadavist ml: 10 TECHNIQUE: Noncontrast sagittal T1 spin echo, axial FLAIR, axial gradient echo, axial diffusion and ADC through the brain. Axial thin-slice 3D CISS, coronal balanced GE, axial T1 spin echo with fat saturation thr ough the internal auditory canals. After the administration of contrast, thin slice axial and العلي l T1 spin echo with fat saturation through the internal auditory canals, and axial T1 spin echo with fat saturation through the brain. COMPARISON: None. FINDINGS: Image quality: Excellent. Cerebellopontine angles: No cerebellopontine angle masses. Inner ear structures appear normally for med. No suspicious enhancement in the internal auditory canal or along the course of the 7th cranial nerve. CSF spaces: Ventricles are normal in size and shape. No extra-axial fluid collections. Basal ciste rns are patent. Brain: No intracranial bleeds or mass effects. Mild diffuse cerebral volume loss. Minimal degree of patchy high FLAIR signal within the periventricular and subcortical white matter, compatible with sm all vessel ischemic disease. Rod-white matter interface is intact. No abnormal intracranial enhance ment. Diffusion weighted images demonstrate no acute ischemic insults. Brainstem appears normal. N ormal intravascular flow voids are present. Skull and face: Calvarial marrow signal is normal. Orbits appear normal. Sinuses: Sinuses and mastoids are clear. IMPRESSION: 1. Negative evaluation of the internal auditory canal. No explanation for hearing loss. 2. Mild volume loss and minimal small vessel ischemic disease. Reviewed by: Andi Pulido MD on 09/28/2019 3:23 PM PDT Approved by: Andi Pulido MD on 09/28/2019 3:23 PM PDT Station ID: [id number]
== END 2019-09-28 12:01 | disposition home or self-care (01) ==
LOC: LAB 12:00
PROVIDERS: ATTEND Otolaryngology
DX: H93.12 Tinnitus, left ear (principal); H91.22 Sudden idiopathic hearing loss, left ear
CPT/HCPCS: 36415; 70543; 82565; A9585

== ENCOUNTER 2020-07-07 03:08 | Outpatient (CLI) | payer MEDICARE, OTHER | END 2020-07-07 03:09 | disposition critical access hospital (66) | LOC: EMS 03:08 | PROVIDERS: ATTEND Emergency Medicine | DX: R53.1 Weakness (principal); R47.02 Dysphasia | CPT/HCPCS: A0425; A0427 ==

== ENCOUNTER 2020-07-07 03:30 | Emergency (ER) | payer MEDICARE, OTHER ==
--- NOTE | 2020-07-07 03:43 | ED Physician Documentation ---
History of Present Illness - Stated complaint Stated Complaint: WEAKNESS - Chief complaint Chief Complaint: Neuro - History obtained from History obtained from: Patient, EMS - History of Present Illness Timing: How many days ago (2) Pain level max: 0 Pain level now: 0 Improved by: no ameliorating factors Worsened by: no exacerbating factors - Additonal information Additional information: BIBA for weakness. Patient received her second COVID vaccine on and felt well until the following day when she woke with generalized malaise and generalized weakness. She says she feels no energy and had been spending most of the day Wednesday and Wednesday in bed due to malaise and generalized weakness. Review of Systems Constitutional: reports: Fatigue. denies: Fever, Chills, Myalgias, Sweats Cardiac: reports: Reviewed and negative Respiratory: reports: Reviewed and negative GI: reports: Reviewed and negative : denies: Dysuria, Frequency Skin: denies: Rash Musculoskeletal: reports: Reviewed and negative Neurologic: reports: Generalized weakness. denies: Focal weakness, Numbness, Confused, Altered mental status, Headache PD PAST MEDICAL HISTORY - Past Medical History Cardiovascular: High cholesterol, Atrial fibrillation, Hypertension Respiratory: None Neuro: Fainting Endocrine/Autoimmune: Type 2 diabetes GI: Diverticulitis, Ulcers : None HEENT: None Psych: Depression Musculoskeletal: Osteopenia, Gout Derm: None - Past Surgical History Past Surgical History: Yes General: Appendectomy, Gastric surgery Ortho: Other HEENT: Tonsil/Adenoidectomy Derm: Debridement - Present Medications Home Medications: Ambulatory Orders Medication Instructions Recorded Confirmed Insulin Glargine [Lantus] 40 units SQ QPM 09/19/13 05/15/19 Folic Acid 1 mg PO DAILY 04/19/15 05/15/19 Vitamin B Complex [B Complex] 1 tab PO DAILY 04/19/15 05/15/19 Metformin HCl [Metformin ER 500 mg PO BIDWM 09/16/15 05/15/19 Osmotic] Digoxin 125 mcg PO DAILY 04/16/16 05/15/19 Atorvastatin Calcium 80 mg PO QPM 05/07/16 05/15/19 Omeprazole 40 mg PO QDAC 05/07/16 05/15/19 Sitagliptin Phosphate [Januvia] 50 mg PO DAILY 05/07/16 05/15/19 Dabigatran Etexilate Mesylate 150 mg PO BID 01/12/18 05/15/19 [Pradaxa] Disulfiram [Antabuse] 250 mg PO DAILY 01/12/18 05/15/19 Naltrexone HCl 50 mg PO DAILY 01/12/18 05/15/19 Venlafaxine HCl [Venlafaxine HCl 37.5 mg PO DAILY 01/12/18 05/15/19 ER] amLODIPine [Norvasc] 5 mg PO DAILY #10 tablet 01/15/18 05/15/19 Saccharomyces Boulardii [Florastor] 250 mg PO BID 05/15/19 05/15/19 Nitrofurantoin Monohyd/M-Cryst 100 mg PO BID #10 cap 07/07/20 [Macrobid 100 mg Capsule] lisinopriL [Lisinopril] 40 mg PO DAILY 07/07/20 - Allergies Allergies/Adverse Reactions: Allergies Allergy/AdvReac Type Severity Reaction Status Date / Time gabapentin AdvReac Hallucinati Verified 07/07/20 03:41 ons - Social History Does the pt smoke?: No Smoking Status: Never smoker Does the pt drink ETOH?: Yes Does the pt have substance abuse?: No - Immunizations Immunizations are current?: Yes - POLST Patient has POLST: Yes POLST Status: DNR PD ED PE NORMAL - Vitals Vital signs reviewed: Yes - General General: Alert and oriented X 3, No acute distress, Well developed/nourished - HEENT HEENT: PERRL, EOMI, Moist mucous membranes - Neck Neck: Supple, no meningeal sign - Cardiac Cardiac: RRR - Respiratory Respiratory: No respiratory distress, Clear bilaterally - Abdomen Abdomen: Normal bowel sounds, Soft, Non tender, Non distended - Back Back: No CVA TTP - Derm Derm: Normal color, Warm and dry - Extremities Extremities: No tenderness to palpate, No edema - Neuro Neuro: Alert and oriented X 3, 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, No motor deficit (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, plantarflexion, hip extension ), No sensory deficit, Normal speech Eye Opening: Spontaneous Motor: Obeys Commands Verbal: Oriented GCS Score: 15 - Psych Psych: Normal mood, Normal affect PD ED PE EXPANDED - Cardiac Cardiac: Murmur Present (2/6 QUINCY left sternal border) Results - Vitals Vitals: Vital Signs - 24 hr 03/07/07/20 07/07/20 03:29 05:08 05:38 Temperature 36.3 C L Heart Rate 91 74 77 Respiratory 23 22 17 Rate Blood Pressure 161/84 H 171/82 H 178/84 H O2 Saturation 100 98 100 07/07/20 07/07/20 06:00 07:05 Temperature 36.5 C Heart Rate 78 76 Respiratory 17 18 Rate Blood Pressure 168/65 H 172/90 H O2 Saturation 100 100 Oxygen O2 Source [] Room air O2 Source Room air - EKG (time done) No standard instances Rate: Rate (enter#) (87) Rhythm: Atrial fibrillation [place]: Normal Intervals: QRS normal QRS: Low voltage Ischemia: Non specific changes (nonspecific ST changes diffusely c/w digoxin effect (similar pattern on previous EKGs, most notably 09/15/15 and 06/21/14)) - Labs Labs: Laboratory Tests 07/07/20 07/07/20 07/07/20 04:00 04:00 04:00 WBC 5.1 RBC 4.34 Hgb 13.0 Hct 41.0 MCV 94.5 MCH 30.0 MCHC 31.7 L RDW 14.3 Plt Count 169 MPV 10.4 Neut # (Auto) 3.0 Lymph # (Auto) 1.3 L [place] # (Auto) 0.7 Eos # (Auto) 0.0 Baso # (Auto) 0.0 Absolute Nucleated RBC 0.00 Nucleated RBC % 0.0 Sodium 138 Potassium 4.1 Chloride 105 Carbon Dioxide 22 Anion Gap 11.0 BUN 25 H Creatinine 1.1 H Estimated GFR (MDRD) 49 L Glucose 120 H Lactic Acid Calcium 9.0 Total Bilirubin 0.5 AST 14 ALT 13 Alkaline Phosphatase 77 Total Protein 7.4 Albumin 3.6 Globulin 3.8 Albumin/Globulin Ratio 0.9 L Lipase 38 TSH 1.60 Urine Color Urine Clarity Urine pH Ur Specific [place] Urine Protein Urine Glucose (UA) Urine Ketones Urine Occult Blood Urine Nitrite Urine Bilirubin Urine Urobilinogen Ur Leukocyte Esterase Urine RBC Urine WBC Ur Squamous Epith Cells Urine Bacteria Ur Microscopic Review Urine Culture Comments 07/07/20 07/07/20 04:50 06:15 WBC RBC Hgb Hct MCV MCH MCHC RDW Plt Count MPV Neut # (Auto) Lymph # (Auto) [place] # (Auto) Eos # (Auto) Baso # (Auto) Absolute Nucleated RBC Nucleated RBC % Sodium Potassium Chloride Carbon Dioxide Anion Gap BUN Creatinine Estimated GFR (MDRD) Glucose Lactic Acid 2.1 Calcium Total Bilirubin AST ALT Alkaline Phosphatase Total Protein Albumin Globulin Albumin/Globulin Ratio Lipase TSH Urine Color YELLOW Urine Clarity CLOUDY Urine pH 6.0 Ur Specific [place] 1.015 Urine Protein 30 H Urine Glucose (UA) NEGATIVE Urine Ketones NEGATIVE Urine Occult Blood SMALL H Urine Nitrite POSITIVE H Urine Bilirubin NEGATIVE Urine Urobilinogen 0.2 (NORMAL) Ur Leukocyte Esterase LARGE H Urine RBC 0-5 Urine WBC >25 H Ur Squamous Epith Cells MANY Squamous H Urine Bacteria Many H Ur Microscopic Review INDICATED Urine Culture Comments NOT INDICATED - Rads (name of study) chest xray Radiology: Prelim report reviewed, See rad report PD MEDICAL DECISION MAKING - ED course Complexity details: reviewed old records, reviewed results, re-evaluated patient, considered differential, d/w patient ED course: reassuring/unremarkable test results including CBC, electrolytes, blood sugar and lactate. She has minimally elevated bun/creatinine. Given 2 liters NS IV in ED. She is in atrial fibrillation on monitor with good rate control, and mildly elevated blood pressures during ED stay. She was able to stand and pivot to use bedside commode, needed minimal assistance due to generalized weakness, although she uses a walker for ambulation at baseline. UA c/w UTI. She does not have urinary frequency or dysuria, but given her generalized weakness and significant findings on urinalysis (nitrates, >25 wbc/hpf), will cover possible UTI with macrobid Departure - Departure Disposition: 01 Home, Self Care Clinical Impression: Urinary tract infection, Weakness Condition: Good Instructions: ED UTI Cystitis Female, ED Weakness [facility] Follow-Up: More Franco MD [Primary Care Provider] - Prescriptions: Nitrofurantoin Monohyd/M-Cryst [Macrobid 100 mg Capsule] 100 mg PO BID #10 cap
[2020-07-07] MEDS ORDERED: SODIUM CHLORIDE 0.9% 1,000 ML IV STA ×2 (03:51→04:41)
[2020-07-07 04:07] LABS: BASOPHILS % (AUTO) 0.4 %; EOSINOPHILS % (AUTO) 0.8 %; LYMPHOCYTES # (AUTO) 1.3 10^3/uL (1.5-3.5); LYMPHOCYTES % (AUTO) 26.3 %; MEAN CORPUSCULAR HGB CONC 31.7 g/dL (32.0-36.0); MEAN CORPUSCULAR VOLUME 94.5 fL (81.0-99.0); MEAN PLATELET VOLUME 10.4 fL (7.9-10.8); MONOCYTES # (AUTO) 0.7 10^3/uL (0.0-1.0); MONOCYTES % (AUTO) 13.4 %; NEUTROPHILS % (AUTO) 58.7 %; PLT - PLATELET COUNT 169 10^3/uL (130-450); RED BLOOD COUNT 4.34 10^6/uL (4.20-5.40); RED CELL DISTRIBUTION WIDTH 14.3 % (12.0-15.0); WHITE BLOOD COUNT 5.1 x10^3/uL (4.8-10.8)
[2020-07-07 04:33] LABS: ALBUMIN 3.6 g/dL (3.2-5.5); ALBUMIN/GLOBULIN RATIO 0.9 (1.0-2.2); BILIRUBIN,TOTAL 0.5 mg/dL (0.2-1.0); CREATININE 1.1 mg/dL (0.4-1.0); POTASSIUM 4.1 mmol/L (3.5-5.0); TOTAL PROTEIN 7.4 g/dL (6.7-8.2)
[2020-07-07 06:24] LABS: BILIRUBIN,URINE NEGATIVE (NEGATIVE); GLUCOSE, URINE (UA) NEGATIVE (NEGATIVE); KETONES,URINE (UA) NEGATIVE (NEGATIVE); LEUKOCYTE ESTERASE, URINE LARGE (NEGATIVE); NITRITE,URINE POSITIVE (NEGATIVE); OCCULT BLOOD,URINE SMALL (NEGATIVE); PROTEIN,URINE 30 mg/dL (NEGATIVE); UROBILINOGEN,URINE 0.2 (NORMAL) E.U./dL (NORMAL)
[2020-07-07 06:31] LABS: BACTERIA,URINE Many /HPF (None Seen); CLARITY,URINE CLOUDY (CLEAR); RBC,URINE 0-5 /HPF (0-5); SQUAMOUS EPITHELIAL CELL,UR MANY Squamous (<= Few); WBC,URINE >25 /HPF (0-5)
[2020-07-07] MEDS ORDERED: NITROFURANTOIN MACRO 100 MG CAPSULE PO STA (06:54)
[2020-07-07 07:06] VITALS: BP 172/90
--- NOTE | 2020-07-07 07:47 | XRAY Report ---
PROCEDURE: Chest 2 View X-Ray INDICATIONS: weakness TECHNIQUE: 2 view(s) of the chest. COMPARISON: 05/10/2016, 08/28/2016 FINDINGS: Surgical changes and devices: None. Lungs and pleura: No pleural effusions or pneumothorax. Lungs are clear, yet hyperexpanded. Mediastinum: Mediastinal contours are normal. Heart size is normal. Bones and chest wall: No suspicious bony abnormalities. Age-appropriate degenerative changes are se en. Soft tissues appear unremarkable. IMPRESSION: Unremarkable chest plain film study for age. Note: No significant discrepancy from the preliminary report. Reviewed by: Shamir Limon MD on 07/07/2020 6:45 AM CARLOS Approved by: Shamir Limon MD on 07/07/2020 6:45 AM CARLOS Station ID: [id number]
== END 2020-07-07 07:40 | disposition home or self-care (01) ==
LOC: ED 03:30
DX: N39.0 Urinary tract infection, site not specified (principal); R53.1 Weakness; I48.91 Unspecified atrial fibrillation; Z79.01 Long term (current) use of anticoagulants; I10 Essential (primary) hypertension; R01.1 Cardiac murmur, unspecified; E11.9 Type 2 diabetes mellitus without complications; Z79.4 Long term (current) use of insulin
CPT/HCPCS: 36415; 71046; 80053; 81001; 83605; 83690; 84443; 85025; 93005; 99284; A9270; 81003; 87086

== ENCOUNTER 2020-08-15 22:51 | Outpatient (CLI) | payer MEDICARE, OTHER | END 2020-08-15 22:52 | disposition critical access hospital (66) | LOC: EMS 22:51 | DX: R41.0 Disorientation, unspecified (principal); R42 Dizziness and giddiness | CPT/HCPCS: A0425; A0429 ==

== ENCOUNTER 2020-08-15 23:09 | Emergency (ER) | payer MEDICARE, OTHER ==
--- NOTE | 2020-08-15 23:41 | ED Physician Documentation ---
PD HPI ALTERED MENTAL STATUS - Stated complaint Stated Complaint: AMS - Chief complaint Chief Complaint: Neuro - History obtained from History obtained from: Patient, EMS - History of Present Illness Timing - onset: Today Timing - details: Gradual onset Quality / character: Confused Associated symptoms: No: Fever, Headache, Dyspnea, Cough, NVD, Urinary sx, General weakness, Focal weakness Basline status: Alert and oriented X 3 (previous [facility] records indicate patient is confused at times) - Additional information Additional information: BIBA for confusion. per EMS, said that patient had oral surgery today and was prescribed amoxil and vicodin. she took first doses of both of these but subsequently became dizzy and confused. on my HPI, she corroborates having oral procedure today and taking medication, and also says she now feels dizzy and slightly confused. she is conversant and polite although slightly forgetful, Review of Systems Constitutional: reports: Reviewed and negative Eyes: reports: Reviewed and negative Ears: reports: Reviewed and negative Cardiac: reports: Reviewed and negative Respiratory: reports: Reviewed and negative GI: reports: Reviewed and negative : denies: Dysuria, Frequency Neurologic: reports: Confused. denies: Generalized weakness, Focal weakness, Numbness, Headache PD PAST MEDICAL HISTORY - Past Medical History Past Medical History: Yes Cardiovascular: High cholesterol, Atrial fibrillation, Hypertension Respiratory: None Neuro: Fainting Endocrine/Autoimmune: Type 2 diabetes GI: Diverticulitis, Ulcers : None HEENT: None Psych: Depression Musculoskeletal: Osteopenia, Gout Derm: None - Past Surgical History Past Surgical History: Yes General: Appendectomy, Gastric surgery Ortho: Other HEENT: Tonsil/Adenoidectomy Derm: Debridement - Present Medications Home Medications: Ambulatory Orders Medication Instructions Recorded Confirmed Insulin Glargine [Lantus] 40 units SQ QPM 09/19/13 08/15/20 Folic Acid 1 mg PO DAILY 04/19/15 08/15/20 Vitamin B Complex [B Complex] 1 tab PO DAILY 04/19/15 08/15/20 Metformin HCl [Metformin ER 500 mg PO BIDWM 09/16/15 08/15/20 Osmotic] Digoxin 125 mcg PO DAILY 04/16/16 08/15/20 Atorvastatin Calcium 80 mg PO QPM 05/07/16 08/15/20 Omeprazole 40 mg PO QDAC 05/07/16 08/15/20 Dabigatran Etexilate Mesylate 150 mg PO BID 01/12/18 08/15/20 [Pradaxa] Disulfiram [Antabuse] 250 mg PO DAILY 01/12/18 08/15/20 Naltrexone HCl 50 mg PO DAILY 01/12/18 08/15/20 Venlafaxine HCl [Venlafaxine HCl 37.5 mg PO DAILY 01/12/18 08/15/20 ER] amLODIPine [Norvasc] 5 mg PO DAILY #10 tablet 01/15/18 08/15/20 Saccharomyces Boulardii [Florastor] 250 mg PO BID 05/15/19 08/15/20 lisinopriL [Lisinopril] 40 mg PO DAILY 07/07/20 08/15/20 Meclizine [Antivert] 25 mg PO Q6H PRN #10 tablet 08/16/20 - Allergies Allergies/Adverse Reactions: Allergies Allergy/AdvReac Type Severity Reaction Status Date / Time gabapentin AdvReac Hallucinati Verified 08/15/20 23:19 ons - Social History Does the pt smoke?: No Smoking Status: Never smoker Does the pt drink ETOH?: Yes Does the pt have substance abuse?: No - Immunizations Immunizations are current?: Yes - POLST Patient has POLST: Yes POLST Status: DNR PD ED PE NORMAL - Vitals Vital signs reviewed: Yes - General General: Alert and oriented X 3, No acute distress, Well developed/nourished - HEENT HEENT: Atraumatic, PERRL, EOMI, Moist mucous membranes - Cardiac Cardiac: RRR, No murmur - Respiratory Respiratory: No respiratory distress, Clear bilaterally - Abdomen Abdomen: Soft, Non tender - 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, No motor deficit, No sensory deficit, Normal speech, Other (oriented x 2 (does not know year)) Eye Opening: Spontaneous Motor: Obeys Commands Verbal: Confused GCS Score: 14 - Psych Psych: Normal mood, Normal affect Results - Vitals Vitals: Oxygen O2 Source [] Room air O2 Source Room air - Labs Labs: Laboratory Tests 08/15/20 08/15/20 08/16/20 23:59 23:59 00:01 WBC 8.7 RBC 3.91 L Hgb 11.8 L Hct 36.6 L MCV 93.6 MCH 30.2 MCHC 32.2 RDW 14.8 Plt Count 165 MPV 10.4 Neut # (Auto) 7.6 H Lymph # (Auto) 0.8 L [place] # (Auto) 0.2 Eos # (Auto) 0.0 Baso # (Auto) 0.0 Absolute Nucleated RBC 0.00 Nucleated RBC % 0.0 Sodium 134 L Potassium 5.0 Chloride 100 L Carbon Dioxide 22 Anion Gap 12.0 BUN 20 Creatinine 1.2 H Estimated GFR (MDRD) 44 L Glucose 391 H Calcium 9.1 Total Bilirubin 0.4 AST 17 ALT 14 Alkaline Phosphatase 68 Total Protein 7.3 Albumin 3.7 Globulin 3.6 Albumin/Globulin Ratio 1.0 Lipase 36 Urine Color Urine Clarity Urine pH Ur Specific [place] Urine Protein Urine Glucose (UA) Urine Ketones Urine Occult Blood Urine Nitrite Urine Bilirubin Urine Urobilinogen Ur Leukocyte Esterase Ur Microscopic Review Urine Culture Comments Ethyl Alcohol < 5.0 Serum Ketones NEGATIVE 08/16/20 01:51 WBC RBC Hgb Hct MCV MCH MCHC RDW Plt Count MPV Neut # (Auto) Lymph # (Auto) [place] # (Auto) Eos # (Auto) Baso # (Auto) Absolute Nucleated RBC Nucleated RBC % Sodium Potassium Chloride Carbon Dioxide Anion Gap BUN Creatinine Estimated GFR (MDRD) Glucose Calcium Total Bilirubin AST ALT Alkaline Phosphatase Total Protein Albumin Globulin Albumin/Globulin Ratio Lipase Urine Color YELLOW Urine Clarity CLEAR Urine pH 5.0 Ur Specific [place] 1.020 Urine Protein NEGATIVE Urine Glucose (UA) >=1000 H Urine Ketones NEGATIVE Urine Occult Blood NEGATIVE Urine Nitrite NEGATIVE Urine Bilirubin NEGATIVE Urine Urobilinogen 0.2 (NORMAL) Ur Leukocyte Esterase NEGATIVE Ur Microscopic Review NOT INDICATED Urine Culture Comments NOT INDICATED Ethyl Alcohol Serum Ketones - Rads (name of study) CT head Radiology: Prelim report reviewed, See rad report PD MEDICAL DECISION MAKING - ED course Complexity details: reviewed results, re-evaluated patient, considered differential, d/w patient ED course: timing of AMS coincides with taking hydrocodone. she is calm, conversant, and exhibits only mild forgetfulness when we talk. unremarkable w/u including CT head, blood tests, and UA Departure - Departure Disposition: Home, Self Care Clinical Impression: Vertigo, Dizziness Condition: Good Instructions: ED Hyperglycemia Diabetic, ED Dizziness [facility] Follow-Up: More Franco MD [Primary Care Provider] - Within 3 Days Prescriptions: Meclizine [Antivert] 25 mg PO Q6H PRN #10 tablet PRN Reason: Dizziness Discharge Date/Time: 08/16/20 02:54
[2020-08-16 00:08] LABS: BASOPHILS % (AUTO) 0.1 %; HCT - HEMATOCRIT 36.6 % (37.0-47.0); HGB - HEMOGLOBIN 11.8 g/dL (12.0-16.0); LYMPHOCYTES # (AUTO) 0.8 10^3/uL (1.5-3.5); LYMPHOCYTES % (AUTO) 9.1 %; MEAN CORPUSCULAR HEMOGLOBIN 30.2 pg (27.0-31.0); MEAN CORPUSCULAR HGB CONC 32.2 g/dL (32.0-36.0); MEAN CORPUSCULAR VOLUME 93.6 fL (81.0-99.0); MEAN PLATELET VOLUME 10.4 fL (7.9-10.8); MONOCYTES # (AUTO) 0.2 10^3/uL (0.0-1.0); MONOCYTES % (AUTO) 2.6 %; NEUTROPHILS # (AUTO) 7.6 10^3/uL (1.5-6.6); NEUTROPHILS % (AUTO) 87.7 %; PLT - PLATELET COUNT 165 10^3/uL (130-450); RED BLOOD COUNT 3.91 10^6/uL (4.20-5.40); RED CELL DISTRIBUTION WIDTH 14.8 % (12.0-15.0); WHITE BLOOD COUNT 8.7 x10^3/uL (4.8-10.8)
[2020-08-16 00:21] LABS: ALBUMIN 3.7 g/dL (3.2-5.5); ALKALINE PHOSPHATASE 68 IU/L (42-121); ALT ALANINE AMINOTRANSFERASE 14 IU/L (10-60); AST ASPARTATE AMINOTRANSFERASE 17 IU/L (10-42); BILIRUBIN,TOTAL 0.4 mg/dL (0.2-1.0); BUN - BLOOD UREA NITROGEN 20 mg/dL (6-20); CALCIUM 9.1 mg/dL (8.5-10.3); CARBON DIOXIDE - CO2 22 mmol/L (21-32); CHLORIDE 100 mmol/L (101-111); CREATININE 1.2 mg/dL (0.4-1.0); ETOH - ETHANOL < 5.0 mg/dL; GFR - MDRD 44 (>89); GLUCOSE 391 mg/dL (70-100); LIPASE 36 U/L (22-51); SODIUM 134 mmol/L (135-145); TOTAL PROTEIN 7.3 g/dL (6.7-8.2)
[2020-08-16] MEDS ORDERED: INSULIN REGULAR HUMAN 100 UNIT/1 ML 10 ML MDV SUBQ STA (00:23)
[2020-08-16] MEDS ORDERED: SODIUM CHLORIDE 0.9% 1,000 ML IV STA (00:24)
[2020-08-16 01:59] LABS: BILIRUBIN,URINE NEGATIVE (NEGATIVE); GLUCOSE, URINE (UA) >=1000 mg/dL (NEGATIVE); KETONES,URINE (UA) NEGATIVE (NEGATIVE); LEUKOCYTE ESTERASE, URINE NEGATIVE (NEGATIVE); NITRITE,URINE NEGATIVE (NEGATIVE); OCCULT BLOOD,URINE NEGATIVE (NEGATIVE); PROTEIN,URINE NEGATIVE (NEGATIVE); UROBILINOGEN,URINE 0.2 (NORMAL) E.U./dL (NORMAL)
[2020-08-16 02:00] LABS: CLARITY,URINE CLEAR (CLEAR)
[2020-08-16] MEDS ORDERED: MECLIZINE 12.5 MG TABLET PO STA (02:31)
[2020-08-16 02:54] VITALS: BP 165/80
--- NOTE | 2020-08-16 08:02 | CT Report ---
PROCEDURE: HEAD WO INDICATIONS: AMS TECHNIQUE: Noncontrast 4.5 mm thick angled axial sections acquired from the foramen magnum to the vertex. For r adiation dose reduction, the following was used: automated exposure control, adjustment of mA and/or kV according to patient size. COMPARISON: Head CT, 05/15/2019. FINDINGS: Image quality: Excellent. CSF spaces: Basal cisterns are patent. No extra-axial fluid collections. Ventricles are normal in size and shape. Brain: No midline shift. No intracranial masses or hemorrhage. There is mild cerebral volume loss. Mild periventricular white matter chronic small vessel ischemic changes are present. Rod-white cat er interface is normal. Skull and face: Calvarium and visualized facial bones are intact, without suspicious lesions. Sinuses: Visualized sinuses and mastoids are clear. IMPRESSION: No acute intracranial abnormalities. No significant discrepancy with the preliminary interpretation. Reviewed by: Bonny Zepeda MD on 08/16/2020 8:01 AM PDT Approved by: Bonny Zepeda MD on 08/16/2020 8:01 AM PDT Station ID: [id number]
== END 2020-08-16 02:54 | disposition home or self-care (01) ==
LOC: EDUNIT# → ED 23:09
DX: R42 Dizziness and giddiness (principal); R41.0 Disorientation, unspecified; Z98.890 Other specified postprocedural states; E11.9 Type 2 diabetes mellitus without complications; Z79.4 Long term (current) use of insulin; I10 Essential (primary) hypertension
CPT/HCPCS: 36415; 70450; 80053; 81003; 82009; 83690; 85025; 99284; A9270; G0480; J1815; 80320; 81001; 87086

== ENCOUNTER 2021-03-28 03:53 | Outpatient (CLI) | payer MEDICARE, OTHER | END 2021-03-28 03:54 | disposition critical access hospital (66) | LOC: EMS 03:53 | DX: K52.9 Noninfective gastroenteritis and colitis, unspecified (principal) | CPT/HCPCS: A0425; A0429 ==

== ENCOUNTER 2021-03-28 04:10 | Emergency (ER) | payer MEDICARE, OTHER ==
[2021-03-28] MEDS ORDERED: LOPERAMIDE 2 MG CAPSULE PO STA (04:24)
[2021-03-28] MEDS ORDERED: SODIUM CHLORIDE 0.9% 1,000 ML IV STA (04:24)
--- NOTE | 2021-03-28 04:44 | ED Physician Documentation ---
PD HPI NVD - Stated complaint Stated Complaint: DIARRHEA - Chief complaint Chief Complaint: Abd Pain - History obtained from History obtained from: Patient - History of Present Illness Timing - onset: Today Timing - duration: Hours Timing - details: Abrupt onset, Still present Associated symptoms: Dizzy, Other (diarrhea) Contributing factors: No: Sick contact Improved by: Laying still, BM Similar symptoms before: Has not had sx before Recently seen: Not recently seen - Additonal information Additional information: 75 y/o diabetic female has developed diarrhea this evening after dinner and this has been profuse and she has developed weakness. She does not usually get diarrhea and she and her ate the same thing and he is not sick. Review of Systems Constitutional: reports: Sweats. denies: Fever, Chills Eyes: denies: Decreased vision Ears: denies: Ear pain Nose: denies: Congestion Throat: denies: Sore throat Respiratory: denies: Cough GI: reports: Abdominal Pain, Diarrhea. denies: Nausea, Vomiting : denies: Dysuria, Frequency PD PAST MEDICAL HISTORY - Past Medical History Cardiovascular: High cholesterol, Atrial fibrillation, Hypertension Respiratory: None Neuro: Fainting Endocrine/Autoimmune: Type 2 diabetes GI: Diverticulitis, Ulcers : None HEENT: None Psych: Depression Musculoskeletal: Osteopenia, Gout Derm: None - Past Surgical History Past Surgical History: Yes General: Appendectomy, Gastric surgery Ortho: Other HEENT: Tonsil/Adenoidectomy Derm: Debridement - Present Medications Home Medications: Ambulatory Orders Medication Instructions Recorded Confirmed Insulin Glargine [Lantus] 40 units SQ QPM 09/19/13 08/15/20 Folic Acid 1 mg PO DAILY 04/19/15 08/15/20 Vitamin B Complex [B Complex] 1 tab PO DAILY 04/19/15 08/15/20 Metformin HCl [Metformin ER 500 mg PO BIDWM 09/16/15 08/15/20 Osmotic] Digoxin 125 mcg PO DAILY 04/16/16 08/15/20 Atorvastatin Calcium 80 mg PO QPM 05/07/16 08/15/20 Omeprazole 40 mg PO QDAC 05/07/16 08/15/20 Dabigatran Etexilate Mesylate 150 mg PO BID 01/12/18 08/15/20 [Pradaxa] Disulfiram [Antabuse] 250 mg PO DAILY 01/12/18 08/15/20 Naltrexone HCl 50 mg PO DAILY 01/12/18 08/15/20 Venlafaxine HCl [Venlafaxine HCl 37.5 mg PO DAILY 01/12/18 08/15/20 ER] amLODIPine [Norvasc] 5 mg PO DAILY #10 tablet 01/15/18 08/15/20 Saccharomyces Boulardii [Florastor] 250 mg PO BID 05/15/19 08/15/20 lisinopriL [Lisinopril] 40 mg PO DAILY 07/07/20 08/15/20 Meclizine [Antivert] 25 mg PO Q6H PRN #10 tablet 08/16/20 - Allergies Allergies/Adverse Reactions: Allergies Allergy/AdvReac Type Severity Reaction Status Date / Time gabapentin AdvReac Hallucinati Verified 03/28/21 04:26 ons - Social History Does the pt smoke?: No Smoking Status: Never smoker Does the pt drink ETOH?: Yes Does the pt have substance abuse?: No - Immunizations Immunizations are current?: Yes - POLST Patient has POLST: Yes POLST Status: DNR PD ED PE NORMAL - Vitals Vital signs reviewed: Yes (normal ) - General General: Alert and oriented X 3, No acute distress, Well developed/nourished - HEENT HEENT: Atraumatic, PERRL, EOMI - Neck Neck: Supple, no meningeal sign, No bony TTP - Cardiac Cardiac: RRR, No murmur - Respiratory Respiratory: No respiratory distress, Clear bilaterally - Abdomen Abdomen: Normal bowel sounds, Soft, Non tender, Non distended, No organomegaly - Back Back: No CVA TTP, No spinal TTP - Derm Derm: Normal color, Warm and dry, No rash - Extremities Extremities: No deformity, No edema - Neuro Neuro: Alert and oriented X 3, 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, No motor deficit, No sensory deficit, Normal speech Eye Opening: Spontaneous Motor: Obeys Commands Verbal: Oriented GCS Score: 15 - Psych Psych: Normal mood, Normal affect Results - Vitals Vitals: Vital Signs - 24 hr 03/28/21 03/28/21 04:18 05:03 Temperature 36.4 C L Heart Rate 80 Respiratory 18 Rate Blood Pressure 175/77 H 175/77 H O2 Saturation 100 Oxygen O2 Source [With Activity] Room air O2 Source Room air - Labs Labs: Laboratory Tests 03/28/21 03/28/21 05:26 05:26 WBC 9.9 RBC 3.98 L Hgb 12.0 Hct 37.1 MCV 93.2 MCH 30.2 MCHC 32.3 RDW 14.4 Plt Count 149 MPV 11.1 H Neut # (Auto) 7.6 H Lymph # (Auto) 1.4 L [place] # (Auto) 0.8 Eos # (Auto) 0.1 Baso # (Auto) 0.0 Absolute Nucleated RBC 0.00 Nucleated RBC % 0.0 Sodium 138 Potassium 4.0 Chloride 109 Carbon Dioxide 19 L Anion Gap 10.0 BUN 13 Creatinine 0.9 Estimated GFR (MDRD) 61 L Glucose 242 H Calcium 9.1 Total Bilirubin 0.4 AST 11 ALT 13 Alkaline Phosphatase 71 Total Protein 7.0 Albumin 3.5 Globulin 3.5 Albumin/Globulin Ratio 1.0 Lipase 44 PD MEDICAL DECISION MAKING - ED course Complexity details: reviewed results, re-evaluated patient, considered differential, d/w patient ED course: 75 y/o female with acute diarrhea has developed weakness. She is treated in the ED with immodium and saline, has no more diarrhea and feels improved. She would like to go home. Departure - Departure Disposition: 01 Home, Self Care Clinical Impression: Dehydration Diarrhea Qualifiers: Diarrhea type: unspecified type Qualified Code(s): R19.7 - Diarrhea, unspecified Condition: Stable Instructions: ED Diarrhea Viral, ED Dehydration Follow-Up: More Franco MD [Primary Care Provider] - Comments: Silvia, today it looks like your diarrhea has caused some dehydration but without abnormality of your electrolytes. The recommendation is that if you have more diarrhea take more immodium.
[2021-03-28 05:04] VITALS: BP 175/77
[2021-03-28 05:37] LABS: BASOPHILS % (AUTO) 0.4 %; EOSINOPHILS # (AUTO) 0.1 10^3/uL (0.0-0.7); EOSINOPHILS % (AUTO) 0.8 %; HCT - HEMATOCRIT 37.1 % (37.0-47.0); LYMPHOCYTES # (AUTO) 1.4 10^3/uL (1.5-3.5); MEAN CORPUSCULAR HEMOGLOBIN 30.2 pg (27.0-31.0); MEAN CORPUSCULAR HGB CONC 32.3 g/dL (32.0-36.0); MEAN CORPUSCULAR VOLUME 93.2 fL (81.0-99.0); MEAN PLATELET VOLUME 11.1 fL (7.9-10.8); MONOCYTES # (AUTO) 0.8 10^3/uL (0.0-1.0); MONOCYTES % (AUTO) 7.6 %; NEUTROPHILS # (AUTO) 7.6 10^3/uL (1.5-6.6); NEUTROPHILS % (AUTO) 76.8 %; PLT - PLATELET COUNT 149 10^3/uL (130-450); RED BLOOD COUNT 3.98 10^6/uL (4.20-5.40); RED CELL DISTRIBUTION WIDTH 14.4 % (12.0-15.0); WHITE BLOOD COUNT 9.9 x10^3/uL (4.8-10.8)
[2021-03-28 05:52] LABS: ALBUMIN 3.5 g/dL (3.2-5.5); BILIRUBIN,TOTAL 0.4 mg/dL (0.2-1.0); CALCIUM 9.1 mg/dL (8.5-10.3); CREATININE 0.9 mg/dL (0.4-1.0)
== END 2021-03-28 07:00 | disposition home or self-care (01) ==
LOC: EDUNIT# → SUPCPDRO 04:10 → ED 04:10
DX: E86.0 Dehydration (principal); R19.7 Diarrhea, unspecified; I10 Essential (primary) hypertension; I48.91 Unspecified atrial fibrillation; E11.9 Type 2 diabetes mellitus without complications; Z79.4 Long term (current) use of insulin
CPT/HCPCS: 36415; 80053; 83690; 85025; 96360; 96361; 99282; 99283; A9270; 87045; 87046

== ENCOUNTER 2021-04-24 10:12 | Outpatient (CLI) | payer MEDICARE, OTHER ==
--- NOTE | 2021-04-25 10:44 | Mammography Report ---
BILATERAL DIGITAL SCREENING MAMMOGRAM 3D/2D: 04/24/2021 CLINICAL: Baseline exam. Routine screening. No prior exams were available for comparison. There are scattered fibroglandular elements in both br easts. No significant masses, calcifications, or other findings are seen in either breast. IMPRESSION: NEGATIVE There is no mammographic evidence of malignancy. A 1 year screening mammogram is recommended. This exam was interpreted at Station ID: [id number]. NOTE: For mammograms, a report in lay terms will be sent to the patient. Approximately 15% of breast malignancies will not be visualized mammographically. In the management of a palpable breast mass, a negative mammogram must not discourage biopsy of a clinically suspicious lesion. Electronically Signed By: Dominguez [email or web address]:04/24/2021 15:11:04 ACR BI-RADS Category 1: Negative [id number] PARENCHYMAL PATTERN: (A) - The breast(s) demonstrate(s) scattered fibroglandular densities. BI-RADS CATEGORY: (1) - 1 RECOMMENDATION: (ANNUAL) - Recommend routine annual screening mammography. [id number] 1 year screening LATERALITY: (B)
== END 2021-04-24 10:13 | disposition home or self-care (01) ==
LOC: DI.N 10:12
PROVIDERS: ATTEND Internal Medicine
DX: Z12.31 Encounter for screening mammogram for malignant neoplasm of breast (principal)

== ENCOUNTER 2022-10-05 17:10 | Outpatient (CLI) | payer MEDICARE, OTHER ==
[2022-10-05 17:38] LABS: CREATININE 1.3 mg/dL (0.4-1.0)
== END 2022-10-05 17:11 | disposition home or self-care (01) ==
LOC: LAB 17:10
PROVIDERS: ATTEND Internal Medicine
DX: R41.3 Other amnesia (principal)
CPT/HCPCS: 36415; 82565; 82607; 86780

== ENCOUNTER 2022-10-12 16:03 | Outpatient (CLI) | payer MEDICARE, OTHER ==
--- NOTE | 2022-10-13 08:30 | MRI Report ---
PROCEDURE: BRAIN WO INDICATIONS: MEMORY LOSS TECHNIQUE: Noncontrast axial T1 spin echo, axial T2 fast spin echo, sagittal and axial FLAIR, coronal T2 fast sp in echo, axial gradient echo, axial diffusion and ADC through the brain. COMPARISON: MRI IACs on 09/28/2019 FINDINGS: Image quality: Excellent. CSF Spaces: Basal cisterns are patent. No extra-axial fluid collections. Ventricles are normal in size and shape. Brain: No intracranial masses or hemorrhage. Rod/white matter interface is normal. Brainstem appe ars normal. Diffusion-weighted images demonstrate no acute ischemic insult. Normal intravascular fl ow voids are present. Mild subcortical and periventricular hypodensities are consistent with microvas cular ischemic disease and age-related cerebral volume loss. Skull and face: Calvarium has normal marrow signal. Orbits appear normal. Sinuses: Sinuses and mastoids are clear. IMPRESSION: 1. No acute intracranial abnormality. 2. Mild microvascular ischemic disease and age-related cerebral volume loss. Reviewed by: Freddie Mcarthur on 10/13/2022 7:28 AM CARLOS Approved by: Freddie Mcarthur on 10/13/2022 7:28 AM CARLOS Station ID: [id number]
== END 2022-10-12 16:04 | disposition home or self-care (01) ==
LOC: DI 16:03
PROVIDERS: ATTEND Internal Medicine
DX: R41.3 Other amnesia (principal); G31.89 Other specified degenerative diseases of nervous system; I67.82 Cerebral ischemia

== ENCOUNTER 2022-12-03 11:25 | Outpatient (CLI) | payer MEDICARE, OTHER | END 2022-12-03 23:59 | disposition critical access hospital (66) | LOC: EMS 11:25 | DX: R55 Syncope and collapse (principal); R53.1 Weakness; E11.65 Type 2 diabetes mellitus with hyperglycemia | CPT/HCPCS: A0425; A0429 ==

== ENCOUNTER 2022-12-03 11:42 | Emergency (ER) | payer MEDICARE, OTHER ==
[2022-12-03 11:59] VITALS: O2SAT 100
[2022-12-03 12:23] LABS: BASOPHILS % (AUTO) 0.4 %; EOSINOPHILS # (AUTO) 0.1 10^3/uL (0.0-0.7); EOSINOPHILS % (AUTO) 0.6 %; HCT - HEMATOCRIT 37.9 % (37.0-47.0); HGB - HEMOGLOBIN 11.8 g/dL (12.0-16.0); LYMPHOCYTES # (AUTO) 1.1 10^3/uL (1.5-3.5); LYMPHOCYTES % (AUTO) 10.6 %; MEAN CORPUSCULAR HEMOGLOBIN 27.8 pg (27.0-31.0); MEAN CORPUSCULAR HGB CONC 31.1 g/dL (32.0-36.0); MEAN CORPUSCULAR VOLUME 89.2 fL (81.0-99.0); MEAN PLATELET VOLUME 10.8 fL (7.9-10.8); MONOCYTES # (AUTO) 0.6 10^3/uL (0.0-1.0); MONOCYTES % (AUTO) 5.6 %; NEUTROPHILS # (AUTO) 8.8 10^3/uL (1.5-6.6); NEUTROPHILS % (AUTO) 82.4 %; PLT - PLATELET COUNT 180 10^3/uL (130-450); RED BLOOD COUNT 4.25 10^6/uL (4.20-5.40); RED CELL DISTRIBUTION WIDTH 16.9 % (12.0-15.0); WHITE BLOOD COUNT 10.6 x10^3/uL (4.8-10.8)
[2022-12-03] MEDS ORDERED: SODIUM CHLORIDE 0.9% 1,000 ML IV STA (12:34)
--- NOTE | 2022-12-03 12:39 | ED Physician Documentation ---
History of Present Illness - Stated complaint Stated Complaint: SYNCOPE - Chief complaint Chief Complaint: Neuro - History obtained from History obtained from: Patient, Family - Additonal information Additional information: The patient comes to the emergency department with her and chief complaint of syncopal episode. The patient was sitting at the breakfast table and just getting ready to eat her breakfast has been had turned around to get coffee and when he turned around again, he saw the patient slump over in her chair with sonorous respirations. The patient was unconscious for approximately 15 to 20 seconds after which she began to come around. She does not remember whether she had any symptoms immediately preceding or immediately after the syncopal episode. She states that she does not remember very well and leaves these kinds of details to her . He states the patient did not complain of anything. Patient states she is feeling "completely fine" now. No recent i llnesses. She has longstanding history of A-fib which has been stable. No new medications or doses. Patient has not been drinking very much water lately they state. No other complaints at this time. PD PAST MEDICAL HISTORY - Past Medical History Cardiovascular: High cholesterol, Atrial fibrillation, Hypertension Respiratory: None Neuro: Fainting Endocrine/Autoimmune: Type 2 diabetes GI: Diverticulitis, Ulcers : None HEENT: None Psych: Depression Musculoskeletal: Osteopenia, Gout Derm: None - Past Surgical History Past Surgical History: Yes General: Appendectomy, Gastric surgery Ortho: Other HEENT: Tonsil/Adenoidectomy Derm: Debridement - Present Medications Home Medications: Ambulatory Orders Medication Instructions Recorded Confirmed Insulin Glargine [Lantus] 40 units SQ QPM 09/19/13 08/15/20 Folic Acid 1 mg PO DAILY 04/19/15 08/15/20 Vitamin B Complex [B Complex] 1 tab PO DAILY 04/19/15 08/15/20 Metformin HCl [Metformin ER 500 mg PO BIDWM 09/16/15 08/15/20 Osmotic] Digoxin 125 mcg PO DAILY 04/16/16 08/15/20 Atorvastatin Calcium 80 mg PO QPM 05/07/16 08/15/20 Omeprazole 40 mg PO QDAC 05/07/16 08/15/20 Dabigatran Etexilate Mesylate 150 mg PO BID 01/12/18 08/15/20 [Pradaxa] Disulfiram [Antabuse] 250 mg PO DAILY 01/12/18 08/15/20 Naltrexone HCl 50 mg PO DAILY 01/12/18 08/15/20 Venlafaxine HCl [Venlafaxine HCl 37.5 mg PO DAILY 01/12/18 08/15/20 ER] amLODIPine [Norvasc] 5 mg PO DAILY #10 tablet 01/15/18 08/15/20 Saccharomyces Boulardii [Florastor] 250 mg PO BID 05/15/19 08/15/20 lisinopriL [Lisinopril] 40 mg PO DAILY 07/07/20 08/15/20 Meclizine [Antivert] 25 mg PO Q6H PRN #10 tablet 08/16/20 Sodium Zirconium Cyclosilicate 10 gm PO TID #6 packet 12/03/22 [Lokelma] - Allergies Allergies/Adverse Reactions: Allergies Allergy/AdvReac Type Severity Reaction Status Date / Time gabapentin AdvReac Hallucinati Verified 11/11/21 17:38 ons - Social History Does the pt smoke?: No Smoking Status: Never smoker Does the pt drink ETOH?: Yes Does the pt have substance abuse?: No - Immunizations Immunizations are current?: Yes - POLST Patient has POLST: Yes POLST Status: DNR PD ED PE NORMAL - Vitals Vital signs reviewed: Yes - General General: Alert and oriented X 3, No acute distress, Well developed/nourished - HEENT HEENT: Atraumatic, PERRL, EOMI, Moist mucous membranes - Neck Neck: Supple, no meningeal sign - Cardiac Cardiac: RRR, No murmur - Respiratory Respiratory: No respiratory distress, Clear bilaterally - Abdomen Abdomen: Soft, Non tender, Non distended - Derm Derm: Normal color, Warm and dry, No rash - Extremities Extremities: No deformity, No edema - Neuro Neuro: Alert and oriented X 3, 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 Relevant findings are: Rate: Rate (enter#) (75) Rhythm: Atrial fibrillation [place]: Normal Ischemia: ST elevation c/w repol Computer interpretation: Disagree with computer - Labs Labs: Laboratory Tests 12/03/22 12/03/22 12/03/22 12:17 12:17 14:56 WBC 10.6 RBC 4.25 Hgb 11.8 L Hct 37.9 MCV 89.2 MCH 27.8 MCHC 31.1 L RDW 16.9 H Plt Count 180 MPV 10.8 Neut # (Auto) 8.8 H Lymph # (Auto) 1.1 L [place] # (Auto) 0.6 Eos # (Auto) 0.1 Baso # (Auto) 0.0 Absolute Nucleated RBC 0.00 Nucleated RBC % 0.0 Sodium 132 L 134 L Potassium 6.3 H* 6.1 H* Chloride 103 107 Carbon Dioxide 19 L 20 L Anion Gap 10.0 7.0 BUN 24 H 24 H Creatinine 1.4 H 1.3 Estimated GFR (MDRD) 37 L 40 L Glucose 319 H 250 H Calcium 9.9 9.6 Total Bilirubin 0.3 AST 12 ALT 13 Alkaline Phosphatase 93 Troponin I High Sens 14.0 Total Protein 7.7 Albumin 3.9 Globulin 3.8 Albumin/Globulin Ratio 1.0 Lipase 78 - Rads (name of study) chest XR Relevant Findings:: Final report received, See rad report (neg) head CT Relevant Findings:: Final report received, See rad report (neg) PD Medical Decision Making - ED course Complexity details: reviewed results, re-evaluated patient, considered differential, d/w patient, d/w family ED course: The patient was treated with IV fluids and Placed on the air sampling and monitoring, which showed atrial fibrillation with good rate control throughout the entire stay in the emergency department. She was worked up with laboratory studies, chest x- ray, EKG, and head CT. The imaging studies were negative. EKG showed atrial fibrillation. Labs showed a high potassium of 6.3 the patient was treated for this with a repeat of 6.1. Based on her levels, she was a good candidate for Lokelma and I did prescribe this. I discussed with the patient and her that it is important that she takes this and follows up with her primary doctor for reevaluation next week and repeat levels. They should also discuss event monitoring at that time. and patient are agreeable to this plan. I am not sure why she has had the syncopal episode, but she has been stable throughout her hours long stay here and is Stable for discharge home. Departure - Departure Disposition: 01 Home, Self Care Clinical Impression: Hyperkalemia Episode of syncope Qualifiers: Syncope type: unspecified Qualified Code(s): R55 - Syncope and collapse Condition: Stable Instructions: ED Potassium Excess, ED Fainting Unkn Cause Prescriptions: Sodium Zirconium Cyclosilicate [Lokelma] 10 gm PO TID #6 packet Comments: Most of your labs and the rest your tests look very good. Your potassium was high and we have started to bring this down here in the emergency department. Your potassium is not high enough that you need to stay in the hospital for continued treatment, but you will need to continue to have the potassium treated at home. Please take the medication as directed for this. You should schedule an appointment to follow-up with your primary doctor within the next week for a recheck of your potassium. The prescriptions been electronically transmitted to the [facility] pharmacy in [place], your pharmacy of choice on record. As far as why you were unresponsive today it is not exactly clear what happened, though your heart rate and blood pressure been very stable here and there is no evidence of any serious condition. Please be sure to speak with your primary doctor regarding your medication regimen and regarding further testing if you have further episodes like this. Forms: PCP List Discharge Date/Time: 12/03/22 16:27
[2022-12-03 12:41] LABS: ALBUMIN 3.9 g/dL (3.2-5.5)
--- NOTE | 2022-12-03 12:49 | XRAY Report ---
PROCEDURE: Chest 1 View X-Ray INDICATIONS: Chest Pain TECHNIQUE: One view of the chest was acquired. COMPARISON: None. FINDINGS: Surgical changes and devices: None. Lungs and pleura: No pleural effusions or pneumothorax. Lungs are clear. Mediastinum: Mediastinal contours appear normal. Heart size is normal. Bones and chest wall: No suspicious bony lesions. Overlying soft tissues appear unremarkable. IMPRESSION: No acute cardiopulmonary process. Reviewed by: Robin Soriano on 12/03/2022 12:48 PM PDT Approved by: Robin Soriano on 12/03/2022 12:48 PM PDT Station ID: [id number]
[2022-12-03 12:55] LABS: BILIRUBIN,TOTAL 0.3 mg/dL (0.2-1.0); CALCIUM 9.9 mg/dL (8.5-10.3); CREATININE 1.4 mg/dL (0.6-1.3); POTASSIUM 6.3 mmol/L (3.5-4.5); TOTAL PROTEIN 7.7 g/dL (6.4-8.9)
[2022-12-03] MEDS ORDERED: INSULIN REGULAR HUMAN 300 UNIT/3 ML VIAL IVP STA (13:11)
[2022-12-03] MEDS ORDERED: SODIUM BICARBONATE ABBOJECT 50 MEQ/50 ML SYRINGE IVP STA (13:11)
--- NOTE | 2022-12-03 13:32 | CT Report ---
PROCEDURE: HEAD WO INDICATIONS: aloc TECHNIQUE: Noncontrast 4.5 mm thick angled axial sections acquired from the foramen magnum to the vertex. For r adiation dose reduction, the following was used: automated exposure control, adjustment of mA and/or kV according to patient size. COMPARISON: 11/11/2021 FINDINGS: Image quality: Excellent. CSF spaces: Basal cisterns are patent. No extra-axial fluid collections. Ventricles are normal in size and shape. Brain: No midline shift. No intracranial masses or hemorrhage. Rod-white matter interface is norm al. Skull and face: Calvarium and visualized facial bones are intact, without suspicious lesions. Sinuses: Visualized sinuses and mastoids are clear. IMPRESSION: No acute intracranial pathology Reviewed by: Pawel Weston MD on 12/03/2022 1:31 PM PDT Approved by: Pawel Weston MD on 12/03/2022 1:31 PM PDT Station ID: [id number]
[2022-12-03 15:26] LABS: CALCIUM 9.6 mg/dL (8.5-10.3); CREATININE 1.3 mg/dL (0.6-1.3); POTASSIUM 6.1 mmol/L (3.5-4.5)
[2022-12-03 16:00] VITALS: BP 181/97
== END 2022-12-03 16:27 | disposition home or self-care (01) ==
LOC: EDUNIT# → ED 11:42
DX: R55 Syncope and collapse (principal); E87.5 Hyperkalemia; I10 Essential (primary) hypertension; E78.00 Pure hypercholesterolemia, unspecified; I48.91 Unspecified atrial fibrillation; E11.9 Type 2 diabetes mellitus without complications; Z79.4 Long term (current) use of insulin; Z79.899 Other long term (current) drug therapy; Z79.84 Long term (current) use of oral hypoglycemic drugs
CPT/HCPCS: 36415; 70450; 71045; 80048; 80053; 83690; 84484; 85025; 93005; 96361; 96374; 99284; J1815

== ENCOUNTER 2023-02-19 03:02 | Outpatient (CLI) | payer MEDICARE, OTHER | END 2023-02-19 03:03 | disposition critical access hospital (66) | LOC: EMS 03:02 | DX: R51.9 Headache, unspecified (principal); W18.12XA Fall from or off toilet with subsequent striking against object, initial encounter; Y92.002 Bathroom of unspecified non-institutional (private) residence as the place of occurrence of the external cause; R39.89 Other symptoms and signs involving the genitourinary system; R35.0 Frequency of micturition | CPT/HCPCS: A0425; A0429 ==

== ENCOUNTER 2023-02-19 03:18 | Emergency (ER) | payer MEDICARE, OTHER ==
--- NOTE | 2023-02-19 03:34 | ED Physician Documentation ---
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 denies pain anywhere or any other injury. ems state her partner reported urinary incontinence, foul smelling urine and increased frequency. patient denies dysuria or abdominal pain/back pain PD PAST MEDICAL HISTORY - Past Medical History Cardiovascular: High cholesterol, Atrial fibrillation, Hypertension Respiratory: None Neuro: Fainting Endocrine/Autoimmune: Type 2 diabetes GI: Diverticulitis, Ulcers : None HEENT: None Psych: Depression Musculoskeletal: Osteopenia, Gout Derm: None - Past Surgical History Past Surgical History: Yes General: Appendectomy, Gastric surgery Ortho: Other HEENT: Tonsil/Adenoidectomy Derm: Debridement - Present Medications Home Medications: Ambulatory Orders Medication Instructions Recorded Confirmed Insulin Glargine [Lantus] 40 units SQ QPM 09/19/13 08/15/20 Folic Acid 1 mg PO DAILY 04/19/15 08/15/20 Vitamin B Complex [B Complex] 1 tab PO DAILY 04/19/15 08/15/20 Metformin HCl [Metformin ER 500 mg PO BIDWM 09/16/15 08/15/20 Osmotic] Digoxin 125 mcg PO DAILY 04/16/16 08/15/20 Atorvastatin Calcium 80 mg PO QPM 05/07/16 08/15/20 Omeprazole 40 mg PO QDAC 05/07/16 08/15/20 Dabigatran Etexilate Mesylate 150 mg PO BID 01/12/18 08/15/20 [Pradaxa] Disulfiram [Antabuse] 250 mg PO DAILY 01/12/18 08/15/20 Naltrexone HCl 50 mg PO DAILY 01/12/18 08/15/20 Venlafaxine HCl [Venlafaxine HCl 37.5 mg PO DAILY 01/12/18 08/15/20 ER] amLODIPine [Norvasc] 5 mg PO DAILY #10 tablet 01/15/18 08/15/20 Saccharomyces Boulardii [Florastor] 250 mg PO BID 05/15/19 08/15/20 lisinopriL [Lisinopril] 40 mg PO DAILY 07/07/20 08/15/20 Meclizine [Antivert] 25 mg PO Q6H PRN #10 tablet 08/16/20 Sodium Zirconium Cyclosilicate 10 gm PO TID #6 packet 12/03/22 [Lokelma] cephALEXin [Keflex] 500 mg PO Q6H #28 tab 02/19/23 - Allergies Allergies/Adverse Reactions: Allergies Allergy/AdvReac Type Severity Reaction Status Date / Time gabapentin AdvReac Hallucinati Verified 02/19/23 03:44 ons - Social History Does the pt smoke?: No Smoking Status: Never smoker Does the pt drink ETOH?: Yes Does the pt have substance abuse?: No - Immunizations Immunizations are current?: Yes - POLST Patient has POLST: Yes POLST Status: DNR PD ED PE NORMAL - Vitals Vital signs reviewed: Yes - General General: No acute distress, Well developed/nourished, Other (AOX2) - HEENT HEENT: Atraumatic, PERRL, EOMI, Moist mucous membranes, Pharynx benign - Neck Neck: No bony TTP, Other (c collar placed on arrival) - Cardiac Cardiac: RRR - Respiratory Respiratory: No respiratory distress, Clear bilaterally - Abdomen Abdomen: Non tender, Non distended - Female Female : Other (R superior labia majora with ingrown hair with purulent drainage. 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, No motor deficit, No sensory deficit, Normal speech, Other (AOX2) Eye Opening: Spontaneous Motor: Obeys Commands Verbal: Confused GCS Score: 14 - Psych Psych: Normal mood, Normal affect Results - Vitals Vitals: Vital Signs - 24 hr 02/19/23 02/19/23 02/19/23 03:20 03:29 04:29 Temperature 36.7 C Heart Rate 78 83 85 Respiratory 18 18 19 Rate Blood Pressure 167/78 H 173/80 H 209/88 H O2 Saturation 100 100 98 02/19/23 02/19/23 05:00 06:00 Temperature Heart Rate 82 84 Respiratory 18 16 Rate Blood Pressure 212/89 H 142/70 H O2 Saturation 98 98 Oxygen O2 Source [With Activity] Room air O2 Source Room air - Labs Labs: Laboratory Tests 02/19/23 04:45 Urine Color YELLOW Urine Clarity HAZY Urine pH 5.5 Ur Specific [place] 1.025 Urine Protein 30 H Urine Glucose (UA) NEGATIVE Urine Ketones TRACE Urine Occult Blood TRACE-INTA Urine Nitrite NEGATIVE Urine Bilirubin NEGATIVE Urine Urobilinogen 0.2 (NORMAL) Ur Leukocyte Esterase MODERATE H Urine RBC 0-5 Urine WBC >25 H Ur Squamous Epith Cells RARE Squamous Urine Bacteria Moderate H Urine Culture Comments INDICATED PD Medical Decision Making - ED course ED course: 77yF presents to ED s/p mechanical fall off toilet tonight. modified trauma due to afib on pradaxa. patient without apparent injury. c collar in place. ct head, c spine, and cxr/pelvic xr ordered and showed no traumatic injury. concern for urinary sx therefore straight cath for u/a ordered. +UTI. also with R superior labia majora apparent infected ingrown hair with purulent drainage. sample collected and sent to lab for wound culture. no induration after expression of 3 -4 cc pus. antibiotics ordered and sent to pharmacy. 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 He states they will f/u with Dr. Franco this upcoming week. return precautions given. Departure - Departure Disposition: 01 Home, Self Care Clinical Impression: Fall, UTI (urinary tract infection), Abscess of right genital labia Condition: Stable Instructions: Falls Prevent Home, ED UTI Cystitis Female Follow-Up: More Franco MD [Provider Admit Priv/Credential] - Prescriptions: cephALEXin [Keflex] 500 mg PO Q6H #28 tab Comments: You were seen in the emergency department for medical evaluation. CT head and c spine and xrays uncovered no trauma from your fall. You do have uti and infection of a hair follicle on the right labia majora. Antibiotics prescription was sent electronically to [facility]. Please follow-up with your primary care provider and return to the emergency department if you have any new or worsening symptoms or other concerns. Forms: PCP List
[2023-02-19] MEDS ORDERED: ZINC OXIDE 20% OINT 30 GM TUBE TOP STA (04:46)
[2023-02-19] MEDS ORDERED: MIN OIL/DIMETHICON/COCONUT OIL 92 GM TUBE TOP STA (04:48)
[2023-02-19 05:05] LABS: BILIRUBIN,URINE NEGATIVE (NEGATIVE); GLUCOSE, URINE (UA) NEGATIVE (NEGATIVE); KETONES,URINE (UA) TRACE mg/dL (NEGATIVE); LEUKOCYTE ESTERASE, URINE MODERATE (NEGATIVE); NITRITE,URINE NEGATIVE (NEGATIVE); OCCULT BLOOD,URINE TRACE-INTA (NEGATIVE); PH,URINE 5.5 PH (5.0-7.5); PROTEIN,URINE 30 mg/dL (NEGATIVE); UROBILINOGEN,URINE 0.2 (NORMAL) E.U./dL (NORMAL)
[2023-02-19 05:15] LABS: CLARITY,URINE HAZY (CLEAR)
[2023-02-19 05:18] LABS: BACTERIA,URINE Moderate /HPF (None Seen); RBC,URINE 0-5 /HPF (0-5); SQUAMOUS EPITHELIAL CELL,UR RARE Squamous (<= Few); WBC,URINE >25 /HPF (0-5)
[2023-02-19] MEDS ORDERED: cefTRIAXone 1 GM in SODIUM CHLORIDE 0.9% MINIBAG 100 ML IV STA (06:36)
[2023-02-19] MEDS ORDERED: cefTRIAXone 1 GM VIAL ONE (06:58)
[2023-02-19 07:48] VITALS: BP 203/96; O2SAT 100
--- NOTE | 2023-02-19 08:17 | XRAY Report ---
PROCEDURE: Chest 1 View X-Ray INDICATIONS: modified trauma TECHNIQUE: One view of the chest was acquired. COMPARISON: None. FINDINGS: Surgical changes and devices: None. Lungs and pleura: No pleural effusions or pneumothorax. Lungs are clear. Mild cephalized pulmonar y vessels. Peribronchial cuffing. Mediastinum: Mediastinal contours appear normal. Heart size is mildly enlarged. Bones and chest wall: No suspicious bony lesions. Overlying soft tissues appear unremarkable. IMPRESSION: No displaced rib fracture or pneumothorax. Cardiomegaly with mild fluid overload. Findings are concordant with preliminary interpretation provided by [facility]. Reviewed by: Robin Soriano on 02/19/2023 8:16 AM [facility] Approved by: Robin Soriano on 02/19/2023 8:16 AM [facility] Station ID: [id number]
--- NOTE | 2023-02-19 08:22 | XRAY Report ---
PROCEDURE: Pelvis 1 View INDICATIONS: mod trauma TECHNIQUE: 2 view(s) of the pelvis acquired. COMPARISON: None. FINDINGS: Suboptimal evaluation due to patient positioning and body habitus. Bones: No fractures or dislocations. No suspicious bony lesions. Surgical pins through the right femoral neck and left hip arthroplasty. Soft tissues: Visualized bowel gas pattern is normal. No suspicious soft tissue calcifications. IMPRESSION: No displaced fracture, although evaluation is suboptimal. If there remains a high clinical concern, c onsider CT. Findings are concordant with preliminary interpretation provided by [facility]. Reviewed by: Robin Soriano on 02/19/2023 8:20 AM [facility] Approved by: Robin Soriano on 02/19/2023 8:20 AM [facility] Station ID: [id number]
--- NOTE | 2023-02-19 09:42 | CT Report ---
PROCEDURE: CERVICAL SPINE WO INDICATIONS: Neck trauma, midline tenderness TECHNIQUE: Noncontrast 3 mm thick sections acquired from the skull base to the T4 level. Sagittal and coronal r eformats were then constructed. For radiation dose reduction, the following was used: automated exp osure control, adjustment of mA and/or kV according to patient size. COMPARISON: None. FINDINGS: Image quality: There are motion artifacts. Bones: No fractures or dislocations. Anterolisthesis of C4 on C5. Degenerative disc disease, modera te at C6-C7, mild at C5-C6 and C7-T1. Bilateral facet arthropathy scattered in cervical spine, most p ronounced and moderate at C4-C5. Visualized superior ribs are intact. Soft tissues: Prevertebral soft tissues are normal in thickness. No paravertebral hematomas. No ap ical pneumothoraces. IMPRESSION: No cervical spine fractures. Compromised examination due to motion artifacts. Degenerative changes as described. Findings are concordant with preliminary interpretation provided by [facility]. Reviewed by: Bonny Zepeda MD on 02/19/2023 9:41 AM PST Approved by: Bonny Zepeda MD on 02/19/2023 9:41 AM PST Station ID: [id number]
--- NOTE | 2023-02-19 09:43 | CT Report ---
PROCEDURE: HEAD WO INDICATIONS: Head trauma, mod-severe TECHNIQUE: Noncontrast 4.5 mm thick angled axial sections acquired from the foramen magnum to the vertex. For r adiation dose reduction, the following was used: automated exposure control, adjustment of mA and/or kV according to patient size. COMPARISON: CT head without, 12/03/2022. FINDINGS: Image quality: Excellent. CSF spaces: Basal cisterns are patent. No extra-axial fluid collections. Ventricles are normal in size and shape. Brain: No midline shift. No intracranial masses or hemorrhage. Cerebral volume loss and periventri cular white matter chronic small vessel treatment changes. Rod-white matter interface is normal. Skull and face: Calvarium and visualized facial bones are intact, without suspicious lesions. Sinuses: Visualized sinuses and mastoids are clear. IMPRESSION: No acute intracranial pathology. Findings are concordant with preliminary interpretation provided by [facility]. Reviewed by: Bonny Zepeda MD on 02/19/2023 9:42 AM PST Approved by: Bonny Zepeda MD on 02/19/2023 9:42 AM PST Station ID: [id number]
== END 2023-02-19 07:48 | disposition home or self-care (01) ==
LOC: EDUNIT# → ED 03:18
DX: N39.0 Urinary tract infection, site not specified (principal); N76.4 Abscess of vulva; I48.91 Unspecified atrial fibrillation; Z79.01 Long term (current) use of anticoagulants; Z66 Do not resuscitate
CPT/HCPCS: 51701; 70450; 71045; 72125; 72170; 81001; 87070; 87077; 87086; 87181; 87205; 96374; 99283; 99284; A6250; A9270

== ENCOUNTER 2023-04-14 14:06 | Outpatient (CLI) | payer MEDICARE, OTHER | END 2023-04-14 14:07 | disposition critical access hospital (66) | LOC: EMS 14:06 | DX: R53.81 Other malaise (principal); R42 Dizziness and giddiness; R11.0 Nausea | CPT/HCPCS: A0425; A0427 ==

== ENCOUNTER 2023-10-04 16:50 | Outpatient (CLI) | payer MEDICARE, OTHER | END 2023-10-04 23:59 | disposition critical access hospital (66) | LOC: EMS 16:50 | DX: R11.2 Nausea with vomiting, unspecified (principal); I10 Essential (primary) hypertension | CPT/HCPCS: A0425; A0427 ==

== ENCOUNTER 2023-10-04 17:11 | Emergency (ER) | payer MEDICARE, OTHER ==
[2023-10-04 17:47] LABS: BASOPHILS % (AUTO) 0.5 %; EOSINOPHILS # (AUTO) 0.1 10^3/uL (0.0-0.7); EOSINOPHILS % (AUTO) 0.8 %; HCT - HEMATOCRIT 29.8 % (37.0-47.0); HGB - HEMOGLOBIN 8.7 g/dL (12.0-16.0); LYMPHOCYTES # (AUTO) 1.1 10^3/uL (1.5-3.5); MEAN CORPUSCULAR HEMOGLOBIN 25.4 pg (27.0-31.0); MEAN CORPUSCULAR HGB CONC 29.2 g/dL (32.0-36.0); MEAN CORPUSCULAR VOLUME 87.1 fL (81.0-99.0); MEAN PLATELET VOLUME 10.2 fL (7.9-10.8); MONOCYTES # (AUTO) 0.4 10^3/uL (0.0-1.0); MONOCYTES % (AUTO) 4.8 %; NEUTROPHILS # (AUTO) 6.9 10^3/uL (1.5-6.6); NEUTROPHILS % (AUTO) 80.5 %; PLT - PLATELET COUNT 157 10^3/uL (130-450); RED BLOOD COUNT 3.42 10^6/uL (4.20-5.40); RED CELL DISTRIBUTION WIDTH 17.3 % (12.0-15.0); WHITE BLOOD COUNT 8.5 x10^3/uL (4.8-10.8)
--- NOTE | 2023-10-04 17:53 | ED Physician Documentation ---
History of Present Illness - Stated complaint Stated Complaint: N/V - Chief complaint Chief Complaint: Abd Pain - History obtained from History obtained from: Patient, EMS - History of Present Illness Timing: Today Pain level max: 0 Pain level now: 0 - Additonal information Additional information: Patient is a 78-year-old female who presents to the emergency department with nausea and vomiting today. She states that she is not having abdominal pain. Has a history of dementia, unclear how reliable her history is. Brought in by EMS. Denies any fevers. Denies any diarrhea or constipation. No urinary symptoms. She states that she has been vomiting today. No falls. No head injury. History severely limited by the patient's dementia Review of Systems Unable to obtain: Dementia Constitutional: denies: Fever, Chills Nose: denies: Rhinorrhea / runny nose, Congestion Respiratory: denies: Cough GI: reports: Nausea, Vomiting. denies: Diarrhea Musculoskeletal: denies: Neck pain, Back pain Neurologic: denies: Headache PD PAST MEDICAL HISTORY - Past Medical History Past Medical History: Yes Cardiovascular: High cholesterol, Atrial fibrillation, Hypertension Respiratory: None Neuro: Dementia, Fainting Endocrine/Autoimmune: Type 2 diabetes GI: Diverticulitis, Ulcers : None HEENT: None Psych: Depression Musculoskeletal: Osteopenia, Gout Derm: None - Past Surgical History Past Surgical History: Yes General: Appendectomy, Gastric surgery Ortho: Other HEENT: Tonsil/Adenoidectomy Derm: Debridement - Present Medications Home Medications: Ambulatory Orders Medication Instructions Recorded Confirmed Insulin Glargine [Lantus] 40 units SQ QPM 09/19/13 10/04/23 Folic Acid 1 mg PO DAILY 04/19/15 10/04/23 Vitamin B Complex [B Complex] 1 tab PO DAILY 04/19/15 10/04/23 Metformin HCl [Metformin ER 1,000 mg PO BIDWM 09/16/15 10/04/23 Osmotic] Digoxin 125 mcg PO DAILY 04/16/16 10/04/23 Atorvastatin Calcium 80 mg PO QPM 05/07/16 10/04/23 Omeprazole 20 mg PO QDAC 05/07/16 10/04/23 Dabigatran Etexilate Mesylate 150 mg PO BID 01/12/18 10/04/23 [Pradaxa] Disulfiram [Antabuse] 250 mg PO DAILY 01/12/18 10/04/23 Venlafaxine HCl [Venlafaxine HCl 37.5 mg PO DAILY 01/12/18 10/04/23 ER] amLODIPine [Norvasc] 5 mg PO DAILY #10 tablet 01/15/18 10/04/23 lisinopriL [Lisinopril] 40 mg PO DAILY 07/07/20 10/04/23 Cefpodoxime Proxetil [Vantin] 100 mg PO Q12H #14 tablet 10/04/23 Pioglitazone [Actos] 30 mg PO DAILY 10/04/23 10/04/23 Pnv No.95/Ferrous Fum/Folic AC 1 each PO DAILY 10/04/23 10/04/23 [ Caplet] Sitagliptin Phosphate [Januvia] 50 mg PO DAILY 10/04/23 10/04/23 - Allergies Allergies/Adverse Reactions: Allergies Allergy/AdvReac Type Severity Reaction Status Date / Time gabapentin AdvReac Hallucinati Verified 10/04/23 17:44 ons - Social History Does the pt smoke?: No Smoking Status: Never smoker Does the pt drink ETOH?: Yes Does the pt have substance abuse?: No - Immunizations Immunizations are current?: Yes - POLST Patient has POLST: Yes POLST Status: DNR PD ED PE NORMAL - Vitals Vital signs reviewed: Yes - General General: No acute distress, Well developed/nourished, Other (alert, oriented to person only. Baseline for patient,) - HEENT HEENT: Atraumatic, PERRL, EOMI, Moist mucous membranes, Pharynx benign - Neck Neck: Supple, no meningeal sign - Cardiac Cardiac: RRR, Strong equal pulses - Respiratory Respiratory: No respiratory distress, Clear bilaterally - Abdomen Abdomen: Soft, Non tender, Non distended - Back Back: No CVA TTP, No spinal TTP - Derm Derm: Warm and dry - Extremities Extremities: No deformity, No calf tenderness / cord - Neuro Neuro: Normal speech - Psych Psych: Normal mood Results - Vitals Vitals: Oxygen O2 Source [With Activity] Room air O2 Source Room air - Labs Labs: Microbiology 10/04/23 20:48 Urine Culture - Preliminary Urine,Catheterized Laboratory Tests 10/04/23 10/04/23 10/04/23 17:42 17:42 20:48 WBC 8.5 RBC 3.42 L Hgb 8.7 L Hct 29.8 L MCV 87.1 MCH 25.4 L MCHC 29.2 L RDW 17.3 H Plt Count 157 MPV 10.2 Neut # (Auto) 6.9 H Lymph # (Auto) 1.1 L [place] # (Auto) 0.4 Eos # (Auto) 0.1 Baso # (Auto) 0.0 Absolute Nucleated RBC 0.00 Nucleated RBC % 0.0 Sodium 137 Potassium 4.9 H Chloride 107 Carbon Dioxide 21 Anion Gap 9.0 BUN 20 Creatinine 1.2 Estimated GFR (MDRD) 44 L Glucose 171 H Calcium 9.5 Total Bilirubin 0.5 AST 17 ALT 15 Alkaline Phosphatase 91 Total Protein 7.2 Albumin 3.8 Globulin 3.4 Albumin/Globulin Ratio 1.1 Lipase 44 Urine Color YELLOW Urine Clarity HAZY Urine pH 5.0 Ur Specific [place] 1.015 Urine Protein NEGATIVE Urine Glucose (UA) NEGATIVE Urine Ketones 40 H Urine Occult Blood NEGATIVE Urine Nitrite POSITIVE H Urine Bilirubin NEGATIVE Urine Urobilinogen 0.2 (NORMAL) Ur Leukocyte Esterase NEGATIVE Urine RBC 0-5 Urine WBC 6-10 H Ur Squamous Epith Cells FEW Squamous Urine Bacteria Moderate H Ur Microscopic Review INDICATED Urine Culture Comments INDICATED - Rads (name of study) CT abd pelvis Relevant Findings:: Final report received, See rad report PD Medical Decision Making - ED course Complexity details: reviewed results, re-evaluated patient, considered differential, d/w patient, d/w family ED course: Patient with vomiting today. History of dementia. History was severely limited upon arrival. arrived in the emergency department and states that she has been vomiting profusely today. No acute findings on laboratory testing other than anemia, not severe enough to need a blood transfusion. No reported history of blood in the stool. No blood in the vomit today. CT scan does not show any acute abnormalities. Given IV fluids. Tolerating PO without difficulty. Urinary catheterization performed, urinalysis appears consistent with UTI. We gave her a dose of Rocephin. Will place some antibiotics for Home. Patient as well appearing, nontoxic, file. No evidence of sepsis. Patient counseled regarding signs and symptoms for which I believe an urgent re-evaluation would be necessary. Patient with good understanding of and agreement to plan and is comfortable going home at this time. This document was made in part using voice recognition software. While efforts are made to proofread this document, sound alike and grammatical errors may occur. Departure - Departure Disposition: 01 Home, Self Care Clinical Impression: UTI (urinary tract infection) Qualifiers: Urinary tract infection type: acute cystitis Hematuria presence: without hematuria Qualified Code(s): N30.00 - Acute cystitis without hematuria Vomiting Qualifiers: Vomiting type: unspecified Nausea presence: with nausea Qualified Code(s): R11.2 - Nausea with vomiting, unspecified Anemia Qualifiers: Anemia type: unspecified type Qualified Code(s): D64.9 - Anemia, unspecified Condition: Good Instructions: ED UTI Cystitis Female, ED Nausea Vomiting Follow-Up: More Franco MD [Primary Care Provider] - Within 1 week Prescriptions: Cefpodoxime Proxetil [Vantin] 100 mg PO Q12H #14 tablet Comments: Please follow-up with your doctor for further care. Take all antibiotics until gone. You were given a dose of Rocephin tonight. You do have anemia, you should follow-up with your doctor regarding this. They should recheck your blood counts in about a week. Please return if she worsens. There are no acute findings on your CT scan tonight. Your prescription was sent to [facility] in [place]. Forms: PCP List Discharge Date/Time: 10/04/23 22:46
[2023-10-04] MEDS: SODIUM CHLORIDE 0.9% 1,000 ML IV STA (17:58)
[2023-10-04] MEDS: ONDANSETRON 4 MG/2 ML VIAL IVP STA (17:58)
[2023-10-04] MEDS ORDERED: iohexoL-300 100 ML VIAL ONE (18:00)
[2023-10-04 18:03] LABS: ALBUMIN 3.8 g/dL (3.2-5.5); ALBUMIN/GLOBULIN RATIO 1.1 (1.0-2.2); BILIRUBIN,TOTAL 0.5 mg/dL (0.2-1.0); CALCIUM 9.5 mg/dL (8.5-10.3); CREATININE 1.2 mg/dL (0.6-1.3); POTASSIUM 4.9 mmol/L (3.5-4.5); TOTAL PROTEIN 7.2 g/dL (6.4-8.9)
--- NOTE | 2023-10-04 18:47 | CT Report ---
PROCEDURE: Abdomen/Pelvis W INDICATIONS: abdominal pain, vomiting CONTRAST: 100 ML OMNI 300 TECHNIQUE: After the administration of intravenous contrast, a CT scan of the abdomen and pelvis was performed. Images were recorded and evaluated at appropriate window settings. Reformats: coronal and sagittal. F or radiation dose reduction, the following was used: automated exposure control, adjustment of mA and /or kV according to patient size. COMPARISON: CT abdomen and pelvis 11/11/2021 FINDINGS: Image quality: There is limited visualization of the pelvis secondary to artifact from hip arthroplas ty. Lower chest: Unremarkable. Liver: No solid mass. Gallbladder: Removed. Biliary tree: No intrahepatic or extrahepatic dilation, accounting for age. Spleen: No splenomegaly. Pancreas: No pancreatic ductal dilation. Adrenals: 1.1 cm left and 1.6 cm right adrenal nodules, unchanged. Kidneys and ureters: No hydronephrosis. No renal cystic lesion which requires follow up. No solid mas s. Renal atrophy with simple cysts are present. Stomach, bowel and peritoneum: No gastric or small bowel dilation. No abnormal wall thickening. No pa thologic free fluid. Lymph nodes: No central or retroperitoneal adenopathy. Vessels: No infrarenal aortic aneurysm. Patent portal vein. PELVIS Reproductive organs: Unremarkable. Bladder: No abnormal wall thickening, accounting for underdistention. Pelvic lymph nodes: No pelvic adenopathy by size criteria. Bones: No aggressive osseous abnormality. Other: No significant inguinal hernia. Bowel containing ventral hernia without obstruction. IMPRESSION: No acute intra-abdominal or pelvic process. Reviewed by: Mary Alexander MD on 10/04/2023 6:46 PM PDT Approved by: Mary Alexander MD on 10/04/2023 6:46 PM PDT Station ID: [id number]
[2023-10-04] MEDS: iohexoL-300 100 ML VIAL IVP ONE (19:04)
[2023-10-04 20:54] LABS: BILIRUBIN,URINE NEGATIVE (NEGATIVE); GLUCOSE, URINE (UA) NEGATIVE (NEGATIVE); KETONES,URINE (UA) 40 mg/dL (NEGATIVE); LEUKOCYTE ESTERASE, URINE NEGATIVE (NEGATIVE); NITRITE,URINE POSITIVE (NEGATIVE); OCCULT BLOOD,URINE NEGATIVE (NEGATIVE); PROTEIN,URINE NEGATIVE (NEGATIVE); UROBILINOGEN,URINE 0.2 (NORMAL) E.U./dL (NORMAL)
[2023-10-04 20:57] LABS: CLARITY,URINE HAZY (CLEAR)
[2023-10-04 21:01] VITALS: BP 185/97; O2SAT 97
[2023-10-04 21:21] LABS: BACTERIA,URINE Moderate /HPF (None Seen); RBC,URINE 0-5 /HPF (0-5); SQUAMOUS EPITHELIAL CELL,UR FEW Squamous (<= Few)
[2023-10-04] MEDS: cefTRIAXone 1 GM VIAL IVP STA (22:29)
== END 2023-10-04 22:46 | disposition home or self-care (01) ==
LOC: ED 17:11
DX: R11.2 Nausea with vomiting, unspecified (principal); N30.00 Acute cystitis without hematuria; D64.9 Anemia, unspecified
CPT/HCPCS: 36415; 74177; 80053; 81001; 83690; 85025; 87086; 87181; 96374; 96375; 99284; P9612; Q9967; 51701; 81003

== ENCOUNTER 2023-11-07 02:44 | Outpatient (CLI) | payer MEDICARE, OTHER | END 2023-11-07 23:59 | disposition critical access hospital (66) | LOC: EMS 02:44 | DX: R11.2 Nausea with vomiting, unspecified (principal) | CPT/HCPCS: A0425; A0427 ==

== ENCOUNTER 2023-11-07 03:05 | Emergency (ER) | payer MEDICARE, OTHER ==
--- NOTE | 2023-11-07 03:54 | ED Physician Documentation ---
PD HPI NVD - Stated complaint Stated Complaint: VOMITING - Chief complaint Chief Complaint: Abd Pain - History obtained from History obtained from: Patient - History of Present Illness Timing - onset: Enter time (0200), Today Timing - duration: Minutes Timing - details: Abrupt onset, Still present Associated symptoms: Other (dramatic vomiting). No: Fever, Abdominal pain, Chest pain, Hematemesis, Melena, Hematochezia Contributing factors: Anticoagulated, Diabetes Improved by: Meds (given zofran en-route with improvement in symptoms.) Similar symptoms before: Diagnosis (UTI) Recently seen: Emergency Dept (Seen in the emergency department 1 month ago with nausea and vomiting found to have urinary tract infection was treated with Vantin and grew a sensitive E. coli.) - Additonal information Additional information: 78-year-old female Silvia Verma has developed acute nausea and vomiting this evening about an hour prior to coming to the emergency department. She vomited 6 times and vomited once in front of the medics has had no vomiting since receiving Zofran IV. She has had a similar incident happened about 1 month ago and she received treatment for urinary tract infection with a sensitive E. coli. The patient denies any other specific symptoms she is a poor historian with a history of dementia. Her is not immediately available for history. My evaluation of her chart reveals a patient with a history of type 2 diabetes, hypertension, hyperlipidemia and a serious problem with alcohol. 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 She is on bupropion and naltrexone as well as Antabuse for control of the symptoms. She is a poor historian regarding these facts but indicates there is no alcohol in her house. She denies alcohol use currently. She is also on Pradaxa for atrial fibrillation. She denies any evidence of blood in stool or vomitus Review of Systems Unable to obtain: Dementia Constitutional: denies: Fever Nose: denies: Congestion Throat: denies: Sore throat Cardiac: denies: Chest pain / pressure Respiratory: denies: Dyspnea, Cough GI: reports: Nausea, Vomiting. denies: Abdominal Pain, Constipation, Diarrhea : denies: Dysuria, Frequency PD PAST MEDICAL HISTORY - Past Medical History Past Medical History: Yes Cardiovascular: High cholesterol, Atrial fibrillation, Hypertension Respiratory: None Neuro: Dementia, Fainting Endocrine/Autoimmune: Type 2 diabetes GI: Diverticulitis, Ulcers : None HEENT: None Psych: Depression Musculoskeletal: Osteopenia, Gout Derm: None - Past Surgical History Past Surgical History: Yes General: Appendectomy, Gastric surgery Ortho: Other HEENT: Tonsil/Adenoidectomy Derm: Debridement - Present Medications Home Medications: Ambulatory Orders Medication Instructions Recorded Confirmed Insulin Glargine [Lantus] 35 units SQ DAILY 09/19/13 11/07/23 Folic Acid 1 mg PO DAILY 04/19/15 11/07/23 Vitamin B Complex [B Complex] 1 tab PO DAILY 04/19/15 11/07/23 Metformin HCl [Metformin ER 1,000 mg PO BIDWM 09/16/15 11/07/23 Osmotic] Digoxin 125 mcg PO DAILY 04/16/16 11/07/23 Atorvastatin Calcium 40 mg PO QPM 05/07/16 11/07/23 Omeprazole 20 mg PO QDAC 05/07/16 11/07/23 Dabigatran Etexilate Mesylate 150 mg PO BID 01/12/18 11/07/23 [Pradaxa] Disulfiram [Antabuse] 250 mg PO DAILY 01/12/18 11/07/23 lisinopriL [Lisinopril] 40 mg PO DAILY 07/07/20 11/07/23 Sitagliptin Phosphate [Januvia] 50 mg PO DAILY 10/04/23 11/07/23 Magnesium Oxide [Magnesium] 500 mg PO DAILY 11/07/23 11/07/23 Pioglitazone HCl [Actos] 45 mg PO DAILY 11/07/23 11/07/23 cephALEXin [Keflex] 500 mg PO Q6H #28 cap 11/07/23 - Allergies Allergies/Adverse Reactions: Allergies Allergy/AdvReac Type Severity Reaction Status Date / Time gabapentin AdvReac Hallucinati Verified 11/07/23 03:07 ons - Social History Does the pt smoke?: No Smoking Status: Never smoker Does the pt drink ETOH?: Yes Does the pt have substance abuse?: No - Immunizations Immunizations are current?: Yes - POLST Patient has POLST: Yes POLST Status: DNR PD ED PE NORMAL - Vitals Vital signs reviewed: Yes (hypertensive ) - General General: No acute distress, Well developed/nourished, Other (somulent consistent with time of day responds well to voice) - HEENT HEENT: Atraumatic, PERRL, EOMI - Neck Neck: Supple, no meningeal sign, No bony TTP - Cardiac Cardiac: RRR, No murmur - Respiratory Respiratory: No respiratory distress, Clear bilaterally - Abdomen Abdomen: Normal bowel sounds, Soft, Non tender, Non distended, No organomegaly, Other (There is a prior abdominal scar with 2 areas of granulous tissue about 2cm each without surrounding erythema to a scar that looks like it healed by secondary intention. ) - Derm Derm: Normal color, Warm and dry - Extremities Extremities: No deformity, Other (There is trace pitting edema bilat. ) - Neuro Neuro: button spindler 2-12 intact, No motor deficit, No sensory deficit, Normal speech Eye Opening: Spontaneous Motor: Obeys Commands Verbal: Confused GCS Score: 14 - Psych Psych: Normal mood, Normal affect Results - Vitals Vitals: Vital Signs - 24 hr 11/07/23 11/07/23 11/07/23 03:07 05:20 06:27 Temperature 36.5 C Heart Rate 77 82 88 Respiratory 18 18 16 Rate Blood Pressure 203/97 H 198/81 H 192/97 H O2 Saturation 99 96 96 Oxygen O2 Source [] Room air O2 Source Room air - Labs Labs: Laboratory Tests 11/07/23 11/07/23 11/07/23 04:10 04:10 04:10 WBC 10.7 RBC 3.38 L Hgb 8.4 L Hct 28.8 L MCV 85.2 MCH 24.9 L MCHC 29.2 L RDW 17.2 H Plt Count 159 MPV 11.0 H Neut # (Auto) 9.1 H Lymph # (Auto) 0.9 L [place] # (Auto) 0.5 Eos # (Auto) 0.0 Baso # (Auto) 0.0 Absolute Nucleated RBC 0.00 Nucleated RBC % 0.0 Sodium 135 Potassium 5.0 H Chloride 105 Carbon Dioxide 21 Anion Gap 9.0 BUN 21 H Creatinine 1.1 Estimated GFR (MDRD) 48 L Glucose 241 H Lactic Acid 1.3 Calcium 9.6 Total Bilirubin 0.5 AST 19 ALT 21 Alkaline Phosphatase 110 Total Protein 7.3 Albumin 4.0 Globulin 3.3 Albumin/Globulin Ratio 1.2 Lipase 44 Urine Color Urine Clarity Urine pH Ur Specific [place] Urine Protein Urine Glucose (UA) Urine Ketones Urine Occult Blood Urine Nitrite Urine Bilirubin Urine Urobilinogen Ur Leukocyte Esterase Urine RBC Urine WBC Ur Squamous Epith Cells Urine Bacteria Ur Microscopic Review Urine Culture Comments Last Dose Date Last Dose Time Digoxin Ethyl Alcohol 11/07/23 11/07/23 11/07/23 04:10 04:40 06:02 WBC RBC Hgb Hct MCV MCH MCHC RDW Plt Count MPV Neut # (Auto) Lymph # (Auto) [place] # (Auto) Eos # (Auto) Baso # (Auto) Absolute Nucleated RBC Nucleated RBC % Sodium Potassium Chloride Carbon Dioxide Anion Gap BUN Creatinine Estimated GFR (MDRD) Glucose Lactic Acid Calcium Total Bilirubin AST ALT Alkaline Phosphatase Total Protein Albumin Globulin Albumin/Globulin Ratio Lipase Urine Color YELLOW Urine Clarity CLEAR Urine pH 5.0 Ur Specific [place] >=1.030 H Urine Protein 30 H Urine Glucose (UA) NEGATIVE Urine Ketones 15 H Urine Occult Blood NEGATIVE Urine Nitrite NEGATIVE Urine Bilirubin NEGATIVE Urine Urobilinogen 0.2 (NORMAL) Ur Leukocyte Esterase MODERATE H Urine RBC None Seen Urine WBC 6-10 H Ur Squamous Epith Cells MOD Squamous H Urine Bacteria Rare Ur Microscopic Review INDICATED Urine Culture Comments NOT INDICATED Last Dose Date Not Reportable Last Dose Time Not Reportable Digoxin 1.1 Ethyl Alcohol < 10.0 Procedures - IVC sono (time) 0400 Bedside IVC sono: IVC measures (cm) (0.82), Dehydration (est 2 liter deficit) PD Medical Decision Making - ED course Complexity details: reviewed old records, reviewed results, re-evaluated patient, considered differential, d/w patient, d/w family Reviewed Lab Results: We reviewed a complete blood count showing a white blood cell count normal at 10.7 a reduced hemoglobin at 8.4 and a reduced hematocrit of 28.8 the hemoglobin is low for the patient and lower than 1 month ago. She normally runs in the 11-12 range. 1 month ago she was 8.7 hematocrit similarly low at 28.8 with a prior of 29.81-month ago. I interpret this to indicate the patient has ongoing blood loss likely as a result of use of Pradaxa. Chemistries were remarkable for a potassium of 5.0 this elevated level has been present previously at this mild elevation and she is had a potassium as high as 6.3 1-year ago and was started on lokelma. Today we found her urine was again concerning for urinary tract infection this specimen however did not make the grade for culture. Prior urine with similar presentation grew a sensitive E. coli. She is treated here in the emergency department with Rocephin intravenously we will place her on a course of Keflex. Departure - Departure Disposition: 01 Home, Self Care Clinical Impression: Dehydration Vomiting Qualifiers: Vomiting type: unspecified Nausea presence: with nausea Qualified Code(s): R11.2 - Nausea with vomiting, unspecified Anemia Qualifiers: Anemia type: unspecified type Qualified Code(s): D64.9 - Anemia, unspecified Hypertension Qualifiers: Hypertension type: unspecified Qualified Code(s): I10 - Essential (primary) hypertension UTI (urinary tract infection) Qualifiers: Urinary tract infection type: acute cystitis Hematuria presence: without hematuria Qualified Code(s): N30.00 - Acute cystitis without hematuria Condition: Stable Instructions: ED Anemia Type Not Specified, ED Dehydration, ED Hypertension Conf Out Of Control, ED UTI Cystitis Female, ED Nausea Vomiting Follow-Up: More Franco MD [Primary Care Provider] - Prescriptions: cephALEXin [Keflex] 500 mg PO Q6H #28 cap Comments: Silvia, today It looks like there is again an evidence of urinary tract infection. You have been given a dose of IV antibiotic here in the emergency department and we will E scribed some Keflex to the [facility] in [place]. Your anemia requires further workup and treatment and a follow-up with Dr. Franco is indicated. Your blood pressure is out of control and additional medication may be indicated. Increase your dose of lisinopril to 20 mg daily and follow-up with Dr. Franco within the week. Forms: PCP List
[2023-11-07] MEDS: SODIUM CHLORIDE 0.9% 1,000 ML IV STA (04:05)
[2023-11-07 04:17] LABS: BASOPHILS % (AUTO) 0.3 %; EOSINOPHILS % (AUTO) 0.3 %; HCT - HEMATOCRIT 28.8 % (37.0-47.0); HGB - HEMOGLOBIN 8.4 g/dL (12.0-16.0); LYMPHOCYTES # (AUTO) 0.9 10^3/uL (1.5-3.5); LYMPHOCYTES % (AUTO) 8.2 %; MEAN CORPUSCULAR HEMOGLOBIN 24.9 pg (27.0-31.0); MEAN CORPUSCULAR HGB CONC 29.2 g/dL (32.0-36.0); MEAN CORPUSCULAR VOLUME 85.2 fL (81.0-99.0); MONOCYTES # (AUTO) 0.5 10^3/uL (0.0-1.0); MONOCYTES % (AUTO) 5.1 %; NEUTROPHILS # (AUTO) 9.1 10^3/uL (1.5-6.6); NEUTROPHILS % (AUTO) 85.6 %; PLT - PLATELET COUNT 159 10^3/uL (130-450); RED BLOOD COUNT 3.38 10^6/uL (4.20-5.40); RED CELL DISTRIBUTION WIDTH 17.2 % (12.0-15.0); WHITE BLOOD COUNT 10.7 x10^3/uL (4.8-10.8)
[2023-11-07 04:27] LABS: DIGOXIN 1.1 ng/mL
[2023-11-07 04:28] LABS: ALBUMIN/GLOBULIN RATIO 1.2 (1.0-2.2); BILIRUBIN,TOTAL 0.5 mg/dL (0.2-1.0); CALCIUM 9.6 mg/dL (8.5-10.3); CREATININE 1.1 mg/dL (0.6-1.3); TOTAL PROTEIN 7.3 g/dL (6.4-8.9)
[2023-11-07] MEDS: lisinopriL 20 MG TABLET PO STA (05:34)
[2023-11-07 05:36] LABS: BILIRUBIN,URINE NEGATIVE (NEGATIVE); GLUCOSE, URINE (UA) NEGATIVE (NEGATIVE); KETONES,URINE (UA) 15 mg/dL (NEGATIVE); LEUKOCYTE ESTERASE, URINE MODERATE (NEGATIVE); NITRITE,URINE NEGATIVE (NEGATIVE); OCCULT BLOOD,URINE NEGATIVE (NEGATIVE); PROTEIN,URINE 30 mg/dL (NEGATIVE); UROBILINOGEN,URINE 0.2 (NORMAL) E.U./dL (NORMAL)
[2023-11-07] MEDS: lisinopriL 5 MG TABLET PO STA (05:39)
[2023-11-07 05:47] LABS: CLARITY,URINE CLEAR (CLEAR)
[2023-11-07 05:50] LABS: BACTERIA,URINE Rare /HPF (None Seen); RBC,URINE None Seen /HPF (0-5); SQUAMOUS EPITHELIAL CELL,UR MOD Squamous (<= Few)
[2023-11-07] MEDS: cefTRIAXone 1 GM in SODIUM CHLORIDE 0.9% MINIBAG 100 ML IV STA (07:37)
[2023-11-07 08:12] VITALS: BP 218/85; O2SAT 97
== END 2023-11-07 08:21 | disposition home or self-care (01) ==
LOC: ED 03:05
DX: N30.00 Acute cystitis without hematuria (principal); E86.0 Dehydration; I10 Essential (primary) hypertension; D64.9 Anemia, unspecified; R11.2 Nausea with vomiting, unspecified; Z66 Do not resuscitate; E11.9 Type 2 diabetes mellitus without complications; E78.5 Hyperlipidemia, unspecified; I48.91 Unspecified atrial fibrillation; Z79.01 Long term (current) use of anticoagulants; E78.00 Pure hypercholesterolemia, unspecified; F03.90 Unspecified dementia, unspecified severity, without behavioral disturbance, psychotic disturbance, mood disturbance, and anxiety; Z79.4 Long term (current) use of insulin; Z79.84 Long term (current) use of oral hypoglycemic drugs; Z79.899 Other long term (current) drug therapy
CPT/HCPCS: 36415; 80053; 80162; 81001; 83605; 83690; 85025; 96361; 96365; 99284; A9270; G0480; 81003; 82077; 87086

== ENCOUNTER 2024-03-16 09:43 | Observation (INO) ==
[2024-03-16 10:12] LABS: BASOPHILS % (AUTO) 0.5 %; EOSINOPHILS # (AUTO) 0.1 10^3/uL (0.0-0.7); EOSINOPHILS % (AUTO) 1.4 %; HCT - HEMATOCRIT 32.1 % (37.0-47.0); HGB - HEMOGLOBIN 9.6 g/dL (12.0-16.0); LYMPHOCYTES # (AUTO) 2.2 10^3/uL (1.5-3.5); LYMPHOCYTES % (AUTO) 24.9 %; MEAN CORPUSCULAR HEMOGLOBIN 24.7 pg (27.0-31.0); MEAN CORPUSCULAR HGB CONC 29.9 g/dL (32.0-36.0); MEAN CORPUSCULAR VOLUME 82.5 fL (81.0-99.0); MEAN PLATELET VOLUME 9.9 fL (7.9-10.8); MONOCYTES # (AUTO) 0.6 10^3/uL (0.0-1.0); MONOCYTES % (AUTO) 7.1 %; NEUTROPHILS # (AUTO) 5.8 10^3/uL (1.5-6.6); NEUTROPHILS % (AUTO) 65.8 %; PLT - PLATELET COUNT 194 10^3/uL (130-450); RED BLOOD COUNT 3.89 10^6/uL (4.20-5.40); RED CELL DISTRIBUTION WIDTH 23.8 % (12.0-15.0); WHITE BLOOD COUNT 8.7 x10^3/uL (4.8-10.8)
[2024-03-16 10:17] LABS: RBC MORPHOLOGY (MULTIPLE) 4+ ANISOCYTOSIS (NORMAL); SLIDE REVIEW? Indicated
[2024-03-16 10:26] LABS: ALBUMIN 3.5 g/dL (3.2-5.5); ALBUMIN/GLOBULIN RATIO 1.1 (1.0-2.2); BILIRUBIN,TOTAL 0.3 mg/dL (0.2-1.0); CALCIUM 9.4 mg/dL (8.5-10.3); CREATININE 1.8 mg/dL (0.6-1.3); POTASSIUM 5.5 mmol/L (3.5-4.5); TOTAL PROTEIN 6.7 g/dL (6.4-8.9)
[2024-03-16 10:33] LABS: TROPONIN I HIGH SENSITIVITY 22.8 ng/L (2.3-14.8)
--- NOTE | 2024-03-16 11:25 | ED Physician Documentation ---
History of Present Illness Stated complaint Stated Complaint: SYNCOPE Chief complaint Chief Complaint: Neuro History obtained from History obtained from: Patient and Family History of Present Illness Timing: Prior to arrival Additonal information Additional information: Per patient's spouse peace patient was about to sit down on the toilet and was passed out on the toilet. He describes some shaking episode lasting about 3-4 minutes and EMS was called. Her symptoms resolved on EMS arrival. This happened one other time and she was here about a month ago for something similar. She did not hit her head. She is on blood thinners. Per patient had more shaking but did not have any incontinence or tongue biting. She had gone from seated to standing with symptoms worsen. Patient had similar episode on 01 11 and was evaluated here as well but was discharged home after reassuring workup. History of baseline dementia A & O x 1. Patient does not recall the episode. Meds/Allgy Home Medications Ambulatory Orders Medication Instructions Recorded Confirmed insulin glargine 100 unit/mL 35 units SQ DAILY 09/19/13 11/07/23 subcutaneous solution (Lantus U-100 Insulin) folic acid 1 mg tablet 1 mg PO DAILY 04/19/15 11/07/23 vitamin B complex (B-Complex 1 tab PO DAILY 04/19/15 11/07/23 tablet) metformin 1,000 mg tablet,extended 1,000 mg PO BIDWM 09/16/15 11/07/23 release 24hr (osmotic) digoxin 125 mcg (0.125 mg) tablet 125 mcg PO DAILY 04/16/16 11/07/23 atorvastatin 40 mg tablet 40 mg PO QPM 05/07/16 11/07/23 omeprazole 20 mg tablet,delayed 20 mg PO QDAC 05/07/16 11/07/23 release dabigatran etexilate 150 mg 150 mg PO BID 01/12/18 11/07/23 capsule (Pradaxa) disulfiram 250 mg tablet (Antabuse) 250 mg PO DAILY 01/12/18 11/07/23 lisinopril 30 mg tablet 40 mg PO DAILY 07/07/20 11/07/23 sitagliptin phosphate 25 mg tablet 50 mg PO DAILY 10/04/23 11/07/23 (Januvia) cephalexin 500 mg capsule 500 mg PO Q6H #28 caps 11/07/23 magnesium oxide 500 mg capsule 500 mg PO DAILY 11/07/23 11/07/23 pioglitazone 45 mg tablet (Actos) 45 mg PO DAILY 11/07/23 11/07/23 Allergies Allergies Allergy/AdvReac Type Severity Reaction Status Date / Time gabapentin AdvReac Hallucinati Verified 03/16/24 09:56 ons [facility] Surgical History Surgical History (Updated 02/23/24 @ 09:24 by Stacia John RN) History of hernia repair Social History Social History (Updated 02/23/24 @ 08:45 by Roxi Vazquez RN) Smoking Status: Never smoker If you are a former smoker, when did you quit? (Date/Year): 1995 Number of Years Smoked: 20 How many cigarettes a day do you smoke? (20 cigarettes=1 Pk): 20 Do you dip or chew tobacco?: No Do you vape?: No Patient requests smoking cessation consult: No Initiate information on smoking cessation: No Living arrangement: At home Living Condition: With spouse/s.o. Relationship: Caregiver Home Mobility Equipment: Cane and Wheeled walker History of Abuse: No Frequency: Occasional Control Method: None POLST Patient has POLST: Yes POLST Status: DNR Exam Constitutional normal general appearance HENMT normocephalic, head/scalp atraumatic and hearing grossly normal bilaterally TM's clear bilaterally Eyes PERRL, EOMs intact bilaterally and conjunctivae normal Neck/C-Spine visual inspection normal Lymph no lymphadenopathy noted Chest inspection of chest normal Respiratory breath sounds equal bilaterally, normal respiratory effort, clear to auscultation bilaterally, no wheezes, no rales and no retractions Cardiovascular normal heart rate noted, regular rhythm noted, no gallop, no rub, no murmur and no JVD Gastrointestinal abdomen normal to inspection Genitourinary no CVA tenderness Back/Pelvis spine normal to inspection Extremities normal to inspection Skin skin color normal Results Vitals Vitals: Vital Signs - 24 hr 03/16/24 09:51 03/16/24 12:08 Temperature 36.4 C L Temperature Source Temporal Artery Scan Pulse Rate 81 80 Respiratory Rate 18 16 Blood Pressure 113/80 157/60 H O2 Saturation 98 100 O2 Source Room air Room air Pain Intensity 0 Oxygen O2 Source [With Activity] Room air O2 Source Room air EKG (time done) 1315: EKG releavant findings:: EKG personally interpreted by author of this note. Relevant findings are: atrial fibrillation Rate: Rate (enter#) (70 bpm) Rhythm: Atrial fibrillation Ischemia: Normal ST segments Computer interpretation: Agree with computer 1013: EKG releavant findings:: EKG personally interpreted by author of this note. Relevant findings are: Rate: Rate (enter#) (77 bpm) Rhythm: Atrial fibrillation [place]: Normal Compare to prior EKG: Unchanged from prior EKG Computer interpretation: Agree with computer Labs Labs: Laboratory Tests 03/16/24 03/16/24 10:05 11:42 WBC 8.7 RBC 3.89 L Hgb 9.6 L Hct 32.1 L MCV 82.5 MCH 24.7 L MCHC 29.9 L RDW 23.8 H Plt Count 194 MPV 9.9 Neut # (Auto) 5.8 Lymph # (Auto) 2.2 Bell # (Auto) 0.6 Eos # (Auto) 0.1 Baso # (Auto) 0.0 Absolute Nucleated RBC 0.00 Nucleated RBC % 0.0 Manual Slide Review Indicated RBC Morph Micro Appear 4+ ANISOCYTOSIS PT 14.7 H INR 1.4 H Sodium 137 Potassium 5.5 H Chloride 113 H Carbon Dioxide 17 L Anion Gap 7.0 BUN 40 H Creatinine 1.8 H Estimated GFR (MDRD) 27 L Glucose 139 H Calcium 9.4 Total Bilirubin 0.3 AST 16 ALT 18 Alkaline Phosphatase 105 Troponin I High Sens 22.8 H* Total Protein 6.7 Albumin 3.5 Globulin 3.2 Albumin/Globulin Ratio 1.1 Lipase 62 PD Medical Decision Making ED course Complexity details: reviewed old records, reviewed results and re-evaluated patient ED course: Patient is a 78-year-old female presenting to the emergency department for syncopal episode at home on the toilet. Patient had fainting with shaking as described by her spouse. Patient is ANO x 1 does not recall why she is here or further symptoms. She has no focal neurodeficit she is able to follow commands. No signs of trauma on examination. Vitals are stable on arrival. Initial labs obtained here in the ED shows slightly elevated troponin however this is not significantly different from back in January when she was seen for similar episode. She is mildly anemic but this is patient's baseline at 9.6. She is on Pradaxa for atrial fibrillation but this INR is 1.4 and is stable. Patient did not get her medications this morning according to . Discussed case with hospitalist given slightly elevated troponin EKG appears stable with atrial fibrillation but concern for second episode of syncope while going to the bathroom concerns for recurrent syncope. Discussed with hospitalist who is agreeable with the admission at this time. She is agreeable with admission for echo and further workup. Discharge Plan Discharge Patient Disposition: 66 [facility] DC/Xfer Prescriptions: No Action insulin glargine [Lantus U-100 Insulin] 100 UNIT/1 ML solution 35 units SQ DAILY vitamin B complex [B-Complex] 1 EACH tablet 1 tab PO DAILY folic acid 1 MG tablet 1 mg PO DAILY metformin 1,000 MG tablet extended release 24hr 1,000 mg PO BIDWM digoxin 125 MCG tablet 125 mcg PO DAILY atorvastatin 40 MG tablet 40 mg PO QPM omeprazole 20 MG tablet,delayed release (DR/EC) 20 mg PO QDAC dabigatran etexilate [Pradaxa] 150 MG capsule 150 mg PO BID disulfiram [Antabuse] 250 MG tablet 250 mg PO DAILY lisinopril 30 MG tablet 40 mg PO DAILY sitagliptin phosphate [Januvia] 25 MG tablet 50 mg PO DAILY pioglitazone [Actos] 45 MG tablet 45 mg PO DAILY magnesium oxide 500 MG capsule 500 mg PO DAILY cephalexin 500 MG capsule 500 mg PO Q6H Qty: 28 0RF Rx Instructions: X 7 DAYS Print Language: Senegalese
[2024-03-16 11:58] LABS: INR 1.4 (0.8-1.2); PT - PROTHROMBIN TIME 14.7 secs (9.9-12.6)
[2024-03-16] MEDS ORDERED: ONDANSETRON ODT 4 MG TABLET TL PRN (13:43)
[2024-03-16] MEDS ORDERED: ACETAMINOPHEN 325 MG TABLET PO PRN (13:43)
[2024-03-16] MEDS ORDERED: SODIUM CHLORIDE FLUSH 0.9% 10 ML SYRINGE IVP PRN (13:43)
--- NOTE | 2024-03-16 13:56 | HISTORY & PHYSICAL EXAMINATION ---
Chief Complaint Chief Complaint Chief Complaint: Near syncope History of Present Illness Admitted From Admitted From:: ed History Obtained From History obtained from: Patient interview Exam Limitations: Dementia History of Present Illness HPI Comment/Other: 78-year-old female H significant for diabetes on long-term insulin, PVD, hypertension, dementia with a baseline orientation of x 1-2 presented to the ER after having several near syncopal episodes in the bathroom. She denies actual loss of consciousness, But states that she felt very close to that. She denies fever, chills, chest pain, shortness of breath, bowel/urine abnormalities, edema In the ER,She was noted to have a creatinine of 1.8, potassium 5.5, Troponin 22.8. Hospitalist was contacted for observation for near syncope workup and dehydration Meds/Allgy Home Medications Ambulatory Orders Medication Instructions Recorded Confirmed insulin glargine 100 unit/mL 35 units SQ DAILY 09/19/13 11/07/23 subcutaneous solution (Lantus U-100 Insulin) folic acid 1 mg tablet 1 mg PO DAILY 04/19/15 11/07/23 vitamin B complex (B-Complex 1 tab PO DAILY 04/19/15 11/07/23 tablet) metformin 1,000 mg tablet,extended 1,000 mg PO BIDWM 09/16/15 11/07/23 release 24hr (osmotic) digoxin 125 mcg (0.125 mg) tablet 125 mcg PO DAILY 04/16/16 11/07/23 atorvastatin 40 mg tablet 40 mg PO QPM 05/07/16 11/07/23 omeprazole 20 mg tablet,delayed 20 mg PO QDAC 05/07/16 11/07/23 release dabigatran etexilate 150 mg 150 mg PO BID 01/12/18 11/07/23 capsule (Pradaxa) disulfiram 250 mg tablet (Antabuse) 250 mg PO DAILY 01/12/18 11/07/23 lisinopril 30 mg tablet 40 mg PO DAILY 07/07/20 11/07/23 sitagliptin phosphate 25 mg tablet 50 mg PO DAILY 10/04/23 11/07/23 (Januvia) cephalexin 500 mg capsule 500 mg PO Q6H #28 caps 11/07/23 magnesium oxide 500 mg capsule 500 mg PO DAILY 11/07/23 11/07/23 pioglitazone 45 mg tablet (Actos) 45 mg PO DAILY 11/07/23 11/07/23 Allergies Allergies Allergy/AdvReac Type Severity Reaction Status Date / Time gabapentin AdvReac Hallucinati Verified 03/16/24 09:56 ons [facility] Surgical History Surgical History (Updated 02/23/24 @ 09:24 by Stacia John, DEV) History of hernia repair Social History Social History (Updated 02/23/24 @ 08:45 by Roxi Vazquez RN) Smoking Status: Never smoker If you are a former smoker, when did you quit? (Date/Year): 1995 Number of Years Smoked: 20 How many cigarettes a day do you smoke? (20 cigarettes=1 Pk): 20 Do you dip or chew tobacco?: No Do you vape?: No Patient requests smoking cessation consult: No Initiate information on smoking cessation: No Living arrangement: At home Living Condition: With spouse/s.o. Relationship: Caregiver Home Mobility Equipment: Cane and Wheeled walker History of Abuse: No Frequency: Occasional Control Method: None POLST Patient has POLST: Yes POLST Status: DNR Review of Systems Status of ROS: unobtainable due to medical condition (Baseline dementia, normally oriented x 1-2) Constitutional Denies: Fever or Chills Cardiovascular Denies: Irregular heart rate, chest pain, palpitations or shortness of breath with exertion Respiratory Denies: Shortness of breath or Cough Gastrointestinal Denies: Abdominal pain Genitourinary Denies: Urinary frequency Musculoskeletal Denies: Back pain Integumentary/Breast Denies: Rash Neurological Denies: Focal weakness Conclusion/Plan Problem List (1) Postural dizziness with near syncope: Plan: Placed in observation Telemetry Echo Check UA Recent COVID-19 infection, recheck IVF (2) Hypertension: Plan: Continue home regimen after pharmacy review Qualifiers: Hypertension type: unspecified Qualified Code(s): I10 - Essential (primary) hypertension (3) Diabetes: Plan: Continue home insulin, holding oral antidiabetics SSI Qualifiers: Diabetes mellitus type: type 2 (4) Acute kidney failure: Plan: Check UA IVF BMP in a.m. Plan No family available for interview. Will maintain full code for now Lab Results Lab results reviewed: Yes 03/16/24 10:05 03/16/24 10:05 Core Measures Anticipated LOS I expect patient to be DC'd or transferred within 96 hours.: Yes Issues Hospital Issues and Management Plan: Syncope workup including trending troponins and checking echocardiogram DVT/VTE - Prophylaxis VTE/DVT Device ordered at admit?: Yes VTE/DVT Prophylaxis med ordered at admit?: No
--- NOTE | 2024-03-16 15:37 | PHARMACY PROGRESS NOTE ---
Best Possible Medication History Admit Date and Time: 03/16/24 [id number] Home Medications Medication Instructions Recorded Confirmed Type insulin glargine 100 unit/mL 35 units SQ DAILY 09/19/13 03/16/24 History subcutaneous solution (Lantus U-100 Insulin) folic acid 1 mg tablet 1 mg PO DAILY 04/19/15 03/16/24 History vitamin B complex (B-Complex 1 tab PO DAILY 04/19/15 03/16/24 History tablet) digoxin 125 mcg (0.125 mg) tablet 125 mcg PO DAILY 04/16/16 03/16/24 History dabigatran etexilate 150 mg 150 mg PO BID 01/12/18 03/16/24 History capsule (Pradaxa) disulfiram 250 mg tablet (Antabuse) 250 mg PO DAILY 01/12/18 03/16/24 History magnesium oxide 500 mg capsule 500 mg PO DAILY 11/07/23 03/16/24 History pioglitazone 45 mg tablet (Actos) 45 mg PO DAILY 11/07/23 03/16/24 History lisinopril 40 mg tablet 40 mg PO DAILY 03/16/24 03/16/24 History metformin 1,000 mg tablet 1,000 mg PO BID 03/16/24 03/16/24 History omeprazole 20 mg capsule,delayed 20 mg PO DAILY 03/16/24 03/16/24 History release sitagliptin phosphate 50 mg tablet 50 mg PO DAILY 03/16/24 03/16/24 History (Januvia) Processed by: Pharmacy Medications reviewed in ED?: No Medication History completed: Yes Patient Interview: Pt unable to participate Secondary Source(s): Pharmacy records and Insurance records [facility] Statement: As the person ultimately responsible for medication therapy, providers are able to order a medication from an existing home medication list in [facility] via the "Reconcile Routine" prior to Confirmation of that medication by production support engineer. Such practice is discouraged except when the physician, in their clinical judgment, deems that a medical need exists for a medication without regard to previous use.
[2024-03-16] MEDS: SODIUM CHLORIDE FLUSH 0.9% 10 ML SYRINGE IVP SCH (16:41)
[2024-03-16] MEDS ORDERED: hydrALAZINE INJ 20 MG/ML VIAL IVP PRN (17:07)
[2024-03-16] MEDS: lisinopriL 20 MG TABLET PO SCH (17:30)
[2024-03-16] MEDS: INSULIN GLARGINE-YFGN 300 UNIT/3 ML PEN SUBQ SCH (17:33)
[2024-03-16] MEDS: ZINC OXIDE 20% OINT 30 GM TUBE TOP PRN (21:31)
[2024-03-16] MEDS: INSULIN LISPRO 300 UNIT/3 ML PEN SUBQ SCH (21:32)
[2024-03-16] MEDS: APIXABAN 5 MG TABLET PO SCH (21:32)
[2024-03-17 06:04] LABS: BASOPHILS % (AUTO) 0.4 %; EOSINOPHILS # (AUTO) 0.1 10^3/uL (0.0-0.7); EOSINOPHILS % (AUTO) 1.3 %; HCT - HEMATOCRIT 30.6 % (37.0-47.0); HGB - HEMOGLOBIN 9.4 g/dL (12.0-16.0); LYMPHOCYTES # (AUTO) 1.6 10^3/uL (1.5-3.5); LYMPHOCYTES % (AUTO) 22.8 %; MEAN CORPUSCULAR HEMOGLOBIN 24.9 pg (27.0-31.0); MEAN CORPUSCULAR HGB CONC 30.7 g/dL (32.0-36.0); MEAN CORPUSCULAR VOLUME 81.2 fL (81.0-99.0); MEAN PLATELET VOLUME 9.9 fL (7.9-10.8); MONOCYTES # (AUTO) 0.6 10^3/uL (0.0-1.0); MONOCYTES % (AUTO) 8.2 %; NEUTROPHILS # (AUTO) 4.7 10^3/uL (1.5-6.6); NEUTROPHILS % (AUTO) 66.9 %; PLT - PLATELET COUNT 184 10^3/uL (130-450); RED BLOOD COUNT 3.77 10^6/uL (4.20-5.40); RED CELL DISTRIBUTION WIDTH 23.7 % (12.0-15.0); WHITE BLOOD COUNT 7.1 x10^3/uL (4.8-10.8)
[2024-03-17 06:09] LABS: SLIDE REVIEW? Indicated
[2024-03-17 06:22] LABS: CALCIUM 9.4 mg/dL (8.5-10.3); CREATININE 1.5 mg/dL (0.6-1.3); POTASSIUM 5.6 mmol/L (3.5-4.5)
[2024-03-17] MEDS: PANTOPRAZOLE 40 MG TABLET PO SCH (06:25)
[2024-03-17 06:50] LABS: PLATELET ESTIMATE, MANUAL NORMAL (130-450,000) (NORMAL); PLATELET MORPHOLOGY NORMAL APPEARANCE (NORMAL)
[2024-03-17] MEDS: amLODIPine 5 MG TABLET PO SCH (08:25)
[2024-03-17] MEDS: DIGOXIN 125 MCG TABLET PO SCH (08:25)
[2024-03-17] MEDS: FOLIC ACID 1 MG TABLET PO SCH (08:25)
[2024-03-17] MEDS: LACTATED RINGERS 1,000 ML IV ONE (08:25)
[2024-03-17] MEDS: NYSTATIN POWDER 15 GM TOP SCH (09:31)
[2024-03-17] MEDS: DISULFIRAM 250 MG PO SCH (09:32)
--- NOTE | 2024-03-17 13:33 | PROVIDER PROGRESS NOTE ---
Subjective Prog Note Date Prog Note Date: 03/17/24 Subjective Pt reports feeling: No change Subjective: Reports no new syncopal episodes. She did experience a fall today at about 1:15 PM. She did not hit her head, caught herself on her elbows and knees and was assisted back to the bed with the assistance of a gait belt Current Medications Current Medications Current Medications: Current Medications Generic Name Dose Route Start Last Admin Trade Name Freq PRN Reason Stop Dose Admin Acetaminophen 650 mg 03/16/24 13:43 Acetaminophen 325 Mg Tablet PO Q4HR PRN Pain 1 to 4, or Fever Amlodipine Besylate 10 mg 03/17/24 09:00 03/17/24 08:25 Amlodipine 5 Mg Tablet PO 10 mg DAILY NORA Administration Apixaban 5 mg 03/16/24 21:00 03/17/24 07:58 Apixaban 5 Mg Tablet PO 5 mg BID NORA Administration Digoxin 125 mcg 03/17/24 09:00 03/17/24 08:25 Digoxin 125 Mcg Tablet PO 125 mcg DAILY NORA Administration Folic Acid 1 mg 03/17/24 09:00 03/17/24 08:25 Folic Acid 1 Mg Tablet PO 1 mg DAILY NORA Administration Hydralazine HCl 10 mg 03/16/24 17:07 Hydralazine Inj 20 Mg/Ml Vial IVP DAILY PRN PER PHYSICIAN ORDER Insulin Glargine-yfgn 35 unit 03/16/24 17:10 03/17/24 07:59 Insulin Glargine-Yfgn 300 Unit/3 Ml Pen SUBQ 35 unit DAILY NORA Administration Insulin Human Lispro 1 - 9 unit 03/16/24 21:00 03/17/24 11:58 Insulin Lispro 300 Unit/3 Ml Pen SUBQ 3 unit 0800,1200,1700,2100 NORA Administration Protocol Multi-Ingredient Ointment 1 applic 03/16/24 20:25 03/17/24 09:31 Zinc Oxide 20% Oint 30 Gm Tube TOP 1 applic PRN PRN Administration Skin Care Nystatin 1 applic 03/17/24 09:00 03/17/24 09:31 Nystatin Powder 15 Gm TOP 1 applic BID NORA Administration Ondansetron HCl 4 mg 03/16/24 13:43 Ondansetron Odt 4 Mg Tablet TL Q6HR PRN Nausea / Vomiting Pantoprazole Sodium 40 mg 03/17/24 07:00 03/17/24 06:25 Pantoprazole 40 Mg Tablet PO 40 mg QDAC NORA Administration Disulfiram [Antabuse 1 each 03/17/24 09:00 03/17/24 09:32 ] 250 Mg Tablet PO Not Given DAILY NORA Vitamin B Complex 1 each 03/17/24 09:00 03/17/24 09:32 PO Not Given DAILY NORA Sodium Chloride 10 ml 03/16/24 13:43 Sodium Chloride Flush 0.9% 10 Ml Syringe IVP PRN PRN NEEDED PER PROVIDER ORDERS Sodium Chloride 10 ml 03/16/24 17:00 03/17/24 09:32 Sodium Chloride Flush 0.9% 10 Ml Syringe IVP 10 ml 0100,0900,1700 NORA Administration Objective Vital Signs/Intake & Output Reviewed Vital Signs: Yes Vital Signs: Vital Signs x48h Temp Pulse Resp BP Pulse Ox 03/17/24 11:28 36.4 C L 84 18 124/47 L 97 03/17/24 07:35 36.4 C L 89 18 132/53 H 98 Intake & Output: Intake & Output 03/15/24 03/16/24 03/17/24 03/18/24 05:59 05:59 05:59 05:59 Intake Total 270 / 270 1600 / 1600 Output Total 950 / 950 Balance -680 / -680 1600 / 1600 Weight (kg) 90.2 kg Objective General Appearance: positive No acute distress and Alert Eyes Bilateral: positive Normal inspection and PERRL ENT: positive ENT inspection nml Neck: positive Nml inspection Respiratory: positive Chest non-tender and No respiratory distress Cardiovascular: positive Regular rate & rhythm Abdomen: positive Non-tender Back: positive Nml inspection Skin: positive Other (Abrasion on elbow, knee) Extremities: positive Non-tender and Full ROM Neurologic/Psychiatric: positive Other (Oriented x 2, which is her baseline) Lab Results 03/17/24 05:37 03/17/24 05:37 Other Labs: Lab Results x24hrs 03/17/24 03/17/24 03/17/24 Range/Units 10:49 07:30 05:37 WBC (4.8-10.8) x10^3/uL RBC (4.20-5.40) 10^6/uL Hgb (12.0-16.0) g/dL Hct (37.0-47.0) % MCV (81.0-99.0) fL MCH (27.0-31.0) pg MCHC (32.0-36.0) g/dL RDW (12.0-15.0) % Plt Count (130-450) 10^3/uL MPV (7.9-10.8) fL Neut # (Auto) (1.5-6.6) 10^3/uL Lymph # (Auto) (1.5-3.5) 10^3/uL Citrus # (Auto) (0.0-1.0) 10^3/uL Eos # (Auto) (0.0-0.7) 10^3/uL Baso # (Auto) (0.0-0.1) 10^3/uL Absolute Nucleated RBC x10^3/uL Nucleated RBC % /100WBC Manual Slide Review Platelet Estimate (NORMAL) Platelet Morphology (NORMAL) RBC Morph Micro Appear 1+ OVALOCYTES (NORMAL) Sodium 137 (135-145) mmol/L Potassium 5.6 H (3.5-4.5) mmol/L Chloride 114 H (101-111) mmol/L Carbon Dioxide 17 L (21-32) mmol/L Anion Gap 6.0 (6-13) BUN 39 H (6-20) mg/dL Creatinine 1.5 H (0.6-1.3) mg/dL Estimated GFR (MDRD) 34 L (>89) Glucose 110 H (74-104) mg/dL POC Whole Bld Glucose 196 92 (70-100) mg/dL Calcium 9.4 (8.5-10.3) mg/dL Troponin I High Sens (2.3-14.8) ng/L 03/17/24 03/17/24 03/16/24 Range/Units 05:37 05:37 20:33 WBC 7.1 (4.8-10.8) x10^3/uL RBC 3.77 L (4.20-5.40) 10^6/uL Hgb 9.4 L (12.0-16.0) g/dL Hct 30.6 L (37.0-47.0) % MCV 81.2 (81.0-99.0) fL MCH 24.9 L (27.0-31.0) pg MCHC 30.7 L (32.0-36.0) g/dL RDW 23.7 H (12.0-15.0) % Plt Count 184 (130-450) 10^3/uL MPV 9.9 (7.9-10.8) fL Neut # (Auto) 4.7 (1.5-6.6) 10^3/uL Lymph # (Auto) 1.6 (1.5-3.5) 10^3/uL Citrus # (Auto) 0.6 (0.0-1.0) 10^3/uL Eos # (Auto) 0.1 (0.0-0.7) 10^3/uL Baso # (Auto) 0.0 (0.0-0.1) 10^3/uL Absolute Nucleated RBC 0.00 x10^3/uL Nucleated RBC % 0.0 /100WBC Manual Slide Review Indicated Platelet Estimate NORMAL (130-450,000) (NORMAL) Platelet Morphology NORMAL APPEARANCE (NORMAL) RBC Morph Micro Appear 1+ HYPOCHROMASIA 2+ ANISOCYTOSIS (NORMAL) Sodium (135-145) mmol/L Potassium (3.5-4.5) mmol/L Chloride (101-111) mmol/L Carbon Dioxide (21-32) mmol/L Anion Gap (6-13) BUN (6-20) mg/dL Creatinine (0.6-1.3) mg/dL Estimated GFR (MDRD) (>89) Glucose (74-104) mg/dL POC Whole Bld Glucose 243 (70-100) mg/dL Calcium (8.5-10.3) mg/dL Troponin I High Sens (2.3-14.8) ng/L 03/16/24 03/16/24 03/16/24 Range/Units 19:53 17:25 16:38 WBC (4.8-10.8) x10^3/uL RBC (4.20-5.40) 10^6/uL Hgb (12.0-16.0) g/dL Hct (37.0-47.0) % MCV (81.0-99.0) fL MCH (27.0-31.0) pg MCHC (32.0-36.0) g/dL RDW (12.0-15.0) % Plt Count (130-450) 10^3/uL MPV (7.9-10.8) fL Neut # (Auto) (1.5-6.6) 10^3/uL Lymph # (Auto) (1.5-3.5) 10^3/uL Citrus # (Auto) (0.0-1.0) 10^3/uL Eos # (Auto) (0.0-0.7) 10^3/uL Baso # (Auto) (0.0-0.1) 10^3/uL Absolute Nucleated RBC x10^3/uL Nucleated RBC % /100WBC Manual Slide Review Platelet Estimate (NORMAL) Platelet Morphology (NORMAL) RBC Morph Micro Appear (NORMAL) Sodium (135-145) mmol/L Potassium (3.5-4.5) mmol/L Chloride (101-111) mmol/L Carbon Dioxide (21-32) mmol/L Anion Gap (6-13) BUN (6-20) mg/dL Creatinine (0.6-1.3) mg/dL Estimated GFR (MDRD) (>89) Glucose (74-104) mg/dL POC Whole Bld Glucose 106 (70-100) mg/dL Calcium (8.5-10.3) mg/dL Troponin I High Sens 19.5 H* 18.8 H* (2.3-14.8) ng/L 03/16/24 03/16/24 Range/Units 14:06 13:09 WBC (4.8-10.8) x10^3/uL RBC (4.20-5.40) 10^6/uL Hgb (12.0-16.0) g/dL Hct (37.0-47.0) % MCV (81.0-99.0) fL MCH (27.0-31.0) pg MCHC (32.0-36.0) g/dL RDW (12.0-15.0) % Plt Count (130-450) 10^3/uL MPV (7.9-10.8) fL Neut # (Auto) (1.5-6.6) 10^3/uL Lymph # (Auto) (1.5-3.5) 10^3/uL Citrus # (Auto) (0.0-1.0) 10^3/uL Eos # (Auto) (0.0-0.7) 10^3/uL Baso # (Auto) (0.0-0.1) 10^3/uL Absolute Nucleated RBC x10^3/uL Nucleated RBC % /100WBC Manual Slide Review Platelet Estimate (NORMAL) Platelet Morphology (NORMAL) RBC Morph Micro Appear (NORMAL) Sodium (135-145) mmol/L Potassium (3.5-4.5) mmol/L Chloride (101-111) mmol/L Carbon Dioxide (21-32) mmol/L Anion Gap (6-13) BUN (6-20) mg/dL Creatinine (0.6-1.3) mg/dL Estimated GFR (MDRD) (>89) Glucose (74-104) mg/dL POC Whole Bld Glucose (70-100) mg/dL Calcium (8.5-10.3) mg/dL Troponin I High Sens 19.9 H* 20.3 H* (2.3-14.8) ng/L Assessment/Plan Problem List (1) Postural dizziness with near syncope: Impression: UA, echo ordered Telemetry has read normal sinus rhythm so far No syncopal episodes since Arrival (2) Hypertension: Impression: Lisinopril has been held as she has an acute kidney injury and high potassium Amlodipine Qualifiers: Hypertension type: unspecified Qualified Code(s): I10 - Essential (primary) hypertension (3) Diabetes: Impression: Continue Lantus 35 units subcu daily plus SSI Qualifiers: Diabetes mellitus type: type 2 (4) Acute kidney failure: Impression: Creatinine improved to 1.5 overnight. Potassium, however, increased to 5.6 Holding lisinopril 1 more liter IVF Recheck BMP (5) Fall: Impression: Patient experienced a fall while attempting to move from chair to bed. She fell forward onto her knees and elbows. Denies hitting her head. Full range of motion, only noted injuries are skin tears to her elbow and knee. Will continue to monitor
--- NOTE | 2024-03-17 14:07 | OT Plan of Care ---
OT Inpatient POC Diagnosis DIAGNOSIS Diagnosis: hyperkalemia, Fátima Diagnosis: Ataxia w/Wernickes Encephalopathy/ETOH Chief Complaint: near syncope, confusion Onset of Chief Complaint: prior to admit Referring Provider: Anand Mendoza MD MEDICAL/SURGICAL HISTORY Surgical History History of hernia repair Assessment and Goals ASSESSMENT Assessment: Pt is a 78 y/o female adm with ? syncope. Found to be in FÁTIM[place] with mild hyperkalemia. Baseline dementia, A&O to self and place, pleasantly confused. Follows commands with increased time. Performed supine to sit, sit to stand and ambulation to/from bathroom using 2WW MIN A; Toilet tx MIN A, hygiene MIN A. Pt is currently at her baseline; rec d/c home with 24 hr assist and HHOT/PT prn to ensure safety and support caregiver. No further skilled OT needed at this level of care. PATIENT/FAMILY GOALS Patient/Family Goals: Return to PLOF. OT Inpatient Plan PLAN Treatment Frequency: Evaluation only, no further O.T. Duration: Until goals are met -Discharge Recommendations Discharge Location: Previous Living Situation Support/Services Needed: Home Health O.T. Transport Needs at Discharge: Personal vehicle
[2024-03-17 14:46] LABS: ESTIMATED AVERAGE GLUCOSE 151 mg/dL (70-100); HEMOGLOBIN A1c% 6.9 % (4.27-6.07)
--- NOTE | 2024-03-17 15:59 | PT Plan of Care ---
PT Inpatient Plan of Care DIAGNOSIS Diagnosis: hyperkalemia, JULY Referring Provider: Billy Rowell Patient Status: Observation CHIEF COMPLAINT Chief Complaint: near syncope, confusion Onset of Chief Complaint: prior to admit MEDICAL/SURGICAL HISTORY Surgical History History of hernia repair BALANCE/FUNCTIONAL RESULTS Sitting Balance: Fair Standing Balance: Fair ASSESSMENT Assessment: OT in session. Pt is a 78 y.o female recently admitted with Postural dizziness with near syncope. She has a hx of diabetes on long-term insulin, PVD, hypertension, dementia, and acute kidney failure. Pt is A&Ox3 during evaluation but is easily confused and forgetful. She reports on social history but unable to verify. Pt reports living with her spouse Collin in a single level home, uses a FWW, no stairs and a walk-in shower. She states that her helps her with ADLs. initial BP in supine was 145/77. During the PT eval, pt demos trunk stability WFL and is able to complete supine to sit at EOB with Minx1, verbal cueing required to initiate and complete task. In sitting pt shows NORMAN LE ROM WFL but lacks NORMAN ROM in ankles. She is able to complete STS with MinAx1-2 with FWW. In standing pt reported feeling dizzy and weak which required her to sit back down, her BP was 145/77 not indicating syncope. Her 2nd STS she still required MinAx1-2 with FWW and pt wanted to use the restroom. She was able to amb MinAx1 with FWW to the bathroom; she worked on bathroom ADLS with OT. She demos a slow and unsteady gait that required guided direction to the commode, she maintains R ankle abduction but is able to lift and clear toes during amb. She amb around 12 ft with MinAx1 and FWW. When pt amb to her b/s chair she reported feeling very tired and felt like her LLE were weak, demos low activity tolerance. Throughout session patient required MinAx1 for tasks because she needed cueing to initiate and complete tasks. She demos lack of skill retention and after being told to complete a task she would immediately forget. Presents with low to no rehab potential. Eval only. When medically cleared PT recommends discharge to home with 24 hour assistance. PATIENT/FAMILY GOALS Patient/Family Goals: To return home GOALS Improve gait ability to:: Ind Advance Assistive Device to:: Front Wheeled Walker Increase distance walked to (in feet):: 100 Reduce verbal cues to:: 2 Reduce physical cues to:: 2 Improve Lower Extremity ROM to:: WFL Improve Lower Extremity Strength to:: Normal Improve Upper Extremity ROM to:: WFL Improve Upper Extremity Strength to:: Normal Improve Sitting Balance to:: Good PLAN Frequency: Evaluation only, no further P.T. Duration: Until goals are met DISCHARGE RECOMMENDATIONS Discharge Location: Previous Living Situation Support/Services Needed: 24 hr assist DC Equipment Recommended: Front wheeled walker Other Discharge Equipment: none Transport Needs at Discharge: Personal vehicle
[2024-03-17 16:38] LABS: BILIRUBIN,URINE NEGATIVE (NEGATIVE); GLUCOSE, URINE (UA) NEGATIVE (NEGATIVE); KETONES,URINE (UA) TRACE mg/dL (NEGATIVE); LEUKOCYTE ESTERASE, URINE MODERATE (NEGATIVE); NITRITE,URINE POSITIVE (NEGATIVE); OCCULT BLOOD,URINE LARGE (NEGATIVE); PH,URINE 5.5 PH (5.0-7.5); PROTEIN,URINE NEGATIVE (NEGATIVE); UROBILINOGEN,URINE 0.2 (NORMAL) E.U./dL (NORMAL)
[2024-03-17 17:03] LABS: BACTERIA,URINE Moderate /HPF (None Seen); CLARITY,URINE CLOUDY (CLEAR); RBC,URINE TNTC /HPF (0-5); SQUAMOUS EPITHELIAL CELL,UR MOD Squamous (<= Few); WBC,URINE >25 /HPF (0-5)
[2024-03-18 06:44] LABS: BASOPHILS # (AUTO) 0.1 10^3/uL (0.0-0.1); BASOPHILS % (AUTO) 0.5 %; EOSINOPHILS # (AUTO) 0.1 10^3/uL (0.0-0.7); HCT - HEMATOCRIT 33.9 % (37.0-47.0); HGB - HEMOGLOBIN 10.1 g/dL (12.0-16.0); LYMPHOCYTES % (AUTO) 21.8 %; MEAN CORPUSCULAR HEMOGLOBIN 24.9 pg (27.0-31.0); MEAN CORPUSCULAR HGB CONC 29.8 g/dL (32.0-36.0); MEAN CORPUSCULAR VOLUME 83.5 fL (81.0-99.0); MEAN PLATELET VOLUME 10.6 fL (7.9-10.8); MONOCYTES # (AUTO) 0.7 10^3/uL (0.0-1.0); MONOCYTES % (AUTO) 7.7 %; NEUTROPHILS # (AUTO) 6.3 10^3/uL (1.5-6.6); NEUTROPHILS % (AUTO) 68.6 %; PLT - PLATELET COUNT 187 10^3/uL (130-450); RED BLOOD COUNT 4.06 10^6/uL (4.20-5.40); RED CELL DISTRIBUTION WIDTH 23.9 % (12.0-15.0); WHITE BLOOD COUNT 9.2 x10^3/uL (4.8-10.8)
[2024-03-18 06:54] LABS: SLIDE REVIEW? Indicated
[2024-03-18 07:05] LABS: CALCIUM 9.9 mg/dL (8.5-10.3); CREATININE 1.4 mg/dL (0.6-1.3); POTASSIUM 5.6 mmol/L (3.5-4.5)
[2024-03-18 08:06] LABS: PLATELET ESTIMATE, MANUAL NORMAL (130-450,000) (NORMAL); PLATELET MORPHOLOGY NORMAL APPEARANCE (NORMAL); RBC MORPHOLOGY (MULTIPLE) 3+ ANISOCYTOSIS (NORMAL)
[2024-03-18] MEDS: FOSFOMYCIN TROMETHAMINE 3 GM PACKET PO ONE (08:18)
[2024-03-18 10:41] VITALS: O2SAT 99
--- NOTE | 2024-03-18 10:42 | Discharge Summary ---
Discharge Summary Admit Date: 03/16/24 Discharge Date: 03/18/24 Discharging Provider: Billy Rowell NP Primary Care Provider: More Franco Code Status: Attempt Resuscitation DIAGNOSES Admission Diagnoses: Near syncope JULY Diabetes mellitus, with long-term insulin use PVD Dementia Discharge Diagnoses with Status of Each Condition: Near syncoperesolved AKIactive Diabetes mellitus, with long-term insulin usechronic PVDchronic Dementiachronic HPI History of Present Illness: 78-year-old female H significant for insulin-dependent diabetes, PVD, hypertension, dementia with baseline orientation of x 1-2 presented to the ER after having several near syncopal episodes in the bathroom. She denies actual loss consciousness. Denies fever, chills, chest pain, shortness of breath, bowel/urine abnormalities, edema In the ER, she was noted to have a creatinine of 1.8, potassium 5.5, troponin 22.8. Hospitalist was contacted for observation for near-syncope workup and dehydration HOSPITAL COURSE Hospital Course: Patient was placed in observation and given aggressive IV fluid resuscitation. Echocardiogram was performed, results still pending. Telemetry showed chronic A-fib. She was evaluated by physical therapy, and they cleared her to return to previous living situation. Given her increased creatinine, I stopped her lisinopril and transitioned her to amlodipine. She may be developing a chronic kidney disease, but she was instructed to follow-up with PCP regarding this. UA was suggestive of UTI, she was given one-time dose of fosfomycin ALLERGIES Allergies Allergy/AdvReac Type Severity Reaction Status Date / Time gabapentin AdvReac Hallucinati Verified 03/16/24 09:56 ons MEDICATIONS Ambulatory Orders Medication Instructions Recorded Confirmed insulin glargine 100 unit/mL 35 units SQ DAILY 09/19/13 03/16/24 subcutaneous solution (Lantus U-100 Insulin) folic acid 1 mg tablet 1 mg PO DAILY 04/19/15 03/16/24 vitamin B complex (B-Complex 1 tab PO DAILY 04/19/15 03/16/24 tablet) digoxin 125 mcg (0.125 mg) tablet 125 mcg PO DAILY 04/16/16 03/16/24 dabigatran etexilate 150 mg 150 mg PO BID 01/12/18 03/16/24 capsule (Pradaxa) disulfiram 250 mg tablet (Antabuse) 250 mg PO DAILY 01/12/18 03/16/24 magnesium oxide 500 mg capsule 500 mg PO DAILY 11/07/23 03/16/24 pioglitazone 45 mg tablet (Actos) 45 mg PO DAILY 11/07/23 03/16/24 metformin 1,000 mg tablet 1,000 mg PO BID 03/16/24 03/16/24 omeprazole 20 mg capsule,delayed 20 mg PO DAILY 03/16/24 03/16/24 release sitagliptin phosphate 50 mg tablet 50 mg PO DAILY 03/16/24 03/16/24 (Januvia) amlodipine 5 mg tablet 10 mg (2 x 5 mg) PO DAILY 30 days 03/18/24 #60 tabs PHYSICAL EXAM AT DISCHARGE General Appearance: positive No acute distress and Alert Eyes Bilateral: positive Normal inspection and PERRL Respiratory: positive Chest non-tender and No respiratory distress Cardiovascular: positive Irregularly irregular Peripheral Pulses: positive Other (Diminished pedal pulses) Abdomen: positive Non-tender Skin: positive Other (Redness in legs associated with PVD) Extremities: positive Non-tender Neurologic/Psychiatric: positive Other (Oriented x 2, which is baseline for her. Pleasant, follows commands) LABS 03/18/24 05:58 03/18/24 05:58 FOLLOW UP Follow Up: With PCP TIME SPENT Time Spent in Discharge (Minutes): 25 Discharge Plan Discharge Patient Disposition: 01 Home, Self Care Medically Cleared Date:: 03/18/24 Prescriptions: New amlodipine 5 mg Tablet 10 mg PO DAILY 30 Days Qty: 60 0RF Continued insulin glargine [Lantus U-100 Insulin] 100 UNIT/1 ML solution 35 units SQ DAILY vitamin B complex [B-Complex] 1 EACH tablet 1 tab PO DAILY folic acid 1 MG tablet 1 mg PO DAILY digoxin 125 MCG tablet 125 mcg PO DAILY dabigatran etexilate [Pradaxa] 150 MG capsule 150 mg PO BID disulfiram [Antabuse] 250 MG tablet 250 mg PO DAILY pioglitazone [Actos] 45 MG tablet 45 mg PO DAILY magnesium oxide 500 MG capsule 500 mg PO DAILY metformin 1,000 mg tablet 1,000 mg PO BID Januvia 50 mg tablet 50 mg PO DAILY omeprazole 20 mg capsule,delayed release(DR/EC) 20 mg PO DAILY Discontinued lisinopril 40 mg tablet 40 mg PO DAILY Diet: Regular Health Concerns: You are a 78-year-old female with history significant for diabetes, hypertension, dementia who presented with near syncope while in the bathroom. Your workup was significant for an elevated creatinine, but it appears you have had elevated creatinine before and this may be a chronic kidney disease. You were held in observation and placed on telemetry which showed no acute abnormalities outside of your chronic A-fib. You underwent echocardiogram, results still pending. You were given aggressive IV fluid resuscitation. We performed a UA that did show concern for a UTI, so I have given you a one-time dose of fosfomycin. You were evaluated by physical therapy, and they recommended that she return to your prior living situation. I would like for you to stop taking lisinopril, as this has some nephrotoxic actions. I am switching you to amlodipine for your blood pressure. I would like for you to follow-up soon with your PCP specifically to check out your creatinine and your potassium levels. Please be sure to drink plenty of water. Please exercise caution when getting up, and do not bear down while on the toilet Plan of Treatment: Drink water Follow-up with PCP Print Language: Chinese Patient Instructions: ED Near Syncope Unkn Stand Alone Forms: PCP List
== END 2024-03-18 14:10 | disposition home or self-care (01) ==
LOC: MS2 09:43 → ED 09:43 → MS2 15:09
PROVIDERS: ADMIT Nurse Practitioner Acute Care; ATTEND Nurse Practitioner Acute Care
DX: S50.319A Abrasion of unspecified elbow, initial encounter; W18.30XA Fall on same level, unspecified, initial encounter; I48.20 Chronic atrial fibrillation, unspecified; F03.90 Unspecified dementia, unspecified severity, without behavioral disturbance, psychotic disturbance, mood disturbance, and anxiety; N17.9 Acute kidney failure, unspecified; E86.0 Dehydration; I11.9 Hypertensive heart disease without heart failure; R55 Syncope and collapse; Y92.230 Patient room in hospital as the place of occurrence of the external cause; Z79.84 Long term (current) use of oral hypoglycemic drugs; R42 Dizziness and giddiness; Z79.4 Long term (current) use of insulin; S80.219A Abrasion, unspecified knee, initial encounter; R56.9 Unspecified convulsions; E11.51 Type 2 diabetes mellitus with diabetic peripheral angiopathy without gangrene; I35.0 Nonrheumatic aortic (valve) stenosis

== ENCOUNTER 2024-06-21 10:33 | Inpatient (IN) ==
[2024-06-21 11:34] LABS: BASOPHILS # (AUTO) 0.1 10^3/uL (0.0-0.1); BASOPHILS % (AUTO) 0.6 %; EOSINOPHILS # (AUTO) 0.1 10^3/uL (0.0-0.7); EOSINOPHILS % (AUTO) 1.2 %; HCT - HEMATOCRIT 23.5 % (37.0-47.0); LYMPHOCYTES # (AUTO) 1.3 10^3/uL (1.5-3.5); LYMPHOCYTES % (AUTO) 14.4 %; MEAN CORPUSCULAR HEMOGLOBIN 23.4 pg (27.0-31.0); MEAN CORPUSCULAR HGB CONC 27.7 g/dL (32.0-36.0); MEAN CORPUSCULAR VOLUME 84.5 fL (81.0-99.0); MEAN PLATELET VOLUME 10.8 fL (7.9-10.8); MONOCYTES # (AUTO) 0.7 10^3/uL (0.0-1.0); MONOCYTES % (AUTO) 8.2 %; NEUTROPHILS # (AUTO) 6.6 10^3/uL (1.5-6.6); NEUTROPHILS % (AUTO) 75.1 %; PLT - PLATELET COUNT 243 10^3/uL (130-450); RED BLOOD COUNT 2.78 10^6/uL (4.20-5.40); RED CELL DISTRIBUTION WIDTH 17.3 % (12.0-15.0); WHITE BLOOD COUNT 8.8 x10^3/uL (4.8-10.8)
[2024-06-21 11:36] LABS: HGB - HEMOGLOBIN 6.5 g/dL (12.0-16.0)
--- NOTE | 2024-06-21 11:37 | ED Physician Documentation ---
History of Present Illness Stated complaint Stated Complaint: LAB REFERRAL Chief complaint Chief Complaint: General History obtained from History obtained from: Patient History of Present Illness Timing: Prior to arrival Additonal information Additional information: Patient is a 78-year-old female presenting to the emergency department after having a low hemoglobin level reported by her labs obtained at [facility] on Wednesday. Patient was called today and told to come in. She has past medical history of atrial fibrillation type 2 diabetes on insulin presenting with generalized fatigue and weakness. The symptoms have been going on for about a month. Initially she thought symptoms were secondary to bilateral leg swelling but she was started on hydrochlorothiazide and continued to have worsening leg swelling. She continues to have Meds/Allgy Home Medications Ambulatory Orders Medication Instructions Recorded Confirmed insulin glargine 100 unit/mL 35 units SQ DAILY 09/19/13 03/16/24 subcutaneous solution (Lantus U-100 Insulin) folic acid 1 mg tablet 1 mg PO DAILY 04/19/15 03/16/24 vitamin B complex (B-Complex 1 tab PO DAILY 04/19/15 03/16/24 tablet) digoxin 125 mcg (0.125 mg) tablet 125 mcg PO DAILY 04/16/16 03/16/24 dabigatran etexilate 150 mg 150 mg PO BID 01/12/18 03/16/24 capsule (Pradaxa) disulfiram 250 mg tablet (Antabuse) 250 mg PO DAILY 01/12/18 03/16/24 magnesium oxide 500 mg capsule 500 mg PO DAILY 11/07/23 03/16/24 pioglitazone 45 mg tablet (Actos) 45 mg PO DAILY 11/07/23 03/16/24 metformin 1,000 mg tablet 1,000 mg PO BID 03/16/24 03/16/24 omeprazole 20 mg capsule,delayed 20 mg PO DAILY 03/16/24 03/16/24 release sitagliptin phosphate 50 mg tablet 50 mg PO DAILY 03/16/24 03/16/24 (Januvia) amlodipine 10 mg tablet (Norvasc) 10 mg PO DAILY #30 tabs 03/18/24 levetiracetam 500 mg tablet 500 mg PO BID #60 tabs 03/18/24 (Keppra) hydrochlorothiazide 25 mg tablet 25 mg PO DAILY #30 tabs 05/23/24 Allergies Allergies Allergy/AdvReac Type Severity Reaction Status Date / Time gabapentin AdvReac Hallucinati Verified 06/21/24 10:56 ons [facility] Active Problems All Active Problems Elevated blood pressure reading (Acute) CHF (congestive heart failure) (Acute) Anemia (Acute) Acute dyspnea (Acute) Anemia (Acute) General weakness (Acute) Hypomagnesemia (Acute) COVID-19 (Acute) Contusion of right knee (Acute) Diabetes mellitus type 2 in obese (Acute) Alcohol withdrawal (Acute) Altered mental status (Acute) Wernicke encephalopathy (Acute) Sacral contusion (Acute) Toe fracture, left (Acute) Left ankle injury (Acute) Right knee sprain (Acute) Laceration of ankle (Acute) Accidental fall (Acute) Scalp contusion (Acute) Burn of thigh (Acute) Burn of abdomen wall (Acute) Fracture of femoral neck, left (Acute) Hyperlipidemia (Acute) Depression (Acute) Anticoagulant long-term use (Acute) Fall from slip, trip, or stumble (Acute) Femoral neck fracture (Acute) Occluded PICC line (Acute) Left shoulder pain (Acute) Diabetes 1.5, managed as type 1 (Acute) Atrial fibrillation with controlled ventricular response (Acute) Post-operative infection (Acute) Cellulitis (Acute) Bimalleolar fracture of left ankle (Acute) Closed fracture of right distal fibula (Acute) Head injury (Acute) Dizziness (Acute) Hypomagnesemia (Acute) Dehydration (Acute) Muscle weakness (Acute) Diarrhea (Acute) Proximal phalanx fracture of finger (Acute) Ankle sprain (Acute) Sprain of left foot (Acute) Macrocytic anemia (Acute) Open abdominal wall wound (Acute) Chronic abdominal wound infection (Acute) Atrial fibrillation (Acute) Ataxia (Acute) HOSPITAL ISSUES: (Acute) Cranial nerve III palsy (Acute) CVA - cerebrovascular accident due to cerebral artery occlusion (Acute) Sprain of ankle (Acute) Medical History Medical History Acute kidney failure Postural dizziness with near syncope Hypertension Diabetes Surgical History Surgical History History of hernia repair Social History Social History (Updated 05/23/24 @ 10:10 by Gerson Bauer RN) Smoking Status: Former smoker If you are a former smoker, when did you quit? (Date/Year): 1995 Number of Years Smoked: 20 How many cigarettes a day do you smoke? (20 cigarettes=1 Pk): 20 Second hand tobacco smoke exposure: No Do you dip or chew tobacco?: No Do you vape?: No Patient requests smoking cessation consult: No Initiate information on smoking cessation: No Living arrangement: At home Living Condition: With spouse/s.o. Relationship: Spouse Level: Assisted Home Mobility Equipment: Walker and Wheeled walker Do you feel safe in your home environment?: Yes Suffered physical, verbal, emotional, or financial abuse?: No History of Abuse: No Frequency: Occasional Control Method: None POLST Patient has POLST: Yes POLST Status: DNR Exam Constitutional normal general appearance HENMT normocephalic Eyes PERRL, EOMs intact bilaterally and conjunctivae normal Palllor to conjunctiva Neck/C-Spine visual inspection normal Lymph no lymphadenopathy noted Chest inspection of chest normal Respiratory breath sounds equal bilaterally, normal respiratory effort and clear to auscultation bilaterally Cardiovascular normal heart rate noted, regular rhythm noted, no gallop and no rub Gastrointestinal abdomen normal to inspection Genitourinary Rectal exam shows no melena stools on examination no signs of hemorrhoids Extremities normal to inspection Mild lower leg swelling Skin skin color normal Results Vitals Vitals: Vital Signs - 24 hr 06/21/24 10:50 06/21/24 13:01 06/21/24 13:23 Temperature 36.6 C 36.6 C 36.6 C Temperature Source Oral Oral Oral Pulse Rate 81 Pulse Rate [Monitoring electrodes] 86 83 Respiratory Rate 18 18 20 Blood Pressure 161/57 H Blood Pressure [Right Brachial artery] 176/75 H 178/63 H O2 Saturation 94 93 92 O2 Source Room air Room air Room air If not protocol: Oxygen Flow, liters/minute 0 Sedation scale 0-Fully awake 0-Fully awake Pain Intensity 0 0 Oxygen O2 Source [With Activity] Room air O2 Source Room air Labs Labs: Microbiology 06/21/24 11:20 Occult Blood - Final Stool Laboratory Tests 06/21/24 06/21/24 11:25 11:41 WBC 8.8 RBC 2.78 L Hgb 6.5 L* Hct 23.5 L MCV 84.5 MCH 23.4 L MCHC 27.7 L RDW 17.3 H Plt Count 243 MPV 10.8 Neut # (Auto) 6.6 Lymph # (Auto) 1.3 L Baldwin # (Auto) 0.7 Eos # (Auto) 0.1 Baso # (Auto) 0.1 Absolute Nucleated RBC 0.00 Nucleated RBC % 0.0 PT 19.7 H INR 1.9 H Sodium 140 Potassium 3.8 Chloride 108 Carbon Dioxide 22 Anion Gap 10.0 BUN 23 H Creatinine 1.3 Estimated GFR (MDRD) 40 L Glucose 109 H Calcium 8.9 Iron 15 L TIBC 452 H % Saturation 3 L Transferrin 323 Total Bilirubin 0.9 AST 19 ALT 14 Alkaline Phosphatase 98 Total Protein 6.8 Albumin 3.6 Globulin 3.2 Albumin/Globulin Ratio 1.1 Blood Type O POSITIVE Blood Type Recheck O POSITIVE Antibody Screen NEGATIVE Crossmatch IS Only See Detail PD Medical Decision Making ED course Complexity details: reviewed old records and reviewed results ED course: Patient is a 78-year-old female presenting with shortness of breath symptoms have been going on for a month. Patient's symptoms started with shortness of breath and now have progressed to weakness and fatigue. notes she has trouble getting across the living room with her walker which is something she was normally able to do a month ago. Patient is on Pradaxa for history of atrial fibrillation as well as digoxin. She is type II diabetic insulin- dependent. Patient has no dizziness or lightheadedness but has some shortness of breath without chest pain. Patient otherwise has been feeling fine. No lower leg swelling she recently started on hydrochlorothiazide for acute CHF exacerbation about 1 month ago. She was seen here at that time. On Wednesday patient had labs drawn that did not show concerning findings for anemia and was instructed to come to the emergency department. On arrival patient appears pale on exam but awake alert answering questions. She has a history of dementia and the majority of history was obtained from but patient is her own POA. CBC obtained here does show hemoglobin of 6.5. Patient was consented for blood transfusion and her CMP was unremarkable INR is stable at 2 and her guaiac was negative. Review of her previous hemoglobins that she has been here frequently over the last few months does show stable hemoglobin with a baseline closer to 8 or 8.4. Patient is at 6.5 today she will receive 1 unit of packed red blood cells. Patient agreeable with this plan. Given negative guaiac and slow decline in her hemoglobin patient will be given instructions to follow-up with her PCP for possible colonoscopy in the outpatient setting iron studies performed here did show low iron levels and patient can be started on a iron supplement at home. Patient while here in the ED finished her transfusion while she was ambulating to the bathroom. When she returned patient became extremely hypoxic saturating around 80% and was having trouble catching her breath after just a few short minutes. Patient became very agitated but was able to be calmed down and answer questions here in the ED. She was started on a nonrebreather as she was not breathing through her nose on the nasal cannula patient was placed on the nonrebreather around 15 L and she tolerated this much better chest x-ray was obtained as 1 was not obtained prior to this and results show signs of fluid overload significantly worse than previous. I discussed with patient and they are agreeable with admission. Patient will require IV diuretics for acute CHF. I do not suspect any transfusion related reaction at this time as she has completed the transfusion at this time she has remained afebrile and no significant peripheral edema at this time. Discharge Plan Discharge Prescriptions: No Action insulin glargine [Lantus U-100 Insulin] 100 UNIT/1 ML solution 35 units SQ DAILY vitamin B complex [B-Complex] 1 EACH tablet 1 tab PO DAILY folic acid 1 MG tablet 1 mg PO DAILY digoxin 125 MCG tablet 125 mcg PO DAILY dabigatran etexilate [Pradaxa] 150 MG capsule 150 mg PO BID disulfiram [Antabuse] 250 MG tablet 250 mg PO DAILY pioglitazone [Actos] 45 MG tablet 45 mg PO DAILY magnesium oxide 500 MG capsule 500 mg PO DAILY metformin 1,000 mg tablet 1,000 mg PO BID Januvia 50 mg tablet 50 mg PO DAILY omeprazole 20 mg capsule,delayed release(DR/EC) 20 mg PO DAILY amlodipine [Norvasc] 10 mg tablet 10 mg PO DAILY Qty: 30 2RF levetiracetam [Keppra] 500 mg tablet 500 mg PO BID Qty: 60 2RF hydrochlorothiazide 25 mg tablet 25 mg PO DAILY Qty: 30 0RF Print Language: Swedish Stand Alone Forms: PCP List
[2024-06-21 11:42] LABS: INR 1.9 (0.8-1.2); PT - PROTHROMBIN TIME 19.7 secs (9.9-12.6)
[2024-06-21 11:46] LABS: ALBUMIN 3.6 g/dL (3.2-5.5); ALBUMIN/GLOBULIN RATIO 1.1 (1.0-2.2); BILIRUBIN,TOTAL 0.9 mg/dL (0.2-1.0); CALCIUM 8.9 mg/dL (8.5-10.3); CREATININE 1.3 mg/dL (0.6-1.3); POTASSIUM 3.8 mmol/L (3.5-4.5); TOTAL PROTEIN 6.8 g/dL (6.4-8.9)
[2024-06-21 12:42] LABS: % IRON SATURATION 3 % (20-50); IRON 15 ug/dL (50-212); TOTAL IRON BINDING CAPACITY 452 ug/dL (250-450); TRANSFERRIN 323 mg/dL (203-362)
[2024-06-21] MEDS: FUROSEMIDE 20 MG/2 ML VIAL IVP STA (15:38)
--- NOTE | 2024-06-21 16:07 | XRAY Report ---
PROCEDURE: XR Chest 1V INDICATIONS: sob TECHNIQUE: One view of the chest was acquired. COMPARISON: 03/22/25 FINDINGS: Surgical changes and devices: None. Lungs and pleura: Question subtle interstitial pulmonary edema. Mild to moderate pleural effusion wi th right basilar atelectasis. Patchy left basilar atelectasis. Mediastinum: Mediastinal contours appear normal. Heart size is mildly enlarged. Bones and chest wall: No suspicious bony lesions. Overlying soft tissues appear unremarkable. IMPRESSION: Findings likely represent a congestive heart failure exacerbation. Reviewed by: Anand Robles MD on 06/21/2024 4:06 PM PDT Approved by: Anand Robles MD on 06/21/2024 4:06 PM PDT Station ID: [id number]
[2024-06-21 16:45] LABS: B. PARAPERTUSSIS- RESP PCR PAN NOT DETECTED; B. PERTUSSIS- RESP PCR PANEL NOT DETECTED; C. PNEUMONIAE- RESP PCR PANEL NOT DETECTED; CORONAVIRUS 229E-RESP PCR NOT DETECTED; CORONAVIRUS HKU1-RESP PCR NOT DETECTED; CORONAVIRUS NL63-RESP PCR NOT DETECTED; CORONAVIRUS OC43-RESP PCR NOT DETECTED; HUMAN METAPNEUMOVIRUS NOT DETECTED; INFLUENZA A- RESP PCR PANEL NOT DETECTED; INFLUENZA B - RESP PCR PANEL NOT DETECTED; M. PNEUMONIAE- RESP PCR PANEL NOT DETECTED; PARAINFLUENZA VIRUS 1 NOT DETECTED; PARAINFLUENZA VIRUS 2 NOT DETECTED; PARAINFLUENZA VIRUS 4 NOT DETECTED; RHINOVIRUS/ENTEROVIRUS NOT DETECTED; RSV- RESP PCR PANEL NOT DETECTED; SARS-CoV-2 -RESP PCR PANEL NOT DETECTED
--- NOTE | 2024-06-21 18:11 | HISTORY & PHYSICAL EXAMINATION ---
<Statement entered by Billy Rowell DNP - 06/21/24 18:59> Patient was seen and examined by me with a separate encounter after being seen by EMETERIO student. I reviewed the student's documentation including patient history, physical examination, laboratory, imaging, clinical assessment and treatment plan. I have discussed the management of the patient with the student, and with the patient. There are no changes. 78-year-old female history of heart failure who came in as directed for anemia. She received 1 unit PRBC, and then had difficulty breathing. Unsure at this time if this is transfusion reaction or heart failure exacerbation. Transfusion reaction protocol has been initiated. I am diuresing her for probable CHF exacerbation Chief Complaint Chief Complaint Chief Complaint: SOB/ KING History of Present Illness Admitted From Admitted From:: ER History Obtained From History obtained from: Patient History of Present Illness HPI Comment/Other: Silvia is a 78 year old female with a history of anemia, CHF, dyspnea, diabetes, Afib. She was told by external provider to go to the ER this afternoon after having a low hemoglobin level reported by her labs obtained at [facility] on Wednesday. She arrived at the ER presenting with generalized fatigue and weakness x 1 month. Her hemoglobin was reported as 6.5 so she was transfused with 1 unit of packed red blood cells. There were no signs of bleeding on ER workup -- negative guaiac, INR 2. After transfusion and ambulating to the bathroom, the patient became extremely hypoxic w/ a O2 sat of around 80%. She was placed on 15L nonrebreather after not understanding how to breath through her nose with the cannula. CXR was obtained and showed signs of pulmonary edema. After she stabilized on nasal cannula, we tried removing supplemental oxygen and her O2 saturation remained stable in the 90s. An oxygenation desaturation study was then performed and she became extremely hypoxic again. Since she is independent and ambulates with a wheelchair outside of the hospital and has signs of congestive heart failure exacerbation, she will be admitted for observation and diuretics. Talking with the patient she seemed very calm and not concerned. She said she doesn't remember things very well so her is better to talk to for details. Meds/Allgy Home Medications Ambulatory Orders Medication Instructions Recorded Confirmed insulin glargine 100 unit/mL 35 units SQ DAILY 09/19/13 03/16/24 subcutaneous solution (Lantus U-100 Insulin) folic acid 1 mg tablet 1 mg PO DAILY 04/19/15 03/16/24 vitamin B complex (B-Complex 1 tab PO DAILY 04/19/15 03/16/24 tablet) digoxin 125 mcg (0.125 mg) tablet 125 mcg PO DAILY 04/16/16 03/16/24 dabigatran etexilate 150 mg 150 mg PO BID 01/12/18 03/16/24 capsule (Pradaxa) disulfiram 250 mg tablet (Antabuse) 250 mg PO DAILY 01/12/18 03/16/24 magnesium oxide 500 mg capsule 500 mg PO DAILY 11/07/23 03/16/24 pioglitazone 45 mg tablet (Actos) 45 mg PO DAILY 11/07/23 03/16/24 metformin 1,000 mg tablet 1,000 mg PO BID 03/16/24 03/16/24 omeprazole 20 mg capsule,delayed 20 mg PO DAILY 03/16/24 03/16/24 release sitagliptin phosphate 50 mg tablet 50 mg PO DAILY 03/16/24 03/16/24 (Januvia) amlodipine 10 mg tablet (Norvasc) 10 mg PO DAILY #30 tabs 03/18/24 levetiracetam 500 mg tablet 500 mg PO BID #60 tabs 03/18/24 (Keppra) hydrochlorothiazide 25 mg tablet 25 mg PO DAILY #30 tabs 05/23/24 Allergies Allergies Allergy/AdvReac Type Severity Reaction Status Date / Time gabapentin AdvReac Hallucinati Verified 06/21/24 10:56 ons [facility] Active Problems All Active Problems (Updated 06/21/24 @ 18:18 by Anuradha Morton) Dementia (Acute) Acute exacerbation of CHF (congestive heart failure) (Acute) Elevated blood pressure reading (Acute) CHF (congestive heart failure) (Acute) Anemia (Acute) Acute dyspnea (Acute) Anemia (Acute) General weakness (Acute) Hypomagnesemia (Acute) COVID-19 (Acute) Contusion of right knee (Acute) Diabetes mellitus type 2 in obese (Acute) Alcohol withdrawal (Acute) Altered mental status (Acute) Wernicke encephalopathy (Acute) Sacral contusion (Acute) Toe fracture, left (Acute) Left ankle injury (Acute) Right knee sprain (Acute) Laceration of ankle (Acute) Accidental fall (Acute) Scalp contusion (Acute) Burn of thigh (Acute) Burn of abdomen wall (Acute) Fracture of femoral neck, left (Acute) Hyperlipidemia (Acute) Depression (Acute) Anticoagulant long-term use (Acute) Fall from slip, trip, or stumble (Acute) Femoral neck fracture (Acute) Occluded PICC line (Acute) Left shoulder pain (Acute) Diabetes 1.5, managed as type 1 (Acute) Atrial fibrillation with controlled ventricular response (Acute) Post-operative infection (Acute) Cellulitis (Acute) Bimalleolar fracture of left ankle (Acute) Closed fracture of right distal fibula (Acute) Head injury (Acute) Dizziness (Acute) Hypomagnesemia (Acute) Dehydration (Acute) Muscle weakness (Acute) Diarrhea (Acute) Proximal phalanx fracture of finger (Acute) Ankle sprain (Acute) Sprain of left foot (Acute) Macrocytic anemia (Acute) Open abdominal wall wound (Acute) Chronic abdominal wound infection (Acute) Atrial fibrillation (Acute) Ataxia (Acute) HOSPITAL ISSUES: (Acute) 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 (Date/Year): 1995 Number of Years Smoked: 20 How many cigarettes a day do you smoke? (20 cigarettes=1 Pk): 20 Second hand tobacco smoke exposure: No Do you dip or chew tobacco?: No Do you vape?: No Patient requests smoking cessation consult: No Initiate information on smoking cessation: No Living arrangement: At home Living Condition: With spouse/s.o. Relationship: Spouse Level: Assisted Home Mobility Equipment: Walker and Wheeled walker Do you feel safe in your home environment?: Yes Suffered physical, verbal, emotional, or financial abuse?: No History of Abuse: No Frequency: Occasional Control Method: None POLST Patient has POLST: Yes POLST Status: DNR Review of Systems Constitutional Reports: Fatigue and Weakness Endocrine Reports: Fatigue Exam Exam Elderly female Constitutional normal general appearance and no apparent distress overweight HENMT normocephalic, head/scalp atraumatic and external nose normal Eyes PERRL and EOMs intact bilaterally Neck/C-Spine trachea midline and cervical full ROM noted Respiratory breath sounds equal bilaterally, no wheezes, no rales and no use of accessory muscles Fine crackles. Short inspiratory and expiratory phase. Decreased tidal volume. Cardiovascular no gallop, no rub and no JVD Irregularly irregular heart rhythm. Possible murmur heard best over LSB. Gastrointestinal abdomen normal to inspection, abdomen soft to palpation, nontender to palpation, nondistended and normoactive bowel sounds Genitourinary bladder normal to palpation Extremities Mild bilateral LE edema. Neurology advertising coordinator II-XII intact and speech normal Skin skin color normal and no jaundice Conclusion/Plan Problem List (1) Acute exacerbation of CHF (congestive heart failure): Plan: Presentation of hypoxia and KING so CXR was obtained. The results showed pulmonary edema. * Continue Lasix 20 mg BID that was initated in the ER * Will monitor kidney function by obtaining daily BMP * Troponin 28.4 * BNP 555 Qualifiers: Heart failure type: unspecified Qualified Code(s): I50.9 - Heart failure, unspecified (2) Anemia: Plan: Presented to ER with hemoglobin 6.5 and received one unit of pack red blood cells. Transfusion reaction protocol has been initiated, but we are not sure if it was a reaction or an acute exacerbation of CHF. * Will continue to monitor hemoglobin with daily CBC. * Plan to replete iron * Post transfusion H&H * Iron 15 (3) Dementia: Plan: Patient reported that she has dementia and was not the best historian. She suggested most of the information be discussed with her . She has a DNR and is her own POA. With this diagnosis, it is not recommended to provide her with home oxygen. The goal is to diurese her which should improve her respiratory symptoms. (4) Hypertension: Plan: Chronic issue. She has been hypertensive since arrival in the ER. Past vital records show that her blood pressure is not controlled. Plan to continue home medications once confirmed. * Home medications: * Hydrochlorothiazide 25 mg PO Daily * Amlodipine 10 mg PO Daily Qualifiers: Hypertension type: unspecified Qualified Code(s): I10 - Essential (primary) hypertension (5) Diabetes: Plan: Review of her chart shows history of hyperglycemia. Unsure how her medications are managed at home and what her diet is like. Plan to continue home medications and adjust accordingly. * Continue w/ Lantus after pharmacy review * SSI * Order carb controlled diet * Monitor glucose ACHS Qualifiers: Diabetes mellitus type: type 2 (6) Atrial fibrillation with controlled ventricular response: Plan: Presented in Afib in the ER. Plan to restart with home medication, Digoxin, after pharmacy review. * Will monitor for digoxin toxicity with lab work * Prev. Digoxin 125 mcg PO daily * Restart Pradaxa [address] in observation. She is nondecisional but POLST form indicates DNR and DNI. Lab Results Lab results reviewed: Yes 06/21/24 11:25 06/21/24 11:25 Diagnostic Imaging Results Diagnostic Imaging Results: positive Final report reviewed Diagnostic Imaging Results Comments: 06/21/24 CXR: * Question subtle interstitial pulmonary edema. Mild to moderate pleural effusion with right basilar atelectasis. Patchy left basilar atelectasis. * Findings likely represent a congestive heart failure exacerbation. * Heart size is mildly enlarged. Core Measures Anticipated LOS I expect patient to be DC'd or transferred within 96 hours.: Yes DVT/VTE - Prophylaxis VTE/DVT Device ordered at admit?: No VTE/DVT Prophylaxis med ordered at admit?: Yes
[2024-06-21] MEDS ORDERED: ONDANSETRON ODT 4 MG TABLET TL PRN (18:35)
[2024-06-21] MEDS ORDERED: ACETAMINOPHEN 325 MG TABLET PO PRN (18:35)
[2024-06-21] MEDS ORDERED: SODIUM CHLORIDE FLUSH 0.9% 10 ML SYRINGE IVP PRN (18:35)
[2024-06-21] MEDS ORDERED: ONDANSETRON 4 MG/2 ML VIAL IVP PRN (18:35)
[2024-06-21] MEDS: FUROSEMIDE 20 MG/2 ML VIAL IVP SCH (19:11)
[2024-06-21 19:13] LABS: HCT - HEMATOCRIT 26.6 % (37.0-47.0); HGB - HEMOGLOBIN 7.8 g/dL (12.0-16.0)
[2024-06-21] MEDS ORDERED: COD LIVER OIL/ZINC OXIDE 113 GM TUBE TOP PRN (20:42)
[2024-06-21] MEDS: APIXABAN 5 MG TABLET PO SCH (20:52)
[2024-06-21] MEDS: INSULIN LISPRO 300 UNIT/3 ML PEN SUBQ SCH (20:53)
[2024-06-22] MEDS: SODIUM CHLORIDE FLUSH 0.9% 10 ML SYRINGE IVP SCH (00:30)
[2024-06-22 04:25] LABS: BASOPHILS % (AUTO) 0.5 %; EOSINOPHILS # (AUTO) 0.1 10^3/uL (0.0-0.7); EOSINOPHILS % (AUTO) 1.3 %; HCT - HEMATOCRIT 23.7 % (37.0-47.0); LYMPHOCYTES # (AUTO) 1.3 10^3/uL (1.5-3.5); LYMPHOCYTES % (AUTO) 16.8 %; MEAN CORPUSCULAR HEMOGLOBIN 24.8 pg (27.0-31.0); MEAN CORPUSCULAR HGB CONC 28.7 g/dL (32.0-36.0); MEAN CORPUSCULAR VOLUME 86.5 fL (81.0-99.0); MEAN PLATELET VOLUME 11.3 fL (7.9-10.8); MONOCYTES # (AUTO) 0.7 10^3/uL (0.0-1.0); MONOCYTES % (AUTO) 8.7 %; NEUTROPHILS # (AUTO) 5.6 10^3/uL (1.5-6.6); NEUTROPHILS % (AUTO) 72.6 %; NRBC ABSOLUTE COUNT (AUTO) 0.02 x10^3/uL; NUCLEATED RED BLOOD CELLS AUTO 0.3 /100WBC; PLT - PLATELET COUNT 201 10^3/uL (130-450); RED BLOOD COUNT 2.74 10^6/uL (4.20-5.40); RED CELL DISTRIBUTION WIDTH 17.2 % (12.0-15.0); WHITE BLOOD COUNT 7.7 x10^3/uL (4.8-10.8)
[2024-06-22 04:29] LABS: HGB - HEMOGLOBIN 6.8 g/dL (12.0-16.0)
[2024-06-22 04:39] LABS: CREATININE 1.2 mg/dL (0.6-1.3)
[2024-06-22] MEDS: FERROUS SULFATE 325 MG TABLET PO SCH (08:02)
[2024-06-22] MEDS: amLODIPine 5 MG TABLET PO SCH (08:10)
--- NOTE | 2024-06-22 09:50 | PROVIDER PROGRESS NOTE ---
<Statement entered by Billy Rowell DNP - 06/22/24 16:01> Patient was seen and examined by me with a separate encounter after being seen by EMETERIO student. I reviewed the student's documentation including patient history, physical examination, laboratory, imaging, clinical assessment and treatment plan. I have discussed the management of the patient with the student, and with the patient. There are no changes. Ordered additional unit of blood and IV iron repletion. Follow-up H&H. I added her home dose of 35 units of Lantus in addition to SSI. Glucose checks ACHS. Continue twice daily Lasix 20 mg IV push while monitoring renal function on daily BMP for toxicity Subjective Prog Note Date Prog Note Date: 06/22/24 Prog Note Time: 09:48 Subjective Subjective: Silvia is a 78 year old female with a history of CHF, afib, anemia, hypertension, dementia, and type 2 diabetes with insulin. She was admitted from the ER 06/21/24 for acute exacerbation of her CHF presenting with two hypoxic events, post PRBC transfusion and, once she stabilized, during an oxygenation desaturation study. Today the patient reports feeling okay but her breathing is worse, "just harder". She denies any chest pain, fever, chills, cough, headache, leg pain, back pain, abdominal pain, or urinary issues. She reports sleeping okay last night and has no other concerns. Current Medications Current Medications Current Medications: Current Medications Generic Name Dose Route Start Last Admin Trade Name Freq PRN Reason Stop Dose Admin Acetaminophen 650 mg 06/21/24 18:35 Acetaminophen 325 Mg Tablet PO Q4HR PRN Pain 1 to 4, or Fever Amlodipine Besylate 5 mg 06/22/24 09:00 06/22/24 08:10 Amlodipine 5 Mg Tablet PO 5 mg DAILY NORA Administration Apixaban 5 mg 06/21/24 21:00 06/22/24 08:02 Apixaban 5 Mg Tablet PO 5 mg BID NORA Administration Ferrous Sulfate 325 mg 06/22/24 08:00 06/22/24 08:02 Ferrous Sulfate 325 Mg Tablet PO 325 mg BIDWM NORA Administration Furosemide 20 mg 06/21/24 18:35 06/22/24 06:19 Furosemide 20 Mg/2 Ml Vial IVP 20 mg BIDDIURETIC NORA Administration Insulin Human Lispro 1 - 5 unit 06/21/24 21:00 06/22/24 08:02 Insulin Lispro 300 Unit/3 Ml Pen SUBQ 1 unit 0800,1200,1700,2100 [facility] Administration Protocol Ondansetron HCl 4 mg 06/21/24 18:35 Ondansetron Odt 4 Mg Tablet TL Q6HR PRN Nausea / Vomiting Ondansetron HCl 4 mg 06/21/24 18:35 Ondansetron 4 Mg/2 Ml Vial IVP Q6HR PRN Nausea / Vomiting Sodium Chloride 10 ml 06/21/24 18:35 Sodium Chloride Flush 0.9% 10 Ml Syringe IVP PRN PRN NEEDED PER PROVIDER ORDERS Sodium Chloride 10 ml 06/22/24 01:00 06/22/24 08:10 Sodium Chloride Flush 0.9% 10 Ml Syringe IVP 10 ml 0100,0900,1700 [facility] Administration Zinc Oxide 113 gm 06/21/24 20:42 Cod Liver Oil/Zinc Oxide 113 Gm Tube TOP PRN PRN Skin Care Objective Vital Signs/Intake & Output Reviewed Vital Signs: Yes Vital Signs: Vital Signs x48h Temp Pulse Resp BP Pulse Ox O2 Flow Rate 06/22/24 08:18 36.9 C 106 H 28 H 167/76 H 90 L 2 06/22/24 06:00 36.8 C 87 22 117/63 93 2 Intake & Output: Intake & Output 06/19/24 06/20/24 06/21/24 06/22/24 23:59 23:59 23:59 23:59 Intake Total 975 / 975 240 / 240 Output Total 300 / 300 1050 / 1050 Balance 675 / 675 -810 / -810 Weight (kg) 98 kg Objective General Appearance: positive Other (Alert and interactive. Mild respiratory distress with exertion. ) Eyes Bilateral: positive Normal inspection, PERRL and EOMI ENT: positive ENT inspection nml and No signs of dehydration Respiratory: positive Chest non-tender and Other (Labored breathing worsened with any type of movement. Decreased tidal volume. Short inspiratory expiratory phase. ) Cardiovascular: positive No murmur, No gallop, Irregularly irregular and Tachycardia Peripheral Pulses: 1+: Dorsalis pedis (R) and 1+: Dorsalis pedis (L) Abdomen: positive Non-tender, No organomegaly, Nml bowel sounds and No distention Back: positive Nml inspection Skin: positive Color nml, Warm, Dry and Other (Decreased hair growth on LE. ) Extremities: positive Non-tender and Other (No calf tenderness, mass, or erythema. Negative Gianna's sign. Mild edema L>R. Bilateral plantar neuropathy, unchanged. ) Neurologic/Psychiatric: positive Oriented x3, CN's nml (2-12), Motor nml and Mood/affect nml Lab Results 06/22/24 04:06 06/22/24 04:06 Other Labs: Labs were reviewed and results of note added below: * Hematology * Hgb trend -- (initial) 6.5 --> 7.8 --> 6.5 * Coagulation 3/12 * PT 19.7 * INR 1.9 * Chemistry * BUN 23, unchanged * eGFR 44, prev. 40 * glucose (F) 152 * HbA1c 6.1 * Viral panel -- negative Lab Results x24hrs 06/22/24 06/22/24 06/21/24 Range/Units 07:40 04:06 20:24 WBC 7.7 (4.8-10.8) x10^3/uL RBC 2.74 L (4.20-5.40) 10^6/uL Hgb 6.8 L* (12.0-16.0) g/dL Hct 23.7 L (37.0-47.0) % MCV 86.5 (81.0-99.0) fL MCH 24.8 L (27.0-31.0) pg MCHC 28.7 L (32.0-36.0) g/dL RDW 17.2 H (12.0-15.0) % Plt Count 201 (130-450) 10^3/uL MPV 11.3 H (7.9-10.8) fL Neut # (Auto) 5.6 (1.5-6.6) 10^3/uL Lymph # (Auto) 1.3 L (1.5-3.5) 10^3/uL [place] # (Auto) 0.7 (0.0-1.0) 10^3/uL Eos # (Auto) 0.1 (0.0-0.7) 10^3/uL Baso # (Auto) 0.0 (0.0-0.1) 10^3/uL Absolute Nucleated RBC 0.02 x10^3/uL Nucleated RBC % 0.3 /100WBC PT (9.9-12.6) secs INR (0.8-1.2) Sodium 140 (135-145) mmol/L Potassium 4.0 (3.5-4.5) mmol/L Chloride 107 (101-111) mmol/L Carbon Dioxide 23 (21-32) mmol/L Anion Gap 10.0 (6-13) BUN 23 H (6-20) mg/dL Creatinine 1.2 (0.6-1.3) mg/dL Estimated GFR (MDRD) 44 L (>89) Glucose 152 H (74-104) mg/dL POC Whole Bld Glucose 158 152 (70-100) mg/dL Calcium 9.0 (8.5-10.3) mg/dL Iron (50-212) ug/dL TIBC (250-450) ug/dL % Saturation (20-50) % Transferrin (203-362) mg/dL Total Bilirubin (0.2-1.0) mg/dL AST (10-42) IU/L ALT (10-60) IU/L Alkaline Phosphatase (42-121) IU/L Troponin I High Sens (2.3-14.8) ng/L B-Natriuretic Peptide (5-100) pg/mL Total Protein (6.4-8.9) g/dL Albumin (3.2-5.5) g/dL Globulin (2.1-4.2) g/dL Albumin/Globulin Ratio (1.0-2.2) Nasal Adenovirus (PCR) Nasal B. parapertussis DNA (PCR) Nasal Coronavir 229E PCR Nasal Coronavir HKU1 PCR Nasal Coronavir NL63 PCR Nasal Coronavir OC43 PCR Nasal Enterovir/Rhinovir PCR Nasal Influenza B PCR Nasal Influenza A PCR Nasal Parainfluen 1 PCR Nasal Parainfluen 2 PCR Nasal Parainfluen 3 PCR Nasal Parainfluen 4 PCR Nasal RSV (PCR) Nasal B.pertussis DNA PCR Nasal C.pneumoniae (PCR) Dawson Human Metapneumo PCR Nasal M.pneumoniae (PCR) Nasal SARS-CoV-2 (PCR) Blood Type Blood Type Recheck Antibody Screen Crossmatch IS Only 06/21/24 06/21/24 06/21/24 Range/Units 19:08 15:53 15:49 WBC (4.8-10.8) x10^3/uL RBC (4.20-5.40) 10^6/uL Hgb 7.8 L (12.0-16.0) g/dL Hct 26.6 L (37.0-47.0) % MCV (81.0-99.0) fL MCH (27.0-31.0) pg MCHC (32.0-36.0) g/dL RDW (12.0-15.0) % Plt Count (130-450) 10^3/uL MPV (7.9-10.8) fL Neut # (Auto) (1.5-6.6) 10^3/uL Lymph # (Auto) (1.5-3.5) 10^3/uL [place] # (Auto) (0.0-1.0) 10^3/uL Eos # (Auto) (0.0-0.7) 10^3/uL Baso # (Auto) (0.0-0.1) 10^3/uL Absolute Nucleated RBC x10^3/uL Nucleated RBC % /100WBC PT (9.9-12.6) secs INR (0.8-1.2) Sodium (135-145) mmol/L Potassium (3.5-4.5) mmol/L Chloride (101-111) mmol/L Carbon Dioxide (21-32) mmol/L Anion Gap (6-13) BUN (6-20) mg/dL Creatinine (0.6-1.3) mg/dL Estimated GFR (MDRD) (>89) Glucose (74-104) mg/dL POC Whole Bld Glucose (70-100) mg/dL Calcium (8.5-10.3) mg/dL Iron (50-212) ug/dL TIBC (250-450) ug/dL % Saturation (20-50) % Transferrin (203-362) mg/dL Total Bilirubin (0.2-1.0) mg/dL AST (10-42) IU/L ALT (10-60) IU/L Alkaline Phosphatase (42-121) IU/L Troponin I High Sens 28.4 H* (2.3-14.8) ng/L B-Natriuretic Peptide 555 H (5-100) pg/mL Total Protein (6.4-8.9) g/dL Albumin (3.2-5.5) g/dL Globulin (2.1-4.2) g/dL Albumin/Globulin Ratio (1.0-2.2) Nasal Adenovirus (PCR) NOT DETECTED Nasal B. parapertussis DNA (PCR) NOT DETECTED Nasal Coronavir 229E PCR NOT DETECTED Nasal Coronavir HKU1 PCR NOT DETECTED Nasal Coronavir NL63 PCR NOT DETECTED Nasal Coronavir OC43 PCR NOT DETECTED Nasal Enterovir/Rhinovir PCR NOT DETECTED Nasal Influenza B PCR NOT DETECTED Nasal Influenza A PCR NOT DETECTED Nasal Parainfluen 1 PCR NOT DETECTED Nasal Parainfluen 2 PCR NOT DETECTED Nasal Parainfluen 3 PCR NOT DETECTED Nasal Parainfluen 4 PCR NOT DETECTED Nasal RSV (PCR) NOT DETECTED Nasal B.pertussis DNA PCR NOT DETECTED Nasal C.pneumoniae (PCR) NOT DETECTED Dawson Human Metapneumo PCR NOT DETECTED Nasal M.pneumoniae (PCR) NOT DETECTED Nasal SARS-CoV-2 (PCR) NOT DETECTED Blood Type Blood Type Recheck Antibody Screen Crossmatch IS Only 06/21/24 06/21/24 Range/Units 11:41 11:25 WBC 8.8 (4.8-10.8) x10^3/uL RBC 2.78 L (4.20-5.40) 10^6/uL Hgb 6.5 L* (12.0-16.0) g/dL Hct 23.5 L (37.0-47.0) % MCV 84.5 (81.0-99.0) fL MCH 23.4 L (27.0-31.0) pg MCHC 27.7 L (32.0-36.0) g/dL RDW 17.3 H (12.0-15.0) % Plt Count 243 (130-450) 10^3/uL MPV 10.8 (7.9-10.8) fL Neut # (Auto) 6.6 (1.5-6.6) 10^3/uL Lymph # (Auto) 1.3 L (1.5-3.5) 10^3/uL [place] # (Auto) 0.7 (0.0-1.0) 10^3/uL Eos # (Auto) 0.1 (0.0-0.7) 10^3/uL Baso # (Auto) 0.1 (0.0-0.1) 10^3/uL Absolute Nucleated RBC 0.00 x10^3/uL Nucleated RBC % 0.0 /100WBC PT 19.7 H (9.9-12.6) secs INR 1.9 H (0.8-1.2) Sodium 140 (135-145) mmol/L Potassium 3.8 (3.5-4.5) mmol/L Chloride 108 (101-111) mmol/L Carbon Dioxide 22 (21-32) mmol/L Anion Gap 10.0 (6-13) BUN 23 H (6-20) mg/dL Creatinine 1.3 (0.6-1.3) mg/dL Estimated GFR (MDRD) 40 L (>89) Glucose 109 H (74-104) mg/dL POC Whole Bld Glucose (70-100) mg/dL Calcium 8.9 (8.5-10.3) mg/dL Iron 15 L (50-212) ug/dL TIBC 452 H (250-450) ug/dL % Saturation 3 L (20-50) % Transferrin 323 (203-362) mg/dL Total Bilirubin 0.9 (0.2-1.0) mg/dL AST 19 (10-42) IU/L ALT 14 (10-60) IU/L Alkaline Phosphatase 98 (42-121) IU/L Troponin I High Sens (2.3-14.8) ng/L B-Natriuretic Peptide (5-100) pg/mL Total Protein 6.8 (6.4-8.9) g/dL Albumin 3.6 (3.2-5.5) g/dL Globulin 3.2 (2.1-4.2) g/dL Albumin/Globulin Ratio 1.1 (1.0-2.2) Nasal Adenovirus (PCR) Nasal B. parapertussis DNA (PCR) Nasal Coronavir 229E PCR Nasal Coronavir HKU1 PCR Nasal Coronavir NL63 PCR Nasal Coronavir OC43 PCR Nasal Enterovir/Rhinovir PCR Nasal Influenza B PCR Nasal Influenza A PCR Nasal Parainfluen 1 PCR Nasal Parainfluen 2 PCR Nasal Parainfluen 3 PCR Nasal Parainfluen 4 PCR Nasal RSV (PCR) Nasal B.pertussis DNA PCR Nasal C.pneumoniae (PCR) Dawson Human Metapneumo PCR Nasal M.pneumoniae (PCR) Nasal SARS-CoV-2 (PCR) Blood Type O POSITIVE Blood Type Recheck O POSITIVE Antibody Screen NEGATIVE Crossmatch IS Only See Detail ABX Reporting Has patient been on IV antibiotics over the past 48 hours?: No Sepsis Event Note (H) Evaluation Current Stage of Sepsis: Ruled out Assessment/Plan Problem List (1) Acute exacerbation of CHF (congestive heart failure): Impression: She is still experiencing SOB especially with exertion. Supplemental O2 has been between 2-3L with her stating at 90-94%. She had another hypoxic event when a PRBC transfusion was attempted again, but we assume this is due to fluid overload. We will attempt to transfuse her at a slower rate to avoid overloading her again and adjust Lasix if indicated. * Transfuse 1 unit PRBC - watching for fluid overload * Continue Lasix 20 mg IV BID * Monitor kidney function with daily BMP Qualifiers: Heart failure type: unspecified Qualified Code(s): I50.9 - Heart failure, unspecified (2) Atrial fibrillation with controlled ventricular response: Impression: She continues to be in afib. Pharmacy has reviewed her home medications so we will restart her on those today. * Restart metoprolol 25 mg PO daily * Restarting digoxin 125 mcg PO daily * Start Eliquis 5 mg BID (3) Anemia: Impression: Her hemoglobin dropped from 7.8 to 6.8 overnight. She had another hypoxic event with attempted transfusion of PRBC, assumed to be due to fluid overload. Will attempt transfusion again but at a slower rate. * Monitor hemoglobin with daily CBC * Gave one time dose of Ferrous Gluconate 125 mg IV * Initiate Ferrous Sulfate 325 mg PO BIDWM * Obtain post transfusion H&H * Occult blood test was negative 06/21/24 Qualifiers: Iron deficiency anemia type: unspecified iron deficiency Anemia type: i ag deficiency Qualified Code(s): D50.9 - Iron deficiency anemia, unspecified (4) Hypertension: Impression: Chronic problem. Fluid overload with transfusions is impacting this. Pharmacy has reviewed her medications so plan to restart those today as indicated. Will continue to monitor after she finishes her PRBC transfusion and adjust medications as indicated. * Continue amlodipine 5 mg PO daily * Continue telemetry * Restart HCTZ 25 mg PO daily Qualifiers: Hypertension type: unspecified Qualified Code(s): I10 - Essential (primary) hypertension (5) Diabetes: Impression: Glucose is still mildly elevated. Will continue check prior to meals. 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 Qualifiers: Dementia type: unspecified type Dementia severity: unspecified severity Dementia behavioral or psychological symptom: without behavioral, psychotic, or mood disturbance or anxiety Qualified Code(s): F03.90 - Unspecified dementia, unspecified severity, without behavioral disturbance, psychotic disturbance, mood disturbance, and anxiety
[2024-06-22 10:47] LABS: ESTIMATED AVERAGE GLUCOSE 128 mg/dL (70-100); HEMOGLOBIN A1c% 6.1 % (4.27-6.07)
[2024-06-22] MEDS: FERRIC GLUCONATE 62.5 MG/5 ML VIAL IVP ONE (12:05)
[2024-06-22] MEDS: METOPROLOL SUCCINATE 25 MG TABLET PO SCH (12:08)
[2024-06-22] MEDS: hydroCHLOROthiazide 25 MG TABLET PO SCH (12:08)
[2024-06-22] MEDS: DIGOXIN 125 MCG TABLET PO SCH (12:08)
[2024-06-22 12:30] LABS: HCT - HEMATOCRIT 25.6 % (37.0-47.0); HGB - HEMOGLOBIN 7.5 g/dL (12.0-16.0); MEAN CORPUSCULAR HEMOGLOBIN 24.7 pg (27.0-31.0); MEAN CORPUSCULAR HGB CONC 29.3 g/dL (32.0-36.0); MEAN CORPUSCULAR VOLUME 84.2 fL (81.0-99.0); MEAN PLATELET VOLUME 10.7 fL (7.9-10.8); RED BLOOD COUNT 3.04 10^6/uL (4.20-5.40); RED CELL DISTRIBUTION WIDTH 17.1 % (12.0-15.0); WHITE BLOOD COUNT 9.2 x10^3/uL (4.8-10.8)
--- NOTE | 2024-06-22 12:34 | PHARMACY PROGRESS NOTE ---
Best Possible Medication History Admit Date and Time: 06/21/24 1721 Home Medications Medication Instructions Recorded Confirmed Type insulin glargine 100 unit/mL 35 units SQ DAILY 09/19/13 06/22/24 History subcutaneous solution (Lantus U-100 Insulin) vitamin B complex (B-Complex 1 tab PO DAILY 04/19/15 06/22/24 History tablet) digoxin 125 mcg (0.125 mg) tablet 125 mcg PO DAILY 04/16/16 06/22/24 History dabigatran etexilate 150 mg 150 mg PO BID 01/12/18 06/22/24 History capsule (Pradaxa) disulfiram 250 mg tablet (Antabuse) 250 mg PO DAILY 01/12/18 06/22/24 History pioglitazone 45 mg tablet (Actos) 45 mg PO DAILY 11/07/23 06/22/24 History metformin 1,000 mg tablet 1,000 mg PO BID 03/16/24 06/22/24 History omeprazole 20 mg capsule,delayed 20 mg PO DAILY 03/16/24 06/22/24 History release sitagliptin phosphate 50 mg tablet 50 mg PO DAILY 03/16/24 06/22/24 History (Januvia) hydrochlorothiazide 25 mg tablet 25 mg PO DAILY #30 tabs 05/23/24 06/22/24 Rx amlodipine 5 mg tablet 5 mg PO DAILY 06/22/24 06/22/24 History atorvastatin 80 mg tablet 80 mg PO DAILY 06/22/24 06/22/24 History metoprolol succinate 25 mg 25 mg PO DAILY 06/22/24 06/22/24 History tablet,extended release 24 hr Processed by: Pharmacy Medications reviewed in ED?: No Medication History completed: Yes Patient Interview: Completed Secondary Source(s): Spouse/Significant other [facility] Statement: As the person ultimately responsible for medication therapy, providers are able to order a medication from an existing home medication list in [facility] via the "Reconcile Routine" prior to Confirmation of that medication by customer support advisor. Such practice is discouraged except when the physician, in their clinical judgment, deems that a medical need exists for a medication without regard to previous use.
--- NOTE | 2024-06-22 12:35 | PHARMACY PROGRESS NOTE ---
Best Possible Medication History Admit Date and Time: 06/21/24 1721 Home Medications Medication Instructions Recorded Confirmed Type insulin glargine 100 unit/mL 35 units SQ DAILY 09/19/13 06/22/24 History subcutaneous solution (Lantus U-100 Insulin) vitamin B complex (B-Complex 1 tab PO DAILY 04/19/15 06/22/24 History tablet) digoxin 125 mcg (0.125 mg) tablet 125 mcg PO DAILY 04/16/16 06/22/24 History dabigatran etexilate 150 mg 150 mg PO BID 01/12/18 06/22/24 History capsule (Pradaxa) disulfiram 250 mg tablet (Antabuse) 250 mg PO DAILY 01/12/18 06/22/24 History pioglitazone 45 mg tablet (Actos) 45 mg PO DAILY 11/07/23 06/22/24 History metformin 1,000 mg tablet 1,000 mg PO BID 03/16/24 06/22/24 History omeprazole 20 mg capsule,delayed 20 mg PO DAILY 03/16/24 06/22/24 History release sitagliptin phosphate 50 mg tablet 50 mg PO DAILY 03/16/24 06/22/24 History (Januvia) hydrochlorothiazide 25 mg tablet 25 mg PO DAILY #30 tabs 05/23/24 06/22/24 Rx amlodipine 5 mg tablet 5 mg PO DAILY 06/22/24 06/22/24 History atorvastatin 80 mg tablet 80 mg PO DAILY 06/22/24 06/22/24 History metoprolol succinate 25 mg 25 mg PO DAILY 06/22/24 06/22/24 History tablet,extended release 24 hr Processed by: Pharmacy Medications reviewed in ED?: No Medication History completed: Yes Patient Interview: Completed Secondary Source(s): Spouse/Significant other, Pharmacy records and Insurance records [facility] Statement: As the person ultimately responsible for medication therapy, providers are able to order a medication from an existing home medication list in [facility] via the "Reconcile Routine" prior to Confirmation of that medication by litigation support analyst. Such practice is discouraged except when the physician, in their clinical judgment, deems that a medical need exists for a medication without regard to previous use.
[2024-06-22] MEDS: INSULIN LISPRO 300 UNIT/3 ML PEN SUBQ SCH (17:15)
[2024-06-22] MEDS: predniSONE 20 MG TABLET PO SCH (21:11)
[2024-06-23] MEDS: hydrALAZINE INJ 20 MG/ML VIAL IVP PRN (04:24)
[2024-06-23 04:55] LABS: BASOPHILS % (AUTO) 0.1 %; EOSINOPHILS % (AUTO) 0.1 %; HCT - HEMATOCRIT 27.9 % (37.0-47.0); HGB - HEMOGLOBIN 8.4 g/dL (12.0-16.0); LYMPHOCYTES # (AUTO) 0.6 10^3/uL (1.5-3.5); LYMPHOCYTES % (AUTO) 6.6 %; MEAN CORPUSCULAR HEMOGLOBIN 24.9 pg (27.0-31.0); MEAN CORPUSCULAR HGB CONC 30.1 g/dL (32.0-36.0); MEAN CORPUSCULAR VOLUME 82.8 fL (81.0-99.0); MEAN PLATELET VOLUME 10.8 fL (7.9-10.8); MONOCYTES # (AUTO) 0.1 10^3/uL (0.0-1.0); MONOCYTES % (AUTO) 1.4 %; NEUTROPHILS # (AUTO) 7.9 10^3/uL (1.5-6.6); NEUTROPHILS % (AUTO) 90.5 %; NRBC ABSOLUTE COUNT (AUTO) 0.03 x10^3/uL; NUCLEATED RED BLOOD CELLS AUTO 0.3 /100WBC; PLT - PLATELET COUNT 207 10^3/uL (130-450); RED BLOOD COUNT 3.37 10^6/uL (4.20-5.40); RED CELL DISTRIBUTION WIDTH 17.1 % (12.0-15.0); WHITE BLOOD COUNT 8.7 x10^3/uL (4.8-10.8)
[2024-06-23 05:08] LABS: CALCIUM 8.8 mg/dL (8.5-10.3); CREATININE 1.3 mg/dL (0.6-1.3); POTASSIUM 4.2 mmol/L (3.5-4.5)
[2024-06-23] MEDS: PANTOPRAZOLE 40 MG TABLET PO SCH (06:57)
[2024-06-23] MEDS: INSULIN GLARGINE-YFGN 300 UNIT/3 ML PEN SUBQ SCH (08:10)
--- NOTE | 2024-06-23 13:32 | PT Plan of Care ---
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 (Updated 06/22/24 @ 12:07 by Anuradha Morton) Bimalleolar fracture of left ankle Atrial fibrillation with controlled ventricular response Alcohol withdrawal Contusion of right knee Sprain of ankle CVA - cerebrovascular accident due to cerebral artery occlusion Cranial nerve III palsy HOSPITAL ISSUES: Chronic abdominal wound infection Open abdominal wall wound Sprain of left foot Ankle sprain Proximal phalanx fracture of finger Diarrhea Muscle weakness Dehydration Hypomagnesemia Dizziness Head injury Closed fracture of right distal fibula Cellulitis Post-operative infection Left shoulder pain Occluded PICC line Femoral neck fracture Fall from slip, trip, or stumble Fracture of femoral neck, left Burn of abdomen wall Burn of thigh Accidental fall Scalp contusion Right knee sprain Laceration of ankle Toe fracture, left Left ankle injury Sacral contusion COVID-19 Hypomagnesemia Anemia Elevated blood pressure reading Acute kidney failure Postural dizziness with near syncope Surgical History (Updated 02/23/24 @ 09:24 by Stacia John RN) History of hernia repair Balance/ Functional Results Sitting Balance Good Standing Balance Fair Assessment Assessment Pt is a 78yo F referred for PT eval d/t weakness and limited mobility. Hospital admit d/t CHF exacerbation and hypoxia . H/o diabetes, PVD, HTN, dementia, and acute kidney failure. Pt is A &Ox3 during evaluation but is easily confused and forgetful. She reports on social history but unable to confirm. Pt reports living with her spouse Collin in a single level home, uses a FWW, no stairs and a walk-in shower. She states that her helps her with ADLs. Upon PT eval, pt supine in bed, transfers to EOB with CGA to minAx1. Sats 93% on RA, STS w/ FWW and minAx1. Short distance ambulation x10' with FWW and CGA to minAx1. Pt may benefit from skilled PT in acute setting to increased ambulation distance and improve activity tolerance. When medically clear, PT rec dc home with 24/7 care and physical assist from family/CG for all mobility. If family is unable to provide this level of support, pt will require SNF/memory care placement. Patient/ Family Goals Patient/Family Goals To return home Goals Improve bed mobility to: Modified Independent Improve supine to sit to: Contact Guard Improve sit to stand to: Contact Guard Improve sit to supine to: Contact Guard Improve gait ability to: CGA Assistive Device Used: Front Wheeled Walker Reduce verbal cues to: 2 Reduce physical cues to: 2 Improve Lower Extremity ROM to WFL : [Left] Improve Lower Extremity ROM to WFL : Improve Lower Extremity Normal Strength to: [Left] Improve Lower Extremity Normal Strength to: Improve Upper Extremity ROM to WFL : [Bilateral] Improve Upper Extremity ROM to WFL : Improve Upper Extremity Normal Strength to: [Bilateral] Improve Upper Extremity Normal Strength to: Improve Sitting Balance to: Good Improve Standing Balance to: Good PT Plan of Care Frequency 1-2x/day Duration Until goals are met Discharge Recommendations Discharge Location home vs memory care DC Equipment Recommended Front wheeled walker Other has FWW Transport Needs at Discharge Personal vehicle
--- NOTE | 2024-06-23 14:03 | OT Plan of Care ---
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 Referring Provider: Billy Rowell MEDICAL/SURGICAL HISTORY Medical History (Updated 06/22/24 @ 12:07 by Anuradha Morton) Bimalleolar fracture of left ankle Atrial fibrillation with controlled ventricular response Alcohol withdrawal Contusion of right knee Sprain of ankle CVA - cerebrovascular accident due to cerebral artery occlusion Cranial nerve III palsy HOSPITAL ISSUES: Chronic abdominal wound infection Open abdominal wall wound Sprain of left foot Ankle sprain Proximal phalanx fracture of finger Diarrhea Muscle weakness Dehydration Hypomagnesemia Dizziness Head injury Closed fracture of right distal fibula Cellulitis Post-operative infection Left shoulder pain Occluded PICC line Femoral neck fracture Fall from slip, trip, or stumble Fracture of femoral neck, left Burn of abdomen wall Burn of thigh Accidental fall Scalp contusion Right knee sprain Laceration of ankle Toe fracture, left Left ankle injury Sacral contusion COVID-19 Hypomagnesemia Anemia Elevated blood pressure reading Acute kidney failure Postural dizziness with near syncope Surgical History History of hernia repair Assessment and Goals ASSESSMENT Assessment: Silvia is a 78 year old female with a history of CHF, afib, anemia, hypertension, dementia, and type 2 diabetes with insulin. She was admitted from the ER 06/21/24 for acute exacerbation of her CHF presenting with two hypoxic events, post 1 unit PRBC transfusion. Stable and cleared for OT eval. Baseline dementia. Met supine in bed, A&Ox3 to self place and time with choices Pleasantly confused but directable. VSS on RA Denied dizziness. Performed bed mobility, sit to stand and ambulation 8ft to/from bathroom using RW MIN A Cues for safety. Currently MIN-MOD A ADLs. Overall presents with decreased endurance, activity tolerance and ADL status. Will benefit from cont OT services during acute stay. Rec d/c Home with 02/11 hands on assist; if family can not provide, pt will require SNF/memory care placement. PATIENT/FAMILY GOALS Patient/Family Goals: Return to PLOF. -Activities of Daily Living Improve Upper Extremity Dressing to:: Modified Independent Improve Lower Extremity Dressing to:: Modified Independent Improve Grooming/Hygiene to:: Modified Independent Improve Bathing to:: Modified Independent Improve Toileting to:: Modified Independent OT Inpatient Plan PLAN Treatment Frequency: 1x/day Duration: Until discharge -Discharge Recommendations Discharge Location: Previous Living Situation Support/Services Needed: With assist Transport Needs at Discharge: Personal vehicle Comment: 02/11 hands on assist and supervision
[2024-06-23] MEDS ORDERED: amLODIPine 5 MG TABLET PO SCH (14:05)
--- NOTE | 2024-06-23 14:12 | PROVIDER PROGRESS NOTE ---
Subjective Prog Note Date Prog Note Date: 06/23/24 Subjective Pt reports feeling: Improved Current Medications Current Medications Current Medications: Current Medications Generic Name Dose Route Start Last Admin Trade Name Freq PRN Reason Stop Dose Admin Acetaminophen 650 mg 06/21/24 18:35 Acetaminophen 325 Mg Tablet PO Q4HR PRN Pain 1 to 4, or Fever Amlodipine Besylate 5 mg 06/22/24 09:00 06/23/24 08:05 Amlodipine 5 Mg Tablet PO 5 mg DAILY NORA Administration Apixaban 5 mg 06/21/24 21:00 06/23/24 08:06 Apixaban 5 Mg Tablet PO 5 mg BID NORA Administration Atorvastatin Calcium 80 mg 06/23/24 21:00 Atorvastatin 40 Mg Tablet PO QPM NORA Digoxin 125 mcg 06/22/24 12:00 06/23/24 08:05 Digoxin 125 Mcg Tablet PO 125 mcg DAILY NORA Administration Ferrous Sulfate 325 mg 06/22/24 08:00 06/23/24 08:05 Ferrous Sulfate 325 Mg Tablet PO 325 mg BIDWM NORA Administration Furosemide 20 mg 06/21/24 18:35 06/23/24 05:29 Furosemide 20 Mg/2 Ml Vial IVP 20 mg BIDDIURETIC NORA Administration Hydralazine HCl 10 mg 06/23/24 03:56 06/23/24 11:55 Hydralazine Inj 20 Mg/Ml Vial IVP 10 mg Q6H PRN Administration SBP> or= 160 OR DBP> or= 110 Hydrochlorothiazide 25 mg 06/22/24 12:00 06/23/24 08:05 Hydrochlorothiazide 25 Mg Tablet PO 25 mg DAILY NORA Administration Insulin Glargine-yfgn 35 unit 06/23/24 09:00 06/23/24 08:10 Insulin Glargine-Yfgn 300 Unit/3 Ml Pen SUBQ 35 unit DAILY NORA Administration Insulin Human Lispro 1 - 9 unit 06/22/24 17:00 06/23/24 11:55 Insulin Lispro 300 Unit/3 Ml Pen SUBQ 7 unit 0800,1200,1700,2100 NORA Administration Protocol Metoprolol Succinate 25 mg 06/22/24 12:00 06/23/24 08:06 Metoprolol Succinate 25 Mg Tablet PO 25 mg DAILY NORA Administration Ondansetron HCl 4 mg 06/21/24 18:35 Ondansetron Odt 4 Mg Tablet TL Q6HR PRN Nausea / Vomiting Ondansetron HCl 4 mg 06/21/24 18:35 Ondansetron 4 Mg/2 Ml Vial IVP Q6HR PRN Nausea / Vomiting Pantoprazole Sodium 40 mg 06/23/24 07:00 06/23/24 06:57 Pantoprazole 40 Mg Tablet PO 40 mg QDAC NORA Administration Vitamin B Complex [B 1 each 06/23/24 09:00 06/23/24 08:10 -Complex] PO Not Given DAILY NORA Prednisone 40 mg 06/22/24 20:00 06/23/24 08:05 Prednisone 20 Mg Tablet PO 06/26/24 19:59 40 mg DAILYWM NORA Administration Sodium Chloride 10 ml 06/21/24 18:35 Sodium Chloride Flush 0.9% 10 Ml Syringe IVP PRN PRN NEEDED PER PROVIDER ORDERS Sodium Chloride 10 ml 06/22/24 01:00 06/23/24 08:12 Sodium Chloride Flush 0.9% 10 Ml Syringe IVP 10 ml 0100,0900,1700 NORA Administration Zinc Oxide 113 gm 06/21/24 20:42 Cod Liver Oil/Zinc Oxide 113 Gm Tube TOP PRN PRN Skin Care Objective Vital Signs/Intake & Output Reviewed Vital Signs: Yes Vital Signs: Vital Signs x48h Temp Pulse Resp BP BP Pulse Ox O2 Flow Rate 06/23/24 12:06 36.8 C 85 20 170/75 H 95 2 06/23/24 11:55 170/75 H 06/23/24 08:06 37.2 C 93 20 170/81 H 98 2 Intake & Output: Intake & Output 06/20/24 06/21/24 06/22/24 06/23/24 23:59 23:59 23:59 23:59 Intake Total 975 / 975 1150 / 1150 120 / 120 Output Total 300 / 300 2350 / 2350 1000 / 1000 Balance 675 / 675 -1200 / -1200 -880 / -880 Weight (kg) 98 kg Objective General Appearance: positive Other (Alert and interactive. Mild respiratory distress with exertion. ) Eyes Bilateral: positive Normal inspection, PERRL and EOMI ENT: positive ENT inspection nml and No signs of dehydration Respiratory: positive Chest non-tender and Other (Labored breathing worsened with any type of movement. Decreased tidal volume. Short inspiratory expiratory phase. ) Cardiovascular: positive No murmur, No gallop, Irregularly irregular and Tachycardia Peripheral Pulses: 1+: Dorsalis pedis (R) and 1+: Dorsalis pedis (L) Abdomen: positive Non-tender, No organomegaly, Nml bowel sounds and No distention Back: positive Nml inspection Skin: positive Color nml, Warm, Dry and Other (Decreased hair growth on LE. ) Extremities: positive Non-tender and Other (No calf tenderness, mass, or erythema. Negative Gianna's sign. Mild edema L>R. Bilateral plantar neuropathy, unchanged. ) Neurologic/Psychiatric: positive Oriented x3, CN's nml (2-12), Motor nml and Mood/affect nml Lab Results 06/23/24 04:28 06/23/24 04:28 Other Labs: Lab Results x24hrs 06/23/24 06/23/24 06/23/24 Range/Units 11:41 07:43 04:28 WBC 8.7 (4.8-10.8) x10^3/uL RBC 3.37 L (4.20-5.40) 10^6/uL Hgb 8.4 L (12.0-16.0) g/dL Hct 27.9 L (37.0-47.0) % MCV 82.8 (81.0-99.0) fL MCH 24.9 L (27.0-31.0) pg MCHC 30.1 L (32.0-36.0) g/dL RDW 17.1 H (12.0-15.0) % Plt Count 207 (130-450) 10^3/uL MPV 10.8 (7.9-10.8) fL Neut # (Auto) 7.9 H (1.5-6.6) 10^3/uL Lymph # (Auto) 0.6 L (1.5-3.5) 10^3/uL [place] # (Auto) 0.1 (0.0-1.0) 10^3/uL Eos # (Auto) 0.0 (0.0-0.7) 10^3/uL Baso # (Auto) 0.0 (0.0-0.1) 10^3/uL Absolute Nucleated RBC 0.03 x10^3/uL Nucleated RBC % 0.3 /100WBC Sodium 135 (135-145) mmol/L Potassium 4.2 (3.5-4.5) mmol/L Chloride 101 (101-111) mmol/L Carbon Dioxide 24 (21-32) mmol/L Anion Gap 10.0 (6-13) BUN 24 H (6-20) mg/dL Creatinine 1.3 (0.6-1.3) mg/dL Estimated GFR (MDRD) 40 L (>89) Glucose 319 H (74-104) mg/dL POC Whole Bld Glucose 286 324 (70-100) mg/dL Calcium 8.8 (8.5-10.3) mg/dL Crossmatch IS Only 06/22/24 06/22/24 06/21/24 Range/Units 20:41 16:45 11:25 WBC (4.8-10.8) x10^3/uL RBC (4.20-5.40) 10^6/uL Hgb (12.0-16.0) g/dL Hct (37.0-47.0) % MCV (81.0-99.0) fL MCH (27.0-31.0) pg MCHC (32.0-36.0) g/dL RDW (12.0-15.0) % Plt Count (130-450) 10^3/uL MPV (7.9-10.8) fL Neut # (Auto) (1.5-6.6) 10^3/uL Lymph # (Auto) (1.5-3.5) 10^3/uL [place] # (Auto) (0.0-1.0) 10^3/uL Eos # (Auto) (0.0-0.7) 10^3/uL Baso # (Auto) (0.0-0.1) 10^3/uL Absolute Nucleated RBC x10^3/uL Nucleated RBC % /100WBC Sodium (135-145) mmol/L Potassium (3.5-4.5) mmol/L Chloride (101-111) mmol/L Carbon Dioxide (21-32) mmol/L Anion Gap (6-13) BUN (6-20) mg/dL Creatinine (0.6-1.3) mg/dL Estimated GFR (MDRD) (>89) Glucose (74-104) mg/dL POC Whole Bld Glucose 228 197 (70-100) mg/dL Calcium (8.5-10.3) mg/dL Crossmatch IS Only See Detail Sepsis Event Note (H) Evaluation Current Stage of Sepsis: Ruled out Assessment/Plan Problem List (1) Acute exacerbation of CHF (congestive heart failure): Impression: She is still experiencing SOB especially with exertion. Supplemental O2 has been between 2-3L with her stating at 90-94%. She had another hypoxic event when a PRBC transfusion was attempted again, but we assume this is due to fluid overload. We will attempt to transfuse her at a slower rate to avoid overloading her again and adjust Lasix if indicated. * Transfuse 1 unit PRBC - watching for fluid overload * Continue Lasix 20 mg IV BID * Monitor kidney function with daily BMP 06/23/2024: Still requiring 2 L supplemental O2. Her work of breathing is better and she has had -820 fluid balance over the past day. I am continuing her furosemide 20 mg IV push twice daily while monitoring renal function with daily BMP. She was reporting some difficulty breathing and spite of good urine output last night. She has a smoking history, so I started her on prednisone 40 mg p.o. daily last night Qualifiers: Heart failure type: unspecified Qualified Code(s): I50.9 - Heart failure, unspecified (2) ST elevation: Impression: There are new ST segment changes on telemetry. I have ordered a twelve-lead EKG as well as a troponin level. Patient is sleeping comfortably, VSS (3) Atrial fibrillation with controlled ventricular response: Impression: Continuing home regimen of metoprolol 25 mg p.o. daily, digoxin 125 mcg p.o. daily, Eliquis 5 mg twice daily. Heart rate is well-controlled, pulse 85 (4) Anemia: Impression: Occult blood test was - 06/21/2024 Received one-time dose of ferrous gluconate 125 mg IV I am continuing her ferrous sulfate 325 mg p.o. twice daily Her hemoglobin is trending upward, today it is 8.4 Qualifiers: Anemia type: iron deficiency Iron deficiency anemia type: unspecified iron deficiency Qualified Code(s): D50.9 - Iron deficiency anemia, unspecified (5) Hypertension: Impression: BP 170/75. Already on home dose metoprolol, HCTZ. Adding her home dose amlodipine 5 mg p.o. daily Qualifiers: Hypertension type: unspecified Qualified Code(s): I10 - Essential (primary) hypertension (6) Diabetes: Impression: Her glucose is very elevated this morning. 319 on morning labs, 324 at breakfast check. She was started on steroid last night and missed a dose of Lantus the night of 06/22/2024. Her SSI has been escalated to a moderate scale. I will consider increasing her Lantus tomorrow versus discontinuing steroid Qualifiers: Diabetes mellitus type: type 2 Diabetes mellitus complication status: w ith hyperglycemia Diabetes mellitus mcfp insulin use: with intermodal dispatcher use Qualified Code(s): E11.65 - Type 2 diabetes mellitus with hyperglycemia; Z79.4 - intermodal dispatcher (current) use of insulin (7) Dementia: Impression: Chronic, stable. Qualifiers: Dementia type: unspecified type Dementia severity: unspecified severity Dementia behavioral or psychological symptom: without behavioral, psychotic, or mood disturbance or anxiety Qualified Code(s): F03.90 - Unspecified dementia, unspecified severity, without behavioral disturbance, psychotic disturbance, mood disturbance, and anxiety
[2024-06-23] MEDS: INSULIN LISPRO 300 UNIT/3 ML PEN SUBQ SCH ×2 (18:01→20:59)
[2024-06-23] MEDS: NYSTATIN POWDER 15 GM TOP SCH (20:58)
[2024-06-23] MEDS: amLODIPine 5 MG TABLET PO SCH (20:58)
[2024-06-23] MEDS: ATORVASTATIN 40 MG TABLET PO SCH (20:58)
[2024-06-24 04:34] LABS: BASOPHILS % (AUTO) 0.2 %; EOSINOPHILS % (AUTO) 0.2 %; HGB - HEMOGLOBIN 8.3 g/dL (12.0-16.0); LYMPHOCYTES # (AUTO) 1.8 10^3/uL (1.5-3.5); MEAN CORPUSCULAR HEMOGLOBIN 25.5 pg (27.0-31.0); MEAN CORPUSCULAR HGB CONC 30.7 g/dL (32.0-36.0); MEAN CORPUSCULAR VOLUME 83.1 fL (81.0-99.0); MEAN PLATELET VOLUME 10.4 fL (7.9-10.8); MONOCYTES # (AUTO) 1.1 10^3/uL (0.0-1.0); MONOCYTES % (AUTO) 10.3 %; NEUTROPHILS # (AUTO) 7.5 10^3/uL (1.5-6.6); NEUTROPHILS % (AUTO) 71.6 %; NRBC ABSOLUTE COUNT (AUTO) 0.06 x10^3/uL; NUCLEATED RED BLOOD CELLS AUTO 0.6 /100WBC; PLT - PLATELET COUNT 196 10^3/uL (130-450); RED BLOOD COUNT 3.25 10^6/uL (4.20-5.40); RED CELL DISTRIBUTION WIDTH 17.5 % (12.0-15.0); WHITE BLOOD COUNT 10.5 x10^3/uL (4.8-10.8)
[2024-06-24 04:51] LABS: CREATININE 1.3 mg/dL (0.6-1.3); POTASSIUM 3.6 mmol/L (3.5-4.5)
[2024-06-24 08:17] VITALS: O2SAT 94
--- NOTE | 2024-06-24 11:29 | Discharge Summary ---
Discharge Summary Admit Date: 06/21/24 Discharge Date: 06/24/24 Discharging Provider: Billy Rowell NP Primary Care Provider: More Franco Code Status: Do Not Attempt Resuscitation DIAGNOSES Admission Diagnoses: Acute exacerbation of CHF Anemia Dementia associated with alcoholism Hypertension Diabetes Atrial fibrillation with controlled ventricular response Discharge Diagnoses with Status of Each Condition: Acute exacerbation of CHFresolved Anemiachronic, iron deficient Dementia associated with alcoholismchronic Hypertensionchronic Diabeteschronic Atrial fibrillation with controlled ventricular responsechronic HPI History of Present Illness: Silvia is a 78 year old female with a history of anemia, CHF, dyspnea, diabetes, Afib. She was told by external provider to go to the ER this afternoon after having a low hemoglobin level reported by her labs obtained at [facility] on Wednesday. She arrived at the ER presenting with generalized fatigue and weakness x 1 month. Her hemoglobin was reported as 6.5 so she was transfused with 1 unit of packed red blood cells. There were no signs of bleeding on ER workup -- negative guaiac, INR 2. After transfusion and ambulating to the bathroom, the patient became extremely hypoxic w/ a O2 sat of around 80%. She was placed on 15L nonrebreather after not understanding how to breath through her nose with the cannula. CXR was obtained and showed signs of pulmonary edema. After she stabilized on nasal cannula, we tried removing supplemental oxygen and her O2 saturation remained stable in the 90s. An oxygenation desaturation study was then performed and she became extremely hypoxic again. Since she is independent and ambulates with a wheelchair outside of the hospital and has signs of congestive heart failure exacerbation, she will be admitted for observation and diuretics. HOSPITAL COURSE Hospital Course: Patient was brought into the hospital and started on IV diuresis with Lasix IV push. She continued to have anemia, requiring a second unit of blood transfusion. She was also given IV iron and started on oral iron supplementation. Today, she is on room air, feeling much better. She is being discharged home with iron supplementation to follow-up with your primary care provider ALLERGIES Allergies Allergy/AdvReac Type Severity Reaction Status Date / Time gabapentin AdvReac Hallucinati Verified 06/21/24 10:56 ons MEDICATIONS Ambulatory Orders Medication Instructions Recorded Confirmed insulin glargine 100 unit/mL 35 units SQ DAILY 09/19/13 06/22/24 subcutaneous solution (Lantus U-100 Insulin) vitamin B complex (B-Complex 1 tab PO DAILY 04/19/15 06/22/24 tablet) digoxin 125 mcg (0.125 mg) tablet 125 mcg PO DAILY 04/16/16 06/22/24 dabigatran etexilate 150 mg 150 mg PO BID 01/12/18 06/22/24 capsule (Pradaxa) disulfiram 250 mg tablet (Antabuse) 250 mg PO DAILY 01/12/18 06/22/24 pioglitazone 45 mg tablet (Actos) 45 mg PO DAILY 11/07/23 06/22/24 metformin 1,000 mg tablet 1,000 mg PO BID 03/16/24 06/22/24 omeprazole 20 mg capsule,delayed 20 mg PO DAILY 03/16/24 06/22/24 release sitagliptin phosphate 50 mg tablet 50 mg PO DAILY 03/16/24 06/22/24 (Januvia) hydrochlorothiazide 25 mg tablet 25 mg PO DAILY #30 tabs 05/23/24 06/22/24 amlodipine 5 mg tablet 5 mg PO DAILY 06/22/24 06/22/24 atorvastatin 80 mg tablet 80 mg PO DAILY 06/22/24 06/22/24 metoprolol succinate 25 mg 25 mg PO DAILY 06/22/24 06/22/24 tablet,extended release 24 hr ferrous sulfate 325 mg (65 mg 325 mg PO BIDWM 30 days #60 tabs 06/24/24 iron) tablet furosemide 20 mg tablet 20 mg PO DAILY 5 days #5 tabs 06/24/24 PHYSICAL EXAM AT DISCHARGE General Appearance: positive No acute distress and Alert Eyes Bilateral: positive Normal inspection and PERRL ENT: positive ENT inspection nml Neck: positive Nml inspection Respiratory: positive Chest non-tender Cardiovascular: positive Regular rate & rhythm; negative No murmur Peripheral Pulses: positive 2+ Abdomen: positive Non-tender Skin: positive Color nml Extremities: positive Non-tender Neurologic/Psychiatric: positive Oriented x3 and Other (Forgetful, history of dementia) LABS 06/24/24 04:08 06/24/24 04:08 SEPSIS Current Stage of Sepsis: Ruled out FOLLOW UP Follow Up: With PCP TIME SPENT Time Spent in Discharge (Minutes): 25 Discharge Plan Discharge Patient Disposition: Home, Self Care Condition: Stable Medically Cleared Date:: 06/24/24 Prescriptions: New ferrous sulfate 325 mg (65 mg iron) Tablet 325 mg PO BIDWM 30 Days Qty: 60 0RF furosemide 20 mg tablet 20 mg PO DAILY 5 Days Qty: 5 2RF Continued insulin glargine [Lantus U-100 Insulin] 100 UNIT/1 ML solution 35 units SQ DAILY vitamin B complex [B-Complex] 1 EACH tablet 1 tab PO DAILY digoxin 125 MCG tablet 125 mcg PO DAILY dabigatran etexilate [Pradaxa] 150 MG capsule 150 mg PO BID disulfiram [Antabuse] 250 MG tablet 250 mg PO DAILY pioglitazone [Actos] 45 MG tablet 45 mg PO DAILY metformin 1,000 mg tablet 1,000 mg PO BID Januvia 50 mg tablet 50 mg PO DAILY omeprazole 20 mg capsule,delayed release(DR/EC) 20 mg PO DAILY hydrochlorothiazide 25 mg tablet 25 mg PO DAILY Qty: 30 0RF amlodipine 5 mg tablet 5 mg PO DAILY Rx Instructions: 1 po once daily atorvastatin 80 mg tablet 80 mg PO DAILY Rx Instructions: 1 po once daily metoprolol succinate 25 mg tablet extended release 24 hr 25 mg PO DAILY Patient Comments: take 1 tablet by mouth once daily Activity Restrictions: Activity as Tolerated Diet: Diabetic Health Concerns: You came into the hospital because you were found to have low blood levels. They gave you a unit of blood in the emergency department and you went into a exacerbation of heart failure. You were admitted into the hospital because you required oxygen and you were placed on aggressive IV diuresis. Today, you are on room air. Your blood levels have remained stable. I have started you on iron supplementation, which have would like for you to continue in the outpatient setting. I am also writing you for another 5 days of Lasix. I would like for you to follow-up with your primary care provider regarding ongoing management of your heart failure and iron deficiency anemia. Please remain as active as possible, and maintain a good diet. No other changes to your home medication regimen Print Language: Beninese Patient Instructions: Anemia Iron Deficiency Ch Stand Alone Forms: PCP List
[2024-06-24 15:43] VITALS: BP 162/69; TEMP 98.1
== END 2024-06-24 15:12 | disposition home or self-care (01) | DRG 291 ==
LOC: MS3 10:33 → ED 10:33 → MS3 18:23
PROVIDERS: ADMIT Nurse Practitioner Acute Care; ATTEND Nurse Practitioner Acute Care
DX: R94.31 Abnormal electrocardiogram [ECG] [EKG]; I48.91 Unspecified atrial fibrillation; D50.9 Iron deficiency anemia, unspecified; F10.27 Alcohol dependence with alcohol-induced persisting dementia; I50.33 Acute on chronic diastolic (congestive) heart failure; R09.02 Hypoxemia; E11.9 Type 2 diabetes mellitus without complications; R53.1 Weakness; E11.65 Type 2 diabetes mellitus with hyperglycemia; D64.9 Anemia, unspecified; F03.90 Unspecified dementia, unspecified severity, without behavioral disturbance, psychotic disturbance, mood disturbance, and anxiety; Z66 Do not resuscitate; Z79.84 Long term (current) use of oral hypoglycemic drugs; Z79.4 Long term (current) use of insulin; Z99.3 Dependence on wheelchair; Z87.891 Personal history of nicotine dependence; I11.0 Hypertensive heart disease with heart failure